=== PATIENT | female | born 2005 | race Caucasian/White ===

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

== ENCOUNTER 2025-06-28 11:30 | Outpatient (CLI) | payer BC, SELFPAY ==
[2025-06-28] VITALS (10 sets, daily range): PULSE 66–111; O2SAT 97–99; BMI 25.2
[2025-06-28 14:15] LABS: Color, Urine Yellow (Yellow); Glucose, Dipstick Normal (Normal); Ketone-Dipstick Negative (Negative); Leukocyte Esterase-Dipstick Negative /ul (Negative); Nitrite-Dipstick Negative (Negative); Occult Blood-Urine 50 /ul (Negative); Protein-Dipstick 15 mg/dl (Negative); Specific Gravity, Urine 1.010 (1.002-1.030); Urine Bilirubin Dipstick Negative (Negative)
== END 2025-06-28 16:40 | disposition home or self-care (01) ==
LOC: WPOUT 12:00 → WP 12:01
PROVIDERS: PCP Pediatrics; Referring Provider Obstetrics & Gynecology; Visit Provider Obstetrics & Gynecology
DX: O47.03 False labor before 37 completed weeks of gestation, third trimester (principal); Z3A.35 35 weeks gestation of pregnancy; Z79.82 Long term (current) use of aspirin
CPT/HCPCS: 59025; 59050; 81002; 87086; 87088; 87653; 99221; G0378

== ENCOUNTER 2025-07-20 19:41 | Outpatient (CLI) | payer BC, SELFPAY ==
[2025-07-20] VITALS (19 sets, daily range): BP systolic 128–133; BP diastolic 74–86; PULSE 74–108; RESP 18; TEMP 37.1; O2SAT 96–99; BMI 27.8
[2025-07-20 20:39] LABS: Color, Urine Yellow (Yellow); Glucose, Dipstick Normal (Normal); Ketone-Dipstick Negative (Negative); Leukocyte Esterase-Dipstick 25 /ul (Negative); Nitrite-Dipstick Negative (Negative); Occult Blood-Urine Negative /ul (Negative); Protein-Dipstick 15 mg/dl (Negative); Specific Gravity, Urine 1.015 (1.002-1.030); Urine Bilirubin Dipstick Negative (Negative)
[2025-07-20 21:03] LABS: ROM Internal Control Test YES-OK TO RESULT pt. (Internal QC); ROM Patient Test Negative (Negative); Record Kit Lot#, ROM+ K3607
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
== END 2025-07-20 21:30 | disposition home or self-care (01) ==
LOC: WPOUT 19:50 → WP 19:51
PROVIDERS: PCP Pediatrics; Visit Provider Obstetrics & Gynecology
DX: O47.1 False labor at or after 37 completed weeks of gestation (principal); Z3A.38 38 weeks gestation of pregnancy
CPT/HCPCS: 59025; 59050; 81002; 84112; 99221; G0378

== ENCOUNTER 2025-07-21 11:15 | Outpatient (CLI) | payer BC, SELFPAY ==
[2025-07-21 11:30] VITALS: BMI 27.3
[2025-07-21 14:07] VITALS: PULSE 126; O2SAT 96
[2025-07-21 14:12] VITALS: PULSE 121; O2SAT 96
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
== END 2025-07-21 12:10 | disposition home or self-care (01) ==
LOC: WPOUT 11:20 → WP 11:20
PROVIDERS: PCP Pediatrics; Visit Provider Obstetrics & Gynecology
DX: O47.1 False labor at or after 37 completed weeks of gestation (principal); Z3A.38 38 weeks gestation of pregnancy; Z79.82 Long term (current) use of aspirin
CPT/HCPCS: 59025; 59050; 99221; G0378

== ENCOUNTER 2025-07-29 19:20 | Inpatient (IN) | payer BC, SELFPAY ==
[2025-07-29 19:25] VITALS: BMI 27.1
--- OUTSIDE RECORDS SUMMARY | 2025-07-29 19:35 | XMS RPT_ITS | CCD ---
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 Baseline: 125-130 Variability:: Moderate Accelerations:: 15 x 15 Decelerations:: None and Late (questionable one late on monitor ) NST Reactive:: Yes FHR Category:: Category I Uterine Activity:: irregular Assessment Plan (1) False labor after 37 completed weeks of gestation: PLAN: Plan @ 38.6 weeks 1) NST reactive- however there is a questionable late- i called patient personally and will have her come back to for repeat NST- if at that point there are any concerns we will proceed with IOL 2) BPs wnl 3) ROM was negative 07/21/25 0821 D> Date Alexandra Rose MD Cosigner Signature (if applicable): Date CC: Dr Alexandra Rose MD; Dr. Rajani Peterson MD Signed Normal [facility] (ROM) Rupture Of Membraneson 07-20-2025 ROM Negative Normal Negative [facility] Comment on above: Result Comment: Amni otic fluid not present indicates No Rupture of Membranes at time of specimen collection. Performed By: #### L 205.1000 #### [facility] [address] [place], [address] Urinalysis, Routine (Dipstic k)on 07-20-2025 BILIRUBIN URINE Negative Normal Negative [facility] Comment on above: Order Comment: EDGAR CALLAHAN TO SPECIFY Performed By: #### L 400.2010 #### [facility] [address] [place], [address] Clarity (U) Sl. Cloudy Normal Clear [facility] Comment on above: Order Comment: EDGAR ABREUOR TO SPECIFY Performed By: #### L 400.2010 #### [facility] [address] [place], [address] Color (U) Yellow Normal Yellow [facility] Comment on above: Order Comment: EDGAR ABREUOR TO SPECIFY Performed By: #### L 400.2010 #### [facility] [address] [place], [address] GLUCOSE, UR Normal Normal Normal [facility] Comment on above: Order Comment: COLLE CTOR TO SPECIFY Performed By: #### L 400.2010 #### [facility] [address] [place], [address] KETONE UR Negative Normal Negative [facility] Comment on above: Order Comment: COLLE CTOR TO SPECIFY Performed By: #### L 400.2010 #### [facility] [address] [place], [address] LEUK ESTERASE 25 /ul Abnormal Negative [facility] Comment on above: Order Comment: COLLE CTOR TO SPECIFY Performed By: #### L 400.2010 #### [facility] [address] [place], [address] Nitrite Ql (U) Negative Normal Negative [facility] Comment on above: Order Comment: COLLE CTOR TO SPECIFY Performed By: #### L 400.2010 #### [facility] [address] [place], [address] OCCULT BLOOD-UR Negative Normal Negative [facility] Comment on above: Order Comment: COLLE CTOR TO SPECIFY Performed By: #### L 400.2010 #### [facility] [address] [place], [address] pH UR 7.0 Normal 5.0 - 8.0 [facility] Comment on above: Order Comment: COLLE CTOR TO SPECIFY Performed By: #### L 400.2010 #### [facility] [address] [place], [address] PROT DIPSTX 15 mg/dl Abnormal Negative [facility] Comment on above: Order Comment: COLLE CTOR TO SPECIFY Performed By: #### L 400.2010 #### [facility] [address] [place], [address] SP.GR. DIPSTX 1.015 Normal 1.002-1.030 [facility] Comment on above: Order Comment: COLLE CTOR TO SPECIFY Performed By: #### L 400.2010 #### [facility] [address] [place], [address] UROBILI Normal Normal Normal [facility] Comment on above: Order Comment: EDGAR CALLAHAN TO SPECIFY Performed By: #### L 400.2010 #### [facility] [address] [place], [address] CNPNon 07-19-2025 CNPN Telephone (OBGYWM) DAO VALDES ([id number]) 5 F Date Time Provider Department 07/19/25 ALEXANDRA MCLAUGHLIN OBGYW During your visit today, we recorded the following information about you: Yue Preciado RN 07/19/2025 4:22 PM Signed Patient is 38w4d. Calling in with multiple complaints. . Has noted itching on abdomen and feet x 2 weeks. Since last H.S, has noted rash on abdomen since last night. States it is "on fire". Has noted sharp random pains on abdomen. Occurs in various area-non specific. She rates the pain a 4-7 on pain scale. Has occurred over a few weeks but now much more. Happened 20-30 times since yesterday. They last 2 seconds to one minute. Has noted back pain back pain that is constant today. This pain has been going on for weeks but now it is radiating to the front. Baby active, No loss of fluids. Just completed second Iron infusion. Alexandra Mclaughlin MD 07/19/2025 4:27 PM Signed I would have her try OTC benadryl or other antihistamine to see if that helps the rash. She can also use Topical hydrocortisone on rash. So long as pain is not constant- or having regular ctx every 2-5min then have some pain can be normal. If vaginal bleeding or LOF go to [facility]. Follow up as scheduled next week. If rash still present she can go to Urgent care Yue Preciado RN 07/19/2025 4:38 PM Signed I called patient and gave her message. She will go to hospital if loss of fluids, bleeding, increased pain, decreased movement or PRN. Recommended patient get seen in Urgent care for rash since she has concerns. Allergies As of Date: 07/19/2025 (No Known Allergies) Date Reviewed: 07/18/2025 Reviewed by: Apolinar Hess LPN - Fully Assessed Prescriptions as of 07/19/2025 - ferrous gluconate 324 mg (37.5 mg iron) tablet Take 1 tablet by mouth every 48 hours. - aspirin, enteric coated (ECOTRIN LOW STRENGTH) 81 mg EC tablet Take 1 tablet by mouth once daily. - no115/iron/folic acid ( 19 ORAL) Take by mouth. 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] 11/03/2015 Sever's apophysitis [M92.60] 12/24/2016 09/07/2018 Chronic abdominal pain [R10.9, G89.29] 03/10/2018 01/18/2025 History of depression [Z86.59] 01/15/2019 Acute appendicitis with generalized peritonitis*03/12/2023 03/12/2023 Kidney stone [N20.0] 03/15/2023 01/18/2025 Colitis [K52.9] 03/15/2023 SHERLEY (acute kidney injury) [N17.9] 03/15/2023 01/03/2025 Right lower quadrant abdominal pain [R10.31] 03/15/2023 01/03/2025 Irritable bowel syndrome with diarrhea [K58.0] 01/03/2025 Nausea and vomiting during (HCC) [O21*01/03/2025 01/18/2025 Heartburn during in first trimester (*01/03/2025 Encounter for supervision of normal first pregn*01/03/2025 Anemia complicating , second trimester*05/08/2025 Positive GBS test [B95.1] 07/04/2025 Maternal iron deficiency anemia complicating pr*07/09/2025 Encounter Status:Closed by YUE PRECIADO on 07/19/25 Normal [facility] CNPKeshia 07-15-2025 CNPN Telephone (OBGYWM) DAO VALDES ([id number]) 5 F Date Time Provider Department 07/15/25 ALEXANDRA MCLAUGHLIN OBGYWM During your visit today, we recorded the following information about you: Kati Gant RN 07/15/2025 10:15 AM Addendum 38w0d Patient stopped by office after first iron infusion today. C/o occasional dizziness, "seeing stars" and cramping. States she sits down and feels better with dizziness/vision changes. Feels weak/tired and intermittently short of breath. No chest pain or abdominal pain. Does have intermittent headaches, but declines one today. States headaches always go away without needing tylenol. Having good movement. BP in infusion appt today 115/73. Hemoglobin 8.7, advised this can all be caused from anemia. I spoke to DM and she advised the same. Stated patient can be seen today if she chooses to though. I spoke to patient again and she wants to continue to monitor symptoms at home. Will go home rest and push fluids. She will call back if symptoms worsen or new ones develop such as headache that will not improve with tylenol, RUQ pain, bleeding, leaking fluid, decreased FM, regular contractions. Her next OB appt is 07/18/25 after her 2nd IV iron infusion. SARIAH Saleh Deidre, MD 07/15/2025 10:19 AM Signed Noted- again I am happy to see her if desired. But would rest/hydrate and continue with IV IRON therapy as scheduled. Change positions slowly and avoid standing/sitting for prolonged periods. Allergies As of Date: 07/15/2025 (No Known Allergies) Date Reviewed: 07/15/2025 Reviewed by: Steffany Bentley RN - Fully Assessed Reason for Visit: Question (OB Question) [5442] Prescriptions as of 07/15/2025 - ferrous gluconate 324 mg (37.5 mg iron) tablet Take 1 tablet by mouth every 48 hours. - aspirin, enteric coated (ECOTRIN LOW STRENGTH) 81 mg EC tablet Take 1 tablet by mouth once daily. - no115/iron/folic acid ( 19 ORAL) Take by mouth. 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] 11/03/2015 Sever's apophysitis [M92.60] 12/24/2016 09/07/2018 Chronic abdominal pain [R10.9, G89.29] 03/10/2018 01/18/2025 History of depression [Z86.59] 01/15/2019 Acute appendicitis with generalized peritonitis*03/12/2023 03/12/2023 Kidney stone [N20.0] 03/15/2023 01/18/2025 Colitis [K52.9] 03/15/2023 SHERLEY (acute kidney injury) [N17.9] 03/15/2023 01/03/2025 Right lower quadrant abdominal pain [R10.31] 03/15/2023 01/03/2025 Irritable bowel syndrome with diarrhea [K58.0] 01/03/2025 Nausea and vomiting during (HCC) [O21*01/03/2025 01/18/2025 Heartburn during in first trimester (*01/03/2025 Encounter for supervision of normal first pregn*01/03/2025 Anemia complicating , second trimester*05/08/2025 Positive GBS test [B95.1] 07/04/2025 Maternal iron deficiency anemia complicating pr*07/09/2025 Encounter Status:Closed by KATI GANT on 07/15/25 Normal [facility] Ferritin SerPl-mCncon 2024 Ferritin [Mass/Vol] 12.7 ng/mL Low 14.7-205.1 [facility] Comment on above: Order Comment: Speci men Type: BLOOD SPECIMENOrdering Facility: [facility] Address: [address] [place] [address] Performed By: #### 2 276-4, 19375-1 ####[facility] [id number] [place] [address] [place] Iron and Iron binding capaci ty panelon 07-06-2025 Iron [Mass/Vol] 23 ug/dL Low 41-186 [facility] Comment on above: Order Comment: Speci men Type: BLOOD SPECIMEN Ordering Facility: [facility] Address: [address] [place] [address] Performed By: #### 5 5454-3 #### [facility] CLIA [id number] [address] [place], [place] [address] [address] [place] Iron binding capacity [Mass/Vol] >523 High 232-386 [facility] Comment on above: Order Comment: Speci men Type: BLOOD SPECIMEN Ordering Facility: [facility] Address: [address] [place] [address] Performed By: #### 5 5454-3 #### [facility] CLIA [id number] [address] [place] [address] OF [facility] Iron/TIBC [Molar ratio] <4.4 Low 15.0-57.0 C [facility] Comment on above: Order Comment: Speci men Type: BLOOD SPECIMEN Ordering Facility: [facility] Address: [address] [place] [address] Performed By: #### 5 5454-3 #### [facility] CLIA [id number] [address] [place] [address] OF [facility] CNPKeshia 07-05-2025 CNPN Telephone (OBGYWM) DAO VALDES ([id number]) 5 F Date Time Provider Department 07/05/25 BRIAN VANESSA OBANNE-MARIE During your visit today, we recorded the following information about you: Taqueria Anguiano RN 07/05/2025 12:37 PM Signed Brian Vanessa MD to [facility] Ob-Chief Psychology Pool 07/05/25 11:27 AM Result Note REcommend blood management, IF fe SHERYL due to worsening anemia, 36 weeks. Brian Vanessa MD COMPLETE BLOOD COUNT AND DIFFERENTIAL Taqueria Anguiano RN 07/05/2025 12:37 PM Signed Blood management referral order placed. Ferritin AND Iron/TIBC orders placed as well as they need ordered within last 30 days. Please file AND will contact Pt to have completed SHERYL so IV iron appointments can get scheduled through blood management referral. SARIAH Galarza Tara, RN 07/05/2025 5:06 PM Signed Left message for Pt AND informed her that [employer] message will be sent to her. Advised her to call office on Tuesday as want to make sure Pt received message. SARIAH Galarza Tara, RN 07/08/2025 9:14 AM Signed 37w0d Stomach issues since last night." Pt did not report eating anything out of the ordinary that upset her stomach. .Denies vomiting. States diarrhea started around 11pm and has gone approximately 5 times. Denies chest pain, short of breath,light headedness, dizziness at this time. Pt states trying to stay hydrated. Reviewed with Pt that she should try drinking gatorade or add liquid IV to her drinks for electrolyte replacement to prevent dehydration. Pt does report Intermittent shortness of breath and dizziness-stating it is random, but mainly when changing positions. Advised Pt that when changing positions the dizziness can be somewhat normal if done quickly, but to get up slowly, but the shortness of breath could also be due to her anemia, but if continues or worsens she needs to go to ER. Active movement- reviewed importance of monitoring for 6-10 kick counts per hour and to notify office if decreased. Pt does not report regular contractions, states intermittent reyes lo and advised Pt once again to stay hydrated as this will help. Also advised Pt to call office/go to ER if LOF AND regular contractions noted. Advised Pt that her chart will be forwarded to blood management to expedite IV iron infusions sheryl. [employer] message sent to Pt re: what to take for diarrhea. SARIAH Galarza Sara, MD 07/08/2025 12:13 PM Signed Noted thanks agree with electrolyte drinks and bland diet. ER for persistent Shortness of Breath, dizziness, syncope, inability to tolerate PO for 24 hrs or more. Grisel Elias 07/09/2025 1:02 PM Signed Pt called to schedule blood management order. When scheduling it states to schedule with [facility] and Virtual only. Also first available is not til Aug 13 . Please advise, not sure if a different order needs to be placed. Thank you Dorcas Delgado RN 07/09/2025 2:23 PM Signed Called and notified patient that per message from blood management nurse, they will forgo the virtual visit and do a orders only encounter for the infusions. Patient was made aware that someone will reach out to her to schedule the infusions. Patient has OB visit on 07/11. She will give us an update at that time. Dorcas Delgado RN Allergies As of Date: 07/05/2025 (No Known Allergies) Date Reviewed: 07/04/2025 Reviewed by: Yuko Reddy MA - Fully Assessed Reason for Visit: Blood management referral [Other] Primary Visit Diagnosis:Anemia complicating , third trimester (HCC) [O99.013] Order(s):BLOOD MANAGEMENT REFERRAL [[id number]] Order #: [id number]: 1 FERRITIN [SQFERR] Order #: [id number] FUTURE IRON AND TIBC [SQIRON] Order #: [id number] FUTURE Prescriptions as of 07/09/2025 - ferrous gluconate 324 mg (37.5 mg iron) tablet Take 1 tablet by mouth every 48 hours. - aspirin, enteric coated (ECOTRIN LOW STRENGTH) 81 mg EC tablet Take 1 tablet by mouth once daily. - no115/iron/folic acid ( 19 ORAL) Take by mouth. 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 Normal [facility] Bacteria Ur Culton Bacteria identified Cx Nom (U) ORGANISM ID: 1 10,000 -<50,000 CFU/ml Normal urogenital pallavi Normal [facility] Comment on above: Performed By: #### 6 30-4 ####[facility] [id number] [address] [place] CBC W Auto Differential pane l (Bld)on 07-04-2025 Basophils (Bld) [#/Vol] 0.03 10*3/uL Normal <0.11 [facility] Comment on above: Order Comment: Speci men Type: BLOOD SPECIMEN Ordering Facility: [facility] Address: [address] [place] [address] Performed By: #### 5 7021-8 #### [facility] CLIA [id number] [address] [place] [address] [place] Basophils/100 WBC (Bld) 0.3 % Normal C [facility] Comment on above: Order Comment: Speci men Type: BLOOD SPECIMEN Ordering Facility: [facility] Address: [address] [place] [address] Performed By: #### 5 7021-8 #### [facility] CLIA [id number] [address] [place] [address] [place] Differential cell count method Nom (Bld) Auto Normal [facility] Comment on above: Order Comment: Speci men Type: BLOOD SPECIMEN Ordering Facility: [facility] Address: [address] [place] [address] Performed By: #### 5 7021-8 #### [facility] CLIA [id number] [address] [place] [address] [place] Eosinophils (Bld) [#/Vol] 0.04 10*3/uL Normal <0.46 [facility] Comment on above: Order Comment: Speci men Type: BLOOD SPECIMEN Ordering Facility: [facility] Address: [address] [place] [address] Performed By: #### 5 7021-8 #### [facility] CLIA [id number] [address] [place] [address] [place] Eosinophils/100 WBC (Bld) 0.4 % Normal [facility] Comment on above: Order Comment: Speci men Type: BLOOD SPECIMEN Ordering Facility: [facility] Address: [address] [place] [address] Performed By: #### 5 7021-8 #### [facility] CLIA [id number] [address] [place] [address] [place] Erythrocyte distribution width (RBC) [Ratio] 13.3 % Normal 11.5-15.0 [facility] Comment on above: Order Comment: Speci men Type: BLOOD SPECIMEN Ordering Facility: [facility] Address: [address] [place], [place] [address] Performed By: #### 5 7021-8 #### [facility] CLIA [id number] [address] [place] [address] [place] Hematocrit (Bld) [Volume fraction] 26.0 % Low 36.0-46.0 [facility] Comment on above: Order Comment: Speci men Type: BLOOD SPECIMEN Ordering Facility: [facility] Address: [address] [place] [address] Performed By: #### 5 7021-8 #### [facility] CLIA [id number] [address] [place] [address] [place] Hemoglobin (Bld) [Mass/Vol] 8.7 g/dL Low 11.5-15.5 [facility] Comment on above: Order Comment: Speci men Type: BLOOD SPECIMEN Ordering Facility: [facility] Address: [address] [place] [address] Performed By: #### 5 7021-8 #### [facility] CLIA [id number] [address] [place] [address] [place] Immature granulocytes (Bld) [#/Vol] 0.14 10*3/uL High <0.10 [facility] Comment on above: Order Comment: Speci men Type: BLOOD SPECIMEN Ordering Facility: [facility] Address: [address] [place] [address] Performed By: #### 5 7021-8 #### [facility] CLIA [id number] [address] [place] [address] [place] Immature granulocytes/100 WBC (Bld) 1.3 % Normal [facility] Comment on above: Order Comment: Speci men Type: BLOOD SPECIMEN Ordering Facility: [facility] Address: [address] [place] [address] Performed By: #### 5 7021-8 #### [facility] CLIA [id number] [address] [place] [address] [place] Lymphocytes (Bld) [#/Vol] 1.57 10*3/uL Normal 1.00-4.00 [facility] Comment on above: Order Comment: Speci men Type: BLOOD SPECIMEN Ordering Facility: [facility] Address: [address] [place] [address] Performed By: #### 5 7021-8 #### [facility] CLIA [id number] [address] [place] [address] [place] Lymphocytes/100 WBC (Bld) 14.4 % Normal [facility] Comment on above: Order Comment: Speci men Type: BLOOD SPECIMEN Ordering Facility: [facility] Address: [address] [place] [address] Performed By: #### 5 7021-8 #### [facility] CLIA [id number] [address] [place] [address] [place] MCH (RBC) [Entitic mass] 25.6 pg Low 26.0-34.0 [facility] Comment on above: Order Comment: Speci men Type: BLOOD SPECIMEN Ordering Facility: [facility] Address: [address] [place] [address] Performed By: #### 5 7021-8 #### [facility] CLIA [id number] [address] [place] [address] [place] MCHC (RBC) [Mass/Vol] 33.5 g/dL Normal 30.5-36.0 [facility] Comment on above: Order Comment: Speci men Type: BLOOD SPECIMEN Ordering Facility: [facility] Address: [address] [place] [address] Performed By: #### 5 7021-8 #### [facility] CLIA [id number] [address] [place] [address] [place] MCV (RBC) [Entitic vol] 76.5 fL Low 80.0-100.0 C [facility] Comment on above: Order Comment: Speci men Type: BLOOD SPECIMEN Ordering Facility: [facility] Address: [address] [place] [address] Performed By: #### 5 7021-8 #### [facility] CLIA [id number] [address] [place] [address] [place] Monocytes (Bld) [#/Vol] 0.74 10*3/uL Normal <0.87 [facility] Comment on above: Order Comment: Speci men Type: BLOOD SPECIMEN Ordering Facility: [facility] Address: [address] [place] [address] Performed By: #### 5 7021-8 #### [facility] [id number] [address] [place] [address] [place] Monocytes/100 WBC (Bld) 6.8 % Normal C [facility] Comment on above: Order Comment: Speci men Type: BLOOD SPECIMEN Ordering Facility: [facility] Address: [address] [place] [address] Performed By: #### 5 7021-8 #### [facility] CLIA [id number] [address] [place] [address] [place] Neutrophils (Bld) [#/Vol] 8.41 10*3/uL High 1.45-7.50 [facility] Comment on above: Order Comment: Speci men Type: BLOOD SPECIMEN Ordering Facility: [facility] Address: [address] [place] [address] Performed By: #### 5 7021-8 #### [facility] CLIA [id number] [address] [place] [address] [place] Neutrophils/100 WBC (Bld) 76.8 % Normal [facility] Comment on above: Order Comment: Speci men Type: BLOOD SPECIMEN Ordering Facility: [facility] Address: [address] [place] [address] Performed By: #### 5 7021-8 #### [facility] CLIA [id number] [address] [place] [address] [place] Nucleated RBC (Bld) [#/Vol] 10*3/uL Normal <0.01 [facility] Comment on above: Order Comment: Speci men Type: BLOOD SPECIMEN Ordering Facility: [facility] Address: [address] [place] [address] Performed By: #### 5 7021-8 #### [facility] CLIA [id number] [address] [place] [address] [place] Nucleated RBC/100 WBC (Bld) [Ratio] 0.0 /100 WBC Normal [facility] Comment on above: Order Comment: Speci men Type: BLOOD SPECIMEN Ordering Facility: [facility] Address: [address] [place] [address] Performed By: #### 5 7021-8 #### [facility] CLIA [id number] [address] [place] [address] [place] Platelet mean volume (Bld) [Entitic vol] 11.2 fL Normal 9.0-12.7 [facility] Comment on above: Order Comment: Speci men Type: BLOOD SPECIMEN Ordering Facility: [facility] Address: [address] [place] [address] Performed By: #### 5 7021-8 #### [facility] CLIA [id number] [address] [place] [address] [place] Platelets (Bld) [#/Vol] 228 10*3/uL Normal 150-400 [facility] Comment on above: Order Comment: Speci men Type: BLOOD SPECIMEN Ordering Facility: [facility] Address: [address] [place] [address] Performed By: #### 5 7021-8 #### [facility] CLIA [id number] [address] [place] [address] [place] RBC (Bld) [#/Vol] 3.40 10*6/uL Low 3.90-5.20 [facility] Comment on above: Order Comment: Speci men Type: BLOOD SPECIMEN Ordering Facility: [facility] Address: [address] [place] [address] Performed By: #### 5 7021-8 #### [facility] CLIA [id number] [address] [place] [address] [place] WBC (Bld) [#/Vol] 10.93 10*3/uL Normal 3.70-11.00 [facility] Comment on above: Order Comment: Speci men Type: BLOOD SPECIMEN Ordering Facility: [facility] Address: [address] [place] [address] Performed By: #### 5 7021-8 #### [facility] CLIA [id number] [address] [place] [address] [place] Urine Cultureon 07-01-2025 [facility] Urine Culture Urine Culture Mixed Gram Positive Organisms Bend Count 80,000-100,000 MIXC Mixed contaminants. Submit a new specimen if indicated. Normal [facility] Comment on above: Performed By: #### M 100.8880 #### [facility] [address] [place], [address] OB Triage Physician Noteon 1 OB Triage Physician Note [facility] Medical Records Department [address] [place] [address] OB Triage Physician Note 06/29/25 1024 MR#: [id number] Acct: [id number] Name: DAO VALDES Rep #: [id number] : 2005 20 From: Vaishnavi Bustos DO PCP: Dr. Rajani Peterson MD Status:DEP CLI Y Location: [facility] HPI - General General Date of Admission: 06/28/25 Date of Service: 06/28/25 Chief Complaint: pain HPI Narrative DAO VALDES, is a 20 F who presents at 35w4d with pain. She states for weeks she has had pelvic cramping,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 Normal but not required for a standard anatomy exam Lens: Normal but not required for a standard anatomy exam 4-chamber view: normal RVOT view: normal LVOT view: normal 3-vessel view: normal 1-uxcudh-ndjgerq view: normal Heart / Thorax Situs: situs solitus (normal) Aortic arch view: Normal but not required for a standard anatomy exam SVC: Normal but not required for a standard anatomy exam IVC: Normal but not required for a standard anatomy exam Cardiac axis: normal Rt lung: Normal but not required for a standard anatomy exam Lt lung: Normal but not required for a standard anatomy exam Diaphragm: normal Cord insertion: normal Stomach: normal Kidneys: normal Bladder: normal Genitals: normal Abdomen Abdom. wall: normal Cervical spine: normal Thoracic spine: normal Lumbar spine: normal Sacral spine: normal Arms: normal Legs: normal Rt upper arm: normal Rt forearm: normal Rt hand: normal Rt fingers: normal Lt upper arm: normal Lt forearm: normal Lt hand: normal Lt fingers: normal Rt upper leg: normal Rt lower leg: normal Rt foot: normal Lt upper leg: normal Lt lower leg: normal Lt foot: normal sex: male Wants to know sex: yes Maternal Structures Uterus / Cervix Uterus: Visualized Cervix: Visualized Approach: Transabdominal Cervical length 35.2 mm Other: Patient declined transvaginal ultrasound for cervical length. Ovaries / Tubes / Adnexa Rt ovary: Visualized Lt ovary: Visualized Performed By: Katiuska Barahona RDMS, RVT Read By: Hyun Guillen M.D. MATERNAL MEDICINE [facility] Radiology Study observation (narrative) Ilir fox [facility] 36on 03-09-2025 36 S: Patient 19 wks sp tawana with [facility] nurse regarding lower back back pain B: Onset of symptoms/concern ongoing A: Patient of [facility] in [place] called provider earlier this week with the same concerns. Unsure of her doctor's name, sees multiple in case of delivering with one. States that the office is currently closed so she googled the number for [facility]. R: Advised the patient to call her provider. Per chart patient saw JUANY Rosario in [place] on 02/15. Patient understands care advice. No further needs at this time. Patient instructed to call back with new or worsening symptoms. Reason for Disposition [1] Caller requests to speak ONLY to PCP AND [2] URGENT question Protocols used: PCP Call - No [id number] [facility] 02-28-2025 CNPN Telephone (OBGYWM) DAO VALDES ([id number]) 5 F Date Time Provider Department 02/28/25 VAISHNAVI BUSTOS OBGYWM During your visit today, we recorded the following information about you: Kati Gant, RN 02/28/2025 10:36 AM Signed 18w3d Calling c/o pain in lower rib cage/upper abdomen bilaterally. Noticed it first about 2 days ago and hasn't gotten any worse or better since it started. Hasn't taken any Tylenol. Rating 7-8/10 on pain scale when up and moving, but when sitting/laying down very minimal if any pain. Feels stretching/pulling with movement and deep breaths, but no shortness of breath or chest pain with it. Soreness feeling on both sides with palpation. No vaginal bleeding, cramping or other concerns. Advised to take tylenol as needed, try heating pad to rib cage/back if radiating and try stretching to help. Please advise. SARIAH Saleh Sara, MD 02/28/2025 3:04 PM Signed Sounds like MSK pain. Agree with Tylenol and heat PRN. To be evaluated if she has other symptoms associated with it (N/V with inability to tolerate PO, vb, lof, fevers) or if pain is severe and not improved with Tylenol Dorcas Delgado RN 02/28/2025 3:14 PM Signed Patient notified. Voiced understanding. SARIAH Parisi Tara, RN 03/05/2025 11:48 AM Addendum 19w1d Pt calling as she wants her appt moved sooner. Pt states she has felt some movement before-but last few days has not felt much, stating this is scaring her. Explained to patient that some patients don't fully feel movement until 22 weeks and it could be due to being active. Advised Pt to continue to monitor and keep track of when she notices the movement. Advised to monitor for vaginal bleeding/abdominal pain as Pt denies at this time. Pt states she is also worried because she hasn't gained much weight and wants to know if this is concerning. Advised Pt that as long as she is eating/drinking and able to keep it all down without difficulty, that it is not of concern at this time and will be discussed at her upcoming appointment. Pt states she was also doing yard work the other day and is wanting to know if she should be concerned- as she was around weed killer (Pt states had nozzle in hand, but did not touch spray). Advised Pt that we are exposed to a lot in the environment that cannot be avoided; however, it would be recommended that she avoid using the weed killer. Pt voiced understanding. Pt has Anatomy/OB appt 03/15/25. Advised Pt to call office anytime with question/concerns. Please advise if Pt needs sooner appt for above concerns. SARIAH Galarza Rebecca L, MD 03/05/2025 2:45 PM Signed noted, agree, if needs seen to check fhts we can do that but ok to wait for appt. MD Sandhya Webb Trisha, RN 03/05/2025 4:00 PM Signed Patient notified. Kati Gant RN Allergies As of Date: 02/28/2025 (No Known Allergies) Date Reviewed: 02/15/2025 Reviewed by: Zia Javier MA - Fully Assessed Reason for Visit: Question (OB Question) [4062] Prescriptions as of 03/05/2025 - aspirin, enteric coated (ECOTRIN LOW STRENGTH) 81 mg EC tablet Take 1 tablet by mouth once daily. - no115/iron/folic acid ( 19 ORAL) Take by mouth. 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] 11/03/2015 Sever's apophysitis [M92.60] 12/24/2016 09/07/2018 Chronic abdominal pain [R10.9, G89.29] 03/10/2018 01/18/2025 History of depression [Z86.59] 01/15/2019 Acute appendicitis with generalized peritonitis*03/12/2023 03/12/2023 Kidney stone [N20.0] 03/15/2023 01/18/2025 Colitis [K52.9] 03/15/2023 SHERLEY (acute kidney injury) [N17.9] 03/15/2023 01/03/2025 Right lower quadrant abdominal pain [R10.31] 03/15/2023 01/03/2025 Irritable bowel syndrome with diarrhea [K58.0] 01/03/2025 Nausea and vomiting during (HCC) [O21*01/03/2025 01/18/2025 Heartburn during in first trimester (*01/03/2025 Encounter for supervision of normal first pregn*01/03/2025 Encounter Status:Closed by DORCAS DELGADO on 02/28/25 Normal [facility] CARRIER SCREEN, STANDARDon 0 02-15-2025 CARRIER SCREEN RESULTS View results in S canned Documents link when available. Normal [facility] Comment on above: Order Comment: Speci men Type: BLOOD SPECIMENOrdering Facility: [facility] Address: [address] [place] [address] Performed By: #### C RRSCN ####MYRIADCLIA [id number] [place] [address] [id number] PLUSon 02-15-2025 Cell-free DNA./Cell-free DNA.total Dosage of chromosome-specific cfDNA (cfDNA) [Molar fraction] 23% Normal [facility] Comment on above: Order Comment: Speci men Type: BLOOD SPECIMENOrdering Facility: [facility] Address: [address] [place] [address] Performed By: #### M AT21 ####[facility] LABCLIA [id number] [place] [address] Chr 13+18+21+X+Y aneuploidy Dosage of chromosome-specific cfDNA Ql (cfDNA) Negative Normal [facility] Comment on above: Order Comment: Speci men Type: BLOOD SPECIMENOrdering Facility: [facility] Address: [address] [place] [address] Performed By: #### M AT21 ####[facility] LABCLIA [id number] [place] [address] Chr 21 trisomy Dosage of chromosome-specific cfDNA Ql (cfDNA) Negative Normal [facility] Comment on above: Order Comment: Speci men Type: BLOOD SPECIMENOrdering Facility: [facility] Address: [address] [place] [address] Performed By: #### M AT21 ####[facility] LABCLIA [id number] [place] [address] Chr X and Y aneuploidy risk Sequencing Ql (cfDNA) [Interp] Not detected Normal [facility] Comment on above: Order Comment: Speci men Type: BLOOD SPECIMENOrdering Facility: [facility] Address: [address] [place] [address] Result Comment: Not Detected Not Detected Performed By: #### M AT21 ####[facility] LABCLIA [id number] [place] [id number] Citation Jacek (Reference lab test) Comment Normal [facility] Comment on above: Order Comment: Speci men Type: BLOOD SPECIMENOrdering Facility: [facility] Address: [address] [place] [address] Result Comment: 1. P logan STONE, et al. Consuelo Med. 2012;14(3):296-305. 2. Kelsie HARRIS, et al. Prenat Diag. 2013;33(6):591-597. 3. Brando C, et al. Clin Chem. 2015 Apr;61(4):608-616. 4. Baldev STONE, et al. Consuelo Med. 2011;13(11):913-920. 5. ACOG/SMFM Practice Bulletin No. 226, Jun 2020. Performed By: #### M AT21 ####[facility] LABCLIA [id number] [place] [address] Gestational age Estimated from conception date Simms Normal [facility] Comment on above: Order Comment: Speci men Type: BLOOD SPECIMENOrdering Facility: [facility] Address: [address] [place] [address] Performed By: #### M AT21 ####[facility] LABCLIA [id number] [place] [address] GESTATIONALAGE AGE > OR = 9W Yes Normal [facility] Comment on above: Order Comment: Speci men Type: BLOOD SPECIMENOrdering Facility: [facility] Address: [address] [place] [address] Performed By: #### M AT21 ####[facility] LABCLIA [id number] [place] [address] Laboratory comment Jacek (Report) Comment Normal [facility] Comment on above: Order Comment: Grayson morin Type: BLOOD SPECIMENOrdering Facility: [facility] Address: [address] [place] [address] Result Comment: The MaterniT(R) 21 PLUS laboratory-developed test (LDT) analyzes circulating cell-free DNA from a maternal blood sample. This test is used for screening purposes and not diagnostic. Clinical correlation is recommended. Validation data on twin pregnancies is limited and the ability of this test to detect aneuploidy in higher multiple gestations has not yet been validated. Performed By: #### M AT21 ####Hotreader LABAquapdesignsIA [id number] [place] [id number] director export name Nom (Provider) Comment Normal [facility] Comment on above: Order Comment: Grayson morin Type: BLOOD SPECIMENOrdering Facility: [facility] Address: [address] [place] [address] Result Comment: This specimen showed an expected representation of chromosome 21, 18 and 13 material. Clinical correlation is suggested. Comment Myke Corral MD, PhD, Director, [employer] Performed By: #### M AT21 ####CytoValeIA [id number] [place] [address] LIMITATIONS OF THE TEST Comment Normal [facility] Comment on above: Order Comment: Grayson morin Type: BLOOD SPECIMENOrdering Facility: [facility] Address: [address] [place] [address] Result Comment: Stephanie waller the results of these tests are highly reliable, discordant results, including inaccurate sex prediction, may occur due to placental, maternal, or mosaicism or neoplasm; vanishing twin; prior maternal organ transplant; or other causes. These tests are screening tests and not diagnostic; they do not replace the accuracy and precision of diagnosis with CVS or amniocentesis. A patient with a positive test result should be referred for genetic counseling and offered invasive diagnosis for confirmation of test results.[5] The results of this testing, including the benefits and limitations, should be discussed with a qualified healthcare provider. management decisions, including termination of the , should not be based on the results of these tests alone. The healthcare provider is responsible for the use of this information in the management of their patient. Sex chromosomal aneuploidies are not reportable for known multiple gestations. A negative result does not ensure an unaffected nor does it exclude the possibility of other chromosomal abnormalities or defects which are not a part of these tests. An uninformative result may be reported, the causes of which may include, but are not limited to, insufficient sequencing coverage, noise or artifacts in the region, amplification or sequencing bias, or insufficient fraction. These tests are not intended to identify pregnancies at risk for neural tube defects or ventral wall defects. Testing for whole chromosome abnormalities (including sex chromosomes) and for subchromosomal abnormalities could lead to the potential discovery of both and maternal genomic abnormalities that could have major, minor, or no, clinical significance. Evaluating the significance of a positive or a non-reportable result may involve both invasive testing and additional studies on the mother. Such investigations may lead to a diagnosis of maternal chromosomal or subchromosomal abnormalities, which on occasion may be associated with benign or malignant maternal neoplasms. These tests may not accurately identify triploidy, balanced rearrangements, or the precise location of subchromosomal duplications or deletions; these may be detected by diagnosis with CVS or amniocentesis. The ability to report results may be impacted by maternal BMI, maternal weight, maternal systemic lupus erythematosus (SLE) and/or by certain pharmaceutical agents such as low molecular weight heparin (for example: Lovenox(R), Xaparin(R), Clexane(R) and Fragmin(R)). Performed By: #### M AT21 ####CytoValeIA [id number] [place] [address] Monosomy X risk Dosage of chromosome-specific cfDNA Ql (Plasma cell-free+WBC DNA) [Interp] Not detected Normal [facility] Comment on above: Order Comment: Speci men Type: BLOOD SPECIMENOrdering Facility: [facility] Address: [address] [place] [address] Performed By: #### M AT21 ####[facility] LABCLIA [id number] [place] [address] NEGATIVE PREDICTIVE VALUE Note Normal [facility] Comment on above: Order Comment: Grayson morin Type: BLOOD SPECIMENOrdering Facility: [facility] Address: [address] [place] [id number] Result Comment: The Negative Predictive Value (NPV) for trisomy 21, 18, and 13 is greater than 99%. The NPV for SCA and ESS cannot be calculated as SCA and ESS are only reported when an abnormality is detected. Performed By: #### M AT21 ####[facility]UNIV[facility] [id number] [place] [address] PERFORMANCE CHARACTERISTICS Note Normal [facility] Comment on above: Order Comment: Grayson morin Type: BLOOD SPECIMENOrdering Facility: [facility] Address: [address] [place] [address] Result Comment: ! Sex ! Accuracy: 99.4% ! ! ! ! Region (associated syndrome) ! Est. Sens# ! Est. Spec ! ! ! ! Trisomy 21 (Down Syndrome) ! 99.1% ! 99.9% ! ! ! ! Trisomy 18 (Olivares Syndrome) ! >99.9% ! 99.6% ! ! ! ! Trisomy 13 (Patau Syndrome) ! 91.7% ! 99.7% ! ! ! ! Sex Chromosome Aneuploidies## ! 96.2% ! 99.7% ! ! ! * As reported in [facility] database nstd37 [https://www.ncbi.nlm.nih.gov/dbvar/studies/nstd37/ ] # Estimated Sensitivity. Sensitivity estimated across the observed size distribution of each syndrome [per [facility] database nstd37] and across the range of fractions observed in routine clinical NIPT. Actual sensitivity can also be influenced by other factors such as the size of the event, total sequence counts, amplification bias, or sequence bias. ## Simms gestation only. Performed By: #### M AT21 ####[facility] LABCLIA [id number] [place] [address] POSITIVE PREDICTIVE VALUE N/A Normal [facility] Comment on above: Order Comment: Grayson morin Type: BLOOD SPECIMENOrdering Facility: [facility] Address: [address] [place] [address] Performed By: #### M AT21 ####[facility] LABCLIA [id number] [place] [address] Reference Lab Test Method Comment Normal [facility] Comment on above: Order Comment: Grayson morin Type: BLOOD SPECIMENOrdering Facility: [facility] Address: [address] [place] [address] Result Comment: See Notes Circulating cell-free DNA was purified from the plasma component of maternal blood. The extracted DNA was then converted into a genomic DNA library for aneuploidy analysis of chromosomes 21, 18, and 13 via next generation sequencing.[1] Optional findings based on the test order include sex chromosome aneuploidy (SCA)[2], and enhanced sequencing series (ESS)[3], which will only be reported on as an additional finding when an abnormality is detected. SCA testing includes information on X and Y representation, while ESS testing includes deletions in selected regions (22q, 15q, 11q, 8q, 5p, 4p, 1p) and trisomy of chromosomes 16 and 22. Performed By: #### M AT21 ####[facility] LABCLIA [id number] [place] [address] Service comment (Unsp spec) [Interp] Comment Normal [facility] Comment on above: Order Comment: Speci men Type: BLOOD SPECIMENOrdering Facility: [facility] Address: [address] [place] [address] Result Comment: See Notes [employer] is a subsidiary of [employer], using the brand [employer]. This test was developed and its performance characteristics determined by [employer]. It has not been cleared or approved by the Food and Drug Administration. This laboratory is certified under the Clinical Laboratory Improvement Amendments (CLIA) as qualified to perform high complexity clinical laboratory testing and accredited by the [employer] ([employer]). If there is future clinical need for adding MaterniT GENOME testing, this specimen will be available until term. [facility] samples will not be retained beyond 60 days. [facility] patients will have to send a new sample for re-sequencing ([facility] Test Code: [id number]). Performed By: #### M AT21 ####[facility] LABCLIA [id number] [place] [address] Sex Dosage of chromosome-specific cfDNA Nom (cfDNA) Comment Normal [facility] Comment on above: Order Comment: Speci men Type: BLOOD SPECIMENOrdering Facility: [facility] Address: [address] [place] [address] Result Comment: Cons istent with Male Performed By: #### M AT21 ####[facility] LABCLIA [id number] [place] [address] Test performance information Jacek (Unsp spec) Comment Normal [facility] Comment on above: Order Comment: Grayson morin Type: BLOOD SPECIMENOrdering Facility: [facility] Address: [address] [place] [address] Result Comment: The performance characteristics of the MaterniT(R) 21 PLUS laboratory-developed test (LDT) have been determined in a clinical validation study with women at increased risk for chromosomal aneuploidy.[1-4] Performed By: #### M AT21 ####[facility] LABCLIA [id number] [place] [address] Trisomy 13 risk Dosage of chromosome-specific cfDNA Ql (cfDNA) [Interp] Negative Normal [facility] Comment on above: Order Comment: Grayson morin Type: BLOOD SPECIMENOrdering Facility: [facility] Address: [address] [place] [address] Performed By: #### M AT21 ####[facility] LABCLIA [id number] [place] [address] Trisomy 18 risk Dosage of chromosome-specific cfDNA Ql (Plasma cell-free+WBC DNA) [Interp] Negative Normal [facility] Comment on above: Order Comment: Grayson morin Type: BLOOD SPECIMENOrdering Facility: [facility] Address: [address] [place] [address] Performed By: #### M AT21 ####[facility] LABCLIA [id number] [place] [address] Examination level ultrasound on 01-17-2025 Indication First trimester anatomic survey Impression The patient is referred for a first trimester anatomy scan including nuchal translucency measurement as clinically indicated. - Single, live, intrauterine . - Stevens rump length measurement is consistent with the established gestational age. - No malformations visualized on a complete first trimester anatomic assessment. - The nuchal translucency measurement is 1.5 mm. - Not all structural malformations can be detected by ultrasound examination. Maternal Structures: Right Ovary: Size 31 mm x 23 mm x 18 mm Left Ovary: Size 25 mm x 21 mm x 14 mm Recommendations Return for anatomy ultrasound Maternal Assessment Height 150 cm Height (ft) 4 ft Height (in) 11 in Physical Exam Initial weight (lb) 99 lb Initial BMI 20.00 kg/m Maternal assessment other: 1 Para 0 REMOTE READ Method Transabdominal ultrasound examination Simms . Number of fetuses: 1 Dating LMP on: 10/22/2024 GA by LMP 12 w + 3 d SHAHLA by LMP: 07/29/2025 GA by prior assessment 12 w + 3 d SHAHLA by prior assessment: 07/29/2025 Ultrasound examination on: 01/17/2025 GA by U/S based upon: CRL GA by U/S 12 w + 0 d SHAHLA by U/S: 08/01/2025 Assigned: based on stated SHAHLA, selected on 01/17/2025 Assigned GA 12 w + 3 d Assigned SHAHLA: 07/29/2025 General Evaluation Cardiac activity present Placenta: posterior Cord vessels: 3 vessel cord Amniotic fluid: normal amount Biometry Standard FHR 171 bpm CRL 52.7 mm 12w 0d 8% Hadlock NT 1.50 mm First Trimester Anatomy Calvarium: normal Falx cerebri: normal Choroid plexus: normal Profile: normal Nasal bone: normal Retronasal triangle: normal Maxilla: normal Mandible: normal Nuchal translucency: Unremarkable Situs: normal Cardiac position: normal Cardiac axis: normal 4-chamber view: visualized 4-chamber view with color: visualized [id number] view: visualized Abdominal cord insertion: normal Stomach: normal Kidneys: normal Bladder: normal Color doppler of perivesical umbilical arteries: normal Vertebral alignment: normal Arms: normal Hands: normal Legs: normal Feet: normal Maternal Structures Uterus / Cervix Uterus: Visualized Uterus length 113 mm Uterus width 86 mm Uterus height 68 mm Uterus Vol 346.1 cm Ovaries / Tubes / Adnexa Rt ovary: Visualized Rt ovary D1 31 mm Rt ovary D2 23 mm Rt ovary D3 18 mm Rt ovary Vol 6.6 cm Lt ovary: Visualized Lt ovary D1 25 mm Lt ovary D2 21 mm Lt ovary D3 14 mm Lt ovary Vol 3.8 cm Performed By: Katiuska Barahona RDMS, RVT Read By: Hyun Guillen M.D. MATERNAL MEDICINE [facility] Radiology Study observation (narrative) Ilir fox [facility] CBC W Auto Differential pane l (Bld)on 01-03-2025 Basophils (Bld) [#/Vol] 0.03 10*3/uL Normal <0.11 [facility] Comment on above: Order Comment: Speci men Type: BLOOD SPECIMEN [facility] Address: [address] [place] [address] Performed By: #### 5 5454-3 #### [facility] CLIA [id number] [place] [address] [place] Basophils/100 WBC (Bld) 0.3 % Normal [facility] Comment on above: Order Comment: Speci men Type: BLOOD SPECIMEN Ordering Facility: [facility] Address: [address] [place] [address] Performed By: #### 5 5454-3 #### [facility] CLIA [id number] [address] [place] [address] [place] Differential cell count method Nom (Bld) Auto Normal [facility] Comment on above: Order Comment: Speci men Type: BLOOD SPECIMEN [facility]ing [facility]: [facility] Address: [address] [place] [address] Performed By: #### 5 5454-3 #### [facility] CLIA [id number] [address] [place] [address] [place] Eosinophils (Bld) [#/Vol] 0.06 10*3/uL Normal <0.46 [facility] Comment on above: Order Comment: Speci men Type: BLOOD SPECIMEN Ordering [facility]: [facility] Address: [address] [place] [address] Performed By: #### 5 5454-3 #### [facility] CLIA [id number] [address] [place] [address] [place] Eosinophils/100 WBC (Bld) 0.6 % Normal [facility] Comment on above: Order Comment: Speci men Type: BLOOD SPECIMEN Ordering [facility]: [facility] Address: [address] [place] [address] Performed By: #### 5 5454-3 #### [facility] CLIA [id number] [address] [place] [address] [place] Erythrocyte distribution width (RBC) [Ratio] 12.7 % Normal 11.5-15.0 [facility] Comment on above: Order Comment: Speci men Type: BLOOD SPECIMEN Ordering [facility]: [facility] Address: [address] [place] [address] Performed By: #### 5 5454-3 #### [facility] CLIA [id number] [address] [place] [address] [place] Hematocrit (Bld) [Volume fraction] 34.9 % Low 36.0-46.0 [facility] Comment on above: Order Comment: Speci men Type: BLOOD SPECIMEN Ordering [facility]: [facility] Address: [address] [place] [address] Performed By: #### 5 5454-3 #### [facility] CLIA [id number] [address] [place] [address] [place] Hemoglobin (Bld) [Mass/Vol] 12.4 g/dL Normal 11.5-15.5 [facility] Comment on above: Order Comment: Speci men Type: BLOOD SPECIMEN Ordering [facility]: [facility] Address: [address] [place] [address] Performed By: #### 5 5454-3 #### [facility] CLIA [id number] [address] [place] [address] [place] Immature granulocytes (Bld) [#/Vol] 0.05 10*3/uL Normal <0.10 [facility] Comment on above: Order Comment: Speci men Type: BLOOD SPECIMEN [facility]ing [facility]: [facility] Address: [address] [place] [address] Performed By: #### 5 5454-3 #### [facility] CLIA [id number] [address] [place] [address] [place] Immature granulocytes/100 WBC (Bld) 0.5 % Normal [facility] Comment on above: Order Comment: Speci men Type: BLOOD SPECIMEN Ordering [facility]: [facility] Address: [address] [place] [address] Performed By: #### 5 5454-3 #### [facility] CLIA [id number] [address] [place] [address] [place] Lymphocytes (Bld) [#/Vol] 1.62 10*3/uL Normal 1.00-4.00 [facility] Comment on above: Order Comment: Speci men Type: BLOOD SPECIMEN Ordering [facility]: [facility] Address: [address] [place] [address] Performed By: #### 5 5454-3 #### [facility] CLIA [id number] [address] [place] [address] [place] Lymphocytes/100 WBC (Bld) 16.2 % Normal [facility] Comment on above: Order Comment: Speci men Type: BLOOD SPECIMEN Ordering [facility]: [facility] Address: [address] [place] [address] Performed By: #### 5 5454-3 #### [facility] CLIA [id number] [address] [place] [address] [place] MCH (RBC) [Entitic mass] 29.2 pg Normal 26.0-34.0 [facility] Comment on above: Order Comment: Speci men Type: BLOOD SPECIMEN Ordering Facility: [facility] Address: [address] [place] [address] Performed By: #### 5 5454-3 #### [facility] CLIA [id number] [address] [place] [address] [place] MCHC (RBC) [Mass/Vol] 35.5 g/dL Normal 30.5-36.0 [facility] Comment on above: Order Comment: Speci men Type: BLOOD SPECIMEN Ordering [facility]: [facility] Address: [address] [place] [address] Performed By: #### 5 5454-3 #### [facility] CLIA [id number] [address] [place] [address] [place] MCV (RBC) [Entitic vol] 82.3 fL Normal 80.0-100.0 [facility] Comment on above: Order Comment: Speci men Type: BLOOD SPECIMEN Ordering [facility]: [facility] Address: [address] [place] [address] Performed By: #### 5 5454-3 #### [facility] CLIA [id number] [address] [place] [address] [place] Monocytes (Bld) [#/Vol] 0.61 10*3/uL Normal <0.87 [facility] Comment on above: Order Comment: Speci men Type: BLOOD SPECIMEN Ordering [facility]: [facility] Address: [address] [place] [address] Performed By: #### 5 5454-3 #### [facility] CLIA [id number] [address] [place] [address] [place] Monocytes/100 WBC (Bld) 6.1 % Normal [facility] Comment on above: Order Comment: Speci men Type: BLOOD SPECIMEN Ordering [facility]: [facility] Address: [address] [place] [address] Performed By: #### 5 5454-3 #### [facility] CLIA [id number] [address] [place] [address] [place] Neutrophils (Bld) [#/Vol] 7.65 10*3/uL High 1.45-7.50 [facility] Comment on above: Order Comment: Speci men Type: BLOOD SPECIMEN Ordering [facility]: [facility] Address: [address] [place] [address] Performed By: #### 5 5454-3 #### [facility] CLIA [id number] [address] [place] [address] [place] Neutrophils/100 WBC (Bld) 76.3 % Normal [facility] Comment on above: Order Comment: Speci men Type: BLOOD SPECIMEN Ordering [facility]: [facility] Address: [address] [place] [address] Performed By: #### 5 5454-3 #### [facility] CLIA [id number] [address] [place] [address] [place] Nucleated RBC (Bld) [#/Vol] 10*3/uL Normal <0.01 [facility] Comment on above: Order Comment: Speci men Type: BLOOD SPECIMEN Ordering [facility]: [facility] Address: [address] [place] [address] Performed By: #### 5 5454-3 #### [facility] CLIA [id number] [address] [place] [address] [place] Nucleated RBC/100 WBC (Bld) [Ratio] 0.0 /100 WBC Normal [facility] Comment on above: Order Comment: Speci men Type: BLOOD SPECIMEN Ordering [facility]: [facility] Address: [address] [place] [address] Performed By: #### 5 5454-3 #### [facility] CLIA [id number] [address] [place] [address] [place] Platelet mean volume (Bld) [Entitic vol] 10.2 fL Normal 9.0-12.7 [facility] Comment on above: Order Comment: Speci men Type: BLOOD SPECIMEN Ordering [facility]: [facility] Address: [address] [place] [address] Performed By: #### 5 5454-3 #### [facility] CLIA [id number] [address] [place] [address] [place] Platelets (Bld) [#/Vol] 237 10*3/uL Normal 150-400 [facility] Comment on above: Order Comment: Speci men Type: BLOOD SPECIMEN Ordering [facility]: [facility] Address: [address] [place] [address] Performed By: #### 5 5454-3 #### [facility] CLIA [id number] [address] [place] [address] [place] RBC (Bld) [#/Vol] 4.24 10*6/uL Normal 3.90-5.20 [facility] Comment on above: Order Comment: Speci men Type: BLOOD SPECIMEN Ordering [facility]: [facility] Address: [address] [place] [address] Performed By: #### 5 5454-3 #### [facility] CLIA [id number] [address] [place] [address] [place] WBC (Bld) [#/Vol] 10.02 10*3/uL Normal 3.70-11.00 [facility] Comment on above: Order Comment: Speci men Type: BLOOD SPECIMEN Ordering [facility]: [facility] Address: [address] [place] [address] Performed By: #### 5 5454-3 #### [facility] CLIA [id number] [address] [place] [address] [place] HBV surface Ag Ser Qlon 12-18 HBV surface Ag Ql (S) Negative Normal Negative [facility] Comment on above: Order Comment: Speci men Type: BLOOD SPECIMEN Ordering [facility]: [facility] Address: [address] [place] [address] Performed By: #### 5 5454-3 #### [facility] CLIA [id number] [address] [place] [address] [place] HCV Ab Ser Qlon 01-03-2025 HCV Ab Ql (S) Negative Normal Negative [facility] Comment on above: Order Comment: Speci men Type: BLOOD SPECIMENOrdering Facility: [facility] Address: [address] [place] [address] Result Comment: The result suggests no evidence of infection with Hepatitis C virus. Should recent infection be suspected, repeat testing may be considered 4-6 weeks after this draw. Performed By: #### 1 6128-1 ####[facility] [id number] [place] [address] [place] [facility] [place] HIV 1+2 Ab IA Qlon 5 HIV 1 and 2 Ab IA.rapid Nom (S/P/Bld) Normal [facility] Comment on above: Order Comment: Speci men Type: BLOOD SPECIMEN Ordering Facility: [facility] Address: [address] [place] [address] Result Comment: Test not indicated. Performed By: #### 5 5454-3 #### [facility] CLIA [id number] [address] [place] [address] OF [facility] HIV 1+2 Ab+HIV1 p24 Ag IA Ql Non-Reactive Normal Nonreactive [facility] Comment on above: Order Comment: Speci men Type: BLOOD SPECIMEN Ordering Facility: [facility] Address: [address] [place] [address] Performed By: #### 5 5454-3 #### [facility] CLIA [id number] [address] [place] [address] HIV immunoassay testing algorithm interpretation (S/P/Bld) [Interp] Normal [facility] Comment on above: Order Comment: Speci men Type: BLOOD SPECIMEN Ordering Facility: [facility] Address: [address] [place] [address] Result Comment: No e vidence of HIV-1 or HIV-2 infection. Should recent infection be suspected, repeat testing may be considered 2-3 weeks after this draw. [place] Rev. Code 3701.243(E): This information has been disclosed to you from confidential records protected from disclosure by state law. ???You shall make no further disclosure of this information without the specific, written, and informed release of the individual to whom it pertains or as otherwise permitted by state law. A general authorization for the release of medical or other information is not sufficient for the purpose of the release of HIV test results or diagnoses. Performed By: #### 5 5454-3 #### [facility] CLIA [id number] [address] [place] [address] OF [facility] HbA1c (Bld)on 01-03-2025 Average glucose Estimated from glycated hemoglobin (Bld) [Mass/Vol] 94 mg/dL Normal [facility] Comment on above: Order Comment: Speci men Type: BLOOD SPECIMEN Ordering [facility]: [facility] Address: [address] [place] [address] Result Comment: eAG: (Estimated average glucose) is a calculated value from HgbA1c and is outside sales representative insurance of the average blood glucose level in the last 2-3 month period. Performed By: #### 5 5454-3 #### [facility] CLIA [id number] [address] [place] [address] HbA1c (Bld) [Mass fraction] 4.9 % Normal 4.3-5.6 [facility] Comment on above: Order Comment: Speci men Type: BLOOD SPECIMEN Ordering Facility: [facility] Address: [address] [place] [address] Result Comment: [place] Diabetes Association guidelines indicate that patients with HgbA1c in the range 5.7-6.4% are at increased risk for development of diabetes, and intervention by lifestyle modification may be beneficial. HgbA1c greater or equal to 6.5% is considered diagnostic of diabetes. Performed By: #### 5 5454-3 #### [facility] CLIA [id number] [address] [place] [address] OF [facility] POC BROKERAGE CLERK ULTRASOUNDon 01-04-20 25 Indication Viability; confirm cardiac activity Impression Single intrauterine gestational sac, CRL is appropriate for clinical dates, corresponding to SHAHLA 07/29/2025 cardiac activity is visualized Recommendations Follow up for 1st Trimester Anatomy with Nuchal Translucency as clinically indicated if desired. Method Transabdominal ultrasound examination. View: Adequate visualization Simms . Number of fetuses: 1 Dating LMP on: 10/22/2024 GA by LMP 10 w + 3 d SHAHLA by LMP: 07/29/2025 Ultrasound examination on: 01/03/2025 GA by U/S based upon: CRL GA by U/S 9 w + 4 d SHAHLA by U/S: 08/04/2025 Assigned: based on the LMP, selected on 01/03/2025 Assigned GA 10 w + 3 d Assigned SHAHLA: 07/29/2025 Biometry Standard FHR 171 bpm 59% Nicolaides CRL 27.1 mm 9w 4d <1% Hadlock Assessment Gestational sac: visualized Location: intrauterine Yolk sac: visualized Embryo: visualized CRL 27.1 mm 9w 4d <1% Hadlock Cardiac activity: present FHR 171 bpm 59% Nicolaides General Evaluation Cardiac activity present. FHR 171 bpm Performed By: Elaina Hurst NP Read By: Elaina Hurst NP MATERNAL MEDICINE [facility] Radiology Study observation (narrative) [facility] RUBELLA IGG ANTIBODYon 01-03 RUBELLA IGG AB, QUAL Positive Normal Positive [facility] Comment on above: Order Comment: Speci men Type: BLOOD SPECIMENOrdering Facility: [facility] Address: [address] [place] [address] Result Comment: The result suggests recent or past exposure to Rubella virus or history of Rubella vaccination. Positive result may also be seen due to presence of passively-transferred antibodies. Please correlate with patient's history. Performed By: #### R UBIGG ####[facility] [id number] [place] [address] [place] Reagin and Treponema pallidu m IgG and IgM [Interp]on 01-03-2025 T. pallidum IgG+IgM IA Ql (S) Non-Reactive Normal Nonreactive [facility] Comment on above: Order Comment: Speci men Type: BLOOD SPECIMEN Ordering Facility: [facility] Address: [address] [place] [address] Performed By: #### 5 5454-3 #### [facility] CLIA [id number] [address] [place] [address] [place] Reagin+T pallidum IgG+IgM Se rPl-Impon 01-03-2025 Reagin and Treponema pallidum IgG and IgM [Interp] Cannot exclude recent Treponemal infection if specimen collected within 7-10 days after appearance of suspect lesions or 2-3 weeks after an exposure. Clinical correlation is required. Normal [facility] Comment on above: Order Comment: Speci men Type: BLOOD SPECIMEN Ordering Facility: [facility] Address: [address] [place] [address] Performed By: #### 5 5454-3 #### [facility] CLIA [id number] [address] [place] [address] TYPE + SCREEN PRENATALon ABO B Normal [facility] Comment on above: Order Comment: Speci men Type: BLOOD SPECIMENOrdering Facility: [facility] Address: [address] [place] [address] Performed By: #### T SPN ####CC [facility] BLOOD BANKCLIA [id number] [address] [place] Rh Nom (Bld) Positive Normal [facility] Comment on above: Order Comment: Speci men Type: BLOOD SPECIMENOrdering Facility: [facility] Address: [address] [place] [address] Performed By: #### T SPN ####CC [facility] BLOOD BANKCLIA [id number] [address] TYPE AND SCREEN EXPIRATION 01/06/2025 23:59 Normal [facility] Comment on above: Order Comment: Speci men Type: BLOOD SPECIMENOrdering Facility: [facility] Address: [address] [place] [address] Performed By: #### T SPN ####CC [facility] BLOOD BANKCLIA [id number] [address] OF [place] CNPNon 01-01-2025 JEANNETTE Telephone (OBGYWM) DAO VALDES ([id number]) 5 F Date Time Provider Department 01/01/25 REN ELAINA FADIA During your visit today, we recorded the following information about you: Veronica Carter MA 01/01/2025 2:25 PM Signed Called and spoke with patient to go over new ob intake. Patient was not available at this time. She will call back 01/02/2025 after she gets off of work at 2pm. JORDY Pleitez Tara, RN 01/02/2025 2:48 PM Signed Pt called back. Notified that MA that called her to review medical history is unavailable at this time and if available this afternoon would call her back. Advised Pt that if we were unable to obtain hx from her today, that we ask that she arrive 30 minutes early to appointment and to arrive with a full bladder. Pt voiced understanding. Taqueria Anguiano RN Allergies As of Date: 01/01/2025 (No Known Allergies) Date Reviewed: 12/18/2024 Reviewed by: Brian Vanessa MD - Fully Assessed Prescriptions as of 01/02/2025 - no115/iron/folic acid ( 19 ORAL) Take by mouth. 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] 11/03/2015 Sever's apophysitis [M92.60] 12/24/2016 09/07/2018 Chronic abdominal pain [R10.9, G89.29] 03/10/2018 Depression [F32.A] 01/15/2019 Acute appendicitis with generalized peritonitis*03/12/2023 03/12/2023 Kidney stone [N20.0] 03/15/2023 Colitis [K52.9] 03/15/2023 SHERLEY (acute kidney injury) (HCC) [N17.9] 03/15/2023 Right lower quadrant abdominal pain [R10.31] 03/15/2023 Encounter Status:Closed by TAQUERIA ANGUIANO on 01/02/25 Normal [facility] Bacteria Ur Culton Bacteria identified Cx Nom (U) ORGANISM ID: 1 >=100,000 CFU/ml Normal urogenital pallavi Normal [facility] Comment on above: Performed By: #### 6 30-4 ####[facility] [id number] [address] [place] C. trachomatis+N. gonorrhoea e DNA BRANDEN+probe Ql (Unsp spec)on 12-18-2024 C. trachomatis rRNA BRANDEN+probe Ql (Unsp spec) Not detected Normal Not detected [facility] Comment on above: Order Comment: Speci men Type: BLOOD SPECIMEN Ordering [facility] Address: [address] [place] [address] Performed By: #### 5 5454-3 #### [facility] CLIA [id number] [address] [place] [address] OF [place] N. gonorrhoeae rRNA BRANDEN+probe Ql (Unsp spec) Not detected Normal Not detected [facility] Comment on above: Order Comment: Speci men Type: BLOOD SPECIMEN Ordering Facility: [facility] Address: [address] [place] [address] Performed By: #### 5 5454-3 #### [facility] CLIA [id number] [address] [place] [address] [place] CNOVon 12-18-2024 CNOV Office Visit (OBGYWM ) DAO VALDES ([id number]) 5 F Date Time Provider Department 12/18/24 2:50 PM BRIAN VANESSA OBGYWM During your visit today, we recorded the following information about you: Blood pressure Weight Last Period 106/58 43.5 kg 10/22/24 Brian Vanessa MD 12/18/2024 3:25 PM Signed Dao Fox Nupur is a 19 year old female who presents for problem visit for vaginal bleeding in . . HPI: 19 YOF notes vaginal bleeding 2-3 days ago. Had intercourse near then. No bleeding now. No pain. Had just spotting. No dysuria or hematuria. LMP approx 2/3. Taking PNV. Planned . OB History No obstetric history on file. Chief Psychology History LMP: 10/22/2024 (Approximate), Age at Menarche: Age at First : Age at Menopause: Chief Psychology History Comments: Sexual Activity: Yes; Male Contraception: No contraception data on record PAST MEDICAL HISTORY Diagnosis Date Kidney stone 03/18/2023 NEGATIVE MEDICAL HISTORY 2004 normal color vision PAST SURGICAL HISTORY Procedure Laterality Date APPENDECTOMY 03/12/2023 FAMILY HISTORY Problem Relation Age of Onset Asthma Mother other (IBS) Mother other (acid reflux) Mother Breast Cancer Paternal Grandmother other (Scleroderma) Paternal Grandmother Heart Maternal Grandfather Hypertension Maternal Grandfather Social History Tobacco Use Smoking status: Never Passive exposure: Never Smokeless tobacco: Never Vaping Use Vaping status: Some Days Substances: Nicotine, THC Substance Use Topics Alcohol use: No Drug use: Yes Types: Marijuana Comment: thc Current Outpatient Medications Medication Sig no115/iron/folic acid ( 19 ORAL) Take by mouth. Lactobacillus acidophilus (PROBIOTIC ORAL) Take by mouth. (Patient not taking: Reported on 12/12/2024) sodium chloride (SALINE MIST) 0.65 % nasal spray Use 1 [place] in the nose four times a day as needed. (Patient not taking: Reported on 12/12/2024) Wwunlfy-Lcchmpljbewlv-I affeine (EXCEDRIN MIGRAINE) 250-250-65 mg per tablet Take 2 tablets by mouth every 6 hours as needed (Headache). Do not exceed 8 tablets per 24 hours (Patient not taking: Reported on 12/12/2024) No current facility-administered medications for this visit. Allergies As of Date: 12/18/2024 (No Known Allergies) Fully Assessed 12/12/2024 RAllergies and current medication updated:Yes SENSITIVE EXAM: The sensitive examination was discussed with the Patient or Patient's Authorized Transmission Specialist. As applicable, any other physician, advance practice provider, medical student, or other health professional student that will be observing or involved in the sensitive examination for educational or training purposes was discussed with the Patient or Authorized Transmission Specialist. The Patient or Authorized Transmission Specialist has agreed to proceed with the sensitive examination. (Sensitive examination includes inspection and/or palpation of the breasts, pelvis, prostate and anorectal regions). EXAM: BP 106/58 Wt 96 lb (43.5kg) LMP 10/22/2024 GENERAL: pleasant, female in no apparent distress ABDOMEN: soft, non-tender, and no masses PELVIC: external genitalia normal, normal Bartholin's glands, urethra, [place]'s glands, no vulvar lesions, no cervical lesions, good vaginal support, physiologic discharge present, normal appearing perineal body and perianal region, cervix smooth and nonfriable BIMANUAL: uterus normal size, shape and consistency, no adnexal masses, and non-tender TVUS done- single IUP w/ cardiac activity ASSESSMENT AND PLAN: Assessment AND Plan Threatened (HCC) cont. PNV gc/ct/trich done no further bleeding call/return prn urine culture sent Orders: UA DIP, URINE (POC) BACTERIAL CULTURE, URINE Abdominal cramping affecting (HCC) Orders: UA DIP, URINE (POC) BACTERIAL CULTURE, URINE MD Marie Webb Tabatha, MA 12/18/2024 3:27 PM Signed Addended by: AYSHA AMBROSIO on: 12/18/2024 03:27 PM Modules accepted: Orders Brian Vanessa MD 12/18/2024 3:39 PM Signed Addended by: BRIAN VANESSA on: 12/18/2024 03:39 PM Modules accepted: Orders Allergies As of Date: 12/18/2024 (No Known Allergies) Date Reviewed: 12/18/2024 Reviewed by: Brian Vanessa MD - Fully Assessed Reason for Visit: early ob bleeding [Other] Primary Visit Diagnosis:Threatened (HCC) [O20.0] Other Visit Diagnosis:Abdominal cramping affecting (HCC) [O26.899, R10.9] Order(s):UA DIP, URINE (POC) [[id number]] Order #: [id number]. #:[id number] BACTERIAL CULTURE, URINE [SQURCUL] Order #: [id number]. #:[id number] GONORRHEA/CHLAMYDIA NAAT [SQGCCT] Order #: [id number] TRICHOMONAS VAGINALIS NAAT [SQTRVAMP] Order #: [id number] Prescriptions as of 12/18/2024 - no115/iron/folic acid (PRENA (more content not included)... Normal [facility] TRICHOMONAS VAGINALIS NAATon 12-18-2024 T. vaginalis DNA BRANDEN+probe Ql (Unsp spec) Not detected Normal Not detected [facility] Comment on above: Order Comment: Speci men Type: BLOOD SPECIMEN [facility] Address: [address] [place] [address] Performed By: #### 5 5454-3 #### [facility] CLIA [id number] [address] [place] [address] [place] UA DIP, URINE (POC)on 2024 BILIRUBIN UA (POCT) Negative Negative [facility] CLARITY UA (POCT) Clear [facility] COLOR UA (POCT) Yellow [facility] GLUCOSE UA (POCT) Negative Negative mg/dL [facility] Hemoglobin Ql (U) Trace-intact Abnormal Negative [facility] Interpretation and review of laboratory results Abnormal [facility] KETONE UA (POCT) 40 mg/dL Abnormal Negative [facility] LEUKOCYTES UA (POCT) Negative Negative [facility] NITRITE UA (POCT) Negative Negative [facility] PH UA (POCT) 7 4.5 - 8.0 [facility] Protein Ql (U) Negative Negative mg/dL [facility] SPECIFIC GRAVITY UA (POCT) 1.025 1.005 - 1.030 [facility] UROBILINOGEN UA (POCT) 0.2 Milka l E.U./dL [facility] Location:[facility], [address], [place], [address] [facility] POINT OF CARE [facility] CNOVon 12-12-2024 CNOV Office Visit (UCWSTR ) DAO VALDES ([id number]) 5 F Date Time Provider Department 12/12/24 1:45 PM NATHALIA BUTT [facility] During your visit today, we recorded the following information about you: Temperature Pulse Respiration Blood pressure 98.8 degrees 66/minute 16/minute 122/72 Weight 43.6 kg Nathalia Butt PA 12/12/2024 2:15 PM Signed [facility] Subjective Dao Fox Nupur is a 19 year old female. Patient presents with: Hand Pain: padding of right hand-venous malformation on hand since young, increased 3 days HPI 19-year-old female 6 weeks presents for swelling of the right palm. 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 She has been seen for this multiple times in the past. She states from time to time the area will flareup and become more painful. She states it is usually due to overuse or if she injures it. She states that over the past couple of days it has become more painful. She denies any color change, increase in the area/swelling, numbness or tingling of the hand. She denies any arm swelling. She has not had fevers. She is , so has been unable to take aspirin which is what she usually takes for the flareup. She was unsure what she was allowed to take, so has not taken anything. She has been seen in the past by interventional radiology and they discussed an embolization procedure, but patient never followed through with that. She last had an ultrasound in 2019 of the hand. No other complaint. PAST MEDICAL HISTORY Diagnosis Date Kidney stone 03/18/2023 NEGATIVE MEDICAL HISTORY 2004 normal color vision PAST SURGICAL HISTORY Procedure Laterality Date APPENDECTOMY 03/12/2023 ALLERGIES Patient has no known allergies. MEDICATIONS no115/iron/folic acid ( 19 ORAL) Take by mouth. Lactobacillus acidophilus (PROBIOTIC ORAL) Take by mouth. (Patient not taking: Reported on 12/12/2024) sodium chloride (SALINE MIST) 0.65 % nasal spray Use 1 [place] in the nose four times a day as needed. (Patient not taking: Reported on 12/12/2024) Ekgwmih-Fxkcfdhtzwzsh-J affeine (EXCEDRIN MIGRAINE) 250-250-65 mg per tablet Take 2 tablets by mouth every 6 hours as needed (Headache). Do not exceed 8 tablets per 24 hours (Patient not taking: Reported on 12/12/2024) FAMILY HISTORY Problem Relation Age of Onset Asthma Mother other (IBS) Mother other (acid reflux) Mother Breast Cancer Paternal Grandmother other (Scleroderma) Paternal Grandmother Heart Maternal Grandfather Hypertension Maternal Grandfather Social History Tobacco Use Smoking status: Never Passive exposure: Never Smokeless tobacco: Never Vaping Use Vaping status: Some Days Substances: Nicotine, THC Substance Use Topics Alcohol use: No Drug use: Yes Comment: thc Review of Systems Constitutional: Negative for chills and fever. HENT: Negative for congestion, ear pain and sore throat. Respiratory: Negative for cough and shortness of breath. Cardiovascular: Negative for chest pain. Gastrointestinal: Negative for diarrhea and vomiting. Skin: + Venous malformation/pain Objective BP 122/72 Pulse 66 Temp 37.1 ?C (98.8 ?F) Resp 16 Wt 43.6 kg (96 lb 1.9 oz) LMP 09/27/2024 (Approximate) SpO2 99% BMI 20.09 kg/m? Physical Exam Vitals and nursing note reviewed. Constitutional: General: She is not in acute distress. Appearance: Normal appearance. She is not toxic-appearing. Cardiovascular: Rate and Rhythm: Normal rate and regular rhythm. Pulmonary: Effort: Pulmonary effort is normal. Breath sounds: Normal breath sounds. Musculoskeletal: Right hand: Swelling, deformity and tenderness present. Decreased range of motion. Normal sensation. There is no disruption of two-point discrimination. Normal capillary refill. Normal pulse. Comments: Venous malformation over the thenar eminence of the right palm. Radial pulse 2+. Slightly decreased ROM right thumb due to pain. Cap refill less than 2 seconds. No skin erythema. Slight purpleish discoloration of the hand over the venous malformation which patient states is baseline. No wrist swelling, forearm or upper arm swelling. Skin: General: Skin is warm and dry. Neurological: Mental Status: She is alert. {ASSESSMENT/PLAN: 1. 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 -Low suspicion for DVT. -Possible thrombophlebitis in the area. No NSAIDs as patient is . -Patient reports flareups from time to time. She is now, unable to take NSAIDs. Did discuss with patient she may use Tylenol, warm compresses or ice whichever feels better for the pain -Please schedule a follow-up with PCP for further evaluation/workup if symptoms persist. -If an (more content not included)... Normal [facility] CNOVon 11-09-2024 CNOV Office Visit (ERNA ) DAO VALDES ([id number]) 5 F Date Time Provider Department 11/09/24 2:50 PM FOX ROSALES During your visit today, we recorded the following information about you: Temperature Pulse Respiration Blood pressure 98.6 degrees 74/minute 18/minute 123/62 Weight Height 44.9 kg 1.473 m Fox Rosales APRN.PATIENT DAY COORDINATOR 11/09/2024 3:24 PM Signed [facility] NOTE Subjective Dao Fox Nupur is a 19 year old year old who presents to [facility] today with complaint of shortness of breath, migraine headaches in the past week and nasal congestion. States she was taking Cold and flu medications this week, and most symptoms except for nasal mucous have improved. States she wants help with migraines. Denies headaches, fever, sore throat, cough, shortness of breath, chest pains, Nausea, vomiting, changes in bowel or bladder or skin rashes. No current medication treatments. Aside from symptoms as described above, patient has no other complaints at this time. HPI: see above Review of Systems Constitutional: Negative for chills, fatigue and fever. HENT: Positive for congestion (mild). Negative for ear pain, postnasal drip, sinus pressure, sore throat and trouble swallowing. Eyes: Negative for pain, discharge and redness. Respiratory: Negative for cough, shortness of breath and wheezing. Cardiovascular: Negative for chest pain, palpitations and leg swelling. Gastrointestinal: Negative for diarrhea, nausea and vomiting. Genitourinary: Negative for dysuria, frequency and urgency. Musculoskeletal: Negative for myalgias. Skin: Negative for rash. Neurological: Positive for headaches. Hematological: Negative for adenopathy. ALLERGIES No Known Allergies Current Outpatient Medications on File Prior to Visit Medication Sig Lactobacillus acidophilus (PROBIOTIC ORAL) Take by mouth. penicillin V potassium (VEETIDS) 250 mg/5 mL suspension Take 250 mg by mouth four times daily. (Patient not taking: Reported on 11/09/2024) polydextrose (CHILDRENS FIBER GUMMY BEAR ORAL) Take by mouth once daily. (Patient not taking: Reported on 11/09/2024) No current facility-administered medications on file prior to visit. ACTIVE PROBLEM LIST Vascular Malformation Peripheral Chronic Abdominal Pain Depression Kidney Stone Colitis Sherley (Acute Kidney Injury) (Hcc) Right Lower Quadrant Abdominal Pain Social History Tobacco Use Smoking status: Never Passive exposure: Never Smokeless tobacco: Never Vaping Use Vaping status: Some Days Substances: Nicotine, THC Substance Use Topics Alcohol use: No Drug use: Yes Comment: thc Objective BP 123/62 (BP Site: Left Arm, BP Position: Sitting, BP Cuff Size: Regular Adult) Pulse 74 Temp 37 ?C (98.6 ?F) (Left Tympanic) Resp 18 Ht 147.3 cm (4' 10") Wt 44.9 kg (98 lb 15.8 oz) LMP 09/27/2024 (Approximate) SpO2 100% BMI 20.69 kg/m? Physical Exam Vitals reviewed. Constitutional: General: She is not in acute distress. Appearance: Normal appearance. She is not ill-appearing or toxic-appearing. HENT: Head: Normocephalic and atraumatic. Right Ear: Tympanic membrane, ear canal and external ear normal. Left Ear: Tympanic membrane, ear canal and external ear normal. Nose: Rhinorrhea (clear fluid in nares) present. Mouth/Throat: Mouth: Mucous membranes are moist. Pharynx: Oropharynx is clear. Eyes: Conjunctiva/sclera: Conjunctivae normal. Pupils: Pupils are equal, round, and reactive to light. Cardiovascular: Rate and Rhythm: Normal rate and regular rhythm. Pulses: Normal pulses. Heart sounds: Normal heart sounds. Pulmonary: Effort: Pulmonary effort is normal. Breath sounds: Normal breath sounds. Abdominal: General: Bowel sounds are normal. Palpations: Abdomen is soft. Musculoskeletal: General: Normal range of motion. Cervical back: Normal range of motion and neck supple. Lymphadenopathy: Cervical: Cervical adenopathy present. Skin: General: Skin is warm and dry. Capillary Refill: Capillary refill takes less than 2 seconds. Findings: Rash (acne- on face) present. Neurological: Mental Status: She is alert and oriented to person, place, and time. Assessment/Plan 1. Headaches (Primary) - Divmxer-Fihjwptyyvzsa-H affeine (EXCEDRIN MIGRAINE) 250-250-65 mg per tablet; Take 2 tablets by mouth every 6 hours as needed (Headache). Do not exceed 8 tablets per 24 hours Dispense: 16 tablet; Refill: 0 2. Viral URI -Saline Nasal [place] QID -Encouraged to Sleep 8 hours nightly -Encouraged to Stop all energy Drinks and caffeine -Establish with a PCP and discuss symptoms Patient advised to drink fluids, get rest and take all meds as prescribed. Patient given educational materials - see instructions. Discussed use, benefit, and side effects of prescribed medications. All questions answered. Patien (more content not included)... Normal [facility] CBC W Auto Differential pane l (Bld)on 10-17-2024 Basophils (Bld) [#/Vol] 0.04 10*3/uL Normal <0.11 [facility] Comment on above: Order Comment: Speci men Type: BLOOD SPECIMEN [facility] Address: [address] [place] [address] Performed By: #### 5 7021-8 #### [facility] CLIA [id number] [address] [place] [address] [place] Basophils/100 WBC (Bld) 0.5 % Normal [facility] Comment on above: Order Comment: Speci men Type: BLOOD SPECIMEN Ordering Facility: [facility] Address: [address] [place] [address] Performed By: #### 5 7021-8 #### [facility] CLIA [id number] [address] [place] [address] [place] [facility] [place] Differential cell count method Nom (Bld) Auto Normal [facility] Comment on above: Order Comment: Speci men Type: BLOOD SPECIMEN Ordering Facility: [facility] Address: [address] [place] [address] Performed By: #### 5 7021-8 #### [facility] CLIA [id number] [address] [place] [address] [place] Eosinophils (Bld) [#/Vol] 0.07 10*3/uL Normal <0.46 [facility] Comment on above: Order Comment: Speci men Type: BLOOD SPECIMEN Ordering Facility: [facility] Address: [address] [place] [address] Performed By: #### 5 7021-8 #### [facility] CLIA [id number] [address] [place] [address] [facility] OF [place] Eosinophils/100 WBC (Bld) 0.8 % Normal [facility] Comment on above: Order Comment: Speci men Type: BLOOD SPECIMEN Ordering Facility: [facility] Address: [address] [place] [address] Performed By: #### 5 7021-8 #### [facility] CLIA [id number] [address] [place] [address] [facility] [place] Erythrocyte distribution width (RBC) [Ratio] 11.9 % Normal 11.5-15.0 [facility] Comment on above: Order Comment: Speci men Type: BLOOD SPECIMEN Ordering Facility: [facility] Address: [address] [place] [address] Performed By: #### 5 7021-8 #### [facility] CLIA [id number] [address] [place] [address] [place] Hematocrit (Bld) [Volume fraction] 38.9 % Normal 36.0-46.0 [facility] Comment on above: Order Comment: Speci men Type: BLOOD SPECIMEN Ordering Facility: [facility] Address: [address] [place] [address] Performed By: #### 5 7021-8 #### [facility] CLIA [id number] [address] [place] [address] [place] Hemoglobin (Bld) [Mass/Vol] 13.2 g/dL Normal 11.5-15.5 [facility] Comment on above: Order Comment: Speci men Type: BLOOD SPECIMEN Ordering Facility: [facility] Address: [address] [place] [address] Performed By: #### 5 7021-8 #### [facility] CLIA [id number] [address] [place] [address] [place] Immature granulocytes (Bld) [#/Vol] 10*3/uL Normal <0.10 [facility] Comment on above: Order Comment: Speci men Type: BLOOD SPECIMEN Ordering Facility: [facility] Address: [address] [place] [address] Performed By: #### 5 7021-8 #### [facility] CLIA [id number] [address] [place] [address] [place] Immature granulocytes/100 WBC (Bld) 0.2 % Normal [facility] Comment on above: Order Comment: Speci men Type: BLOOD SPECIMEN Ordering Facility: [facility] Address: [address] [place] [address] Performed By: #### 5 7021-8 #### [facility] CLIA [id number] [address] [place] [address] [place] Lymphocytes (Bld) [#/Vol] 2.33 10*3/uL Normal 1.00-4.00 [facility] Comment on above: Order Comment: Speci men Type: BLOOD SPECIMEN Ordering Facility: [facility] Address: [address] [place] [address] Performed By: #### 5 7021-8 #### [facility] CLIA [id number] [address] [place] [address] [facility] Lymphocytes/100 WBC (Bld) 28.0 % Normal [facility] Comment on above: Order Comment: Speci men Type: BLOOD SPECIMEN Ordering Facility: [facility] Address: [address] [place] [address] Performed By: #### 5 7021-8 #### [facility] CLIA [id number] [address] [place] [address] [place] MCH (RBC) [Entitic mass] 29.2 pg Normal 26.0-34.0 [facility] Comment on above: Order Comment: Speci men Type: BLOOD SPECIMEN Ordering Facility: [facility] Address: [address] [place] [address] Performed By: #### 5 7021-8 #### [facility] CLIA [id number] [address] [place], [place] [address] [place] [address] [place] MCHC (RBC) [Mass/Vol] 33.9 g/dL Normal 30.5-36.0 [facility] Comment on above: Order Comment: Speci men Type: BLOOD SPECIMEN Ordering Facility: [facility] Address: [address] [place] [address] Performed By: #### 5 7021-8 #### [facility] CLIA [id number] [address] [place] [address] [place] MCV (RBC) [Entitic vol] 86.1 fL Normal 80.0-100.0 [facility] Comment on above: Order Comment: Speci men Type: BLOOD SPECIMEN Ordering Facility: [facility] Address: [address] [place] [address] Performed By: #### 5 7021-8 #### [facility] CLIA [id number] [address] [place] [address] [place] Monocytes (Bld) [#/Vol] 0.58 10*3/uL Normal <0.87 [facility] Comment on above: Order Comment: Speci men Type: BLOOD SPECIMEN Ordering Facility: [facility] Address: [address] [place] [address] Performed By: #### 5 7021-8 #### [facility] CLIA [id number] [address] [place] [address] [place] Monocytes/100 WBC (Bld) 7.0 % Normal [facility] Comment on above: Order Comment: Speci men Type: BLOOD SPECIMEN Ordering Facility: [facility] Address: [address] [place] [address] Performed By: #### 5 7021-8 #### [facility] CLIA [id number] [address] [place] [address] [place] Neutrophils (Bld) [#/Vol] 5.28 10*3/uL Normal 1.45-7.50 [facility] Comment on above: Order Comment: Speci men Type: BLOOD SPECIMEN Ordering Facility: [facility] Address: [address] [place] [address] Performed By: #### 5 7021-8 #### [facility] CLIA [id number] [address] [place] [address] [place] Neutrophils/100 WBC (Bld) 63.5 % Normal [facility] Comment on above: Order Comment: Speci men Type: BLOOD SPECIMEN Ordering Facility: [facility] Address: [address] [place] [address] Performed By: #### 5 7021-8 #### [facility] CLIA [id number] [address] [place] [address] [place] Nucleated RBC (Bld) [#/Vol] Normal [facility] Comment on above: Order Comment: Speci men Type: BLOOD SPECIMEN Ordering Facility: [facility] Address: [address] [place] [address] Performed By: #### 5 7021-8 #### [facility] CLIA [id number] [address] [place] [address] [place] Nucleated RBC/100 WBC (Bld) [Ratio] Normal [facility] Comment on above: Order Comment: Speci men Type: BLOOD SPECIMEN Ordering Facility: [facility] Address: [address] [place] [address] Performed By: #### 5 7021-8 #### [facility] CLIA [id number] [address] [place] [address] [place] Platelet mean volume (Bld) [Entitic vol] 10.3 fL Normal 9.0-12.7 [facility] Comment on above: Order Comment: Speci men Type: BLOOD SPECIMEN Ordering Facility: [facility] Address: [address] [place] [address] Performed By: #### 5 7021-8 #### [facility] CLIA [id number] [address] [place] [address] [place] Platelets (Bld) [#/Vol] 277 10*3/uL Normal 150-400 [facility] Comment on above: Order Comment: Speci men Type: BLOOD SPECIMEN Ordering Facility: [facility] Address: [address] [place] [address] Performed By: #### 5 7021-8 #### [facility] CLIA [id number] [address] [place] [address] [place] RBC (Bld) [#/Vol] 4.52 10*6/uL Normal 3.90-5.20 [facility] Comment on above: Order Comment: Speci men Type: BLOOD SPECIMEN Ordering Facility: [facility] Address: [address] [place] [address] Performed By: #### 5 7021-8 #### [facility] CLIA [id number] [address] [place] [address] [place] WBC (Bld) [#/Vol] 8.32 10*3/uL Normal 3.70-11.00 [facility] Comment on above: Order Comment: Speci men Type: BLOOD SPECIMEN Ordering Facility: [facility] Address: [address] [place] [address] Performed By: #### 5 7021-8 #### [facility] CLIA [id number] [address] [place] [address] [facility] Comprehensive metabolic 2000 panelon 10-17-2024 Albumin [Mass/Vol] 4.0 g/dL Normal 3.9-4.9 [facility] Comment on above: Order Comment: Speci men Type: BLOOD SPECIMEN Ordering Facility: [facility] Address: [address] [place] [address] Performed By: #### 2 4323-8, 3040-3 #### [facility] CLIA [id number] [address] [place] [address] [place] ALP [Catalytic activity/Vol] 77 U/L Normal 34-123 [facility] Comment on above: Order Comment: Speci men Type: BLOOD SPECIMEN Ordering Facility: [facility] Address: [address] [place] [address] Performed By: #### 2 4323-8, 3040-3 #### [facility] CLIA [id number] [address] [place] [address] [facility] ALT With P-5'-P [Catalytic activity/Vol] 10 U/L Normal 7-38 [facility] Comment on above: Order Comment: Speci men Type: BLOOD SPECIMEN Ordering Facility: [facility] Address: [address] [place] [address] Performed By: #### 2 4323-8, 3040-3 #### [facility] CLIA [id number] [address] [place] [address] [place] [facility] Anion gap [Moles/Vol] 11 mmol/L Normal 8-15 [facility] Comment on above: Order Comment: Speci men Type: BLOOD SPECIMEN Ordering Facility: [facility] Address: [address] [place] [address] Performed By: #### 2 4323-8, 3040-3 #### [facility] CLIA [id number] [address] [place] [address] [place] AST With P-5'-P [Catalytic activity/Vol] 18 U/L Normal 13-35 [facility] Comment on above: Order Comment: Speci men Type: BLOOD SPECIMEN Ordering Facility: [facility] Address: [address] [place] [address] Performed By: #### 2 4323-8, 3040-3 #### [facility] CLIA [id number] [address] [place] [address] [place] Bilirubin [Mass/Vol] 0.3 mg/dL Normal 0.2-1.3 [facility] Comment on above: Order Comment: Speci men Type: BLOOD SPECIMEN Ordering Facility: [facility] Address: [address] [place] [address] Performed By: #### 2 4323-8, 0-3 #### [facility] CLIA [id number] [address] [place] [address] [place] Calcium [Mass/Vol] 9.0 mg/dL Normal 8.5-10.2 [facility] Comment on above: Order Comment: Speci men Type: BLOOD SPECIMEN Ordering Facility: [facility] Address: [address] [place] [address] Performed By: #### 2 4323-8, 0-3 #### [facility] CLIA [id number] [address] [place] [address] [place] Chloride [Moles/Vol] 103 mmol/L Normal 98-107 [facility] Comment on above: Order Comment: Speci men Type: BLOOD SPECIMEN Ordering Facility: [facility] Address: [address] [place] [address] Performed By: #### 2 4323-8, 3040-3 #### [facility] CLIA [id number] [address] [place] [address] [place] CO2 [Moles/Vol] 24 mmol/L Normal 22-30 [facility] Comment on above: Order Comment: Specrhonda morin Type: BLOOD SPECIMEN Ordering Facility: [facility] Address: [address] [place] [address] Performed By: #### 2 4323-8, 3040-3 #### [facility] CLIA [id number] [address] [place] [address] [place] Creatinine [Mass/Vol] 0.81 mg/dL Normal 0.58-0.96 [facility] Comment on above: Order Comment: Grayson men Type: BLOOD SPECIMEN Ordering Facility: [facility] Address: [address] [place] [address] Performed By: #### 2 4323-8, 3039-3 #### [facility] CLIA [id number] [address] [place] [address] [place] [facility] Creatinine and Glomerular filtration rate.predicted panel (S/P/Bld) 107 mL/min/1.73m??? Normal >=60 [facility] Comment on above: Order Comment: Grayson morin Type: BLOOD SPECIMEN Ordering Facility: [facility] Address: [address] [place] [address] Result Comment: Raquel mated Glomerular Filtration Rate (eGFR) is calculated using the 2020 CKD-EPI creatinine equation. This equation utilizes serum creatinine, sex, and age as parameters. The creatinine assay has traceable calibration to isotope dilution-mass spectrometry. Refer to KDIGO guidelines for clinical interpretation. In patients with unstable renal function, e.g. those with acute kidney injury, the eGFR may not accurately reflect actual GFR. Performed By: #### 2 4323-8, 0-3 #### [facility] CLIA [id number] [address] [place] [address] [place] Glucose [Mass/Vol] 81 mg/dL Normal 74-99 [facility] Comment on above: Order Comment: Grayson morin Type: BLOOD SPECIMEN Ordering Facility: [facility] Address: [address] [place] [address] Result Comment: The [place] Diabetes Association (ADA) provides guidance for cutoff values for fasting glucose and random glucose. The ADA defines fasting as no caloric intake for at least 8 hours. Fasting plasma glucose results between 100 to 125 mg/dL indicate increased risk for diabetes (prediabetes). Fasting plasma glucose results greater than or equal to 126 mg/dL meet the criteria for diagnosis of diabetes. In the absence of unequivocal hyperglycemia, results should be confirmed by repeat testing. In a patient with classic symptoms of hyperglycemia or hyperglycemic crisis, random plasma glucose results greater than or equal to 200 mg/dL meet the criteria for diagnosis of diabetes. Reference: Standards of Medical Care in Diabetes 2016, [place] [employer] Association. Diabetes Care. 2016.39(Suppl 1). Performed By: #### 2 4323-8, 3040-3 #### [facility] CLIA [id number] [address] [place] [address] [place] Potassium [Moles/Vol] 4.1 mmol/L Normal 3.7-5.1 [facility] Comment on above: Order Comment: Grayson morin Type: BLOOD SPECIMEN Ordering Facility: [facility] Address: [address] [place] [address] Performed By: #### 2 4323-8, 0-3 #### [facility] CLIA [id number] [address] [place] [address] [place] Protein [Mass/Vol] 6.9 g/dL Normal 6.3-8.0 [facility] Comment on above: Order Comment: Grayson morin Type: BLOOD SPECIMEN Ordering Facility: [facility] Address: [address] [place] [address] Performed By: #### 2 43238, 3040-3 #### [facility] CLIA [id number] [address] [place] [address] [place] Sodium [Moles/Vol] 138 mmol/L Normal 136-144 [facility] Comment on above: Order Comment: Grayson morin Type: BLOOD SPECIMEN Ordering Facility: [facility] Address: [address] [place] [address] Performed By: #### 2 4323-8, 3040-3 #### [facility] CLIA [id number] [address] [place] [address] [place] [facility] Urea nitrogen [Mass/Vol] 10 mg/dL Normal 7-21 [facility] Comment on above: Order Comment: Speci men Type: BLOOD SPECIMEN Ordering Facility: [facility] Address: [facility] [place] [address] Performed By: #### 2 4323-8, 3040-3 #### [facility] CLIA [id number] [address] [place] [address] [facility] ED NOTEon 10-17-2024 ED NOTE HNO ID: [id number] Author: TONY LAST RN Service: ? Author Type: Registered Nurse Type: ED Notes Filed: 10/19/2024 09:07 Note Text: Patient Call Back Information How are you doing ? better Did we appropriately manage your pain? Yes Did you understand your discharge instructions? Yes Did you get your prescriptions filled? Were you able to make a follow-up appointment with your physician? No Were you comfortable during your stay here? Yes Did a member of the ER nursing team round on you during your visit? Yes You will receive a patient satisfaction survey in the mail in the nest 2 weeks, please take the time to fill out the survey as your input from your ER visit is very important to us. Yes Can we do anything else to help you? No Normal [facility] ED NOTE HNO ID: [id number] Author: MI RYAN RN Service: Emergency Medicine Author Type: Registered Nurse Type: ED Notes Filed: 10/17/2024 19:15 Note Text: Patient discharge instructions given to patient. Patient educated on discharge instructions. Patient denied having questions at this time regarding discharge instructions. Patient discharged home at this time with patient's significant other. Normal [facility] ED NOTE HNO ID: [id number] Author: MI RYAN RN Service: Emergency Medicine Author Type: Registered Nurse Type: ED Notes Filed: 10/17/2024 19:08 Note Text: Change of shift report received from Tony Washburn RN. I assumed patient care at this time. Normal [facility] ED NOTE HNO ID: [id number] Author: TONY LAST RN Service: ? Author Type: Registered Nurse Type: ED Notes Filed: 10/17/2024 19:03 Note Text: Report to gwen ryan rn Normal [facility] ED NOTE HNO ID: [id number] Author: TONY LAST RN Service: ? Author Type: Registered Nurse Type: ED Notes Filed: 10/17/2024 16:59 Note Text: Dr king at bedside for exam Normal [facility] ED NOTE HNO ID: [id number] Author: TONY LAST RN Service: ? Author Type: Registered Nurse Type: ED Notes Filed: 10/17/2024 16:52 Note Text: Pt c/o generalized abd pain and nausea for approx 3 days. Pt also reports feeling more fatigued. Pain in abd is worse after eating- across whole upper abd. Normal [facility] ED PROV NOTEon 10-17-2024 ED PROV NOTE HNO ID: [id number] Author: ERNA RANGEL DO Service: Emergency Medicine Author Type: Physician Type: ED Provider Notes Filed: 10/18/2024 00:18 Note Text: ED Provider Note Patient Name: Dao Valdes : 2005 SERVICE DATE: 10/17/24 History Patient presents with: Abdominal Pain Fatigue Dao Valdes is a 19 year old female who presents with Abdominal Pain and Fatigue. - Symptoms began Tuesday. - Severity: moderate - Timing: constant - Quality: aching with intermittent sharp pain - Symptoms are associated with nausea. - Symptoms are not associated with chest pain, chills, diarrhea, fever, shortness of breath, vomiting, dysuria, hematuria, flank pain. Patient presents with generalized abdominal pain and nausea since Tuesday. She states that her pain is more of an ache with occasional sharp pain. She states that she has not had any vomiting. Last bowel movement was today. She denies any dark or bloody stools. No dysuria or hematuria. No vaginal bleeding or discharge. No fever or chills. She states she does feel fatigued. No chest pain or shortness of breath. Last menstrual cycle was last month. She does note a prior appendectomy. PAST MEDICAL HISTORY Diagnosis Date Kidney stone 03/18/2023 NEGATIVE MEDICAL HISTORY 2004 normal color vision PAST SURGICAL HISTORY Procedure Laterality Date APPENDECTOMY 03/12/2023 FAMILY HISTORY Problem Relation Age of Onset Asthma Mother other (IBS) Mother other (acid reflux) Mother Breast Cancer Paternal Grandmother other (Scleroderma) Paternal Grandmother Heart Maternal Grandfather Hypertension Maternal Grandfather Social History Tobacco Use Smoking status: Never Passive exposure: Never Smokeless tobacco: Never Vaping Use Vaping status: Some Days Substances: Nicotine, THC Substance and Sexual Activity Alcohol use: No Drug use: Yes Comment: thc Sexual activity: Not on file ALLERGIES No Known Allergies Review of Systems Constitutional: Positive for fatigue. Negative for chills and fever. Respiratory: Negative for shortness of breath. Cardiovascular: Negative for chest pain. Gastrointestinal: Positive for abdominal pain and nausea. Negative for blood in stool, constipation, diarrhea and vomiting. Genitourinary: Negative for dysuria, flank pain, hematuria, pelvic pain, vaginal bleeding and vaginal discharge. Musculoskeletal: Negative for back pain. Skin: Negative for rash. Neurological: Negative for weakness and numbness. Psychiatric/Behavioral: Negative for agitation and confusion. Physical Exam Vitals BP Pulse Temp Temp src Resp SpO2 Weight Height 10/17/24 1652 10/17/24 1648 10/17/24 1648 10/17/24 1648 10/17/24 1648 10/17/24 1648 10/17/24 1648 10/17/24 1648 122/73 87 37 ?C (98.6 ?F) Temporal Art 18 98 % 40.8 kg (90 lb) 1.473 m (4' 10") Physical Exam Vitals and nursing note reviewed. Constitutional: General: She is not in acute distress. Appearance: She is not ill-appearing, toxic-appearing or diaphoretic. HENT: Head: Normocephalic and atraumatic. Mouth/Throat: Mouth: Mucous membranes are moist. Pharynx: Oropharynx is clear. Eyes: Conjunctiva/sclera: Conjunctivae normal. Cardiovascular: Rate and Rhythm: Normal rate and regular rhythm. Pulses: Normal pulses. Pulmonary: Effort: Pulmonary effort is normal. Breath sounds: Normal breath sounds. Abdominal: General: Abdomen is flat. Bowel sounds are normal. There is no distension. Palpations: Abdomen is soft. Tenderness: There is generalized abdominal tenderness. There is no right CVA tenderness, left CVA tenderness, guarding or rebound. Negative signs include Johnson's sign and McBurney's sign. Musculoskeletal: Right lower leg: No edema. Left lower leg: No edema. Skin: General: Skin is warm and dry. Capillary Refill: Capillary refill takes less than 2 seconds. Findings: No rash. Neurological: General: No focal deficit present. Mental Status: She is alert and oriented to person, place, and time. Psychiatric: Mood and Affect: Mood normal. Behavior: Behavior normal. Diagnostic Testing ED Labs Ordered and Reviewed URINALYSIS (WITH MICROSCOPIC) WITH CULTURE IF INDICATED - Abnormal; Notable for the following components: Result Value Ref Range Specific [place], Ur >=1.030 (*) 1.005 - 1.030 Bacteria Rare (*) None Seen /HPF All other components within normal limits COMPREHENSIVE METABOLIC PANEL - Normal LIPASE - Normal HCG, QUALITATIVE, URINE - Normal COMPLETE BLOOD COUNT AND DIFFERENTIAL Procedures ED Course / Clinical Impression Clinical Impressions as of 10/18/24 0018 Generalized abdominal pain MDM / Disposition / Plan Will obtain labs, IV and Zofran ordered. Labs Reviewed URINALYSIS (WITH MICROSCOPIC) WITH CULTURE IF INDICATED - Abnormal; Notable for the following components: Specific [place], Ur >=1.030 (*) Bacteria Rare (*) All (more content not included)... Normal [facility] HCG Preg Ur Qlon 10-17-2024 HCG ( test) Ql (U) Negative Normal Negative [facility] Comment on above: Order Comment: Speci men Type: URINE SPECIMEN Ordering Facility: [facility] Address: [address] [place] [address] Result Comment: This test is intended to aid in the early detection of . Very dilute urine samples, as indicated by a low specific gravity, may not contain outside sales representative insurance levels of hCG. This test detects intact hCG only. This test does not reliably detect hCG degradation products, including free-beta subunit and beta-core fragment. Therefore, this test may show reduced reactivity in urine after 8 weeks gestation. A number of conditions other than , including trophoblastic disease and certain non-trophoblastic neoplasms cause elevated levels of hCG. As with any assay employing mouse antibodies, the possibility exists for interference by human anti-mouse antibodies (HAMA) in the specimen. The test provides a presumptive diagnosis for . Performed By: #### 2 106-3 #### [facility] CLIA [id number] [address] [place] [address] [place] Lipase SerPl-cCncon 10-17-19 25 Lipase [Catalytic activity/Vol] 41 U/L Normal 16-61 [facility] Comment on above: Order Comment: Speci men Type: BLOOD SPECIMEN Ordering Facility: [facility] Address: [address] [place] [address] Performed By: #### 2 4323-8, 3040-3 #### [facility] CLIA [id number] [address] [place] [address] [place] Urinalysis complete panel (U )on 10-17-2024 Bacteria LM.HPF (Urine sed) [#/Area] Rare Abnormal None Seen [facility] Comment on above: Order Comment: Speci men Type: URINE SPECIMEN Ordering Facility: [facility] Address: [address] [place] [address] Performed By: #### 2 4356-8 #### [facility] CLIA [id number] [address] [place] [address] [place] Bilirubin Ql (U) Negative Normal Negative [facility] Comment on above: Order Comment: Speci men Type: URINE SPECIMEN Ordering Facility: [facility] Address: [address] [place] [address] Performed By: #### 2 4356-8 #### [facility] CLIA [id number] [address] [place] [address] [place] Clarity (Unsp spec) Clear Normal Clear [facility] Comment on above: Order Comment: Speci men Type: URINE SPECIMEN Ordering Facility: [facility] Address: [address] [place] [address] Performed By: #### 2 4356-8 #### [facility] CLIA [id number] [address] [place] [address] [place] Color (U) Yellow Normal Yellow [facility] Comment on above: Order Comment: Speci men Type: URINE SPECIMEN Ordering Facility: [facility] Address: [address] [place] [address] Performed By: #### 2 4356-8 #### [facility] CLIA [id number] [address] [place] [address] [facility] [place] Epithelial cells LM.HPF (Urine sed) [#/Area] Moderate Normal [facility] Comment on above: Order Comment: Speci men Type: URINE SPECIMEN Ordering Facility: [facility] Address: [facility] [place] [address] Performed By: #### 2 4356-8 #### [facility] CLIA [id number] [address] [place] [address] [place] [facility] [place] Glucose Test strip (U) [Mass/Vol] Negative Normal Negative [facility] Comment on above: Order Comment: Speci men Type: URINE SPECIMEN Ordering Facility: [facility] Address: [address] [place] [address] Performed By: #### 2 4356-8 #### [facility] CLIA [id number] [address] [place] [address] [place] Hemoglobin Ql (U) Negative Normal Negative [facility] Comment on above: Order Comment: Speci men Type: URINE SPECIMEN Ordering Facility: [facility] Address: [address] [place] [address] Performed By: #### 2 4356-8 #### [facility] CLIA [id number] [address] [place] [address] [place] Ketones Ql (U) Negative Normal Negative [facility] Comment on above: Order Comment: Speci men Type: URINE SPECIMEN Ordering Facility: [facility] Address: [address] [place] [address] Performed By: #### 2 4356-8 #### [facility] CLIA [id number] [address] [place] [address] [place] [facility] [place] Leukocyte esterase Test strip Ql (U) Negative Normal Negative [facility] Comment on above: Order Comment: Speci men Type: URINE SPECIMEN Ordering Facility: [facility] Address: [address] [place] [address] Performed By: #### 2 4356-8 #### [facility] CLIA [id number] [address] [place] [address] [place] Nitrite Ql (U) Negative Normal Negative [facility] Comment on above: Order Comment: Speci men Type: URINE SPECIMEN Ordering Facility: [facility] Address: [address] [place] [address] Performed By: #### 2 4356-8 #### [facility] CLIA [id number] [address] [place] [address] [place] pH (U) 5.5 [pH] Normal 5.0-8.0 [facility] Comment on above: Order Comment: Speci men Type: URINE SPECIMEN Ordering Facility: [facility] Address: [address] [place] [address] Performed By: #### 2 4356-8 #### [facility] CLIA [id number] [address] [place] [place] [id number] [facility] [place] Protein (U) [Mass/Vol] Negative Normal Negative [facility] Comment on above: Order Comment: Speci men Type: URINE SPECIMEN Ordering Facility: [facility] Address: [address] [place] [address] Performed By: #### 2 4356-8 #### [facility] CLIA [id number] [address] [id number] [place] RBC LM.HPF (Urine sed) [#/Area] 0-3 /HPF Normal 0-3 /HPF [facility] Comment on above: Order Comment: Speci men Type: URINE SPECIMEN Ordering Facility: [facility] Address: [address] [place] [address] Performed By: #### 2 4356-8 #### [facility] CLIA [id number] [address] [place] [address] [facility] Specific gravity (U) [Rel density] >=1.030 High 1.005-1.030 [facility] Comment on above: Order Comment: Speci men Type: URINE SPECIMEN Ordering Facility: [facility] Address: [address] [place] [address] Performed By: #### 2 4356-8 #### [facility] CLIA [id number] [address] [place], [place] [id number] [place] [facility] Urobilinogen Ql (U) 0.2 EU/dL Normal 0.2-1.0 EU/dL [facility] Comment on above: Order Comment: Speci men Type: URINE SPECIMEN Ordering Facility: [facility] Address: [address] [place] [address] Performed By: #### 2 4356-8 #### [facility] CLIA [id number] [address] [place] [address] [place] WBC LM.HPF (Urine sed) [#/Area] 0-5 /HPF Normal 0-5 /HPF [facility] Comment on above: Order Comment: Speci men Type: URINE SPECIMEN Ordering Facility: [facility] Address: [address] [place] [address] Performed By: #### 2 4356-8 #### [facility] CLIA [id number] [address] [place] [address] [place] CBC W Auto Differential pane l (Bld)on 04-25-2023 Basophils (Bld) [#/Vol] 0.04 10*3/uL Normal <0.11 [facility] Comment on above: Order Comment: Speci men Type: BLOOD SPECIMENOrdering Facility: [facility] [place] Address: [address] [place] [address] Performed By: #### 5 7021-8 ####[facility] [id number] [address] STATES OF [facility] Basophils/100 WBC (Bld) 0.9 % Normal [facility] Comment on above: Order Comment: Speci men Type: BLOOD SPECIMENOrdering Facility: [facility] [place] Address: [address] [place] [address] Performed By: #### 5 7021-8 ####[facility]ORYCLIA [id number] [address] [place] Differential cell count method Nom (Bld) Auto Normal [facility] Comment on above: Order Comment: Speci men Type: BLOOD SPECIMENOrdering Facility: [facility] [place] Address: [address] [place] [address] Performed By: #### 5 7021-8 ####[facility]ORYCLIA [id number] [place] [address] [place] Eosinophils (Bld) [#/Vol] 0.04 10*3/uL Normal <0.46 [facility] Comment on above: Order Comment: Speci men Type: BLOOD SPECIMENOrdering Facility: [facility] Address: [address] [place] [address] Performed By: #### 5 7021-8 ####[facility]ORYCLIA [id number] [address] [place] Eosinophils/100 WBC (Bld) 0.9 % Normal [facility] Comment on above: Order Comment: Speci men Type: BLOOD SPECIMENOrdering Facility: [facility] [place] Address: [address] [place] [address] Performed By: #### 5 7021-8 ####[facility]ORYCLIA [id number] [address] [place] Erythrocyte distribution width (RBC) [Ratio] 11.9 % Normal 11.5-15.0 [facility] Comment on above: Order Comment: Speci [facility] Type: BLOOD SPECIMENOrdering Facility: [facility] [place] Address: [address] [place] [address] Performed By: #### 5 7021-8 ####[facility]ORYCLIA [id number] [address] [place] Hematocrit (Bld) [Volume fraction] 37.4 % Normal 36.0-46.0 [facility] Comment on above: Order Comment: Speci men Type: BLOOD SPECIMENOrdering Facility: [facility] [place] Address: [address] [place] [address] Performed By: #### 5 7021-8 ####[facility]ATORYCLIA [id number] [place] [address] [place] Hemoglobin (Bld) [Mass/Vol] 12.8 g/dL Normal 11.5-15.5 [facility] Comment on above: Order Comment: Speci [facility] Type: BLOOD SPECIMENOrdering Facility: [facility] [place] Address: [address] [place] [address] Performed By: #### 5 7021-8 ####[facility]ATORYCLIA [id number] [place] [address] [place] Immature granulocytes (Bld) [#/Vol] 10*3/uL Normal <0.10 [facility] Comment on above: Order Comment: Speci [facility] Type: BLOOD SPECIMENOrdering Facility: [facility] [place] Address: [address] [place] [address] Performed By: #### 5 7021-8 ####[facility]ORYCLIA [id number] [address] [place] Immature granulocytes/100 WBC (Bld) 0.2 % Normal [facility] Comment on above: Order Comment: Speci [facility] Type: BLOOD SPECIMENOrdering Facility: [facility] [place] Address: [address] [place] [address] Performed By: #### 5 7021-8 ####[facility]ATORYCLIA [id number] [place] [address] [place] Lymphocytes (Bld) [#/Vol] 1.98 10*3/uL Normal 1.00-4.00 [facility] Comment on above: Order Comment: Grayson [facility] Type: BLOOD SPECIMENOrdering Facility: [facility] [place] Address: [address] [place] [address] Performed By: #### 5 7021-8 ####[facility]ORYCLIA [id number] [place] [address] [place] Lymphocytes/100 WBC (Bld) 45.7 % Normal [facility] Comment on above: Order Comment: [facility] Type: BLOOD SPECIMENOrdering Facility: [facility] [place] Address: [address] [place] [address] Performed By: #### 5 7021-8 ####[facility]ORYCLIA [id number] [address] MCH (RBC) [Entitic mass] 29.6 pg Normal 26.0-34.0 [facility] Comment on above: Order Comment: Speci men Type: BLOOD SPECIMENOrdering Facility: [facility] [place] Address: [address] [place] [address] Performed By: #### 5 7021-8 ####[facility]ATORYCLIA [id number] [place] [address] [place] MCHC (RBC) [Mass/Vol] 34.2 g/dL Normal 30.5-36.0 [facility] Comment on above: Order Comment: Speci men Type: BLOOD SPECIMENOrdering Facility: [facility] [place] Address: [address] [place] [address] Performed By: #### 5 7021-8 ####[facility]ORYCLIA [id number] [address] [place] MCV (RBC) [Entitic vol] 86.6 fL Normal 80.0-100.0 [facility] Comment on above: Order Comment: Speci men Type: BLOOD SPECIMENOrdering Facility: [facility] [place] Address: [address] [place] [address] Performed By: #### 5 7021-8 ####[facility]ORYCLIA [id number] [address] [place] Monocytes (Bld) [#/Vol] 0.31 10*3/uL Normal <0.87 [facility] Comment on above: Order Comment: Speci men Type: BLOOD SPECIMENOrdering Facility: [facility] [place] Address: [address] [place] [address] Performed By: #### 5 7021-8 ####[facility]ORYCLIA [id number] [address] [place] Monocytes/100 WBC (Bld) 7.2 % Normal [facility] Comment on above: Order Comment: Speci men Type: BLOOD SPECIMENOrdering Facility: [facility] [place] Address: [address] [place] [address] Performed By: #### 5 7021-8 ####[facility]ORYCLIA [id number] [place] [address] [place] Neutrophils (Bld) [#/Vol] 1.95 10*3/uL Normal 1.45-7.50 [facility] Comment on above: Order Comment: Speci men Type: BLOOD SPECIMENOrdering Facility: [facility] [place] Address: [address] [place] [address] Performed By: #### 5 7021-8 ####[facility]ORYCLIA [id number] [place] [address] [place] Neutrophils/100 WBC (Bld) 45.1 % Normal [facility] Comment on above: Order Comment: Speci men Type: BLOOD SPECIMENOrdering Facility: [facility] Address: [address] [place] [address] Performed By: #### 5 7021-8 ####[facility]ATORYCLIA [id number] [place] [address] [place] Nucleated RBC (Bld) [#/Vol] 10*3/uL Normal <0.01 [facility] Comment on above: Order Comment: Speci men Type: BLOOD SPECIMENOrdering Facility: [facility] [place] Address: [address] [place] [address] Performed By: #### 5 7021-8 ####[facility]ORYCLIA [id number] [address] [place] Nucleated RBC/100 WBC (Bld) [Ratio] 0.0 /100 WBC Normal [facility] Comment on above: Order Comment: Speci men Type: BLOOD SPECIMENOrdering Facility: [facility] [place] Address: [address] [place] [address] Performed By: #### 5 7021-8 ####[facility]ORYCLIA [id number] [place] [address] [place] Platelet mean volume (Bld) [Entitic vol] 10.6 fL Normal 9.0-12.7 [facility] Comment on above: Order Comment: Speci [facility] Type: BLOOD SPECIMENOrdering Facility: [facility] [place] Address: [address] [place] [address] Performed By: #### 5 7021-8 ####[facility]ORATORYCLIA [id number] [place] [address] [place] [facility] [place] Platelets (Bld) [#/Vol] 237 10*3/uL Normal 150-400 [facility] Comment on above: Order Comment: Speci men Type: BLOOD SPECIMENOrdering Facility: [facility] [place] Address: [address] [place] [address] Performed By: #### 5 7021-8 ####[facility]ORYCLIA [id number] [place] [address] [place] RBC (Bld) [#/Vol] 4.32 10*6/uL Normal 3.90-5.20 [facility] Comment on above: Order Comment: Speci men Type: BLOOD SPECIMENOrdering Facility: [facility] [place] Address: [address] [place] [address] Performed By: #### 5 7021-8 ####[facility]ORYCLIA [id number] [address] [place] WBC (Bld) [#/Vol] 4.33 10*3/uL Normal 3.70-11.00 [facility] Comment on above: Order Comment: Speci men Type: BLOOD SPECIMENOrdering Facility: [facility] [place] Address: [address] [place] [address] Performed By: #### 5 7021-8 ####[facility]ATORYCLIA [id number] [place] [address] [place] [facility] Comprehensive metabolic 2000 panelon 04-25-2023 Albumin [Mass/Vol] 4.3 g/dL Normal 3.9-4.9 [facility] Comment on above: Order Comment: Speci men Type: BLOOD SPECIMEN Ordering Facility: [facility] Address: [address] [place] [address] Performed By: #### 2 4323-8 #### [facility] CLIA [id number] [address] [place] [address] [place] ALP [Catalytic activity/Vol] 68 U/L Normal 45-87 [facility] Comment on above: Order Comment: Speci men Type: BLOOD SPECIMEN Ordering Facility: [facility] Address: [address] [place] [address] Performed By: #### 2 4323-8 #### [facility] CLIA [id number] [address] ALT [Catalytic activity/Vol] 12 U/L Normal 7-38 [facility] Comment on above: Order Comment: Speci men Type: BLOOD SPECIMEN Ordering Facility: [facility] Address: [address] [place] [address] Performed By: #### 2 4323-8 #### [facility] CLIA [id number] [address] [place] Anion gap [Moles/Vol] 11 mmol/L Normal 9-18 [facility] Comment on above: Order Comment: Speci men Type: BLOOD SPECIMEN Ordering Facility: [facility] Address: [address] [place] [address] Performed By: #### 2 4323-8 #### [facility] CLIA [id number] [address] [place] AST [Catalytic activity/Vol] 20 U/L Normal 13-35 [facility] Comment on above: Order Comment: Speci men Type: BLOOD SPECIMEN Ordering Facility: [facility] Address: [address] [place] [address] Performed By: #### 2 4323-8 #### [facility] CLIA [id number] [address] [place] Bilirubin [Mass/Vol] 0.4 mg/dL Normal 0.2-1.3 [facility] Comment on above: Order Comment: Speci men Type: BLOOD SPECIMEN Ordering Facility: [facility] Address: [address] [place] [address] Performed By: #### 2 4323-8 #### [facility] CLIA [id number] [address] OF [facility] Calcium [Mass/Vol] 9.3 mg/dL Normal 8.5-10.2 [facility] Comment on above: Order Comment: Speci men Type: BLOOD SPECIMEN Ordering Facility: [facility] Address: [address] [place] [address] Performed By: #### 2 4323-8 #### [facility] CLIA [id number] [address] Chloride [Moles/Vol] 101 mmol/L Normal 97-105 [facility] Comment on above: Order Comment: Speci men Type: BLOOD SPECIMEN Ordering Facility: [facility] Address: [address] [place] [address] Performed By: #### 2 4323-8 #### [facility] CLIA [id number] [address] CO2 [Moles/Vol] 25 mmol/L Normal 22-30 [facility] Comment on above: Order Comment: Speci men Type: BLOOD SPECIMEN Ordering Facility: [facility] Address: [address] [place] [address] Performed By: #### 2 4323-8 #### [facility] CLIA [id number] [address] Creatinine [Mass/Vol] 0.78 mg/dL Normal 0.58-0.96 [facility] Comment on above: Order Comment: Speci men Type: BLOOD SPECIMEN Ordering Facility: [facility] Address: [address] [place] [address] Performed By: #### 2 4323-8 #### [facility] CLIA [id number] [address] ESTIMATED GLOMERULAR FILTRATION RATE 113 mL/min/1.73m??? Normal >=60 [facility] Comment on above: Order Comment: Speci men Type: BLOOD SPECIMEN Ordering Facility: [facility] Address: [address] [place] [address] Result Comment: Raquel mated Glomerular Filtration Rate (eGFR) is calculated using the 2020 CKD-EPI creatinine equation. This equation utilizes serum creatinine, sex, and age as parameters. The creatinine assay has traceable calibration to isotope dilution-mass spectrometry. Refer to KDIGO guidelines for clinical interpretation. In patients with unstable renal function, e.g. those with acute kidney injury, the eGFR may not accurately reflect actual GFR. Performed By: #### 2 4323-8 #### [facility] CLIA [id number] [address] [place] [address] [place] Glucose [Mass/Vol] 83 mg/dL Normal 74-99 [facility] Comment on above: Order Comment: Grayson morin Type: BLOOD SPECIMEN Ordering Facility: [facility] Address: [address] [place] [address] Result Comment: The [place] Diabetes Association (ADA) provides guidance for cutoff values for fasting glucose and random glucose. The ADA defines fasting as no caloric intake for at least 8 hours. Fasting plasma glucose results between 100 to 125 mg/dL indicate increased risk for diabetes (prediabetes). Fasting plasma glucose results greater than or equal to 126 mg/dL meet the criteria for diagnosis of diabetes. In the absence of unequivocal hyperglycemia, results should be confirmed by repeat testing. In a patient with classic symptoms of hyperglycemia or hyperglycemic crisis, random plasma glucose results greater than or equal to 200 mg/dL meet the criteria for diagnosis of diabetes. Reference: Standards of Medical Care in Diabetes 2016, [place] [employer]. Diabetes Care. 2016.39(Suppl 1). Performed By: #### 2 4323-8 #### [facility] CLIA [id number] [address] [place] [address] [place] Potassium [Moles/Vol] 4.0 mmol/L Normal 3.7-5.1 [facility] Comment on above: Order Comment: Grayson morin Type: BLOOD SPECIMEN Ordering Facility: [facility] Address: [address] [place] [address] Performed By: #### 2 4323-8 #### [facility] CLIA [id number] [address] [place] [address] [place] Protein [Mass/Vol] 7.1 g/dL Normal 6.3-8.0 [facility] Comment on above: Order Comment: Grayson morin Type: BLOOD SPECIMEN Ordering Facility: [facility] Address: [address] [place] [address] Performed By: #### 2 4323-8 #### [facility] CLIA [id number] [address] [place] [address] [place] Sodium [Moles/Vol] 137 mmol/L Normal 136-144 [facility] Comment on above: Order Comment: Speci men Type: BLOOD SPECIMEN Ordering Facility: [facility] Address: [address] [place] [address] Performed By: #### 2 4323-8 #### [facility] CLIA [id number] [address] [place] Urea nitrogen [Mass/Vol] 9 mg/dL Normal 7-21 [facility] Comment on above: Order Comment: Speci men Type: BLOOD SPECIMEN Ordering Facility: [facility] Address: [address] [place] [address] Performed By: #### 2 4323-8 #### [facility] CLIA [id number] [address] [place] [address] [place] US KIDNEY/BLADDERon 03-25-20 23 [facility] UA DIP, URINE (POC)on 2022 BILIRUBIN UA (POCT) Negative Negative [facility] CLARITY UA (POCT) Clear [facility] COLOR UA (POCT) Yellow [facility] GLUCOSE UA (POCT) Negative Negative mg/dL [facility] HEMOGLOBIN/BLOOD UA (POCT) Negative Negative [facility] KETONE UA (POCT) Negative Negative mg/dL [facility] LEUKOCYTES UA (POCT) Negative Negative [facility] NITRITE UA (POCT) Negative Negative [facility] PH UA (POCT) 5.5 4.5 - 8.0 [facility] Protein Ql (U) 100 mg/dL Abnormal Negative mg/dL [facility] SPECIFIC GRAVITY UA (POCT) >=1.030 1.005 - 1.030 [facility] UROBILINOGEN UA (POCT) 0.2 E.U./dL Milka l E.U./dL [facility] Bacteria Bld Culton 03-15-20 23 Bacteria identified Cx Nom (Bld) CULTURE, BLOOD: No growth 5 days Normal [facility] Comment on above: Performed By: #### 6 00-7 ####[facility] LABCLIA [id number] [facility] [id number] [place] Bacteria identified Cx Nom (Bld) CULTURE, BLOOD: No growth 5 days Normal [facility] Comment on above: Performed By: #### 6 00-7 ####[facility] LABCLIA [id number] [facility] [id number] C diff Tox gens Stl Ql BRANDEN+p robeon 03-15-2023 C. difficile toxin genes BRANDEN+probe Ql (Stl) Negative Normal Negative for C. difficile toxin by PCR [facility] Comment on above: Order Comment: Speci men Type: BLOOD SPECIMEN Ordering Facility: [facility] Address: [address] [place] [place] [address] Performed By: #### 2 4323-8 #### [facility] CLIA [id number] [address] OF [place] CBC panel Auto (Bld)on 03-15 Erythrocyte distribution width (RBC) [Ratio] 11.8 % Normal 11.5-15.0 [facility] Comment on above: Order Comment: Speci men Type: BLOOD SPECIMENOrdering Facility: [facility] Address: [address] [place] [address] Performed By: #### 5 8410-2 ####[facility]ORYCLIA [id number] [address] Hematocrit (Bld) [Volume fraction] 33.2 % Low 36.0-46.0 [facility] Comment on above: Order Comment: Speci men Type: BLOOD SPECIMENOrdering Facility: [facility] Address: [address] [place] [address] Performed By: #### 5 8410-2 ####[facility]ORYCLIA [id number] [address] STATES [facility] Hemoglobin (Bld) [Mass/Vol] 11.5 g/dL Normal 11.5-15.5 [facility] Comment on above: Order Comment: Speci men Type: BLOOD SPECIMENOrdering Facility: [facility] Address: [address] [place] [address] Performed By: #### 5 8410-2 ####[facility]ORYCLIA [id number] [address] [place] MCH (RBC) [Entitic mass] 29.9 pg Normal 26.0-34.0 [facility] Comment on above: Order Comment: Speci men Type: BLOOD SPECIMENOrdering Facility: [facility] Address: [address] [place] [address] Performed By: #### 5 8410-2 ####[facility]ORYCLIA [id number] [address] MCHC (RBC) [Mass/Vol] 34.6 g/dL Normal 30.5-36.0 [facility] Comment on above: Order Comment: Speci men Type: BLOOD SPECIMENOrdering Facility: [facility] Address: [address] [place] [address] Performed By: #### 5 8410-2 ####[facility]ATORYCLIA [id number] [address] MCV (RBC) [Entitic vol] 86.5 fL Normal 80.0-100.0 [facility] Comment on above: Order Comment: Speci men Type: BLOOD SPECIMENOrdering Facility: [facility] Address: [address] [place] [address] Performed By: #### 5 8410-2 ####[facility]ORATORYCLIA [id number] [address] Nucleated RBC (Bld) [#/Vol] 10*3/uL Normal <0.01 [facility] Comment on above: Order Comment: Speci men Type: BLOOD SPECIMENOrdering Facility: [facility] Address: [address] [address] Performed By: #### 5 8410-2 ####[facility] LABORATORYCLIA [id number] [address] Platelet mean volume (Bld) [Entitic vol] 11.5 fL Normal 9.0-12.7 [facility] Comment on above: Order Comment: Speci men Type: BLOOD SPECIMENOrdering Facility: [facility] Address: [address] [address] Performed By: #### 5 8410-2 ####[facility] LABORATORYCLIA [id number] [address] OF [facility] Platelets (Bld) [#/Vol] 196 10*3/uL Normal 150-400 [facility] Comment on above: Order Comment: Speci men Type: BLOOD SPECIMENOrdering Facility: [facility] Address: [address] [place] [address] Performed By: #### 5 8410-2 ####[facility] LABORATORYCLIA [id number] [address] OF [facility] RBC (Bld) [#/Vol] 3.84 10*6/uL Low 3.90-5.20 [facility] Comment on above: Order Comment: Speci men Type: BLOOD SPECIMENOrdering Facility: [facility] Address: [address] [place] [address] Performed By: #### 5 8410-2 ####[facility] LABORATORYCLIA [id number] [address] WBC (Bld) [#/Vol] 10.50 10*3/uL Normal 3.70-11.00 [facility] Comment on above: Order Comment: Speci men Type: BLOOD SPECIMENOrdering Facility: [facility] Address: [address] [place] [address] Performed By: #### 5 8410-2 ####[facility] LABORATORYCLIA [id number] [address] CNDSon 03-15-2023 DS HNO ID: [id number] Author: Ulices Owen APRN.PATIENT DAY COORDINATOR Service: General Internal Medicine Author Type: Nurse Practitioner Type: Discharge Summary Filed: 03/15/2023 8:18 PM Note Text: Attestation signed by Vadim Montoya MD at 03/15/2023 10:19 PM [facility] STAFF PHYSICIAN NOTE OF PERSONAL INVOLVEMENT IN CARE I have reviewed the discharge summary obtained and documented by the LUNCH TRUCK OPERATOR and I personally participated in the menodza components. I have discussed the case and management of the patient's care. The following comments revise or confirm relevant mendoza components of their note. IMPRESSION: PLAN: See note on discharge date. D/W patient's father at bedside. CARE COORDINATION: Discharge Management: I personally spent greater than 30 minutes involved in the discharge management of this patient SIGNATURE: Vadim Montoya MD DATE of SERVICE: March 15, 2023 TIME of SERVICE: 10:18 PM DISCHARGE SUMMARY PATIENT NAME: Dao Valdes Code Status: Not on file Highest Readmission Risk Score: 10 The 30 day readmissions risk score is derived from an internally validated risk model which evaluates patient level characteristics, utilization history, medication orders and lab results up until the day of discharge. Patients with a score of 40 or above are considered highest risk for readmission. Specific patient level drivers will be listed at the bottom of the summary. Admission Information Admission Information ADMIT DATE: 03/14/2023 DISCHARGE DATE: 03/15/2023 MY DOCTORS AND MEDICAL TEAM: My Main Hospital Doctor: Vadim Montoya MD Primary Care Provider: No primary care provider on file. My Medical Team Members: Treatment Team: Attending Provider: Vadim Montoya MD Consulting: Barrera Goldman MD Consulting: Jose Eagle MD Consulting: Young Hartley MD MY CONDITION AT DISCHARGE: Stable REASON I WAS IN THE HOSPITAL: Abdominal Pain (lower abd pain radiating to back SUMMARY OF WHAT HAPPENED WHILE I WAS IN THE HOSPITAL: You were admitted from the Emergency Department on 03/14/[address] Vadim Montoya MD. It was determined you would benefit from admission to the hospital. You were in the hospital for 1 day. You had labwork, urinalysis, and CT while in the hospital. You were given your daily medications as well as IV fluids and antibiotics. You were seen by specialists from general surgery, gastroenterology, and urology. You will be discharged to home. Labs drawn in ED show acute renal insufficiency with sCr of 1.17. Repeat creatinine 1.21. - Stool studies pending. - Follow urology recommendations: needs to increase fluid intake. - Discussed the role of fiber therapy and management of irritable bowel syndrome with the patient and her mother - Recommend outpatient follow-up and possible colonoscopy With [facility]. OTHER PROBLEMS/DIAGNOSIS: Principal Problem: Kidney stone Active Problems: JUSTIN (generalized anxiety disorder) Colitis SHERLEY (acute kidney injury) (HCC) Right lower quadrant abdominal pain Resolved Problems: * No resolved hospital problems. * OPERATIONS PERFORMED WHILE IN THE HOSPITAL: None IMPORTANT TEST/PROCEDURES: No procedures performed TEST RESULTS NOT AVAILABLE AT THIS TIME: No pending results Discharge Disposition Discharge Disposition: Home With Self Care Activity When You Leave the Hospital Resume pre-hospital activity Diet Instructions Other: Increase fiber and water intake. Follow Up Appointments Follow-Up Appointment [facility] Or your GI specialist for colonoscopy With: michael When: In: Comment - 2-4 weeks Patient/Parents to call for appointment?: Yes Follow-Up Appointment With: urology When: In 1 week Comment - 1-2 weeks Patient/Parents to call for appointment?: Yes Additional Provider to Provider Information: You were admitted from the Emergency Department on 03/14/[address] Vadim Montoya MD. It was determined you would benefit from admission to the hospital. You were in the hospital for 1 day. You had labwork, urinalysis, and CT while in the hospital. You were given your daily medications as well as IV fluids and antibiotics. You were seen by specialists from general surgery, gastroenterology, and urology. You will be discharged to home. Labs drawn in ED show acute renal insufficiency with sCr of 1.17. Repeat creatinine 1.21. - Stool studies pending. - Follow urology recommendations: needs to increase fluid intake. - Discussed the role of fiber therapy and management of irritable bowel syndrome with the patient and her mother - Recommend outpatient follow-up and possible colonoscopy With [facility]. Transitions of (more content not included)... Normal [facility] CONSULTon 03-15-2023 CONSULT HNO ID: [id number] Author: Sujit Shaffer Jr., MD Service: Urology Author Type: Physician Type: Consults Filed: 03/15/2023 11:20 AM Note Text: CONSULT NOTE SERVICE DATE: 03/15/2023 SERVICE TIME: 11:19 AM CONSULTING SERVICE: Urology ASSESSMENT Right ureteral calculus PLAN Recommend outpatient medical expulsive therapy. My office will arrange outpatient follow up. If can swallow flomax would be helpful. If not, needs to increase fluids. SUBJECTIVE INTERVAL HPI: 18 yo F sp appy. Return to hospital with r flank pain. Found to have 4mm distal r ureteral calculus. No fever. No uti. MEDICATIONS: Current Facility-Administered Medications Medication Dose Route Frequency cefTRIAXone iv piggyback 1 g in dextrose (iso-osmotic) 50 mL (ROCEPHIN) 1 g INTRAVENOUS q 24 H metroNIDAZOLE iv piggyback 500 mg in NaCl (iso-osmotic) 100 mL (FLAGYL) 500 mg INTRAVENOUS q 8 H acetaminophen 650 mg tab(s) (TYLENOL) 650 mg ORAL q 6 H PRN heparin 5,000 Units injection 5,000 Units SUBCUTANEOUS q 12 H NaCl 0.9% iv infusion 75 mL/hr INTRAVENOUS CONTINUOUS ondansetron orally disintegrating 4 mg tab(s) (ZOFRAN ODT) 4 mg ORAL q 6 H PRN Or ondansetron (PF) 4 mg injection (ZOFRAN) 4 mg INTRAVENOUS q 6 H PRN OBJECTIVE PHYSICAL EXAM: Patient Vitals for the past 24 hrs: BP Temp Temp src Pulse Resp SpO2 Height Weight 03/15/23 1110 103/65 36.6 ?C (97.9 ?F) Oral 64 18 100 % -- -- 03/15/23 0806 117/58 36.8 ?C (98.2 ?F) Oral 69 17 99 % -- -- 03/15/23 0544 129/60 36.6 ?C (97.9 ?F) Oral 68 16 99 % -- -- 03/15/23 0046 115/54 36.6 ?C (97.9 ?F) Oral 60 16 99 % 147.3 cm (4' 10") 39.6 kg (87 lb 3.2 oz) 03/14/23 2345 -- -- -- 69 -- 98 % -- -- 03/14/232329 -- -- -- 70 -- 99 % -- -- 03/14/232314 -- -- -- 63 -- 98 % -- -- 03/14/232299 126/77 -- -- 68 -- 100 % -- -- 03/14/232244 -- -- -- 66 -- 98 % -- -- 03/14/232229 127/75 -- -- 78 -- 98 % -- -- 03/14/232214 -- -- -- 68 -- 99 % -- -- 03/14/232199 130/70 -- -- 75 -- 99 % -- -- 03/14/232144 -- -- -- 71 -- 99 % -- -- 03/14/232129 139/82 -- -- 90 -- 95 % -- -- 03/14/232114 -- -- -- 62 -- 100 % -- -- 03/14/232099 139/71 -- -- 62 -- 100 % -- -- 03/14/232044 -- -- -- 74 -- 100 % -- -- 03/14/232029 139/79 -- -- -- -- -- -- -- 03/14/232007 113/72 36.6 ?C (97.8 ?F) Oral 65 16 100 % -- 40.8 kg (90 lb) Body mass index is 18.22 kg/m?. GENERAL: Alert, no distress, cooperative ABDOMEN: Abdomen soft, non-tender. BS normal. No masses or organomegaly. GENITALIA female: deferred DATA: Diagnostic tests reviewed for today's visit: Most recent labs No results found for: PSA Glucose (mg/dL) Date Value 03/15/2023 72 (L) BUN (mg/dL) Date Value 03/15/2023 10 Creatinine (mg/dL) Date Value 03/15/2023 1.21 (H) Sodium (mmol/L) Date Value 03/15/2023 137 Potassium (mmol/L) Date Value 03/15/2023 3.6 (L) Chloride (mmol/L) Date Value 03/15/2023 103 CO2 (mmol/L) Date Value 03/15/2023 18 (L) Protein, Total (g/dL) Date Value 03/15/2023 5.9 (L) Albumin (g/dL) Date Value 03/15/2023 3.6 (L) Calcium, Total (mg/dL) Date Value 03/15/2023 8.4 (L) Alkaline Phosphatase (U/L) Date Value 03/15/2023 56 Bilirubin, Total (mg/dL) Date Value 03/15/2023 0.5 AST (U/L) Date Value 03/15/2023 21 ALT (U/L) Date Value 03/15/2023 9 Most recent imaging SIGNATURE: Sujit Shaffer Jr, MD PATIENT NAME: Dao Valdes DATE: March 15, 2023 TIME: 11:19 AM PAGER: [phone] [facility] CONSULT HNO ID: [id number] Author: Jose Eagle MD Service: Gastroenterology Author Type: Physician Type: Consults Filed: 03/15/2023 1:39 PM Note Text: GASTROENTEROLOGY CONSULT NOTE PATIENT NAME: Dao Valdes SERVICE DATE: March 15, 2023 SERVICE TIME: 11:02 AM PRIMARY CARE PHYSICIAN: No primary care provider on file. ATTENDING PHYSICIAN: Vadim Montoya MD REASON FOR ADMISSION: Urolithiasis REASON FOR CONSULTATION: Abdominal pain / Colitis HPI: This is an 18 year old female with a past medical history significant for recent acute appendicitis s/p lap appendectomy 03/12/23 who presents with dysuria. Patient seen in ER 03/12/23 with lower abdominal pain R>L. Clinically was suspected of having acute appendicitis and underwent lap appy. Reports after surgery continued to have pain across lower abdomen, diarrhea and dysuria so presented to ER yesterday. In ER found to have mild leukocytosis (WBC 11). CT A/P with findings of sigmoid colon and descending colon and moderate right hydroureteronephrosis and calculus lying in the region of the right posterior urinary bladder. She was admitted and seen by urology who is recommending Flomax with outpatient medical expulsive therapy. GI consult requested for colitis. Patient reports chronically has several soft stools each morning. Over past couple of months has had intermittent constipation. Then about one week ago developed diarrhea - reports having several small volume dark brown stools each day. [facility], Dr. Nanette Mar. June 2022. At that time stool test ordered, sucrose breath test and started on Bentyl. She has not yet completed testing or had follow-up. Having mild nausea, vomiting. Has chronic heartburn based on food choices. No dysphagia or odynophagia. Appetite is poor. Has lost ~ 10 lbs over past couple of months. No reports of hematochezia or melena. No NSAID or ASA use. No travel, sick contacts or antibiotic usage. No prior EGD or colonoscopy. ALLERGIES No Known Allergies PAST MEDICAL HISTORY: PAST MEDICAL HISTORY Diagnosis Date NEGATIVE MEDICAL HISTORY 2004 normal color vision PAST SURGICAL HISTORY: PAST SURGICAL HISTORY Procedure Laterality Date APPENDECTOMY 03/12/2023 MEDICATIONS: Prior to Admission Medications: oxyCODONE-acetaminophen (PERCOCET) 5-325 mg tablet, Take 1 tablet by mouth every 6 hours as needed for up to 5 days., Disp: 20 tablet, Rfl: 0 drospirenone-e.estradio l-lm.FA (BEYAZ) 3-0.02-0.451 mg (24) (4) tab, Take 1 tablet by mouth once daily. (Patient not taking: Reported on 07/27/2022), Disp: 28 tablet, Rfl: 5 Current Hospital Medications: Current Facility-Administered Medications Medication Dose Route Frequency cefTRIAXone iv piggyback 1 g in dextrose (iso-osmotic) 50 mL (ROCEPHIN) 1 g INTRAVENOUS q 24 H metroNIDAZOLE iv piggyback 500 mg in NaCl (iso-osmotic) 100 mL (FLAGYL) 500 mg INTRAVENOUS q 8 H acetaminophen 650 mg tab(s) (TYLENOL) 650 mg ORAL q 6 H PRN heparin 5,000 Units injection 5,000 Units SUBCUTANEOUS q 12 H NaCl 0.9% iv infusion 75 mL/hr INTRAVENOUS CONTINUOUS ondansetron orally disintegrating 4 mg tab(s) (ZOFRAN ODT) 4 mg ORAL q 6 H PRN Or ondansetron (PF) 4 mg injection (ZOFRAN) 4 mg INTRAVENOUS q 6 H PRN FAMILY HISTORY: Negative for any digestive-related malignancies. Mother: IBS SOCIAL HISTORY: Alcohol use: denies Tobacco use: denies REVIEW OF SYSTEMS: CONSTITUTIONAL: No fevers, chills, night sweats, (+) unintended weight loss HEENT: Denies frequent or severe headaches EYES: No diplopia or blurry vision CARDIOVASCULAR: No chest pain, dyspnea, palpitations, orthopnea, PND, ankle edema PULM: No dyspnea, unexplained cough GI: Per HPI : + dysuria NEURO: No dizziness, lightheadedness or vertigo MUSC/SKEL: No new joint pain, swelling, or erythema PSYCH: No concerns regarding depression, anxiety or panic INTEGUMENTARY: No new skin changes (rash, new or changing mole, new growth) PHYSICAL EXAM: Patient Vitals for the past 24 hrs: BP Temp Temp src Pulse Resp SpO2 Height Weight 03/15/23 0806 117/58 36.8 ?C (98.2 ?F) Oral 69 17 99 % -- -- 03/15/23 0544 129/60 36.6 ?C (97.9 ?F) Oral 68 16 99 % -- -- 03/15/23 0046 115/54 36.6 ?C (97.9 ?F) Oral 60 16 99 % 147.3 cm (4' 10") 39.6 kg (87 lb 3.2 oz) 03/14/23 234 -- -- -- 69 -- 98 % -- -- 03/14/232329 -- -- -- 70 -- 99 % -- -- 03/14/232314 -- -- -- 63 -- 98 % -- -- 03/14/23 2300 126/77 -- -- 68 -- 100 % -- -- 03/14/232244 -- -- -- 66 -- 98 % -- -- 03/14/232229 127/75 -- -- 78 -- 98 % -- -- 03/14/232214 -- -- -- 68 -- 99 % -- -- 03/14/232199 130/70 -- -- 75 -- 99 % -- -- 03/14/232144 -- -- -- 71 -- 99 % -- -- 03/14/232129 139/82 -- -- 90 -- 95 % -- -- 03/14/232114 -- -- -- 62 -- 100 % -- -- 03/14/232099 139/71 -- -- 62 -- 100 % -- -- 03/14/232044 -- -- -- 74 -- 100 % -- -- 03/14/23 (more content not included)... [facility] CONSULT HNO ID: [id number] Author: Nancy Clay PA-C Service: General Surgery Author Type: Physician Structural Design Engineer Type: Consults Filed: 03/15/2023 10:51 AM Note Text: SURGICAL SERVICES INITIAL CONSULT SERVICE DATE: 03/15/2023 SERVICE TIME: 1020 REASON FOR CONSULT: abdominal pain REQUESTING PHYSICIAN: Vadim Montoya MD PRIMARY CARE PHYSICIAN: No primary care provider on file. Subjective HISTORY OF PRESENT ILLNESS: Ms. Valdes is a 18 year old female who presents for evaluation of her abdominal pain. She is status post a lap appendectomy on 03/12/[address] Barrett. She complains of continued pain on the right side radiating to her back and across the lower abdomen. Endorses nausea, no emesis. No fever or chills since surgery. Endorses diarrhea. PAST MEDICAL HISTORY Diagnosis Date NEGATIVE MEDICAL HISTORY 2004 normal color vision PAST SURGICAL HISTORY Procedure Laterality Date APPENDECTOMY 03/12/2023 FAMILY HISTORY Problem Relation Age of Onset Asthma Mother other (IBS) Mother other (acid reflux) Mother Breast Cancer Paternal Grandmother other (Scleroderma) Paternal Grandmother Heart Maternal Grandfather Hypertension Maternal Grandfather Social History Tobacco Use Smoking status: Never Passive exposure: Never Smokeless tobacco: Never Substance Use Topics Alcohol use: No Drug use: No oxyCODONE-acetaminophen (PERCOCET) 5-325 mg tablet, Take 1 tablet by mouth every 6 hours as needed for up to 5 days., Disp: 20 tablet, Rfl: 0 drospirenone-e.estradio l-lm.FA (BEYAZ) 3-0.02-0.451 mg (24) (4) tab, Take 1 tablet by mouth once daily. (Patient not taking: Reported on 07/27/2022), Disp: 28 tablet, Rfl: 5 Current Facility-Administered Medications Medication Dose Route Frequency cefTRIAXone iv piggyback 1 g in dextrose (iso-osmotic) 50 mL (ROCEPHIN) 1 g INTRAVENOUS q 24 H metroNIDAZOLE iv piggyback 500 mg in NaCl (iso-osmotic) 100 mL (FLAGYL) 500 mg INTRAVENOUS q 8 H acetaminophen 650 mg tab(s) (TYLENOL) 650 mg ORAL q 6 H PRN heparin 5,000 Units injection 5,000 Units SUBCUTANEOUS q 12 H NaCl 0.9% iv infusion 75 mL/hr INTRAVENOUS CONTINUOUS ondansetron orally disintegrating 4 mg tab(s) (ZOFRAN ODT) 4 mg ORAL q 6 H PRN Or ondansetron (PF) 4 mg injection (ZOFRAN) 4 mg INTRAVENOUS q 6 H PRN ALLERGIES No Known Allergies COMPLETE REVIEW OF SYSTEMS: PAIN ASSESSMENT: CURRENTLY HAVING PAIN; see HPI GENERAL: No weight loss, malaise or fevers RESPIRATORY: Negative for cough, hemoptysis, wheezing, COPD, dyspnea or shortness of breath CARDIOVASCULAR: Negative for chest pain, leg swelling, hypertension, CHF or palpitations GI: See HPI : No history of dysuria, frequency or incontinence MUSCULOSKELETAL: Negative for joint pain or swelling, back pain or muscle pain SKIN: Negative for lesions, rash, and itching Objective PHYSICAL EXAM: BP 117/58 Pulse 69 Temp (Src) 98.2 (Oral) Resp 17 Ht 4' 10" (1.47m) Wt 87 lb 3.2 oz (39.6kg) SpO2 99% LMP 03/12/2023 BMI 18.23 kg/(m2). O2 Therapy: Room Air Physical Exam Performed GENERAL: Alert, no distress, cooperative ABDOMEN: Abdomen soft, non-tender, BS normal, No masses or organomegaly WOUND: CDI DATA: Diagnostic tests reviewed for today's visit: Most recent labs and imaging results. CBC, Coags, BMP, Mg, Phos Recent Labs 03/15/23 0648 03/14/23202803/12/23 1408 WBC 10.50 11.74* 11.38* HB 11.5 13.3 13.4 HCT 33.2* 37.2 37.6 PLT 196 214 241 INR -- 1.0 -- APTT -- 27.6 -- NA 137 139 138 K 3.6* 3.9 3.9 CHLOR 103 103 103 CO2 18* 20* 21* BUN 10 11 11 CREAT 1.21* 1.17* 0.85 GLUC 72* 80 92 CA 8.4* 9.4 10.3* MG -- -- 1.8 Liver Function, Amylase, AND Lipase Recent Labs 03/15/23 0648 03/14/23 2306 03/14/23202803/12/23 1408 TPROT 5.9* -- 7.2 7.9 ALB 3.6* -- 4.3 4.9 ALT 9 -- 11 13 AST 21 -- 23 21 ALKPHOS 56 -- 69 75 TBILI 0.5 -- 0.5 0.4 LIPASE -- -- 20 33 LACT -- 0.8 -- -- CT abd/pel 03/14/23 IMPRESSION: 1. Postoperative findings of recent appendectomy with scattered intra-abdominal gas which is likely related to the recent surgery. 2. Findings in the sigmoid colon and descending colon which can be seen in colitis, infectious versus inflammatory. 3. Moderate right hydroureteronephrosis. Calculus lying in the region of the right posterior urinary bladder could represent a bladder calculus versus right distal ureteral calculus versus vascular calcification. 4. Nonspecific pericholecystic fluid and periportal edema. Small free fluid in the pelvis. Pelvis US 03/14/23 IMPRESSION: 1. No sonographic evidence of ovarian torsion 2. Small amount nonspecific fluid adjacent to the left aspect of the uterine fundus, potentially physiologic or related to recent surgery Impression/Recommendati ons Abdominal Pain -expected post operative pain in conjunction with urolithiasis -no surgical complications; no plan for surgical intervention, will sign (more content not included)... Normal [facility] Calprotectin (Stl) [Mass/Mas s]on 03-15-2023 CALPROTECTIN, FECAL QUANTITATIVE 58.6 ug/g High <50 [facility] Comment on above: Order Comment: Grayson morin Type: STOOL SPECIMENOrdering Facility: [facility] Address: [address] [id number] Performed By: #### 3 8445-3 ####[facility] LABCLIA [id number] [place] [address] [place] Comprehensive metabolic 2000 panelon 03-15-2023 Albumin [Mass/Vol] 3.6 g/dL Low 3.9-4.9 [facility] Comment on above: Order Comment: Grayson morin Type: BLOOD SPECIMEN [facility] Address: [address] [address] Performed By: #### 2 4323-8 #### [facility] CLIA [id number] [address] ALP [Catalytic activity/Vol] 56 U/L Normal 45-87 [facility] Comment on above: Order Comment: Speci men Type: BLOOD SPECIMEN [facility] Address: [address] [place] [address] Performed By: #### 2 4323-8 #### [facility] CLIA [id number] [address] OF [place] ALT [Catalytic activity/Vol] 9 U/L Normal 7-38 [facility] Comment on above: Order Comment: Speci men Type: BLOOD SPECIMEN [facility] Address: [address] [place] [address] Performed By: #### 2 4323-8 #### [facility] CLIA [id number] [address] Anion gap [Moles/Vol] 16 mmol/L Normal 9-18 [facility] Comment on above: Order Comment: Speci men Type: BLOOD SPECIMEN [facility] Address: [address] [place] [address] Performed By: #### 2 4323-8 #### [facility] CLIA [id number] [address] AST [Catalytic activity/Vol] 21 U/L Normal 13-35 [facility] Comment on above: Order Comment: Speci men Type: BLOOD SPECIMEN [facility] Address: [address] [place] [address] Performed By: #### 2 4323-8 #### [facility] CLIA [id number] [address] Bilirubin [Mass/Vol] 0.5 mg/dL Normal 0.2-1.3 [facility] Comment on above: Order Comment: Speci men Type: BLOOD SPECIMEN [facility] Address: [address] [place] [address] Performed By: #### 2 4323-8 #### [facility] CLIA [id number] [address] OF [facility] Calcium [Mass/Vol] 8.4 mg/dL Low 8.5-10.2 [facility] Comment on above: Order Comment: Speci men Type: BLOOD SPECIMEN [facility] Address: [address] [address] Performed By: #### 2 4323-8 #### [facility] CLIA [id number] [address] [place] Chloride [Moles/Vol] 103 mmol/L Normal 97-105 [facility] Comment on above: Order Comment: Speci men Type: BLOOD SPECIMEN [facility]ing [facility] Address: [address] [place] [address] Performed By: #### 2 4323-8 #### [facility] CLIA [id number] [address] [place] CO2 [Moles/Vol] 18 mmol/L Low 22-30 [facility] Comment on above: Order Comment: Speci men Type: BLOOD SPECIMEN [facility]ing [facility] Address: [address] [place] [address] Performed By: #### 2 4323-8 #### [facility] CLIA [id number] [address] Creatinine [Mass/Vol] 1.21 mg/dL High 0.58-0.96 [facility] Comment on above: Order Comment: Speci men Type: BLOOD SPECIMEN [facility]ing [facility] Address: [address] [address] Performed By: #### 2 4323-8 #### [facility] CLIA [id number] [address] ESTIMATED GLOMERULAR FILTRATION RATE 67 mL/min/1.73m??? Normal >=60 [facility] Comment on above: Order Comment: Speci men Type: BLOOD SPECIMEN [facility]ing [facility] Address: [address] [place] [address] Result Comment: Raquel mated Glomerular Filtration Rate (eGFR) is calculated using the 2020 CKD-EPI creatinine equation. This equation utilizes serum creatinine, sex, and age as parameters. The creatinine assay has traceable calibration to isotope dilution-mass spectrometry. Refer to KDIGO guidelines for clinical interpretation. In patients with unstable renal function, e.g. those with acute kidney injury, the eGFR may not accurately reflect actual GFR. Performed By: #### 2 4323-8 #### [facility] CLIA [id number] [address] [place] [address] [place] Glucose [Mass/Vol] 72 mg/dL Low 74-99 [facility] Comment on above: Order Comment: Grayson morin Type: BLOOD SPECIMEN Ordering Facility: [facility] Address: [place] [address] Result Comment: The [place] [employer] (ADA) provides guidance for cutoff values for fasting glucose and random glucose. The ADA defines fasting as no caloric intake for at least 8 hours. Fasting plasma glucose results between 100 to 125 mg/dL indicate increased risk for diabetes (prediabetes). Fasting plasma glucose results greater than or equal to 126 mg/dL meet the criteria for diagnosis of diabetes. In the absence of unequivocal hyperglycemia, results should be confirmed by repeat testing. In a patient with classic symptoms of hyperglycemia or hyperglycemic crisis, random plasma glucose results greater than or equal to 200 mg/dL meet the criteria for diagnosis of diabetes. Reference: Standards of Medical Care in Diabetes 2016, [place] [employer] Association. Diabetes Care. 2016.39(Suppl 1). Performed By: #### 2 4323-8 #### [facility] CLIA [id number] [address] [place] [address] [place] Potassium [Moles/Vol] 3.6 mmol/L Low 3.7-5.1 [facility] Comment on above: Order Comment: Grayson morin Type: BLOOD SPECIMEN Ordering Facility: [facility] Address: [place] [address] Performed By: #### 2 4323-8 #### [facility] CLIA [id number] [address] [place] [address] [place] Protein [Mass/Vol] 5.9 g/dL Low 6.3-8.0 [facility] Comment on above: Order Comment: Speci men Type: BLOOD SPECIMEN Ordering Facility: [facility] Address: [address] [address] Performed By: #### 2 4323-8 #### [facility] CLIA [id number] [address] OF [facility] Sodium [Moles/Vol] 137 mmol/L Normal 136-144 [facility] Comment on above: Order Comment: Speci men Type: BLOOD SPECIMEN Ordering Facility: [facility] Address: [address] [address] Performed By: #### 2 4323-8 #### [facility] CLIA [id number] [address] [place] Urea nitrogen [Mass/Vol] 10 mg/dL Normal 7-21 [facility] Comment on above: Order Comment: Speci men Type: BLOOD SPECIMEN Ordering Facility: [facility] Address: [address] [address] Performed By: #### 2 4323-8 #### [facility] CLIA [id number] [address] [place] FECAL LACTOFERRIN/LEUKOCYTES on 03-15-2023 Lactoferrin IA Ql (Stl) Negative for lactoferrin, which may indicate the absence of fecal white blood cells Normal [facility] Comment on above: Order Comment: Speci men Type: STOOL SPECIMENOrdering Facility: [facility] Address: [address] [address] Performed By: #### F ECWBC ####[facility] LABCLIA [id number] [facility] [id number] [place] G lamblia+Cryptosp Ag Stl Ql IAon 03-15-2023 G. lamblia+Cryptosporidium sp Ag IA Ql (Stl) CRYPTOSPORIDIUM ANTIGEN BY EIA: Negative for Cryptosporidium by EIA. GIARDIA ANTIGEN BY EIA: Negative for Giardia lamblia by EIA. Normal [facility] Comment on above: Performed By: #### 4 8059-0 ####[facility] LABCLIA [id number] [facility] [id number] [address] [place] Gas and Carbon monoxide pane l (BldV)on 03-15-2023 BASE DEFICIT, VENOUS -4 mmol/L Low -2-0 [facility] Comment on above: Order Comment: Speci men Type: VENOUS BLOOD SPECIMENOrdering Facility: [facility] Address: [address] [place] [address] Performed By: #### 2 4344-4 ####[facility] [id number] [facility] [id number] [address] [address] Carboxyhemoglobin (BldV) [Mass fraction] <1.0 Normal 0.0-2.0 [facility] Comment on above: Order Comment: Speci men Type: VENOUS BLOOD SPECIMENOrdering Facility: [facility] Address: [address] [place] [address] Result Comment: Carb oxyhemoglobin Reference Range for Smokers: 2.0-8.0% Performed By: #### 2 4344-4 ####[facility] [id number] [facility] [id number] [address] [address] CO2 (BldV) [Partial pressure] 36 mm[Hg] Low 42-55 [facility] Comment on above: Order Comment: Speci men Type: VENOUS BLOOD SPECIMENOrdering Facility: [facility] Address: [address] [place] [address] Performed By: #### 2 4344-4 ####[facility] [id number] [facility] [id number] [address] [address] CO2 adjusted to patient's actual temperature (BldV) [Partial pressure] Normal [facility] Comment on above: Order Comment: Speci men Type: VENOUS BLOOD SPECIMENOrdering Facility: [facility] Address: [address] [place] [address] Performed By: #### 2 4344-4 ####[facility] [id number] [facility] [id number] [address] [address] HCO3 (Bld) [Moles/Vol] 20 mmol/L Low 24-28 [facility] Comment on above: Order Comment: Speci men Type: VENOUS BLOOD SPECIMENOrdering Facility: [facility] Address: [address] [address] Performed By: #### 2 4344-4 ####[facility] [id number] [facility] [id number] [address] [address] Hemoglobin (Bld) [Mass/Vol] 13.0 g/dL Normal 11.5-15.5 [facility] Comment on above: Order Comment: Speci men Type: VENOUS BLOOD SPECIMENOrdering Facility: [facility] Address: [address] [address] Performed By: #### 2 4344-4 ####[facility] [id number] [facility] [id number] [address] [address] Lactate [Moles/Vol] 0.8 mmol/L Normal 0.5-2.2 [facility] Comment on above: Order Comment: Speci men Type: VENOUS BLOOD SPECIMENOrdering Facility: [facility] Address: [address] [address] Performed By: #### 2 4344-4 ####[facility] [id number] [facility] [id number] [address] [address] O2 THERAPY RA=Room Air Normal [facility] Comment on above: Order Comment: Speci men Type: VENOUS BLOOD SPECIMENOrdering Facility: [facility] Address: [address] [address] Performed By: #### 2 4344-4 ####[facility] [id number] [facility] [id number] [address] [address] Oxygen (BldV) [Partial pressure] 44 mm[Hg] Normal 35-45 [facility] Comment on above: Order Comment: Speci men Type: VENOUS BLOOD SPECIMENOrdering Facility: [facility] Address: [address] [address] Performed By: #### 2 4344-4 ####[facility] [id number] [facility] [id number] [address] [address] Oxygen adjusted to patient's actual temperature (BldV) [Partial pressure] Normal [facility] Comment on above: Order Comment: Speci men Type: VENOUS BLOOD SPECIMENOrdering Facility: [facility] Address: [address] [place] [address] Performed By: #### 2 4344-4 ####[facility]IA [id number] [facility] [id number] [address] Oxyhemoglobin (BldV) [Mass fraction] 76 % Normal 60-85 [facility] Comment on above: Order Comment: Speci men Type: VENOUS BLOOD SPECIMENOrdering Facility: [facility] Address: [address] [place] [address] Performed By: #### 2 4344-4 ####[facility]ATORYIA [id number] [facility] [id number] [address] pH (BldV) 7.37 [pH] Normal 7.32-7.42 [facility] Comment on above: Order Comment: Speci men Type: VENOUS BLOOD SPECIMENOrdering Facility: [facility] Address: [address] [place] [address] Performed By: #### 2 4344-4 ####[facility] [id number] [facility] [id number] [address] [address] pH adjusted to patient's actual temperature (BldV) Normal [facility] Comment on above: Order Comment: Speci men Type: VENOUS BLOOD SPECIMENOrdering Facility: [facility] Address: [address] [place] [address] Performed By: #### 2 4344-4 ####[facility]ATORYIA [id number] [facility] [id number] [address] [address] Potassium [Moles/Vol] 3.6 mmol/L Normal 3.5-5.0 [facility] Comment on above: Order Comment: Speci men Type: VENOUS BLOOD SPECIMENOrdering Facility: [facility] Address: [address] [address] Performed By: #### 2 4344-4 ####[facility]ORYCLIA [id number] [facility] [id number] [place] [address] Gastrointestinal pathogens i dentified BRANDEN+probe Nom (Stl)on 03-15-2023 Campylobacter sp DNA BRANDEN+probe Nom (Unsp spec) Not detected Normal Not Detected [facility] Comment on above: Order Comment: Speci men Type: BLOOD SPECIMEN Ordering Facility: [facility] Address: [address] [place] [address] Performed By: #### 2 4323-8 #### [facility] CLIA [id number] [address] Salmonella sp DNA BRANDEN+probe Ql (Unsp spec) Not detected Normal Not Detected [facility] Comment on above: Order Comment: Speci men Type: BLOOD SPECIMEN Ordering Facility: [facility] Address: [address] [place] [address] Performed By: #### 2 4323-8 #### [facility] CLIA [id number] [address] Shiga toxin stx gene BRANDEN+probe Nom (Unsp spec) Not detected Normal Not Detected [facility] Comment on above: Order Comment: Speci men Type: BLOOD SPECIMEN Ordering Facility: [facility] Address: [address] [place] [address] Performed By: #### 2 4323-8 #### [facility] CLIA [id number] [address] Shigella sp DNA BRANDEN+probe Ql (Unsp spec) Not detected Normal Not Detected [facility] Comment on above: Order Comment: Speci men Type: BLOOD SPECIMEN Ordering Facility: [facility] Address: [address] [address] Performed By: #### 2 4323-8 #### [facility] CLIA [id number] [address] [place] [address] [place] HISTORY PHYSICALon 3 HISTORY PHYSICAL HNO ID: [id number] Author: Vadim Montoya MD Service: General Internal Medicine Author Type: Physician Type: HANDP Filed: 03/15/2023 10:18 PM Note Text: HISTORY AND PHYSICAL EXAMINATION SERVICE DATE: 03/15/2023 SERVICE TIME: 9:00 AM PRIMARY CARE PHYSICIAN: No primary care provider on file. ASSESSMENT AND PLAN 1. Nephrolithiasis/Urolith iasis with right hydronephrosis, SHERLEY, mild hypercalcemia -4 mm kidney stone in the right posterior urinary bladder reported on CT. Consult urology. IV fluid. Consider nephrology consult due to family history of nephrolithiasis. 2. Possible Colitis findings of the sigmoid and descending colon noted on CT scan of abdomen -consult GI. Stool test for enteric pathogen. 3. POD#3 S/p Appendectomy -consult surgery 4. Anxiety SUBJECTIVE CHIEF COMPLAINT: Right-sided abdominal pain HPI: This is a 18 year old female who presented to the ER yesterday with right-sided abdominal pain. She had undergone appendectomy a couple of days earlier. Evaluation in the ER was significant for blood test showing mild leukocytosis, mild hypercalcemia. UA did not show any evidence of infection but had 3+ ketones, elevated specific gravity, 2+ protein and mild microscopic hematuria. CT scan of abdomen reported moderate right hydronephrosis and several calcific densities in the pelvis and one of the calcification in the region of right posterior urinary bladder measuring about 4 mm. There was also postoperative findings of recent appendectomy and findings in the sigmoid and descending colon suspicious for possible colitis. She was given IV fluid and IV ceftriaxone and Flagyl and admitted to medical bed for further management. Overnight, her abdominal pain has resolved. She reports feeling much better today. PAST MEDICAL HISTORY: PAST MEDICAL HISTORY Diagnosis Date NEGATIVE MEDICAL HISTORY 2004 normal color vision PAST SURGICAL HISTORY: PAST SURGICAL HISTORY Procedure Laterality Date APPENDECTOMY 03/12/2023 FAMILY HISTORY: FAMILY HISTORY Problem Relation Age of Onset Asthma Mother other (IBS) Mother other (acid reflux) Mother Breast Cancer Paternal Grandmother other (Scleroderma) Paternal Grandmother Heart Maternal Grandfather Hypertension Maternal Grandfather SOCIAL HISTORY: Social History Tobacco Use Smoking status: Never Passive exposure: Never Smokeless tobacco: Never Substance Use Topics Alcohol use: No Drug use: No MEDICATIONS: Prior to Admission Medications Prior to Admission Medications Prescriptions Last Dose Informant Patient Reported? Taking? drospirenone-e.estradio l-lm.FA (BEYAZ) 3-0.02-0.451 mg (24) (4) tab No No Sig: Take 1 tablet by mouth once daily. Patient not taking: Reported on 07/27/2022 oxyCODONE-acetaminophen (PERCOCET) 5-325 mg tablet No No Sig: Take 1 tablet by mouth every 6 hours as needed for up to 5 days. Facility-Administered Medications: None CURRENT ALLERGIES: ALLERGIES No Known Allergies COMPLETE REVIEW OF SYSTEMS: GENERAL: Negative for malaise, fever HEENT: No changes in hearing or vision, no nose bleeds or other nasal problems NECK: Negative for lumps, goiter, pain and significant neck swelling RESPIRATORY: No cough, wheeze or dyspnea CARDIOVASCULAR: No chest pain, palpitation or syncope GI: No nausea, vomiting, or diarrhea : See HPI MUSCULOSKELETAL: Negative for joint pain or swelling, back pain or muscle pain SKIN: Negative for lesions, rash, and itching HEMATOLOGY/LYMPHOLOGY: Negative for prolonged bleeding, bruising easily or swollen nodes ENDOCRINE: Negative for cold or heat intolerance, polyuria, polydipsia and goiter NEURO: No history of headaches, syncope, paralysis, seizures or tremors OBJECTIVE PHYSICAL EXAM: Patient Vitals for the past 24 hrs: BP Temp Temp src Pulse Resp SpO2 Height Weight 03/15/23 0544 129/60 36.6 ?C (97.9 ?F) Oral 68 16 99 % -- -- 03/15/23 0046 115/54 36.6 ?C (97.9 ?F) Oral 60 16 99 % 147.3 cm (4' 10") 39.6 kg (87 lb 3.2 oz) 03/14/23 2345 -- -- -- 69 -- 98 % -- -- 03/14/23 2330 -- -- -- 70 -- 99 % -- -- 03/14/23 2315 -- -- -- 63 -- 98 % -- -- 03/14/23 2300 126/77 -- -- 68 -- 100 % -- -- 03/14/235 -- -- -- 66 -- 98 % -- -- 03/14/232229 127/75 -- -- 78 -- 98 % -- -- 03/14/232214 -- -- -- 68 -- 99 % -- -- 03/14/232199 130/70 -- -- 75 -- 99 % -- -- 03/14/232144 -- -- -- 71 -- 99 % -- -- 03/14/232129 139/82 -- -- 90 -- 95 % -- -- 03/14/232114 -- -- -- 62 -- 100 % -- -- 03/14/232099 139/71 -- -- 62 -- 100 % -- -- 03/14/232044 -- -- -- 74 -- 100 % -- -- 03/14/232029 139/79 -- -- -- -- -- -- -- 03/14/232007 113/72 36.6 ?C (97.8 ?F) Oral 65 16 100 % -- 40.8 kg (90 lb) Body mass index is 18.22 kg/m?. GENERAL: Alert, No Distress HEAD/SINUSES: No significant findings EYES: EOMI, DANY OROPHARYNX: Exam deferred NECK: No jugulovenous distention, Supple LUNGS: Lungs clear to auscultation, Good diaphragmatic (more content not included)... [facility] 03-15-2023 NUTRITION HNO ID: [id number] Author: Janel Sharif RD Service: Nutrition Therapy Author Type: Registered Dietitian Type: Nutrition Filed: 03/15/2023 1:09 PM Note Text: NUTRITION THERAPY INITIAL ASSESSMENT SERVICE DATE: 03/15/2023 SERVICE TIME: 12:30 pm Nutrition Assessment: Recommended Malnutrition Diagnosis: Moderate Protein-Calorie Malnutrition In the context of: Acute Illness or Injury Based on: Unintentional Weight Loss, Insufficient Energy Intake, Subcutaneous Fat Loss, Muscle Loss Estimated kilocalorie needs: 1449-9383 Calorie Calculation Method: 35-45 kcals/kg Estimated protein needs (grams): 50 Grams protein determined by: 1.0 - 1.5 g/kg Care Plan: Follow for diet advancement to goal Monitor and Evaluation: Meet greater than 75% of estimated needs HPI: Right ureteral calculus Colitis Intake History: Nutrition Intake Prior to Admission: Less than 75% estimated energy needs greater than or equal to 1 month Diet Orders (From admission, onward) Start Ordered 03/15/23 1145 DIET LIQUID START NOW Question Answer Comment Liquid Diet FULL LIQUID Child's Feeding Age/Diet YOUTH (7-18YRS) 03/15/23 1141 Anthropometrics: Height: 147.3 cm (4' 10") Weight: 39.6 kg (87 lb 3.2 oz) Dosing Weight: 41 kg (90 lb 6.2 oz) Body mass index is 18.22 kg/m?. Weight change percentage over time: 10% weight loss past month Physical Exam: Subcutaneous fat loss: Moderate Muscle loss: Moderate Edema/Ascites: No edema GI Symptoms: Abdominal pain, Anorexia, Nausea, Diarrhea Functional Status: Unable to assess Potential Signs of Inflammation: Hypoalbuminemia, Leukocytosis MNT Billing: $ Initial Assessment: 1-15 minutes SIGNATURE: Janel Sharif RD PATIENT NAME: Dao Valdes DATE: March 15, 2023 TIME: 12:[address] [facility] OCCULT BLD EXAM-DIAGon 03-15 OCCULT BLD EXAM-DIAG Negative [facility] Comment on above: Performed By: #### O BDX ####[facility] [id number] [address] ALLIED HEALTHon 03-14-2023 ALLIED HEALTH HNO ID: [id number] Author: Skyler Mo Service: Radiology Author Type: Burnishing Machine Operator Type: Allied Health Filed: 03/14/2023 9:29 PM Note Text: Radiology Service Progress Note PATIENT NAME: Dao Valdes DATE OF SERVICE: March 14, 2023 TIME: 9:28 PM PATIENT IDENTITY VERIFICATION COMPLETED USING TWO (2) IDENTIFIERS: Name and Date of confirmed by patient verbally. FALL SCREENING: Has the patient had 2 falls in the last year or 1 fall with injury or currently using an Ambulatory Assistive Device (Walker, Cane, Wheelchair, Crutches, etc.)? Emergency Room Patient: Screened in ED PATIENT GENDER DATA: Female. status: : No status: NO. PATIENT RELEVANT IMPLANT DATA REVIEWED: Not Applicable RADIOLOGY DEPARTMENT: Ultrasound PERIPHERAL IV DATA: Not applicable SIGNED BY: Skyler Mo March 14, 2023 9:28 PM [facility] HEALTH HNO ID: [id number] Author: RT Luis([place]) Service: Radiology Author Type: Technologist Type: Allied Health Filed: 03/14/2023 9:02 PM Note Text: Radiology Service Progress Note DATE OF SERVICE: March 14, 2023 TIME: 9:01 PM PATIENT IDENTITY VERIFICATION COMPLETED USING TWO (2) STANDARD IDENTIFIERS: Name and Date of confirmed by patient verbally and Name and Date of confirmed by identification band. FALL SCREENING: Has the patient had 2 falls in the last year or 1 fall with injury or currently using an Ambulatory Assistive Device (Walker, Cane, Wheelchair, Crutches, etc.)? Emergency Room Patient: Screened in ED PATIENT GENDER DATA: Female. status: : No status: NO. PATIENT RELEVANT IMPLANT DATA REVIEWED: Not Applicable ALLERGIES: Reviewed and unchanged CONTRAST ALLERGY: NO. EXAM: CT -CONTRAST INDUCED NEPHROPATHY RISK FACTORS: Not applicable CREATININE: Creatinine Date Value Ref Range Status 03/14/2023 1.17 (H) 0.58 - 0.96 mg/dL Final 03/12/2023 0.85 0.58 - 0.96 mg/dL Final 11/29/2020 0.82 0.58 - 0.96 mg/dL Final Comment: Reference ranges for this patient's age group have not been established. These reference ranges reflect verified or established ranges for the adult population. Interpret these ranges with caution using the clinical context and additional reference resources. Estimated Glomerular Filtration Rate Date Value Ref Range Status 03/14/2023 70 >=60 mL/min/1.73m? Final Comment: Estimated Glomerular Filtration Rate (eGFR) is calculated using the 2020 CKD-EPI creatinine equation. This equation utilizes serum creatinine, sex, and age as parameters. The creatinine assay has traceable calibration to isotope dilution-mass spectrometry. Refer to KDIGO guidelines for clinical interpretation. In patients with unstable renal function, e.g. those with acute kidney injury, the eGFR may not accurately reflect actual GFR. P.O.C.T. RESULTS: POC done: Yes, See Lab Tab March 14, 2023 TREATMENT: N/A PERIPHERAL IV DATA: Inpatient - refer to LDA documentation RADIOLOGY DEPARTMENT: CT; Exam(s) Completed: Abdomen/Pelvis SIGNATURE: RT Luis(R) PATIENT NAME: Dao Valdes DATE: March 14, 2023 TIME: 9:01 PM Normal [facility] CBC W Auto Differential pane l (Bld)on 03-14-2023 Basophils (Bld) [#/Vol] 0.04 10*3/uL Normal <0.11 [facility] Comment on above: Order Comment: Speci men Type: BLOOD SPECIMEN Ordering Facility: [facility] Address: [address] [address] Performed By: #### 2 4323-8 #### [facility] CLIA [id number] [address] [place] [address] [place] Basophils/100 WBC (Bld) 0.3 % Normal [facility] Comment on above: Order Comment: Speci men Type: BLOOD SPECIMEN Ordering Facility: [facility] Address: [address] [place] [address] Performed By: #### 2 4323-8 #### [facility] CLIA [id number] [address] OF [place] Differential cell count method Nom (Bld) Auto Normal [facility] Comment on above: Order Comment: Speci men Type: BLOOD SPECIMEN Ordering Facility: [facility] Address: [address] [place] [address] Performed By: #### 2 4323-8 #### [facility] CLIA [id number] [address] [place] [address] [place] Eosinophils (Bld) [#/Vol] 10*3/uL Normal <0.46 [facility] Comment on above: Order Comment: Speci men Type: BLOOD SPECIMEN Ordering Facility: [facility] Address: [address] [place] [address] Performed By: #### 2 4323-8 #### [facility] CLIA [id number] [address] Eosinophils/100 WBC (Bld) 0.1 % Normal [facility] Comment on above: Order Comment: Speci men Type: BLOOD SPECIMEN Ordering Facility: [facility] Address: [address] [address] Performed By: #### 2 4323-8 #### [facility] CLIA [id number] [address] Erythrocyte distribution width (RBC) [Ratio] 11.9 % Normal 11.5-15.0 [facility] Comment on above: Order Comment: Speci men Type: BLOOD SPECIMEN Ordering Facility: [facility] Address: [address] [address] Performed By: #### 2 4323-8 #### [facility] CLIA [id number] [address] OF [facility] Hematocrit (Bld) [Volume fraction] 37.2 % Normal 36.0-46.0 [facility] Comment on above: Order Comment: Speci men Type: BLOOD SPECIMEN Ordering Facility: [facility] Address: [address] [place] [address] Performed By: #### 2 4323-8 #### [facility] CLIA [id number] [address] [place] Hemoglobin (Bld) [Mass/Vol] 13.3 g/dL Normal 11.5-15.5 [facility] Comment on above: Order Comment: Speci men Type: BLOOD SPECIMEN Ordering Facility: [facility] Address: [address] [place] [address] Performed By: #### 2 4323-8 #### [facility] CLIA [id number] [address] OF [facility] Immature granulocytes (Bld) [#/Vol] 0.04 10*3/uL Normal <0.10 [facility] Comment on above: Order Comment: Speci men Type: BLOOD SPECIMEN Ordering Facility: [facility] Address: [address] [address] Performed By: #### 2 4323-8 #### [facility] CLIA [id number] [address] Immature granulocytes/100 WBC (Bld) 0.3 % Normal [facility] Comment on above: Order Comment: Speci men Type: BLOOD SPECIMEN Ordering Facility: [facility] Address: [address] [address] Performed By: #### 2 4323-8 #### [facility] CLIA [id number] [address] OF [place] Lymphocytes (Bld) [#/Vol] 1.71 10*3/uL Normal 1.00-4.00 [facility] Comment on above: Order Comment: Speci men Type: BLOOD SPECIMEN Ordering Facility: [facility] Address: [address] [place] [address] Performed By: #### 2 4323-8 #### [facility] CLIA [id number] [address] Lymphocytes/100 WBC (Bld) 14.6 % Normal [facility] Comment on above: Order Comment: Speci men Type: BLOOD SPECIMEN Ordering Facility: [facility] Address: [address] [place] [address] Performed By: #### 2 4323-8 #### [facility] CLIA [id number] [address] MCH (RBC) [Entitic mass] 31.2 pg Normal 26.0-34.0 [facility] Comment on above: Order Comment: Speci men Type: BLOOD SPECIMEN Ordering Facility: [facility] Address: [address] [place] [address] Performed By: #### 2 4323-8 #### [facility] CLIA [id number] [address] MCHC (RBC) [Mass/Vol] 35.8 g/dL Normal 30.5-36.0 [facility] Comment on above: Order Comment: Speci men Type: BLOOD SPECIMEN Ordering Facility: [facility] Address: [address] [address] Performed By: #### 2 4323-8 #### [facility] CLIA [id number] [address] MCV (RBC) [Entitic vol] 87.3 fL Normal 80.0-100.0 [facility] Comment on above: Order Comment: Speci men Type: BLOOD SPECIMEN Ordering Facility: [facility] Address: [address] [place] [address] Performed By: #### 2 4323-8 #### [facility] CLIA [id number] [address] [place] Monocytes (Bld) [#/Vol] 1.06 10*3/uL High <0.87 [facility] Comment on above: Order Comment: Speci men Type: BLOOD SPECIMEN Ordering Facility: [facility] Address: [address] [place] [address] Performed By: #### 2 4323-8 #### [facility] CLIA [id number] [address] Monocytes/100 WBC (Bld) 9.0 % Normal [facility] Comment on above: Order Comment: Speci men Type: BLOOD SPECIMEN Ordering Facility: [facility] Address: [address] [place] [address] Performed By: #### 2 4323-8 #### [facility] CLIA [id number] [address] [place] Neutrophils (Bld) [#/Vol] 8.88 10*3/uL High 1.45-7.50 [facility] Comment on above: Order Comment: Speci men Type: BLOOD SPECIMEN Ordering Facility: [facility] Address: [address] [place] [address] Performed By: #### 2 4323-8 #### [facility] CLIA [id number] [address] Neutrophils/100 WBC (Bld) 75.7 % Normal [facility] Comment on above: Order Comment: Speci men Type: BLOOD SPECIMEN Ordering Facility: [facility] Address: [address] [address] Performed By: #### 2 4323-8 #### [facility] CLIA [id number] [address] [place] Nucleated RBC (Bld) [#/Vol] 10*3/uL Normal <0.01 [facility] Comment on above: Order Comment: Speci men Type: BLOOD SPECIMEN Ordering Facility: [facility] Address: [address] [place], [place] [address] Performed By: #### 2 4323-8 #### [facility] CLIA [id number] [address] Nucleated RBC/100 WBC (Bld) [Ratio] 0.0 /100 WBC Normal [facility] Comment on above: Order Comment: Speci men Type: BLOOD SPECIMEN Ordering Facility: [facility] Address: [address] [place] [address] Performed By: #### 2 4323-8 #### [facility] CLIA [id number] [address] OF [facility] Platelet mean volume (Bld) [Entitic vol] 11.2 fL Normal 9.0-12.7 [facility] Comment on above: Order Comment: Speci men Type: BLOOD SPECIMEN Ordering Facility: [facility] Address: [address] [place] [address] Performed By: #### 2 4323-8 #### [facility] CLIA [id number] [address] Platelets (Bld) [#/Vol] 214 10*3/uL Normal 150-400 [facility] Comment on above: Order Comment: Speci men Type: BLOOD SPECIMEN Ordering Facility: [facility] Address: [address] [place] [address] Performed By: #### 2 4323-8 #### [facility] CLIA [id number] [address] [place] RBC (Bld) [#/Vol] 4.26 10*6/uL Normal 3.90-5.20 [facility] Comment on above: Order Comment: Speci men Type: BLOOD SPECIMEN Ordering Facility: [facility] Address: [address] [place] [address] Performed By: #### 2 4323-8 #### [facility] CLIA [id number] [address] [place] WBC (Bld) [#/Vol] 11.74 10*3/uL High 3.70-11.00 [facility] Comment on above: Order Comment: Speci men Type: BLOOD SPECIMEN Ordering Facility: [facility] Address: [place] [address] Performed By: #### 2 4323-8 #### [facility] CLIA [id number] [address] [place] [address] [place] CT ABD/PEL W IVCONon 023 CT ABD/PEL W IVCON * * *Final Report* * * DATE OF EXAM: Mar 14 2023 9:32PM [facility] [place] 0530 - CT ABD/PEL W IVCON / PROCEDURE REASON: Abdominal pain, acute (Ped 0-18y) * * * * Physician Interpretation * * * * EXAMINATION: CT ABDOMEN AND PELVIS WITH IV CONTRAST CLINICAL HISTORY: Acute abdominal pain. Post appendectomy 2 days ago. TECHNIQUE: CT of the abdomen and pelvis was performed using standard technique, scanning from just above the dome of the diaphragm to the symphysis pubis. MQ: CTAP_3 Contrast: IV: 80 ml of Omnipaque 350 : ml of CT Radiation dose: Integrated Dose-length product (DLP) for this visit = 136.34 mGy*cm. CT Dose Reduction Employed: Automated exposure control(AEC) and iterative recon COMPARISON: None. RESULT: Liver: No mass. Periportal edema is seen. Biliary: No bile duct dilation. Pericholecystic fluid is seen. No cholelithiasis is identified. Spleen: No mass. No splenomegaly. Pancreas: No mass or duct dilation. Adrenals: No mass. Kidneys: There is moderate right hydroureteronephrosis. Several calcific densities are seen in the pelvis. One of the calcifications lies in the region of the right posterior urinary bladder measuring 4 mm. No left hydronephrosis. No left renal or ureteral calculi. GI tract: There is a small amount of extraluminal gas in the upper abdomen. Postsurgical findings of appendectomy noted. No abscess. No bowel obstruction. There is mild wall thickening of the sigmoid and descending colon. Lymph nodes: No abdominal or pelvic lymphadenopathy. Mesentery/Peritoneum: No ascites or mass. Retroperitoneum: No mass. Vasculature: The abdominal aorta is nondilated. Pelvis: Small amount of free fluid seen in the pelvis. No abscess. Bones/Soft Tissues: There is subcutaneous gas in the anterior, lower abdominal wall. Lower thorax: Unremarkable. Reports Analyst (topogram) images: No additional findings. IMPRESSION: 1. Postoperative findings of recent appendectomy with scattered intra-abdominal gas which is likely related to the recent surgery. 2. Findings in the sigmoid colon and descending colon which can be seen in colitis, infectious versus inflammatory. 3. Moderate right hydroureteronephrosis. Calculus lying in the region of the right posterior urinary bladder could represent a bladder calculus versus right distal ureteral calculus versus vascular calcification. 4. Nonspecific pericholecystic fluid and periportal edema. Small free fluid in the pelvis. Chrome Cleaner: [facility] Transcribe Date/Time: Mar 14 2023 9:47P Dictated by : JANEL ARCE MD This examination was interpreted and the report reviewed and electronically signed by: JANEL ARCE MD on Mar 14 2023 10:16PM EST [id number] Normal [facility] Comprehensive metabolic 2000 panelon 03-14-2023 Albumin [Mass/Vol] 4.3 g/dL Normal 3.9-4.9 [facility] Comment on above: Order Comment: Speci men Type: BLOOD SPECIMENOrdering Facility: [facility] Address: [address] [address] Performed By: #### 2 4323-8, 3040-3 ####[facility] [id number] [address] STATES OF [facility] ALP [Catalytic activity/Vol] 69 U/L Normal 45-87 [facility] Comment on above: Order Comment: Speci men Type: BLOOD SPECIMENOrdering Facility: [facility] Address: [address] [address] Performed By: #### 2 4323-8, 0-3 ####[facility] [id number] [address] STATES OF [facility] ALT [Catalytic activity/Vol] 11 U/L Normal 7-38 [facility] Comment on above: Order Comment: Speci men Type: BLOOD SPECIMENOrdering Facility: [facility] Address: [address] [address] Performed By: #### 2 4323-8, 3040-3 ####[facility] [id number] [place] [address] [place] Anion gap [Moles/Vol] 16 mmol/L Normal 9-18 [facility] Comment on above: Order Comment: Speci men Type: BLOOD SPECIMENOrdering Facility: [facility] Address: [address] [place] [address] Performed By: #### 2 4323-8, 3040-3 ####[facility] [id number] [place] [address] [place] AST [Catalytic activity/Vol] 23 U/L Normal 13-35 [facility] Comment on above: Order Comment: Speci men Type: BLOOD SPECIMENOrdering Facility: [facility] Address: [address] [place] [address] Performed By: #### 2 4323-8, 0-3 ####[facility] [id number] [place] [address] [place] Bilirubin [Mass/Vol] 0.5 mg/dL Normal 0.2-1.3 [facility] Comment on above: Order Comment: Speci men Type: BLOOD SPECIMENOrdering Facility: [facility] Address: [address] [place] [address] Performed By: #### 2 4323-8, 3039-3 ####[facility] [id number] [place] [address] [place] Calcium [Mass/Vol] 9.4 mg/dL Normal 8.5-10.2 [facility] Comment on above: Order Comment: Speci men Type: BLOOD SPECIMENOrdering Facility: [facility] Address: [address] [address] Performed By: #### 2 4323-8, 3040-3 ####[facility] [id number] [place] [address] [place] Chloride [Moles/Vol] 103 mmol/L Normal 97-105 [facility] Comment on above: Order Comment: Speci men Type: BLOOD SPECIMENOrdering Facility: [facility] Address: [address] [address] Performed By: #### 2 4323-8, 0-3 ####[facility] [id number] [place] [address] [place] CO2 [Moles/Vol] 20 mmol/L Low 22-30 [facility] Comment on above: Order Comment: Speci men Type: BLOOD SPECIMENOrdering Facility: [facility] Address: [address] [place] [address] Performed By: #### 2 4323-8, 3040-3 ####[facility] [id number] [address] [place] Creatinine [Mass/Vol] 1.17 mg/dL High 0.58-0.96 [facility] Comment on above: Order Comment: Speci men Type: BLOOD SPECIMENOrdering Facility: [facility] Address: [address] [place] [address] Performed By: #### 2 4323-8, 3040-3 ####[facility] [id number] [address] ESTIMATED GLOMERULAR FILTRATION RATE 70 mL/min/1.73m??? Normal >=60 [facility] Comment on above: Order Comment: Speci men Type: BLOOD SPECIMENOrdering Facility: [facility] Address: [address] [place] [address] Result Comment: Raquel mated Glomerular Filtration Rate (eGFR) is calculated using the 2020 CKD-EPI creatinine equation. This equation utilizes serum creatinine, sex, and age as parameters. The creatinine assay has traceable calibration to isotope dilution-mass spectrometry. Refer to KDIGO guidelines for clinical interpretation. In patients with unstable renal function, e.g. those with acute kidney injury, the eGFR may not accurately reflect actual GFR. Performed By: #### 2 4323-8, 3040-3 ####[facility] [id number] [place] [id number] [place] Glucose [Mass/Vol] 80 mg/dL Normal 74-99 [facility] Comment on above: Order Comment: Speci mikel Type: BLOOD SPECIMENOrdering Facility: [facility] Address: [address] [place] [address] Result Comment: The [place] Diabetes Association (ADA) provides guidance for cutoff values for fasting glucose and random glucose. The ADA defines fasting as no caloric intake for at least 8 hours. Fasting plasma glucose results between 100 to 125 mg/dL indicate increased risk for diabetes (prediabetes). Fasting plasma glucose results greater than or equal to 126 mg/dL meet the criteria for diagnosis of diabetes. In the absence of unequivocal hyperglycemia, results should be confirmed by repeat testing. In a patient with classic symptoms of hyperglycemia or hyperglycemic crisis, random plasma glucose results greater than or equal to 200 mg/dL meet the criteria for diagnosis of diabetes. Reference: Standards of Medical Care in Diabetes 2016, [place] [employer]. Diabetes Care. 2016.39(Suppl 1). Performed By: #### 2 4323-8, 0-3 ####[facility] [id number] [place] [address] [place] Potassium [Moles/Vol] 3.9 mmol/L Normal 3.7-5.1 [facility] Comment on above: Order Comment: Grayson morin Type: BLOOD SPECIMENOrdering Facility: [facility] Address: [address] [address] Performed By: #### 2 4323-8, 0-3 ####[facility] [id number] [place] [address] [place] Protein [Mass/Vol] 7.2 g/dL Normal 6.3-8.0 [facility] Comment on above: Order Comment: Grayson morin Type: BLOOD SPECIMENOrdering Facility: [facility] Address: [address] [address] Performed By: #### 2 43238, 0-3 ####[facility] [id number] [place] [address] [place] Sodium [Moles/Vol] 139 mmol/L Normal 136-144 [facility] Comment on above: Order Comment: Grayson morin Type: BLOOD SPECIMENOrdering Facility: [facility] Address: [address] [address] Performed By: #### 2 4323-8, 0-3 ####[facility] [id number] [address] [place] Urea nitrogen [Mass/Vol] 11 mg/dL Normal 7-21 [facility] Comment on above: Order Comment: Speci men Type: BLOOD SPECIMENOrdering Facility: [facility] Address: [address] [place] [address] Performed By: #### 2 4323-8, 3040-3 ####[facility] [id number] [place] [address] [facility] ED PROV NOTEon 03-14-2023 ED PROV NOTE HNO ID: [id number] Author: Miguelito Avila MD Service: Emergency Medicine Author Type: Physician Type: ED Provider Notes Filed: 03/14/2023 11:01 PM Note Text: ED Provider Note Patient Name: Dao Valdes : 2005 SERVICE DATE: 03/14/23 History Patient presents with: Abdominal Pain: lower abd pain radiating to back, urinary frequency since before appendectomy 2 days ago. Just finished menstrual cycle. Reports inability to tolerate PO HPI Ms. Valdes is an 18-year-old female presenting with lower abdominal discomfort which radiates around to her back on the right over the last 24 hours or so as well as urinary frequency and dysuria. She thinks possibly the urinary symptoms started even before she had her appendix removed 2 days ago. She had diarrhea and right lower abdominal discomfort leading into her appendix removal. PAST MEDICAL HISTORY Diagnosis Date NEGATIVE MEDICAL HISTORY 2004 normal color vision PAST SURGICAL HISTORY Procedure Laterality Date NONE FAMILY HISTORY Problem Relation Age of Onset Asthma Mother other (IBS) Mother other (acid reflux) Mother Breast Cancer Paternal Grandmother other (Scleroderma) Paternal Grandmother Heart Maternal Grandfather Hypertension Maternal Grandfather Social History Tobacco Use Smoking status: Never Passive exposure: Never Smokeless tobacco: Never Substance and Sexual Activity Alcohol use: No Drug use: No Sexual activity: Not on file ALLERGIES No Known Allergies Review of Systems Constitutional: Negative for chills and fever. HENT: Negative for ear pain, rhinorrhea and sore throat. Respiratory: Negative for cough and shortness of breath. Cardiovascular: Negative for chest pain and leg swelling. Gastrointestinal: Positive for abdominal pain, diarrhea and nausea. Negative for vomiting. Genitourinary: Positive for dysuria, flank pain, frequency and vaginal bleeding. Negative for hematuria and vaginal discharge. Musculoskeletal: Negative for back pain. Skin: Negative for rash. Neurological: Negative for speech difficulty, weakness, light-headedness, numbness and headaches. Psychiatric/Behavioral: Negative for hallucinations and suicidal ideas. Physical Exam Vitals [03/14/232007] BP Pulse Temp Temp src Resp SpO2 Weight Height 113/72 65 36.6 ?C (97.8 ?F) Oral 16 100 % 40.8 kg (90 lb) -- Physical Exam Vitals and nursing note reviewed. Constitutional: General: She is not in acute distress. Appearance: She is well-developed. HENT: Head: Normocephalic and atraumatic. Mouth/Throat: Pharynx: No oropharyngeal exudate. Eyes: Pupils: Pupils are equal, round, and reactive to light. Neck: Trachea: No tracheal deviation. Cardiovascular: Rate and Rhythm: Normal rate. Heart sounds: No murmur heard. No friction rub. No gallop. Pulmonary: Effort: Pulmonary effort is normal. No respiratory distress. Breath sounds: Normal breath sounds. No wheezing or rales. Abdominal: General: Bowel sounds are normal. There is no distension. Palpations: Abdomen is soft. Tenderness: There is no guarding or rebound. Comments: Tender RLQ AND LLQ Musculoskeletal: General: Normal range of motion. Cervical back: Normal range of motion and neck supple. Lymphadenopathy: Cervical: No cervical adenopathy. Skin: General: Skin is warm and dry. Findings: No erythema. Neurological: Mental Status: She is alert and oriented to person, place, and time. Cranial Nerves: No cranial nerve deficit. Motor: No abnormal muscle tone. Psychiatric: Behavior: Behavior normal. Thought Content: Thought content normal. Judgment: Judgment normal. Diagnostic Testing ED Labs Ordered and Reviewed - No data to display Procedures ED Course / Clinical Impression Clinical Impressions as of 03/14/23 2258 Urolithiasis Colitis Leukocytosis, unspecified type Course: Vital signs were reviewed. Triage records were reviewed. Medical records were reviewed. Nursing notes were reviewed and incorporated. Labs reviewed and interpreted as below. Radiographs were reviewed as below. Medical Decision Making: Differential diagnosis: Less likely complication of appendectomy, looking for perforation or bleeding with CT, less likely ovarian cyst or torsion, checking ultrasound, electrolyte disarray, anemia, postoperative pain. Assessment and plan: Ms. Valdes is an 18-year-old female presenting with lower abdominal discomfort and dysuria and urinary frequency after appendectomy 48 hours ago. We will do a work-up and reassess after. Cr 1.17 from 0.85, HCO3 20, WBC 11.7, hcg negative, UA no UTI, CT postoperative findings, sigmoid and descending possible colitis, giving ceftriaxone and Flagyl after stool cultures and blood cultures, moderate right-sided hydroureteronephrosis as well as stone lying in the region of the right posterior urinary bladder versus right distal ureteral stone. Ul (more content not included)... Normal [facility] HCG QUAL BLDon 03-14-2023 HCG, QUALITATIVE Negative Normal Negative [facility] Comment on above: Order Comment: Grayson morin Type: BLOOD SPECIMEN Ordering Facility: [facility] Address: [address] [address] Performed By: #### 2 4323-8 #### [facility] CLIA [id number] [address] [place] [address] [place] Lipase SerPl-cCncon 03-14-20 23 Lipase [Catalytic activity/Vol] 20 U/L Normal 16-61 [facility] Comment on above: Order Comment: Grayson morin Type: BLOOD SPECIMENOrdering Facility: [facility] Address: [address] [address] Performed By: #### 2 4323-8, 3040-3 ####[facility] [id number] [address] [place] PT panel Coag (PPP)on 2022 INR Coag (PPP) [Relative time] 1.0 {INR} Normal 0.9-1.3 [facility] Comment on above: Order Comment: Grayson morin Type: BLOOD SPECIMEN Ordering Facility: [facility] Address: [address] Result Comment: Yael min K Antagonist (VKA) Therapeutic Range: INR 2 to 3 (Target INR of 2.5) Note: For patients treated with VKA drugs, such as warfarin, the [place] [employer] 2012 Guideline recommends a therapeutic INR range of 2 to 3 (target INR of 2.5). This recommendation includes high-risk patients with antiphospholipid syndrome with previous arterial or venous thromboembolism, current-generation mechanical or bioprosthetic aortic heart valve replacement. Note: Patients with mechanical aortic valve replacement and additional risk factors for thromboembolic events (atrial fibrillation, previous thromboembolism, LV dysfunction, hypercoagulable conditions) or an older generation mechanical AVR (i.e., ball in-Cage) or any mechanical MVR should have a INR therapeutic range of 2.5 to 3.5 (target INR of 3). Bright GH, et al. Chest 2012, 141:7S-47S Yesenia RA, et al. [facility] 2017, 70: 252-289 Performed By: #### 2 4323-8 #### [facility] CLIA [id number] [address] [place] [address] [place] PT Coag (PPP) [Time] 10.5 s Normal 9.7-13.0 [facility] Comment on above: Order Comment: Speci men Type: BLOOD SPECIMEN Ordering Facility: [facility] Address: [address] [place] [address] Performed By: #### 2 4323-8 #### [facility] CLIA [id number] [address] [place], [place] [id number] [place] [address] [place] US DOPPLER COMPLETEon 2022 US DOPPLER COMPLETE * * *Final Report* * * DATE OF EXAM: Mar 14 2023 9:28PM ESTEBAN 1033 - US DOPPLER COMPLETE / PROCEDURE REASON: Ovarian torsion * * * * Physician Interpretation * * * * EXAMINATION: TRANSABDOMINAL FEMALE PELVIC ULTRASOUND CLINICAL HISTORY: Pelvic pain. Status post appendectomy 2 days prior TECHNIQUE: Sonography of the pelvis was performed by transvaginal and transabdominal (limited) techniques. Images were obtained and stored in a permanent archive. MQ: [facility]_2021 COMPARISON: None RESULT: Uterus: -Size: 7.9 x 4.6 x 3.5 cm -Orientation: Anteverted -Endometrial echo complex: Evaluation of the endometrium was adequate. No endometrial abnormality. The endometrial echo complex measured 0.7 cm. -Cervix: Unremarkable. -Adenomyosis assessment: There are no sonographic findings of adenomyosis. -Fibroids: There are no fibroids. Right Ovary: 3.0 x 2.6 x 1.4 cm - Normal sonographic appearance. Doppler imaging showed normal arterial and venous flow throughout the ovary. Left Ovary: 2.9 x 2.4 x 1.3 cm - Normal sonographic appearance. Doppler imaging showed normal arterial and venous flow throughout the ovary. Free Fluid: Small free fluid is likely physiologic. IMPRESSION: 1. No sonographic evidence of ovarian torsion 2. Small amount nonspecific fluid adjacent to the left aspect of the uterine fundus, potentially physiologic or related to recent surgery Chrome Cleaner: [facility] Transcribe Date/Time: Mar 14 2023 9:29P Dictated by : LUIS EDUARDO ROMAN MD This examination was interpreted and the report reviewed and electronically signed by: LUIS EDUARDO ROMAN MD on Mar 14 2023 9:34PM EST [id number] [facility] FEMALE PELVIS TRANSABD LT Don 03-14-2023 FEMALE PELVIS TRANSABD LTD * * *Final Report* * * DATE OF EXAM: Mar 14 2023 9:28PM ESTEBAN 1059 - FEMALE PELVIS TRANSABD LTD / PROCEDURE REASON: Ovarian torsion * * * * Physician Interpretation * * * * EXAMINATION: TRANSABDOMINAL FEMALE PELVIC ULTRASOUND CLINICAL HISTORY: Pelvic pain. Status post appendectomy 2 days prior TECHNIQUE: Sonography of the pelvis was performed by transvaginal and transabdominal (limited) techniques. Images were obtained and stored in a permanent archive. MQ: [facility]2021 COMPARISON: None RESULT: Uterus: -Size: 7.9 x 4.6 x 3.5 cm -Orientation: Anteverted -Endometrial echo complex: Evaluation of the endometrium was adequate. No endometrial abnormality. The endometrial echo complex measured 0.7 cm. -Cervix: Unremarkable. -Adenomyosis assessment: There are no sonographic findings of adenomyosis. -Fibroids: There are no fibroids. Right Ovary: 3.0 x 2.6 x 1.4 cm - Normal sonographic appearance. Doppler imaging showed normal arterial and venous flow throughout the ovary. Left Ovary: 2.9 x 2.4 x 1.3 cm - Normal sonographic appearance. Doppler imaging showed normal arterial and venous flow throughout the ovary. Free Fluid: Small free fluid is likely physiologic. IMPRESSION: 1. No sonographic evidence of ovarian torsion 2. Small amount nonspecific fluid adjacent to the left aspect of the uterine fundus, potentially physiologic or related to recent surgery Chrome Cleaner: [facility] Transcribe Date/Time: Mar 14 2023 9:29P Dictated by : LUIS EDUARDO ROMAN MD This examination was interpreted and the report reviewed and electronically signed by: LUIS EDUARDO ROMAN MD on Mar 14 2023 9:34PM EST [id number] Normal [facility] Urinalysis complete panel (U )on 03-14-2023 Bilirubin Ql (U) Negative Normal Negative [facility] Comment on above: Order Comment: Speci men Type: URINE SPECIMENOrdering Facility: [facility] Address: [address] [place] [address] Performed By: #### 2 4356-8 ####[facility] LABORATORYCLIA [id number] [address] Clarity (Unsp spec) Clear Normal Clear [facility] Comment on above: Order Comment: Speci men Type: URINE SPECIMENOrdering Facility: [facility] Address: [address] [place] [address] Performed By: #### 2 4356-8 ####[facility] LABORATORYCLIA [id number] [address] [place] Color (U) Yellow Normal Yellow [facility] Comment on above: Order Comment: Speci men Type: URINE SPECIMENOrdering Facility: [facility] Address: [address] [place] [address] Performed By: #### 2 4356-8 ####[facility] LABORATORYCLIA [id number] [address] Epithelial cells LM.HPF (Urine sed) [#/Area] Moderate Normal [facility] Comment on above: Order Comment: Speci men Type: URINE SPECIMENOrdering Facility: [facility] Address: [address] [place] [address] Performed By: #### 2 4356-8 ####[facility] LABORATORYCLIA [id number] [address] Glucose Test strip (U) [Mass/Vol] Negative Normal Negative [facility] Comment on above: Order Comment: Speci men Type: URINE SPECIMENOrdering Facility: [facility] Address: [address] [place] [address] Performed By: #### 2 4356-8 ####[facility] LABORATORYCLIA [id number] [place] [address] [place] Hemoglobin Ql (U) 1+ Abnormal Negative, Trace [facility] Comment on above: Order Comment: Speci men Type: URINE SPECIMENOrdering Facility: [facility] Address: [address] [address] Performed By: #### 2 4356-8 ####[facility] LABORATORYCLIA [id number] [place] [address] [place] Ketones Ql (U) 3+ Abnormal Negative [facility] Comment on above: Order Comment: Speci men Type: URINE SPECIMENOrdering Facility: [facility] Address: [address] [address] Performed By: #### 2 4356-8 ####[facility] LABORATORYCLIA [id number] [place] [address] [place] Leukocyte esterase Test strip Ql (U) Negative Normal Negative [facility] Comment on above: Order Comment: Speci men Type: URINE SPECIMENOrdering Facility: [facility] Address: [address] [address] Performed By: #### 2 4356-8 ####ROM[facility] LABORATORYCLIA [id number] [place] [address] [place] Nitrite Ql (U) Negative Normal Negative [facility] Comment on above: Order Comment: Speci men Type: URINE SPECIMENOrdering Facility: [facility] Address: [address] [address] Performed By: #### 2 4356-8 ####ROM[facility] LABORATORYCLIA [id number] [place] [address] [place] pH (U) 6.0 [pH] Normal 5.0-8.0 [facility] Comment on above: Order Comment: Speci men Type: URINE SPECIMENOrdering Facility: [facility] Address: [address] [address] Performed By: #### 2 4356-8 ####[facility] LABORATORYCLIA [id number] [address] Protein (U) [Mass/Vol] 2+ Abnormal Negative [facility] Comment on above: Order Comment: Speci men Type: URINE SPECIMENOrdering Facility: [facility] Address: [address] [place] [address] Performed By: #### 2 4356-8 ####ROMERO LABORATORYCLIA [id number] [address] [place] RBC LM.HPF (Urine sed) [#/Area] 3-5 /HPF Abnormal 0-3 /HPF [facility] Comment on above: Order Comment: Speci men Type: URINE SPECIMENOrdering Facility: [facility] Address: [address] [place] [address] Performed By: #### 2 4356-8 ####ROMERO LABORATORYCLIA [id number] [address] Specific gravity (U) [Rel density] >=1.030 High 1.005-1.030 [facility] Comment on above: Order Comment: Speci men Type: URINE SPECIMENOrdering Facility: [facility] Address: [address] [place] [address] Performed By: #### 2 4356-8 ####ROMERO LABORATORYCLIA [id number] [address] Urobilinogen Ql (U) 0.2 EU/dL Normal 0.2-1.0 EU/dL [facility] Comment on above: Order Comment: Speci men Type: URINE SPECIMENOrdering Facility: [facility] Address: [address] [place] [address] Performed By: #### 2 4356-8 ####ROMERO LABORATORYCLIA [id number] [address] WBC LM.HPF (Urine sed) [#/Area] 0-5 /HPF Normal 0-5 /HPF [facility] Comment on above: Order Comment: Speci men Type: URINE SPECIMENOrdering Facility: [facility] Address: [address] [place] [address] Performed By: #### 2 4356-8 ####ROMERO LABORATORYCLIA [id number] [place] [address] [place] aPTT PPPon 03-14-2023 aPTT Coag (PPP) [Time] 27.6 s Normal 23.0-32.4 [facility] Comment on above: Order Comment: Speci men Type: BLOOD SPECIMEN Ordering Facility: [facility] Address: [address] [place] [address] Performed By: #### 2 4323-8 #### [facility] CLIA [id number] [address] [place] [address] [place] ANES POSTPROC EVALon 023 ANES POSTPROC EVAL HNO ID: [id number] Author: Johnathan Castillo MD Service: Anesthesiology Author Type: Anesthesiologist Type: Anesthesia Postprocedure Evaluation Filed: 03/13/2023 12:51 PM Note Text: POST ANESTHESIA EVALUATION NOTE : 2005 Procedure Summary Date: 03/12/23 Room / Location: [place] [address] / [facility] Anesthesia Start: 164 Anesthesia Stop: 1747 Procedure: LAPAROSCOPIC APPENDECTOMY ADULT (Abdomen) Diagnosis: Acute appendicitis (Acute appendicitis [K35.80]) Surgeons: Bolivar Barrett MD Responsible Provider: Johnathan Castillo MD Anesthesia Type: general ASA Status: 2 - Emergent Anesthesia Type: general Airway Type: ETT Last Vitals Vitals Value Taken Time BP 127/67 03/12/23 1829 Temp 36.6 ?C (97.9 ?F) 03/12/23 1749 Pulse 94 03/12/23 1829 Resp 24 03/12/23 1829 SpO2 100 % 03/12/23 1829 Post Anesthesia Patient Status Patient Evaluation: bedside. Anticipated Disposition: phase 2 then home. Neurological Status: aware and responsive. Pulmonary Status: breathing comfortably on room air Airway Control: returned to baseline unsupported. Cardiovascular Status: stable. Pain Management: clinically adequate Postoperative Hydration: acceptable. Intraoperative Events: no significant anesthesia events Post Operative Nausea/Vomiting Status: no significant post operative nausea or vomiting Recommendation: continue current plan of care. Anesthesia Observations No Documentation SIGNATURE: Johnathan Castillo MD PATIENT NAME: Dao Valdes DATE: March 13, 2023 TIME: 12:50 PM CSN: [id number] [facility] ANES PRE-OPon 03-12-2023 ANES PRE-OP HNO ID: [id number] Author: Johnathan Castillo MD Service: Anesthesiology Author Type: Anesthesiologist Type: Anesthesia Preprocedure Evaluation Filed: 03/12/2023 3:42 PM Note Text: ANESTHESIOLOGY DAY OF SURGERY NOTE : 2005 Procedure Information Date/Time: 03/12/23 1545 Procedure: LAPAROSCOPIC APPENDECTOMY ADULT (Abdomen) Location: [place] [address] / [place] Surgeons: Bolivar Barrett MD Estimated body mass index is 17.97 kg/m? as calculated from the following: Height as of 07/27/22: 147.3 cm (4' 10"). Weight as of 07/27/22: 39 kg (86 lb). Most recent hematocrit and potassium results: Hematocrit 37.6 03/12/2023 Potassium 3.9 03/12/2023 Relevant Problems No relevant active problems I - PHYSICAL EVALUATION AIRWAY Patient intubated: No. Tracheostomy tube not present Mallampati: I. TM distance: >3 FB. Neck ROM: full ROM without neurological symptoms. Mouth opening: adequate. Short neck: no. Thick neck: no DENTAL Normal dental observations. Dental findings: teeth intact. Additional exam findings: no II - ANESTHESIA PLAN ASA Score: 2; emergent. Anesthetic Plan: general Airway type: ETT The patient is not a current smoker. NPO Status: adequate Beta Virgie Monitoring Plan Monitoring plan: standard ASA. Post Procedure Analgesic Plan Postoperative analgesic plan: parenteral or oral opioids and multimodal analgesia. Informed Consent Anesthetic risks, benefits, alternatives, personnel and consent discussed: yes. Patient / Responsible Democrat agrees to proceed: yes Patient / Surrogate agrees to blood products: blood products not planned DNR status not reviewed with patient and/or family prior to surgery. Significant changes in the patient condition since the History and Physical, not otherwise documented in primary service progress note: no. Potential Anesthesia issues that may suggest increased risk of complications or contraindication to planned procedure: none. Discussed the possibility of lip / dental damage: yes Vitals Value Taken Time BP 111/57 03/12/23 1450 Pulse 97 03/12/23 1530 Resp 16 03/12/23 1530 Temp SpO2 100 % 03/12/23 1530 Facility-Administered Medications as of 03/12/2023 Medication Dose Route Frequency - iv contrast (radiology procedure) INTRAVENOUS DIRECTED PRN And - enteric contrast (radiology procedure) ORAL DIRECTED PRN - piperacillin-tazobactam iv piggyback 3.375 g in dextrose (iso-osmotic) 50 mL (ZOSYN) 3.375 g INTRAVENOUS ONCE - NaCl 0.9% iv flush bag 20 mL INTRAVENOUS PRN - promethazine 12.5 mg tab(s) (PHENERGAN) 12.5 mg ORAL Pre-Op Once - scopolamine 1 mg over 3 days 1 Patch (TRANSDERM-SCOP) 1 Patch TRANSDERMAL ONCE - acetaminophen 500 mg tab(s) (TYLENOL) 500 mg ORAL Pre-Op Once - famotidine 20 mg injection (PEPCID) 20 mg INTRAVENOUS ONCE - metoclopramide HCl 10 mg injection (REGLAN) 10 mg INTRAVENOUS ONCE Outpatient Medications as of 03/12/2023 Medication Sig - mirtazapine (REMERON) 30 mg tablet - drospirenone-e.estradio l-lm.FA (BEYAZ) 3-0.02-0.451 mg (24) (4) tab Take 1 tablet by mouth once daily. (Patient not taking: Reported on 07/27/2022) I have interviewed and examined the patient. I have reviewed the medical record and/or the pre-anesthesia evaluation, pertinent labs, and test results. This contains updated information obtained within 48 hours of Surgery/Procedure. SIGNATURE: Johnathan Castillo MD PATIENT NAME: Dao Valdes DATE: March 12, 2023 TIME: 3:42 PM CSN: [id number] Normal [facility] CBC W Auto Differential pane l (Bld)on 03-12-2023 Basophils (Bld) [#/Vol] 10*3/uL Normal <0.11 [facility] Comment on above: Order Comment: Speci men Type: BLOOD SPECIMEN Ordering Facility: [facility] Address: [address] [place] [id number] Performed By: #### 2 4323-8 #### [facility] CLIA [id number] [address] [place] Basophils/100 WBC (Bld) 0.2 % Normal [facility] Comment on above: Order Comment: Speci men Type: BLOOD SPECIMEN Ordering Facility: [facility] Address: [address] [place] [address] Performed By: #### 2 4323-8 #### [facility] CLIA [id number] [address] [place] [address] [place] Differential cell count method Nom (Bld) Auto Normal [facility] Comment on above: Order Comment: Speci men Type: BLOOD SPECIMEN Ordering Facility: [facility] Address: [address] [place] [address] Performed By: #### 2 4323-8 #### [facility] CLIA [id number] [address] [place] Eosinophils (Bld) [#/Vol] 10*3/uL Normal <0.46 [facility] Comment on above: Order Comment: Speci men Type: BLOOD SPECIMEN Ordering Facility: [facility] Address: [address] [place] [address] Performed By: #### 2 4323-8 #### [facility] CLIA [id number] [address] Eosinophils/100 WBC (Bld) 0.1 % Normal [facility] Comment on above: Order Comment: Speci men Type: BLOOD SPECIMEN Ordering Facility: [facility] Address: [address] [place] [address] Performed By: #### 2 4323-8 #### [facility] CLIA [id number] [address] [place] Erythrocyte distribution width (RBC) [Ratio] 11.9 % Normal 11.5-15.0 [facility] Comment on above: Order Comment: Speci men Type: BLOOD SPECIMEN Ordering Facility: [facility] Address: [address] [place] [address] Performed By: #### 2 4323-8 #### [facility] CLIA [id number] [address] [place] [address] [place] Hematocrit (Bld) [Volume fraction] 37.6 % Normal 36.0-46.0 [facility] Comment on above: Order Comment: Speci men Type: BLOOD SPECIMEN Ordering Facility: [facility] Address: [address] [place] [address] Performed By: #### 2 4323-8 #### [facility] CLIA [id number] [address] [place] Hemoglobin (Bld) [Mass/Vol] 13.4 g/dL Normal 11.5-15.5 [facility] Comment on above: Order Comment: Speci men Type: BLOOD SPECIMEN Ordering Facility: [facility] Address: [address] [place] [address] Performed By: #### 2 432-8 #### [facility] CLIA [id number] [address] [place] Immature granulocytes (Bld) [#/Vol] 0.06 10*3/uL Normal <0.10 [facility] Comment on above: Order Comment: Speci men Type: BLOOD SPECIMEN Ordering Facility: [facility] Address: [address] [place] [address] Performed By: #### 2 4323-8 #### [facility] CLIA [id number] [address] Immature granulocytes/100 WBC (Bld) 0.5 % Normal [facility] Comment on above: Order Comment: Speci men Type: BLOOD SPECIMEN Ordering Facility: [facility] Address: [address] [address] Performed By: #### 2 432-8 #### [facility] CLIA [id number] [address] [place] Lymphocytes (Bld) [#/Vol] 1.11 10*3/uL Normal 1.00-4.00 [facility] Comment on above: Order Comment: Speci men Type: BLOOD SPECIMEN Ordering Facility: [facility] Address: [address] [address] Performed By: #### 2 4323-8 #### [facility] CLIA [id number] [address] [place] Lymphocytes/100 WBC (Bld) 9.8 % Normal [facility] Comment on above: Order Comment: Speci men Type: BLOOD SPECIMEN Ordering Facility: [facility] Address: [address] [address] Performed By: #### 2 4323-8 #### [facility] CLIA [id number] [address] [place] MCH (RBC) [Entitic mass] 30.2 pg Normal 26.0-34.0 [facility] Comment on above: Order Comment: Speci men Type: BLOOD SPECIMEN Ordering Facility: [facility] Address: [address] [place] [address] Performed By: #### 2 4323-8 #### [facility] CLIA [id number] [address] [place] MCHC (RBC) [Mass/Vol] 35.6 g/dL Normal 30.5-36.0 [facility] Comment on above: Order Comment: Speci men Type: BLOOD SPECIMEN Ordering Facility: [facility] Address: [address] [address] Performed By: #### 2 4323-8 #### [facility] CLIA [id number] [address] [place] [facility] MCV (RBC) [Entitic vol] 84.7 fL Normal 80.0-100.0 [facility] Comment on above: Order Comment: Speci men Type: BLOOD SPECIMEN Ordering Facility: [facility] Address: [address] [place] [address] Performed By: #### 2 4323-8 #### [facility] CLIA [id number] [address] [place] Monocytes (Bld) [#/Vol] 0.27 10*3/uL Normal <0.87 [facility] Comment on above: Order Comment: Speci men Type: BLOOD SPECIMEN Ordering Facility: [facility] Address: [address] [address] Performed By: #### 2 4323-8 #### [facility] CLIA [id number] [address] [place] [address] [place] Monocytes/100 WBC (Bld) 2.4 % Normal [facility] Comment on above: Order Comment: Speci men Type: BLOOD SPECIMEN Ordering Facility: [facility] Address: [address] [address] Performed By: #### 2 4323-8 #### [facility] CLIA [id number] [address] [place] [address] [place] Neutrophils (Bld) [#/Vol] 9.91 10*3/uL High 1.45-7.50 [facility] Comment on above: Order Comment: Speci men Type: BLOOD SPECIMEN Ordering Facility: [facility] Address: [address] [place] [address] Performed By: #### 2 432-8 #### [facility] CLIA [id number] [address] [place] Neutrophils/100 WBC (Bld) 87.0 % Normal [facility] Comment on above: Order Comment: Speci men Type: BLOOD SPECIMEN Ordering Facility: [facility] Address: [address] [place] [address] Performed By: #### 2 4323-8 #### [facility] CLIA [id number] [address] [place] [address] [place] Nucleated RBC (Bld) [#/Vol] 10*3/uL Normal <0.01 [facility] Comment on above: Order Comment: Speci men Type: BLOOD SPECIMEN Ordering Facility: [facility] Address: [address] [place] [address] Performed By: #### 2 4323-8 #### [facility] CLIA [id number] [address] [place] Nucleated RBC/100 WBC (Bld) [Ratio] 0.0 /100 WBC Normal [facility] Comment on above: Order Comment: Speci men Type: BLOOD SPECIMEN Ordering Facility: [facility] Address: [address] [address] Performed By: #### 2 4323-8 #### [facility] CLIA [id number] [address] [place] [address] [place] [facility] [place] Platelet mean volume (Bld) [Entitic vol] 10.9 fL Normal 9.0-12.7 [facility] Comment on above: Order Comment: Speci men Type: BLOOD SPECIMEN Ordering Facility: [facility] Address: [address] [place] [address] Performed By: #### 2 4323-8 #### [facility] CLIA [id number] [address] [place] [address] [place] Platelets (Bld) [#/Vol] 241 10*3/uL Normal 150-400 [facility] Comment on above: Order Comment: Speci men Type: BLOOD SPECIMEN Ordering Facility: [facility] Address: [address] [place] [address] Performed By: #### 2 4323-8 #### [facility] CLIA [id number] [address] [place] [address] [place] RBC (Bld) [#/Vol] 4.44 10*6/uL Normal 3.90-5.20 [facility] Comment on above: Order Comment: Speci men Type: BLOOD SPECIMEN Ordering Facility: [facility] Address: [address] [place] [address] Performed By: #### 2 4323-8 #### [facility] CLIA [id number] [address] [place] [address] [place] WBC (Bld) [#/Vol] 11.38 10*3/uL High 3.70-11.00 [facility] Comment on above: Order Comment: Speci men Type: BLOOD SPECIMEN Ordering Facility: [facility] Address: [address] [place] [address] Performed By: #### 2 4323-8 #### [facility] CLIA [id number] [address] CONSULTon 03-12-2023 CONSULT HNO ID: [id number] Author: Bolivar Barrett MD Service: General Surgery Author Type: Physician Type: Consults Filed: 03/12/2023 3:31 PM Note Text: General surgery INITIAL CONSULT NOTE SERVICE DATE: 03/12/2023 SERVICE TIME: 3:28 PM REASON FOR CONSULT: Acute appendicitis REQUESTING PHYSICIAN: Jennifer Cortés MD PRIMARY CARE PHYSICIAN: No primary care provider on file. Subjective Ms. Valdes is a 18 year old female who reports that over the course last 24 hours she has been dealing with abdominal pain. She reports she is on her menses, initially felt that that was the cause. Patient states however she has had decreased appetite with some nausea but no vomiting. She also endorses that she has been having some urinary frequency but denies any dysuria or hematuria. Patient states the pain is continuous in the right lower quadrant. Somewhat worse with palpation ambulation as well as going over bumps in the car. No prior similar episodes in the past, this is not typical for her menses, she has no prior history of abdominal surgeries. FUNCTIONAL STATUS: Independent PAST MEDICAL HISTORY Diagnosis Date NEGATIVE MEDICAL HISTORY 2004 normal color vision PAST SURGICAL HISTORY Procedure Laterality Date NONE FAMILY HISTORY Problem Relation Age of Onset Asthma Mother other (IBS) Mother other (acid reflux) Mother Breast Cancer Paternal Grandmother other (Scleroderma) Paternal Grandmother Heart Maternal Grandfather Hypertension Maternal Grandfather Social History Tobacco Use Smoking status: Never Passive exposure: Never Smokeless tobacco: Never Substance Use Topics Alcohol use: No Drug use: No (Not in a hospital admission) Current Facility-Administered Medications Medication Dose Route Frequency iv contrast (radiology procedure) INTRAVENOUS DIRECTED PRN And enteric contrast (radiology procedure) ORAL DIRECTED PRN piperacillin-tazobactam iv piggyback 3.375 g in dextrose (iso-osmotic) 50 mL (ZOSYN) 3.375 g INTRAVENOUS ONCE NaCl 0.9% iv flush bag 20 mL INTRAVENOUS PRN Allergies As of Date: 03/12/2023 (No Known Allergies) Fully Assessed 03/12/2023 Review of Systems Constitutional: Positive for appetite change. Negative for activity change and fever. HENT: Negative for rhinorrhea and sore throat. Respiratory: Negative for cough and shortness of breath. Cardiovascular: Negative for chest pain. Gastrointestinal: Positive for abdominal pain. Negative for diarrhea, nausea and vomiting. Genitourinary: Positive for frequency. Negative for dysuria. Musculoskeletal: Negative for myalgias. Skin: Negative for rash. Neurological: Negative for weakness and numbness. Psychiatric/Behavioral: Negative for self-injury. Objective PHYSICAL EXAM: Physical Exam Performed: GENERAL: Alert, no distress, cooperative LUNGS: Lungs clear to auscultation, Good diaphragmatic excursion CARDIAC: Normal S1 and S2; no rubs, murmurs, or gallops ABDOMEN: Abdomen is soft. Right lower quadrant abdominal pain at Sinclair's point colic or guarding. Peritoneal signs are identified positive Rovsing sign BP 111/57 Pulse 72 Temp (Src) 97.9 (Tympanic) Resp 16 Wt 90 lb (40.8kg) SpO2 100% LMP 03/12/2023 O2 Therapy: Room Air DATA: Diagnostic tests reviewed for today's visit: Most recent labs and imaging results. Impression/Recommendati ons Acute appendicitis Plan will be to perform a laparoscopic appendectomy. The planned surgical procedure was discussed extensively with the patient. The risks, benefits, anticipated outcomes and possible complications were mentioned. My staff has also explained the procedure in understandable terms and the patient was given the option to take printed material concerning the planned procedure. The patient had the opportunity to ask questions concerning the planned procedure. The patient freely consents to the planned procedure. Medication and Non-Pharmacologic VTE Prophylaxis/Anticoagula nts VTE Prophylaxis: VTE prophylaxis appropriate SIGNATURE: Bolivar Barrett III, MD PATIENT NAME: Dao Valdes DATE: March 12, 2023 TIME: 3:28 PM Normal [facility] Comprehensive metabolic 2000 panelon 03-12-2023 Albumin [Mass/Vol] 4.9 g/dL Normal 3.9-4.9 [facility] Comment on above: Order Comment: Specrhonda morin Type: BLOOD SPECIMENOrdering Facility: [facility] Address: [address] [place], [place] [address] Performed By: #### 2 4323-8, 3039-11, ####[facility] LABORATORYCLIA [id number] [place] [address] [place] ALP [Catalytic activity/Vol] 75 U/L Normal 45-87 [facility] Comment on above: Order Comment: Grayson morin Type: BLOOD SPECIMENOrdering Facility: [facility] Address: [address] [place] [address] Performed By: #### 2 4323-8, 3, ####[facility] LABORATORYCLIA [id number] [address] [place] ALT [Catalytic activity/Vol] 13 U/L Normal 7-38 [facility] Comment on above: Order Comment: Speci men Type: BLOOD SPECIMENOrdering Facility: [facility] Address: [address] [place] [address] Performed By: #### 2 4323-8, 3040-3, ####[facility] LABORATORYCLIA [id number] [place] [address] [place] Anion gap [Moles/Vol] 14 mmol/L Normal 9-18 [facility] Comment on above: Order Comment: Speci men Type: BLOOD SPECIMENOrdering Facility: [facility] Address: [address] [place] [address] Performed By: #### 2 4323-8, 3, ####[facility] LABORATORYCLIA [id number] [address] [place] AST [Catalytic activity/Vol] 21 U/L Normal 13-35 [facility] Comment on above: Order Comment: Speci men Type: BLOOD SPECIMENOrdering Facility: [facility] Address: [address] [place] [address] Performed By: #### 2 4323-8, 3, ####[facility] LABORATORYCLIA [id number] [address] [place] Bilirubin [Mass/Vol] 0.4 mg/dL Normal 0.2-1.3 [facility] Comment on above: Order Comment: Speci men Type: BLOOD SPECIMENOrdering Facility: [facility] Address: [place] [place] [address] Performed By: #### 2 4323-8, 0-3, ####[facility] LABORATORYCLIA [id number] [address] [place] Calcium [Mass/Vol] 10.3 mg/dL High 8.5-10.2 [facility] Comment on above: Order Comment: Speci men Type: BLOOD SPECIMENOrdering Facility: [facility] Address: [address] [place], [place] [address] Performed By: #### 2 4323-8, 3040-3, ####[facility] LABORATORYCLIA [id number] [place] [address] [place] Chloride [Moles/Vol] 103 mmol/L Normal 97-105 [facility] Comment on above: Order Comment: Speci men Type: BLOOD SPECIMENOrdering Facility: [facility] Address: [address] [place] [address] Performed By: #### 2 4323-8, 3040-3, ####[facility] LABORATORYCLIA [id number] [place] [address] [place] CO2 [Moles/Vol] 21 mmol/L Low 22-30 [facility] Comment on above: Order Comment: Speci men Type: BLOOD SPECIMENOrdering Facility: [facility] Address: [address] [place] [address] Performed By: #### 2 4323-8, 3040-3, ####[facility] LABORATORYCLIA [id number] [address] [place] Creatinine [Mass/Vol] 0.85 mg/dL Normal 0.58-0.96 [facility] Comment on above: Order Comment: Speci men Type: BLOOD SPECIMENOrdering Facility: [facility] Address: [address] [place] [address] Performed By: #### 2 4323-8, 3040-3, ####[facility] LABORATORYCLIA [id number] [address] ESTIMATED GLOMERULAR FILTRATION RATE 102 mL/min/1.73m??? Normal >=60 [facility] Comment on above: Order Comment: Speci men Type: BLOOD SPECIMENOrdering Facility: [facility] Address: [address] [place] [address] Result Comment: Raquel mated Glomerular Filtration Rate (eGFR) is calculated using the 2020 CKD-EPI creatinine equation. This equation utilizes serum creatinine, sex, and age as parameters. The creatinine assay has traceable calibration to isotope dilution-mass spectrometry. Refer to KDIGO guidelines for clinical interpretation. In patients with unstable renal function, e.g. those with acute kidney injury, the eGFR may not accurately reflect actual GFR. Performed By: #### 2 4323-8, 3040-3, ####ROMERO LABORATORYCLIA [id number] [place] [address] [place] Glucose [Mass/Vol] 92 mg/dL Normal 74-99 [facility] Comment on above: Order Comment: Grayson morin Type: BLOOD SPECIMENOrdering Facility: [facility] Address: [address] [place], [place] [address] Result Comment: The [place] Diabetes [employer] (ADA) provides guidance for cutoff values for fasting glucose and random glucose. The ADA defines fasting as no caloric intake for at least 8 hours. Fasting plasma glucose results between 100 to 125 mg/dL indicate increased risk for diabetes (prediabetes). Fasting plasma glucose results greater than or equal to 126 mg/dL meet the criteria for diagnosis of diabetes. In the absence of unequivocal hyperglycemia, results should be confirmed by repeat testing. In a patient with classic symptoms of hyperglycemia or hyperglycemic crisis, random plasma glucose results greater than or equal to 200 mg/dL meet the criteria for diagnosis of diabetes. Reference: Standards of Medical Care in Diabetes 2016, [place] [employer]. Diabetes Care. 2016.39(Suppl 1). Performed By: #### 2 4323-8, 0-3, ####[facility] LABORATORYCLIA [id number] [place] [id number] [place] Potassium [Moles/Vol] 3.9 mmol/L Normal 3.7-5.1 [facility] Comment on above: Order Comment: Grayson morin Type: BLOOD SPECIMENOrdering Facility: [facility] Address: [address] [place] [address] Performed By: #### 2 4323-8, 3040-3, ####ROMERO LABORATORYCLIA [id number] [place] [address] [place] Protein [Mass/Vol] 7.9 g/dL Normal 6.3-8.0 [facility] Comment on above: Order Comment: Grayson morin Type: BLOOD SPECIMENOrdering Facility: [facility] Address: [address] [place] [address] Performed By: #### 2 4323-8, 3040-3, ####[facility] LABORATORYCLIA [id number] [address] Sodium [Moles/Vol] 138 mmol/L Normal 136-144 [facility] Comment on above: Order Comment: Speci men Type: BLOOD SPECIMENOrdering Facility: [facility] Address: [address] Performed By: #### 2 4323-8, 3040-3, ####[facility] LABORATORYCLIA [id number] [address] [place] Urea nitrogen [Mass/Vol] 11 mg/dL Normal 7-21 [facility] Comment on above: Order Comment: Speci men Type: BLOOD SPECIMENOrdering Facility: [facility] Address: [address] Performed By: #### 2 4323-8, 0-3, ####ROMERO LABORATORYCLIA [id number] [address] OF [facility] ED NOTEon 03-12-2023 ED NOTE HNO ID: [id number] Author: Cayden Wilson RN Service: ? Author Type: Registered Nurse Type: ED Notes Filed: 03/12/2023 12:33 PM Note Text: Pt presents to ed with cc of lower right abd pain with nausea and vomiting, pt also having cramping, symptoms starting Tuesday. Normal [facility] ED PROV NOTEon 03-12-2023 ED PROV NOTE HNO ID: [id number] Author: Sujit Cortés MD Service: ? Author Type: Physician Type: ED Provider Notes Filed: 03/12/2023 3:06 PM Note Text: ED Provider Note Patient Name: Dao Valdes : 2005 SERVICE DATE: 03/12/23 History Patient presents with: Abdominal Pain: Right lower, felt a bump Patient sent in for evaluation secondary to abdominal pain. Patient reports that over the course last 24 hours she has been dealing with abdominal pain. She reports she is on her menses, initially felt that that was the cause. Patient states however she has had decreased appetite with some nausea but no vomiting. She also endorses that she has been having some urinary frequency but denies any dysuria or hematuria. Patient states the pain is continuous in the right lower quadrant. Somewhat worse with palpation ambulation as well as going over bumps in the car. No prior similar episodes in the past, this is not typical for her menses, she has no prior history of abdominal surgeries. Review of systems otherwise negative. PAST MEDICAL HISTORY Diagnosis Date - NEGATIVE MEDICAL HISTORY 2004 normal color vision PAST SURGICAL HISTORY Procedure Laterality Date - NONE FAMILY HISTORY Problem Relation Age of Onset - Asthma Mother - other (IBS) Mother - other (acid reflux) Mother - Breast Cancer Paternal Grandmother - other (Scleroderma) Paternal Grandmother - Heart Maternal Grandfather - Hypertension Maternal Grandfather Social History Tobacco Use - Smoking status: Never Passive exposure: Never - Smokeless tobacco: Never Substance and Sexual Activity - Alcohol use: No - Drug use: No - Sexual activity: Not on file ALLERGIES No Known Allergies Review of Systems Constitutional: Positive for appetite change. Negative for activity change and fever. HENT: Negative for rhinorrhea and sore throat. Respiratory: Negative for cough and shortness of breath. Cardiovascular: Negative for chest pain. Gastrointestinal: Positive for abdominal pain. Negative for diarrhea, nausea and vomiting. Genitourinary: Positive for frequency. Negative for dysuria. Musculoskeletal: Negative for myalgias. Skin: Negative for rash. Neurological: Negative for weakness and numbness. Psychiatric/Behavioral: Negative for self-injury. Physical Exam Vitals [03/12/23 1234] BP Pulse Temp Temp src Resp SpO2 Weight Height 129/70 61 36.6 ?C (97.9 ?F) Tympanic 18 100 % 40.8 kg (90 lb) -- Physical Exam Vitals and nursing note reviewed. Constitutional: General: She is not in acute distress. Appearance: Normal appearance. She is well-developed. HENT: Head: Normocephalic and atraumatic. Nose: Nose normal. Mouth/Throat: Mouth: Mucous membranes are moist. Eyes: Conjunctiva/sclera: Conjunctivae normal. Pupils: Pupils are equal, round, and reactive to light. Cardiovascular: Rate and Rhythm: Normal rate and regular rhythm. Heart sounds: Normal heart sounds. Comments: Radial pulses 2+ bilaterally Pulmonary: Effort: Pulmonary effort is normal. No respiratory distress. Breath sounds: Normal breath sounds. Abdominal: General: Bowel sounds are normal. There is no distension. Palpations: Abdomen is soft. Tenderness: There is abdominal tenderness in the right lower quadrant. There is no guarding or rebound. Positive signs include McBurney's sign and psoas sign. Negative signs include Johnson's sign, Rovsing's sign and obturator sign. Musculoskeletal: General: No tenderness. Normal range of motion. Cervical back: Normal range of motion and neck supple. Lymphadenopathy: Cervical: No cervical adenopathy. Skin: General: Skin is warm and dry. Capillary Refill: Capillary refill takes less than 2 seconds. Findings: No rash. Neurological: Mental Status: She is alert and oriented to person, place, and time. GCS: GCS eye subscore is 4. GCS verbal subscore is 5. GCS motor subscore is 6. Sensory: No sensory deficit. Motor: No weakness. Psychiatric: Mood and Affect: Mood normal. Diagnostic Testing ED Labs Ordered and Reviewed URINALYSIS WITH MICROSCOPIC, REFLEX CULTURE - Abnormal; Notable for the following components: Result Value Ref Range Clarity Slightly Cloudy (*) Clear Ketones, Urine 1+ (*) Negative Hemoglobin/Blood,Ur 3+ (*) Negative, Trace Protein, Urine 1+ (*) Negative RBC, Urine >25 /HPF (*) 0-3 /HPF Bacteria Few (*) None Seen /HPF All other components within normal limits COMP METABOLIC PANEL - Abnormal; Notable for the following components: Calcium, Total 10.3 (*) 8.5 - 10.2 mg/dL CO2 21 (*) 22 - 30 mmol/L All other components within normal limits CBC + DIFF - Abnormal; Notable for the following components: WBC 11.38 (*) 3.70 - 11.00 k/uL Abs Neut 9.91 (*) 1.45 - 7.50 k/uL All other components within normal limits MAGNESIUM BLD - Normal LIPASE BLD - Normal HCG URINE - ED(POC) - Normal Procedures ED (more content not included)... Normal [facility] Lipase SerPl-cCncon 03-12-20 23 Lipase [Catalytic activity/Vol] 33 U/L Normal 16-61 [facility] Comment on above: Order Comment: Speci men Type: BLOOD SPECIMENOrdering Facility: [facility] Address: [place] [address] Performed By: #### 2 4323-8, 3039-3, ####[facility] LABORATORYCLIA [id number] [place] [address] [place] Magnesium SerPl-mCncon 03-12 Magnesium [Mass/Vol] 1.8 mg/dL Normal 1.7-2.3 [facility] Comment on above: Order Comment: Speci men Type: BLOOD SPECIMENOrdering Facility: [facility] Address: [address] [place] [address] Performed By: #### 2 4323-8, 3039-3, ####[facility] LABORATORYCLIA [id number] [place] [address] [place] OPERATIVE NOon 03-12-2023 OPERATIVE NO HNO ID: [id number] Author: Bolivar Barrett MD Service: General Surgery Author Type: Physician Type: Operative Report Filed: 03/12/2023 5:36 PM Note Text: OPERATIVE/PROCEDURE REPORT LOG ID: [id number] SURGERY/PROCEDURE DATE: 03/12/2023 INCISION/PROCEDURE START TIME: 5:00 PM INCISION CLOSE/PROCEDURE END TIME: 5:26 PM SURGEON(S)/PROCEDURALIS T(S) AND RAILROAD HAND(S): Surgeon(s) and Role: * Bolivar Barrett MD - Primary Registered Nurse Flower Buncher Or Picker: Sowmya Myers RN SURGERY/PROCEDURE(S): Laparoscopic appendectomy ANESTHESIA: General SURGERY/PROCEDURE DETAILS: Patient was brought into the operating room. Placed in the supine position. Under excellent general anesthetic the abdomen was sterilely prepped and draped in the usual fashion. Local was injected infraumbilically. Curvilinear incision was made. Dissection was carried down to the fascia. The fascia grasped with a [place]. Varies needle was placed inside the abdomen. The abdomen was insufflated to 15 torr. A 10/12 trocar was placed without difficulty. A suprapubic #5 trocar was placed, left lower quadrant #5 trocar was placed. Both leads were placed under direct visualization without injury to underlying structures. Patient was on her menstrual cycle she did have blood in the abdomen. Identified the appendix it was planned at the tip I grabbed the base of the appendix came down the mesoappendix with the Enseal I had good hemostasis I transected the base of the appendix placed the appendix in a specimen bag and removed from the abdomen. I did touch cautery on the suture line I obtained good pneumostasis. I irrigated out the abdomen good in the stasis was noted I looked at the ovaries there was no signs of any ruptured follicles. I ran the small bowel. No Meckel's diverticulum is identified. The trocars were removed on direct visualization. Good of stasis was noted. Closed the fascia of the umbilical port with a figure 8 stitch of 0 Vicryl. Skin incisions were closed with subcuticular stitches of 4-0 Monocryl. Dermabond was applied sterile dressings were applied and the patient tolerated the procedure well. Sowmya Myers RN was my family and divorce legal assistant. She assisted with retraction, visualization and performed skin closure. No additional surgeons or qualified residents were available. PRE-OP/PRE-PROCEDURE DIAGNOSIS: Acute appendicitis POST-OP/POST-PROCEDURE DIAGNOSIS: Same as Preop ESTIMATED BLOOD LOSS: < 15 mls SPECIMENS: Appendix IMPLANTABLE DEVICES: NONE DRAINS: None COMPLICATIONS: None CLOSURE TECHNIQUE: Primary PARTICIPATION IN SURGERY/PROCEDURE: I/primary surgeon/proceduralist performed the procedure with assistance. SIGNATURE: Bolivar Barrett III, MD PATIENT NAME: Dao Valdes DATE: March 12, 2023 TIME: 5:[address] [facility] SURGICAL PATHOLOGYon [address] [facility] Comment on above: Order Comment: Speci men Type: BLOOD SPECIMEN [facility]: [facility] Address: [address] [place] [address] Result Comment: Surg [facility] Pathology Report Case: [id number] Authorizing Provider: Bolivar Barrett MD Collected: 03/12/2023 03:48 PM Ordering Location: [facility] Surgery Received: 03/14/2023 11:05 AM Pathologist: Luca Sims MD Specimen: APPENDIX Performed By: #### 2 4323-8 #### [facility] CLIA [id number] [address] CLINICAL HISTORY Normal [facility] Comment on above: Order Comment: Speci men Type: BLOOD SPECIMEN [facility]ing [facility]: [facility] Address: [address] [place] [address] Result Comment: Pre- op diagnosis: Acute appendicitis [K35.80] Performed By: #### 2 4323-8 #### [facility] CLIA [id number] [address] FINAL DIAGNOSIS [facility] Comment on above: Order Comment: Speci men Type: BLOOD SPECIMEN [facility] Address: [address] [place] [address] Result Comment: A. A ppendix, appendectomy: - Acute appendicitis. MAINE/RTM 03/16/2023 Performed By: #### 2 4323-8 #### [facility] CLIA [id number] [address] FINAL PERFORMING LAB [facility] Comment on above: Order Comment: Speci men Type: BLOOD SPECIMEN Ordering Facility: [facility] Address: [address] [place] [address] Result Comment: Diag nostic interpretation performed at [facility], [address] [place] [place] [address] CLIA# [id number] Commercial Retoucher: Nam Burnham M.D. Performed By: #### 2 4323-8 #### [facility] CLIA [id number] [address] GROSS DESCRIPTION A. APPENDIX [facility] Comment on above: Order Comment: Speci men Type: BLOOD SPECIMEN [facility] Address: [address] [place] [address] Result Comment: Rece ived in formalin labeled "appendix" is an intact appendix measuring 5.5 cm in length by 0.6 cm maximum diameter. The serosa is purple-gonsalves, smooth, and glistening. The unremarkable mesoappendix measures 4 x 2 x 0.4 cm. The appendiceal and mesoappendiceal margins are inked blue. The lumen is intact and devoid of contents. The mucosa is sy and glistening. The wall thickness measures 0.1 cm. There are no discrete masses or lesions. Transmission Specialist sections are submitted as follows: A1 appendiceal and mesoappendiceal shave margins, A2 bisected distal tip and cross section. ANDERSON March 14, 2023 3:31 PM Gross examination performed at [facility], [address] [place] [address] Performed By: #### 2 4323-8 #### [facility] CLIA [id number] [address] Urinalysis complete panel (U )on 03-12-2023 Bacteria LM.HPF (Urine sed) [#/Area] Few Abnormal None Seen [facility] Comment on above: Order Comment: Speci men Type: URINE SPECIMEN [facility]ing [facility] Address: [address] [place] [address] Performed By: #### 2 4356-8 #### [facility] CLIA [id number] [address] Bilirubin Ql (U) Negative Normal Negative [facility] Comment on above: Order Comment: Speci men Type: URINE SPECIMEN [facility]ing [facility] Address: [address] [place] [address] Performed By: #### 2 4356-8 #### [facility] CLIA [id number] [address] Clarity (Unsp spec) Slightly Cloudy Abnormal Clear [facility] Comment on above: Order Comment: Speci men Type: URINE SPECIMEN [facility]ing [facility]: [facility] Address: [address] [place] [address] Performed By: #### 2 4356-8 #### [facility] CLIA [id number] [address] Color (U) Yellow Normal Yellow [facility] Comment on above: Order Comment: Speci men Type: URINE SPECIMEN Ordering Facility: [facility] Address: [address] [place] [address] Performed By: #### 2 4356-8 #### [facility] CLIA [id number] [address] Epithelial cells LM.HPF (Urine sed) [#/Area] Few Normal [facility] Comment on above: Order Comment: Speci men Type: URINE SPECIMEN Ordering Facility: [facility] Address: [address] [place] [address] Performed By: #### 2 4356-8 #### [facility] CLIA [id number] [address] [place] Glucose Test strip (U) [Mass/Vol] Negative Normal Negative [facility] Comment on above: Order Comment: Speci men Type: URINE SPECIMEN [facility]ing Facility: [facility] Address: [address] [place] [address] Performed By: #### 2 4356-8 #### [facility] CLIA [id number] [address] [place] Hemoglobin Ql (U) 3+ Abnormal Negative, Trace [facility] Comment on above: Order Comment: Speci men Type: URINE SPECIMEN Ordering Facility: [facility] Address: [address] [place] [address] Performed By: #### 2 4356-8 #### [facility] CLIA [id number] [address] Ketones Ql (U) 1+ Abnormal Negative [facility] Comment on above: Order Comment: Speci men Type: URINE SPECIMEN Ordering Facility: [facility] Address: [address] [place] [address] Performed By: #### 2 4356-8 #### [facility] CLIA [id number] [address] [place] Leukocyte esterase Test strip Ql (U) Negative Normal Negative [facility] Comment on above: Order Comment: Speci men Type: URINE SPECIMEN Ordering Facility: [facility] Address: [address] [place] [address] Performed By: #### 2 4356-8 #### [facility] CLIA [id number] [address] [place] [address] [place] Nitrite Ql (U) Negative Normal Negative [facility] Comment on above: Order Comment: Speci men Type: URINE SPECIMEN Ordering Facility: [facility] Address: [address] [place] [address] Performed By: #### 2 4356-8 #### [facility] CLIA [id number] [address] pH (U) 6.0 [pH] Normal 5.0-8.0 [facility] Comment on above: Order Comment: Speci men Type: URINE SPECIMEN Ordering Facility: [facility] Address: [address] [place] [address] Performed By: #### 2 4356-8 #### [facility] CLIA [id number] [address] Protein (U) [Mass/Vol] 1+ Abnormal Negative [facility] Comment on above: Order Comment: Speci men Type: URINE SPECIMEN Ordering Facility: [facility] Address: [address] [place] [address] Performed By: #### 2 4356-8 #### [facility] CLIA [id number] [address] RBC LM.HPF (Urine sed) [#/Area] /[HPF] Abnormal 0-3 /HPF [facility] Comment on above: Order Comment: Speci men Type: URINE SPECIMEN Ordering Facility: [facility] Address: [address] [place] [address] Performed By: #### 2 4356-8 #### [facility] CLIA [id number] [address] Specific gravity (U) [Rel density] 1.020 Normal 1.005-1.030 [facility] Comment on above: Order Comment: Speci men Type: URINE SPECIMEN Ordering Facility: [facility] Address: [address] [place] [address] Performed By: #### 2 4356-8 #### [facility] CLIA [id number] [address] [place] Urobilinogen Ql (U) 0.2 EU/dL Normal 0.2-1.0 EU/dL [facility] Comment on above: Order Comment: Speci men Type: URINE SPECIMEN Ordering Facility: [facility] Address: [address] [place] [address] Performed By: #### 2 4356-8 #### [facility] CLIA [id number] [address] WBC LM.HPF (Urine sed) [#/Area] 0-5 /HPF Normal 0-5 /HPF [facility] Comment on above: Order Comment: Speci men Type: URINE SPECIMEN Ordering Facility: [facility] Address: [address] [place] [address] Performed By: #### 2 4356-8 #### [facility] CLIA [id number] [address] Progress Noteon 07-06-2022 [employer] Authentication Interface Message Text Pediatric Gastroenterology Follow-up Note - [facility] Date of Visit: July 06, 2022 Date of previous visit: 05/01/2020 Patient Active Problem List Diagnosis Non-suicidal self harm Depression Chronic abdominal pain Irritable bowel syndrome History of Present Illness Dao Valdes is a 17 y.o. female with a past medical history significant for depression followed in the [facility] for chronic abdominal pain and irritable bowel syndrome. The patient was previously seen by Dr. Ham. At the time of the previous visit the family reported frequent episodes of lower abdominal cramping. Lab tests were unremarkable. An Xray showed a moderate stool. Due to concerns for constipation it was recommended that the patient perform a clean out and start a daily bowel regimen. A FODMAP diet was discussed, but was not started. The patient was also started on Lexapro for Depression. Today the patient returns for follow-up. The patient has not been seen in GI clinic for the last 2 years. The patient reports that she continues to have frequent GI symptoms which are impacting her activities of daily living. The patient reports that after the first meal of the day she has urgent stools. There can be up to 5 episodes. The stool quality varies between constipation and diarrhea. There is mucus in the stool, but no blood. The patient will wake at night to pass stool. The patient also has abdominal pain daily. The pain can last for several hours at a time and is more prominent in the lower abdomen. She reports increased abdominal bloating and gas. Past Medical History History reviewed. No pertinent past medical history. Past Surgical History History reviewed. No pertinent surgical history. Allergies Allergies Allergen Reactions Lactose Intolerance (Gi) Diarrhea Medications Outpatient Encounter Medications as of 07/06/2022 Medication Sig Dispense Refill Mirtazapine 30 MG TABS polyethylene glycol (MIRALAX;GLYCOLAX) 17 GM/SCOOP powder Take 17 g by mouth daily 850 g 11 bisacodyl (DULCOLAX) 5 MG EC tablet Take 2 Tabs (10 mg) by mouth daily as needed (constipation) 15 Tab 3 dicyclomine (BENTYL) 10 MG capsule Take 1 Capsule (10 mg) by mouth 3 times daily as needed for Other (pain) 60 Capsule 3 escitalopram (LEXAPRO) 5 MG tablet Take 1 Tab (5 mg) by mouth daily (Patient not taking: Reported on 04/07/2020) 30 Tab 1 No facility-administered encounter medications on file as of 07/06/2022. Family Medical History Family History Problem Relation Age of Onset Bipolar Disorder Maternal Grandmother Depression Maternal Grandmother Anxiety Disorder Mother Gastroesophageal reflux Mother Irritable Bowel Syndrome Mother Alcohol Use Maternal Grandfather Cancer Paternal Grandmother Colon Cancer Paternal Grandmother Anesth Problems Neg Hx Bleeding Problem Neg Hx Blood Disorders Neg Hx Celiac Disease Neg Hx Colon Polyps Neg Hx Constipation Neg Hx Crohn's Disease Neg Hx Cystic Fibrosis Neg Hx Eosinophilic Esophagitis Neg Hx Gallbladder Disease Neg Hx Hirschsprung's disease Neg Hx Kidney Disease Neg Hx Liver Disease Neg Hx Lupus Neg Hx Pancreatic Disease Neg Hx Stomach Ulcer(s) Neg Hx Thyroid Disease Neg Hx Ulcerative Colitis Neg Hx Social History Social History Socioeconomic History Marital status: Single Spouse name: None Number of children: None Years of education: None Highest education level: None Tobacco Use Smoking status: Never Smokeless tobacco: Never Substance and Sexual Activity Alcohol use: Never Drug use: Never Sexual activity: Never Diet Social History Review of Systems Review of Systems Constitutional: Negative. HENT: Negative. Eyes: Negative. Respiratory: Negative. Cardiovascular: Negative. Endocrine: negative Gastrointestinal: Per HPI Genitourinary: Negative. Neurological: Negative. Musculoskeletal: Negative. Skin: Negative. Allergy/Immune: allergic/immunologic negative Hematology: Negative. Physical Examination Vitals: 07/06/22 1035 Temp: 36.9 C (98.5 F) BP Readings from Last 2 Encounters: 04/07/20 116/56 (88 %, Z = 1.17 / 28 %, Z = -0.58)* 12/04/18 117/67 *BP percentiles are based on the 2017 AAP Clinical Practice Guideline for girls Weight - Scale: (!) 40.7 kg Height: (!) 151 cm Body mass index is 17.85 kg/m . Physical Exam Constitutional: Appearance: She is well-nourished. HENT: Mouth/Throat: Mouth: Mucous membranes are moist. Pharynx: Oropharynx is clear. Eyes: Conjunctiva/sclera: Conjunctivae normal. Cardiovascular: Rate and Rhythm: Normal rate and regular rhythm. Heart sounds: No murmur heard. Pulmonary: Effort: Pulmonary effort is normal. Breath sounds: Normal breath sounds. Abdominal: General: Bowel sounds are normal. There is no distension. Tenderness: There is no abdominal tenderness. There is no CVA tenderness or guarding. (more content not included)... Normal [facility] UA DIP, URINE (POC)on 2021 BILIRUBIN UA (POCT) Negative Negative [facility] CLARITY UA (POCT) Clear [facility] COLOR UA (POCT) Yellow [facility] GLUCOSE UA (POCT) Negative Negative mg/dL [facility] HEMOGLOBIN/BLOOD UA (POCT) Large Abnormal Negative [facility] KETONE UA (POCT) Negative Negative mg/dL [facility] LEUKOCYTES UA (POCT) Small Abnormal Negative [facility] NITRITE UA (POCT) Negative Negative [facility] PH UA (POCT) 5.5 4.5 - 8.0 [facility] Protein Ql (U) 100 mg/dL Abnormal Negative mg/dL [facility] SPECIFIC GRAVITY UA (POCT) >=1.030 1.005 - 1.030 [facility] UROBILINOGEN UA (POCT) 0.2 E.U./dL Milka l E.U./dL [facility] Vitamin D 25 Hydroxyon 12-01 Vitamin D 25 Hydroxy 24.4 ng/mL Low 31.0-80.[address] [facility] Reference Lab Comment on above: Performed By: #### H BA1C, TSH, CMP, VITD, LIPB #### [facility] [address], [place] [address] Comp Metabolic Panelon 11-30 Albumin [Mass/Vol] 4.6 g/dL High 3.2-4.5 [facility] Reference Lab Comment on above: Performed By: #### H BA1C, TSH, CMP, VITD, LIPB #### [facility] [address], [place] [address] ALP [Catalytic activity/Vol] 104 U/L Normal 50-117 [facility] Reference Lab Comment on above: Performed By: #### H BA1C, TSH, CMP, VITD, LIPB #### [facility] [address] [place] [address] ALT [Catalytic activity/Vol] 11 U/L Normal 7-38 [facility] Reference Lab Comment on above: Performed By: #### H BA1C, TSH, CMP, VITD, LIPB #### [facility] [address], [place] [id number] Anion gap [Moles/Vol] 12 mmol/L Normal 9-18 [facility] Reference Lab Comment on above: Performed By: #### H BA1C, TSH, CMP, VITD, LIPB #### [facility] [address], [place] [address] AST [Catalytic activity/Vol] 20 U/L Normal 13-35 [facility] Reference Lab Comment on above: Performed By: #### H BA1C, TSH, CMP, VITD, LIPB #### [facility] [address], [place] [address] Bilirubin Ql (U) 0.6 mg/dL Normal 0.2-1.3 [facility] Reference Lab Comment on above: Performed By: #### H BA1C, TSH, CMP, VITD, LIPB #### [facility] [address], [place] [address] Calcium [Mass/Vol] 9.8 mg/dL Normal 8.4-10.2 [facility] Reference Lab Comment on above: Performed By: #### H BA1C, TSH, CMP, VITD, LIPB #### [facility] [address] [place], [place] [address] Chloride [Moles/Vol] 103 mmol/L Normal 97-[address] [facility] Reference Lab Comment on above: Performed By: #### H BA1C, TSH, CMP, VITD, LIPB #### [facility] [address] [place] [address] CO2 [Moles/Vol] 24 mmol/L Normal 22-30 [facility] Lab Comment on above: Performed By: #### H BA1C, TSH, CMP, VITD, LIPB #### [facility] [address] [place], [place] [address] Creatinine [Mass/Vol] 0.82 mg/dL Normal 0.58-0.96 [facility] Lab Comment on above: Performed By: #### H BA1C, TSH, CMP, VITD, LIPB #### [facility] [address] [place] [id number] GFR/1.73 sq M predicted among non-blacks MDRD (S/P/Bld) [Vol rate/Area] 0.50 mL/min/{1.73_m2} Normal [facility] Reference Lab Comment on above: Performed By: #### H BA1C, TSH, CMP, VITD, LIPB #### [facility] [address], [place] [address] Glucose [Mass/Vol] 73 mg/dL Low 74-99 [facility] Reference Lab Comment on above: Performed By: #### H BA1C, TSH, CMP, VITD, LIPB #### [facility] [address], [place] [address] Potassium [Moles/Vol] 4.0 mmol/L Normal 3.7-5.1 [facility] Reference Lab Comment on above: Performed By: #### H BA1C, TSH, CMP, VITD, LIPB #### [facility] [address], [place] [address] Protein [Mass/Vol] 7.5 g/dL Normal 6.3-8.0 [facility] Reference Lab Comment on above: Performed By: #### H BA1C, TSH, CMP, VITD, LIPB #### [facility] [address], [place] [address] Sodium [Moles/Vol] 139 mmol/L Normal 136-144 [facility] Lab Comment on above: Performed By: #### H BA1C, TSH, CMP, VITD, LIPB #### [facility] [address] [place] [address] Urea nitrogen [Mass/Vol] 12 mg/dL Normal 5-18 [facility] Lab Comment on above: Performed By: #### H BA1C, TSH, CMP, VITD, LIPB #### [facility] [address], [place] [address] Hemoglobin A1con 11-30-2020 HbA1c (Bld) [Mass fraction] 105 mg/dL Normal [facility] Lab Comment on above: Performed By: #### H BA1C, TSH, CMP, VITD, LIPB #### [facility] [address], [place] [address] HbA1c (Bld) [Mass fraction] 5.3 % Normal 4.3-5.6 [facility] Reference Lab Comment on above: Performed By: #### H BA1C, TSH, CMP, VITD, LIPB #### [facility] [address], [place] [address] Lipid Panel, Basicon 11-30-2 021 Cholesterol [Mass/Vol] 155 mg/dL Normal <170 Cl [facility] Reference Lab Comment on above: Performed By: #### H BA1C, TSH, CMP, VITD, LIPB #### [facility] [address], [place] [address] Cholesterol in HDL [Mass/Vol] 58 mg/dL Normal >45 [facility] Reference Lab Comment on above: Performed By: #### H BA1C, TSH, CMP, VITD, LIPB #### [facility] [address], [place] [address] Cholesterol in LDL [Mass/Vol] 85 mg/dL Normal <110 [facility] Reference Lab Comment on above: Performed By: #### H BA1C, TSH, CMP, VITD, LIPB #### [facility] [address], [place] [address] Cholesterol in VLDL [Mass/Vol] 12 mg/dL Normal <18 [facility] Reference Lab Comment on above: Performed By: #### H BA1C, TSH, CMP, VITD, LIPB #### [facility] [address], [place] [address] Cholesterol non HDL [Mass/Vol] 97 mg/dL Normal <120 [facility] Reference Lab Comment on above: Performed By: #### H BA1C, TSH, CMP, VITD, LIPB #### [facility] [address], [place] [address] LDL:HDL Ratio 1.47 Normal <2.42 [facility] Reference Lab Comment on above: Performed By: #### H BA1C, TSH, CMP, VITD, LIPB #### [facility] [address], [place] [address] TC:HDL Ratio 2.67 Normal <3.76 [facility] Reference Lab Comment on above: Performed By: #### H BA1C, TSH, CMP, VITD, LIPB #### [facility] [address], [place] [address] Triglyceride [Mass/Vol] 60 mg/dL Normal <90 [facility] Reference Lab Comment on above: Performed By: #### H BA1C, TSH, CMP, VITD, LIPB #### [facility] Routine Lab [address] [place] [address] Fasting Time UN Normal [facility] Reference Lab Comment on above: Performed By: #### H BA1C, TSH, CMP, VITD, LIPB #### [facility] Routine Lab [address] [place] [address] TSHon 11-30-2020 TSH Qn 1.100 uU/mL Normal 0.510-4.300 [facility] Reference Lab Comment on above: Performed By: #### H BA1C, TSH, CMP, VITD, LIPB #### [facility] Routine Lab [address] [place] [address] CR Knee Complete 4+ Views Le fton 10-12-2018 CR Knee Complete 4+ Views Left Patient Name: DAO VALDES Diagnostic Radiology Exam Date/Time 10/11/2018 23:45:29 EST Exam CR Knee Complete 4+ Views Left Ordering Physician MD YAMILETH, LUKAS SOSA Accession Number [id number] CPT4 Codes 18893 () Reason For Exam pain Report LEFT KNEE: CLINICAL INDICATION: Left knee pain and swelling after sports. TECHNIQUE: AP, lateral, and tunnel views. COMPARISON: None. FINDINGS: There is no evidence for fracture or subluxation. There is a 8 x 6 mm medial distal femoral metaphyseal cortical lucency with minimal peripheral sclerotic change, consistent with a benign cortical defect. The physes are maintained. There is no evidence for joint effusion. No soft tissue abnormality is identified. IMPRESSION: 1. No acute traumatic osseous abnormality. 2. Incidental 8mm benign cortical defect distal femoral metaphysis. Follow- up left knee radiograph in one year is suggested. Report Dictated on Workstation: [id number] Final Dictating Physician: JEANETTE ZAMBRANO DO, I Signed Date and Time: 10/12/2018 0:14 am Signed by: JEANETTE ZAMBRANO DO, I Transcribed Date and Time: 10/12/2018 0:15 Normal [facility] CR Spine Lumbosacral 4+ View son 07-17-2018 CR Spine Lumbosacral 4+ Views Patient Name: DAO VALDES Diagnostic Radiology Exam Date/Time 07/17/2018 14:06:08 EDT Exam CR Spine Lumbosacral 4+ Views Ordering Physician STEPHANIE GORDON DIANNE ELIZABETH Accession Number [id number] CPT4 Codes 97933 () Reason For Exam m54.5 Report LUMBAR SPINE SERIES CLINICAL INDICATION: Back pain AP, oblique, and lateral views of the lumbar spine were obtained. COMPARISON: None. FINDINGS: The alignment of the lumbar spine is normal. No fractures are seen. Intervertebral disc spaces are well-preserved. There are no lytic or blastic lesions observed. No pars defects are seen on the oblique views. The sacroiliac joints appear unremarkable. Spina bifida occulta is noted at S1. IMPRESSION: No acute bony abnormality of the lumbar spine is identified. Report Dictated on Workstation: [employer] Final Dictating Physician: MD MONTES JONATHAN R Signed Date and Time: 07/17/2018 2:14 pm Signed by: MD MONTES JONATHAN R Transcribed Date and Time: 07/17/2018 2:15 Normal [facility] Vital Signs Date Time Vital Sign Value Performing Clinician Facility 06-28-2025 15:48-0400 Heart rate 98 /min Dr. Rajani Peterson MD Work Phone: [facility] 06-28-2025 15:48-0400 SaO2% (BldA) [Mass fraction] 98 % Dr. Rajani Pteerson MD Work Phone: [facility] 06-28-2025 12:05-0400 Body height 147.[address] Rajani Peterson MD Work Phone: [facility] 06-28-2025 12:05-0400 Body mass index (BMI) [Ratio] 25.2 kg/m2 Dr. Rajani Peterson MD Work Phone: [facility] 06-28-2025 12:05-0400 Body weight 54.[address] Rajani Peterson MD Work Phone: [facility] 05-23-2025 13:25-0400 Body mass index (BMI) [Ratio] 23.83 kg/m2 Brian Vanessa MD Work Phone: [facility] 05-23-2025 13:25-0400 Body weight 53.52 kg Brian Vanessa MD Work Phone: [facility] 05-23-2025 13:25-0400 Diastolic blood pressure 60 mm[Hg] Brian Vanessa MD Work Phone: [facility] 05-23-2025 13:25-0400 Systolic blood pressure 108 mm[Hg] Brian Vanessa MD Work Phone: [facility] 05-13-2025 15:10-0400 Body mass index (BMI) [Ratio] 23.19 kg/m2 Erna Rubi LUNCH TRUCK OPERATOR.CNM Work Phone: [facility] 05-13-2025 15:10-0400 Body weight 52.07 kg Erna Rubi LUNCH TRUCK OPERATOR.CNM Work Phone: [facility] 05-13-2025 15:10-0400 Diastolic blood pressure 66 mm[Hg] Erna Rubi LUNCH TRUCK OPERATOR.CNM Work Phone: [facility] 05-13-2025 15:10-0400 Systolic blood pressure 120 mm[Hg] Erna Rubi LUNCH TRUCK OPERATOR.CNM Work Phone: [facility] 05-07-2025 11:11-0400 Body mass index (BMI) [Ratio] 23.39 kg/m2 Alvina Park MD Work Phone: [facility] 05-07-2025 11:11-0400 Body weight 52.53 kg Alvina Park MD Work Phone: [facility] 05-07-2025 11:11-0400 Diastolic blood pressure 64 mm[Hg] Alvina Park MD Work Phone: [facility] 05-07-2025 11:11-0400 Systolic blood pressure 110 mm[Hg] Alvina Park MD Work Phone: [facility] 04-12-2025 10:57-0400 Body mass index (BMI) [Ratio] 22.7 kg/m2 Jennyfer Guzman LUNCH TRUCK OPERATOR.CNM Work Phone: [facility] 04-12-2025 10:57-0400 Body weight 50.98 kg Jennyfer Guzman LUNCH TRUCK OPERATOR.CNM Work Phone: [facility] 04-12-2025 10:57-0400 Diastolic blood pressure 60 mm[Hg] Jennyfer Martinezmarv LUNCH TRUCK OPERATOR.CNM Work Phone: [facility] 04-12-2025 10:57-0400 Systolic blood pressure 102 mm[Hg] Jennyfer Guzman LUNCH TRUCK OPERATOR.CNM Work Phone: [facility] 03-15-2025 11:22-0400 Body mass index (BMI) [Ratio] 22.18 kg/m2 Dorcas Garcia MD Work Phone: [facility] 03-15-2025 11:22-0400 Body weight 49.8 kg Dorcas Garcia MD Work Phone: [facility] 03-15-2025 11:22-0400 Diastolic blood pressure 62 mm[Hg] Dorcas Garcia MD Work Phone: [facility] 03-15-2025 11:22-0400 Systolic blood pressure 108 mm[Hg] Dorcas Garcia MD Work Phone: [facility] 02-15-2025 11:14-0400 Body mass index (BMI) [Ratio] 21.01 kg/m2 Erna Rubi LUNCH TRUCK OPERATOR.CNM Work Phone: [facility] 02-15-2025 11:14-0400 Body weight 47.17 kg Erna Rubi LUNCH TRUCK OPERATOR.CNM Work Phone: [facility] 02-15-2025 11:14-0400 Diastolic blood pressure 62 mm[Hg] Erna Rubi LUNCH TRUCK OPERATOR.CNM Work Phone: [facility] 02-15-2025 11:14-0400 Systolic blood pressure 112 mm[Hg] Erna Rubi LUNCH TRUCK OPERATOR.CNM Work Phone: [facility] 01-18-2025 09:50-0400 Body mass index (BMI) [Ratio] 20.2 kg/m2 Alvina Park MD Work Phone: [facility] 01-18-2025 09:50-0400 Body weight 45.36 kg Alvina Park MD Work Phone: [facility] 01-18-2025 09:50-0400 Diastolic blood pressure 60 mm[Hg] Alvina Park MD Work Phone: [facility] 01-18-2025 09:50-0400 Systolic blood pressure 102 mm[Hg] Alvina Park MD Work Phone: [facility] 01-03-2025 11:02-0400 Body height 149.9 cm Elaina Hurst LUNCH TRUCK OPERATOR.PATIENT DAY COORDINATOR Work Phone: [facility] 01-03-2025 11:02-0400 Body mass index (BMI) [Ratio] 20 kg/m2 Elaina Haury LUNCH TRUCK OPERATOR.PATIENT DAY COORDINATOR Work Phone: [facility] 01-03-2025 11:02-0400 Body weight 44.91 kg Elaina Hanorma LUNCH TRUCK OPERATOR.PATIENT DAY COORDINATOR Work Phone: [facility] 01-03-2025 11:02-0400 Diastolic blood pressure 68 mm[Hg] Elaina Haury LUNCH TRUCK OPERATOR.PATIENT DAY COORDINATOR Work Phone: [facility] 01-03-2025 11:02-0400 Systolic blood pressure 110 mm[Hg] Elaina Haury LUNCH TRUCK OPERATOR.PATIENT DAY COORDINATOR Work Phone: [facility] 12-18-2024 15:06-0400 Body mass index (BMI) [Ratio] 20.06 kg/m2 Brian Vanessa MD Work Phone: [facility] 12-18-2024 15:06-0400 Body weight 43.55 kg Brian Vanessa MD Work Phone: [facility] 12-18-2024 15:06-0400 Diastolic blood pressure 58 mm[Hg] Brian Vanessa MD Work Phone: [facility] 12-18-2024 15:06-0400 Systolic blood pressure 106 mm[Hg] Brian Vanessa MD Work Phone: [facility] 12-12-2024 13:52-0400 Body mass index (BMI) [Ratio] 20.09 kg/m2 Krislyn Aberegg PA Work Phone: [facility] 12-12-2024 13:52-0400 Body temperature 98.8 [degF] Krislyn Aberegg PA Work Phone: [facility] 12-12-2024 13:52-0400 Body weight 43.6 kg Krislyn Aberegg PA Work Phone: [facility] 12-12-2024 13:52-0400 Diastolic blood pressure 72 mm[Hg] Krislyn Aberegg PA Work Phone: [facility] 12-12-2024 13:52-0400 Heart rate 66 /min Krislyn Aberegg PA Work Phone: [facility] 12-12-2024 13:52-0400 Respiratory rate 16 /min Krislyn Aberegg PA Work Phone: [facility] 12-12-2024 13:52-0400 SaO2% (BldA) [Mass fraction] 99 % Krislyn Aberegg PA Work Phone: [facility] 12-12-2024 13:52-0400 Systolic blood pressure 122 mm[Hg] Krislyn Aberegg PA Work Phone: [facility] 11-09-2024 14:58-0500 Body height 147.3 cm Fox Rosales APRN.CNP Work Phone: [facility] 11-09-2024 14:58-0500 Body mass index (BMI) [Ratio] 20.69 kg/m2 Fox Rosales APRN.CNP Work Phone: [facility] 11-09-2024 14:58-0500 Body temperature 98.6 [degF] Fox Rosales LUNCH TRUCK OPERATOR.PATIENT DAY COORDINATOR Work Phone: [facility] 11-09-2024 14:58-0500 Body weight 44.9 kg Fox Rosales LUNCH TRUCK OPERATOR.PATIENT DAY COORDINATOR Work Phone: [facility] 11-09-2024 14:58-0500 Diastolic blood pressure 62 mm[Hg] Fox Rosales LUNCH TRUCK OPERATOR.PATIENT DAY COORDINATOR Work Phone: [facility] 11-09-2024 14:58-0500 Heart rate 74 /min Fox Rosales LUNCH TRUCK OPERATOR.PATIENT DAY COORDINATOR Work Phone: [facility] 11-09-2024 14:58-0500 Respiratory rate 18 /min Fox Rosales LUNCH TRUCK OPERATOR.PATIENT DAY COORDINATOR Work Phone: [facility] 11-09-2024 14:58-0500 SaO2% (BldA) [Mass fraction] 100 % Fox Rosales LUNCH TRUCK OPERATOR.PATIENT DAY COORDINATOR Work Phone: [facility] [facility] 11-09-2024 14:58-0500 Systolic blood pressure 123 mm[Hg] Fox Rosales LUNCH TRUCK OPERATOR.PATIENT DAY COORDINATOR Work Phone: [facility] 03-12-2024 17:13-0400 Body weight 49.1 kg Taylor Orellana LUNCH TRUCK OPERATOR.PATIENT DAY COORDINATOR Work Phone: [facility] 03-12-2024 17:13-0400 Diastolic blood pressure 66 mm[Hg] Taylor Ball LUNCH TRUCK OPERATOR.PATIENT DAY COORDINATOR Work Phone: [facility] 03-12-2024 17:13-0400 Heart rate 76 /min Taylor Ball LUNCH TRUCK OPERATOR.PATIENT DAY COORDINATOR Work Phone: [facility] 03-12-2024 17:13-0400 Respiratory rate 16 /min Taylor Ball LUNCH TRUCK OPERATOR.PATIENT DAY COORDINATOR Work Phone: [facility] 03-12-2024 17:13-0400 SaO2% (BldA) [Mass fraction] 99 % Taylor Ball LUNCH TRUCK OPERATOR.PATIENT DAY COORDINATOR Work Phone: [facility] 03-12-2024 17:13-0400 Systolic blood pressure 106 mm[Hg] Taylor Orellana APRN.CNP Work Phone: [facility] 03-24-2023 08:51-0400 Diastolic blood pressure 70 mm[Hg] Sujit Shaffer Jr., MD Work Phone: [facility] 03-24-2023 08:51-0400 Heart rate 90 /min Sujit Shaffer Jr., MD Work Phone: [facility] 03-24-2023 08:51-0400 SaO2% (BldA) [Mass fraction] 100 % Sujit Shaffer Jr., MD Work Phone: [facility] 03-24-2023 08:51-0400 Systolic blood pressure 122 mm[Hg] Sujit Shaffer Jr., MD Work Phone: [facility] 03-18-2023 09:07-0400 Body mass index (BMI) [Percentile] Per age and sex 4.91 % Bolivar Barrett MD Work Phone: [facility] 03-18-2023 09:07-0400 Body temperature 97.39 [degF] Bolivar Barrett MD Work Phone: [facility] 03-18-2023 09:07-0400 Body weight 38.1 kg Bolivar Barrett MD Work Phone: [facility] 03-18-2023 09:07-0400 Diastolic blood pressure 66 mm[Hg] Bolivar Barrett MD Work Phone: [facility] 03-18-2023 09:07-0400 Heart rate 99 /min Bolivar Barrett MD Work Phone: [facility] 03-18-2023 09:07-0400 SaO2% (BldA) [Mass fraction] 100 % Bolivar Barrett MD Work Phone: [facility] 03-18-2023 09:07-0400 Systolic blood pressure 108 mm[Hg] Bolivar Barrett MD Work Phone: [facility] 09-07-2022 12:51-0500 Body temperature 97.81 [degF] Rajani Peterson MD Work Phone: [facility] 09-07-2022 12:51-0500 Body weight 40.19 kg Rajani Peterson MD Work Phone: [facility] 09-07-2022 12:51-0500 Diastolic blood pressure 56 mm[Hg] Rajani Peterson MD Work Phone: [facility] 09-07-2022 12:51-0500 Heart rate 72 /min Rajani Peterson MD Work Phone: [facility] 09-07-2022 12:51-0500 Respiratory rate 20 /min Rajani Peterson MD Work Phone: [facility] 09-07-2022 12:51-0500 Systolic blood pressure 104 mm[Hg] Rajani Peterson MD Work Phone: [facility] 06-05-2022 10:120400 Body height 147.8 cm Rajani Peterson MD Work Phone: [facility] 06-05-2022 10:12-0400 Body mass index (BMI) [Percentile] Per age and sex 13.1 % Rajani Peterson MD Work Phone: [facility] 06-05-2022 10:12-0400 Body temperature 98.1 [degF] Rajani Peterson MD Work Phone: [facility] 06-05-2022 10:12-0400 Body weight 39.92 kg Rajani Peterson MD Work Phone: [facility] 06-05-2022 10:12-0400 Diastolic blood pressure 62 mm[Hg] Rajani Peterson MD Work Phone: [facility] 06-05-2022 10:12-0400 Heart rate 84 /min Rajani Peterson MD Work Phone: [facility] 06-05-2022 10:12-0400 Respiratory rate 16 /min Rajani Peterson MD Work Phone: [facility] 06-05-2022 10:12-0400 Systolic blood pressure 110 mm[Hg] Rajani Peterson MD Work Phone: [facility] 04-04-2022 15:11-0400 Body weight 39.46 kg Gaby Wormald PA-C Work Phone: [facility] 04-04-2022 15:11-0400 Diastolic blood pressure 74 mm[Hg] Gaby Wormald PA-C Work Phone: [facility] 04-04-2022 15:11-0400 Heart rate 76 /min Gaby Wormald PA-C Work Phone: [facility] 04-04-2022 15:11-0400 Respiratory rate 18 /min Gaby Wormald PA-C Work Phone: [facility] 04-04-2022 15:11-0400 SaO2% (BldA) [Mass fraction] 99 % Gaby Wormald PA-C Work Phone: [facility] 04-04-2022 15:11-0400 Systolic blood pressure 109 mm[Hg] Gaby Wormald PA-C Work Phone: [facility] 02-04-2022 13:45-0400 Body mass index (BMI) [Percentile] Per age and sex 22.47 % Kenroy Navarrete MD Work Phone: [facility] 02-04-2022 13:45-0400 Body weight 41.05 kg Kenroy Navarrete MD Work Phone: [facility] 02-04-2022 13:45-0400 Diastolic blood pressure 50 mm[Hg] Kenroy Navarrete MD Work Phone: [facility] 02-04-2022 13:45-0400 Systolic blood pressure 82 mm[Hg] Kenroy Navarrete MD Work Phone: [facility] 02-03-2022 09:14-0400 Body height 147.3 cm Taylor Orellana APRN.CNP Work Phone: [facility] 02-03-2022 09:14-0400 Body mass index (BMI) [Percentile] Per age and sex 21.16 % Taylor Ball LUNCH TRUCK OPERATOR.PATIENT DAY COORDINATOR Work Phone: [facility] 02-03-2022 09:14-0400 Body temperature 97.59 [degF] Taylor Ball LUNCH TRUCK OPERATOR.PATIENT DAY COORDINATOR Work Phone: [facility] 02-03-2022 09:14-0400 Body weight 40.82 kg Taylor Ball LUNCH TRUCK OPERATOR.PATIENT DAY COORDINATOR Work Phone: [facility] 02-03-2022 09:14-0400 Diastolic blood pressure 67 mm[Hg] Taylor Ball LUNCH TRUCK OPERATOR.PATIENT DAY COORDINATOR Work Phone: [facility] 02-03-2022 09:14-0400 Heart rate 74 /min Taylor Ball LUNCH TRUCK OPERATOR.PATIENT DAY COORDINATOR Work Phone: [facility] 02-03-2022 09:14-0400 Respiratory rate 16 /min Taylor Ball LUNCH TRUCK OPERATOR.PATIENT DAY COORDINATOR Work Phone: [facility] 02-03-2022 09:14-0400 SaO2% (BldA) [Mass fraction] 100 % Taylor Ball LUNCH TRUCK OPERATOR.PATIENT DAY COORDINATOR Work Phone: [facility] 02-03-2022 09:14-0400 Systolic blood pressure 127 mm[Hg] Taylor Ball LUNCH TRUCK OPERATOR.PATIENT DAY COORDINATOR Work Phone: [facility] Encounters Encounter Date Encounter Type Care Provider Facility Start: 07-29-2025 ambulatory Alexandra Rose Facility:[facility] Start: 07-26-2025 End: 07-26-2025 [facility] Start: 07-25-2025 End: 07-25-2025 ambulatory VAISHNAVI BUSTOS Facility:[facility] Start: 07-23-2025 End: 07-23-2025 ambulatory DEIDRE LAND Facility:[facility] Start: 07-21-2025 End: 07-21-2025 ambulatory Rajani Peterson Facility:[facility] Start: 07-20-2025 End: 07-20-2025 ambulatory Rajani Peterson Facility:[facility] Start: 07-18-2025 End: 07-18-2025 ambulatory JENNYFER GUZMAN Facility:[facility] Start: 07-15-2025 End: 07-15-2025 ambulatory DEIDRE LAND Facility:[facility] Start: 07-11-2025 End: 07-11-2025 ambulatory ALVINA PARK Facility:[facility] Start: 07-06-2025 End: 07-06-2025 ambulatory BRIAN VANESSA Facility:[facility] Start: 07-04-2025 End: 07-04-2025 ambulatory BRIAN VANESSA Facility:[facility] Start: 07-04-2025 End: 07-04-2025 ambulatory VAISHNAVI BUSTOS Facility:[facility] Start: 06-28-2025 End: 06-28-[address] Rajani Peterson MD Work Phone: -[facility] Start: 06-28-2025 End: 06-28-[address] Vaishnavi Bustos DO -[facility] Work Phone: Start: 06-11-2025 End: 06-11-2025 ambulatory BRIAN VANESSA Facility:[facility] Start: 05-23-2025 End: 05-23-2025 Patient encounter procedure Brian Vanessa MD Work Phone: OB/Gynecology Comment on above: Supervision of high risk in third trimester (HCC) (Primary Dx); Anemia complicating , third trimester (HCC); 30 weeks gestation of (HCC); Encounter for supervision of normal first in first trimester (HCC) Start: 05-23-2025 End: 05-23-2025 ambulatory BRIAN VANESSA Facility:[facility] Start: 05-14-2025 End: 05-14-2025 Patient encounter procedure Rajani Peterson MD Work Phone: [facility] Comment on above: MEET WITH PHYSICIAN (Primary Dx) Start: 05-14-2025 End: 05-14-2025 ambulatory SELF Facility:[facility] Start: 05-13-2025 End: 05-13-2025 Patient encounter procedure Erna Rubi APRN.CNM Work Phone: OB/Gynecology Comment on above: 29 weeks gestation o f (HCC) (Primary Dx); Acute bilateral low back pain, unspecified whether sciatica present; Dysuria Start: 05-13-2025 End: 05-13-2025 ambulatory ERNA GREYSON Facility:[facility] Start: 05-08-2025 End: 05-08-2025 Follow-up encounter Jennyfer Guzman APRN.CNM Work Phone: OB/Gynecology Start: 05-07-2025 End: 05-07-2025 Patient encounter procedure Alvina Park MD Work Phone: OB/Gynecology Comment on above: 28 weeks gestation o f (HCC) (Primary Dx); Encounter for supervision of normal first in first trimester (HCC) Start: 05-07-2025 End: 05-07-2025 ambulatory ALVINA PARK Facility:[facility] Start: 04-12-2025 End: 04-12-2025 Patient encounter procedure Jennyfer Guzman APRN.CNWil Work Phone: OB/Gynecology Comment on above: Screening for diabet es mellitus (Primary Dx); 24 weeks gestation of (HCC); Encounter for supervision of normal first in second trimester (HCC) Start: 04-12-2025 End: 04-12-2025 ambulatory JENNYFER GUZMAN Facility:[facility] Start: 03-15-2025 End: 03-15-2025 Patient encounter procedure Dorcas Garcia MD Work Phone: OB/Gynecology Comment on above: 20 weeks gestation o f (HCC) (Primary Dx); Encounter for supervision of normal first in second trimester (HCC) Encounter for anatomic survey (HCC) (Primary Dx); 20 weeks gestation of (HCC) Start: 03-15-2025 End: 03-15-2025 ambulatory ELAINA HURST Facility:[facility] Start: 03-09-2025 End: 03-09-2025 ambulatory Jessy Cortes RN Work Phone: NURSE AUDIO INSTALLER Comment on above: Patient Update (New sharp cramping in lower abdomen) Start: 02-28-2025 End: 02-28-2025 Telephone encounter Vaishnavi Bustos MD Work Phone: OB/Gynecology Comment on above: Question (OB Questio n) Start: 02-21-2025 End: 04-23-2025 Follow-up encounter Elaina Hurst APRN.PATIENT DAY COORDINATOR Work Phone: OB/Gynecology Start: 02-15-2025 End: 02-15-2025 Patient encounter procedure Ernaryann Rubi APRN.CNM Work Phone: OB/Gynecology Comment on above: Encounter for superv ision of normal first in second trimester (HCC) (Primary Dx); 16 weeks gestation of ([facility]) Start: 02-15-2025 End: 02-15-2025 ambulatory ERNA RUBI Facility:[facility] Start: 01-18-2025 End: 01-18-2025 Patient encounter procedure Alvina Park MD Work Phone: OB/Gynecology Comment on above: 12 weeks gestation o f ([facility]) (Primary Dx); Irritable bowel syndrome with diarrhea; Abdominal cramping affecting ([facility]) Start: 01-18-2025 End: 01-18-2025 ambulatory ELAINA HURST Facility:[facility] Start: 01-17-2025 End: 01-17-2025 Patient encounter procedure [employer] [facility] Comment on above: Encounter for antena carlos screening for malformation using ultrasound ([facility]) (Primary Dx); 12 weeks gestation of ([facility]); Encounter for (NT) nuchal translucency scan ([facility]) Start: 01-17-2025 End: 01-17-2025 ambulatory ELAINA HURST Facility:[facility] Start: 01-07-2025 End: 03-09-2025 Follow-up encounter Elaina Hurst APRN.PATIENT DAY COORDINATOR Work Phone: OB/Gynecology Start: 01-03-2025 End: 01-03-2025 ambulatory ELAINA HURST Facility:[facility] Start: 01-03-2025 End: 01-03-2025 Patient encounter procedure Elaina Hurst APRN.PATIENT DAY COORDINATOR Work Phone: OB/Gynecology Comment on above: Encounter for superv ision of normal first in first trimester (HCC) (Primary Dx); 10 weeks gestation of (HCC); with uncertain dates in first trimester (HCC); Screen for STD (sexually transmitted disease); Nausea and vomiting during (HCC); History of depression; Irritable bowel syndrome with diarrhea; Heartburn during in first trimester (HCC) Start: 01-03-2025 End: 01-03-2025 ambulatory ELAINA HURST Facility:[facility] Start: 01-01-2025 End: 01-02-2025 Telephone encounter Elaina Hurst APRN.PATIENT DAY COORDINATOR Work Phone: OB/Gynecology Start: 12-19-2024 End: 02-18-2025 Follow-up encounter Brian Vanessa MD Work Phone: OB/Gynecology Start: 12-18-2024 End: 12-18-2024 ambulatory BRIAN VANESSA Facility:[facility] Start: 12-18-2024 End: 12-18-2024 Patient encounter procedure Brian Vanessa MD Work Phone: OB/Gynecology Comment on above: Threatened (HCC) (Primary Dx); Abdominal cramping affecting (HCC) Start: 12-13-2024 End: 12-13-2024 ambulatory Nurse Plant Equipment Engineer [facility] Work Phone: OB/Gynecology Comment on above: Received Outside Med ical Records Start: 12-12-2024 End: 12-12-2024 ambulatory ELAINA HURST Facility:[facility] Start: 12-12-2024 End: 12-12-2024 Office outpatient visit 15 minutes Nathalia MCLEOD Work Phone: [facility] Comment on above: Peripheral venous ma lformation (Primary Dx); Right hand pain Start: 11-09-2024 End: 11-09-2024 ambulatory SELF Facility:[facility] Start: 11-09-2024 End: 11-09-2024 Patient encounter procedure Fox Rosales APRN.PATIENT DAY COORDINATOR Work Phone: [facility] Comment on above: Headaches (Primary D x); Viral URI Start: 10-17-2024 Emergency department patient visit Facility:[facility] Start: 03-12-2024 End: 03-12-2024 Office outpatient visit 15 minutes Taylor Orellana APRN.PATIENT DAY COORDINATOR Work Phone: [facility] Comment on above: Animal bite (Primary Dx) Start: 04-25-2023 End: 04-26-2023 ambulatory [facility] Facility:[facility] Start: 03-25-2023 End: 03-25-2023 Subsequent hospital visit by physician [facility] Work Phone: Radiology Comment on above: Kidney stone [N20.0] Start: 03-24-2023 End: 03-24-2023 Patient encounter procedure Sujit Shaffer MD Work Phone: [facility] Comment on above: Kidney stone (Primar y Dx) Start: 03-18-2023 End: 03-18-2023 Patient encounter procedure Bolivar Barrett MD Work Phone: General Surgery Comment on above: Aftercare (Primary D x) Start: 03-15-2023 Telephone encounter Sujit Shaffer MD Work Phone: Urology Comment on above: Appointment Start: 03-14-2023 End: 03-15-2023 ambulatory [facility] Facility:[facility] Start: 03-12-2023 Emergency department patient visit RAJANI PETERSON Facility:[facility] Start: 03-12-2023 End: 03-12-2023 Patient encounter procedure Taylor Orellana APRN.PATIENT DAY COORDINATOR Work Phone: [facility] Comment on above: Procedure not rylan d out (Primary Dx) Start: 09-07-2022 End: 09-07-2022 Patient encounter procedure Rajani Peterson MD Work Phone: [facility] Comment on above: Palpable lymph node (Primary Dx) Start: 07-14-2022 Telephone encounter Rajani barajas MD Work Phone: [facility] Comment on above: Forms Start: 07-06-2022 End: 07-06-2022 ambulatory RAJANI PETERSON [facility] Start: 07-05-2022 Telephone encounter Rajani barajas MD Work Phone: [facility] Comment on above: work permit Start: 06-05-2022 End: 06-05-2022 Patient encounter procedure Rajani Peterson MD Work Phone: [facility] Comment on above: Encounter for routin e child health examination without abnormal findings (Primary Dx) Start: 06-05-2022 End: 06-05-2022 Patient encounter status Rajani Peterson MD Work Phone: [facility] Start: 04-04-2022 End: 04-04-2022 Patient encounter procedure Gaby Jones PA-C Work Phone: [facility] Comment on above: Leukocytes in urine (Primary Dx); Dysuria; Gross hematuria; Abdominal pressure Start: 02-04-2022 End: 02-04-2022 Patient encounter procedure Kenroy Navarrete MD Work Phone: Obstetrics/Gynecology Comment on above: control counse ling (Primary Dx); Intermenstrual bleeding; Menorrhagia with regular cycle; Primary dysmenorrhea Start: 02-03-2022 End: 02-03-2022 Patient encounter procedure Taylor Orellana APRN.CNP Work Phone: [facility] Comment on above: Menorrhagia with irr egular cycle (Primary Dx) Start: 10-12-2018 Emergency department patient visit UNKNOWN PROVIDER [facility] Start: 07-17-2018 Patient encounter procedure Destineechristin Reese Heidi [facility] Procedures Date Procedure Procedure Detail Performing Clinician Start: 06-28-[address] Rajani Peterson MD Work Phone: Start: 06-28-[address] aMry Kay Peterson MD Work Phone: Start: 06-28-2025 Urnls dip stick/tabl et reagent auto microscopy Dr. Rajani Peterson MD Work Phone: Start: 05-13-2025 Urnls dip stick/tabl et rgnt auto w/o microscopy Erna Greyson LUNCH TRUCK OPERATOR.CNM Work Phone: Start: 03-15-2025 Us preg uterus after 1st trimest 1/ gestation Elaina Poseynorma LUNCH TRUCK OPERATOR.PATIENT DAY COORDINATOR Work Phone: Start: 01-17-2025 Us preg uterus after 1st trimest / gestation Elaina Poseynorma LUNCH TRUCK OPERATOR.PATIENT DAY COORDINATOR Work Phone: Start: 01-03-2025 Antibody screen ELAINA VERMA Comment on above: Order Comment: Speci men Type: BLOOD SPECIMENOrdering Facility: [facility] Address: [address] [place] [address] Performed By: #### T SPN ####CC MAIN BLOOD BANKCLIA [id number] [address] [place] Start: 01-03-2025 Us uterus l imited fetuses Elaina Poseynorma LUNCH TRUCK OPERATOR.PATIENT DAY COORDINATOR Work Phone: Start: 12-18-2024 Urnls dip stick/tabl et rgnt auto w/o microscopy Brian Vanessa MD Work Phone: Start: 03-25-2023 Us retroperitoneal r eal time w/image complete Sujit Shaffer MD Work Phone: Start: 03-24-2023 Urnls dip stick/tabl et rgnt auto w/o microscopy Sujit Shaffer MD Work Phone: Start: 06-05-2022 Menacwy-tt conj vacc serogroups acwy for im use Rajani Peterson MD Work Phone: Start: 06-05-2022 Adult depression scr eening assessment Rajani Peterson MD Work Phone: Start: 04-04-2022 Urnls dip stick/tabl et rgnt auto w/o microscopy [facility] Start: 11-17-2018 Adult depression scr eening assessment Taylor Orellana LUNCH TRUCK OPERATOR.PATIENT DAY COORDINATOR Work Phone: Plan of Treatment Date Care Activity Detail Author Start: 01-29-2080 RSV Vaccine (1 - 1-d ose 75+ series) RSV Vaccine (1 - 1-dose 75+ series) [facility] Start: 03-24-2027 Urine microalbumin profile [facility] Start: 12-18-2025 GC (Gonorrhea) Scree fartun (18-24) GC (Gonorrhea) Screening (18-24) [facility] Start: 12-18-2025 Screening for Chlamy fausto trachomatis Chlamydia Screening () [facility] Start: 07-25-2025 End: 07-25-2025 Patient encounter procedure 07/25/2025 10:50 AM EST Routine Office Visit OB/Gynecology [address] [place] [address] Vaishnavi Bustos MD [address] [place] [address] (Fax) OB OB/Gynecology Comment on above: OB Start: 07-18-2025 End: 07-18-2025 Patient encounter procedure 07/18/2025 11:00 AM EDT Routine Office Visit OB/Gynecology [address] [place] [address] Jennyfer Guzman APRN.[facility] [address] [place] [address] (Fax) OB OB/Gynecology Comment on above: OB Start: 07-11-2025 End: 07-11-2025 Patient encounter procedure 07/11/2025 10:50 AM EDT Routine Office Visit OB/Gynecology [address] [place] [address] Alvina Park MD [address] [place] [address] (Fax) OB OB/Gynecology Comment on above: OB Start: 07-04-2025 End: 07-04-2025 Patient encounter procedure 07/04/2025 10:50 AM EDT Routine Office Visit OB/Gynecology [address] [place] [address] Vaishnavi Bustos MD [address] [place] [address] OB OB/Gynecology Comment on above: OB Start: 06-28-2025 [facility] Start: 06-28-2025 Nonstress test [facility] Start: 06-28-[address] [facility] Start: 06-28-2025 Vital signs measurements [facility] Start: 06-28-2025 [facility] Start: 06-28-2025 Patient discharge [facility] Start: 06-18-2025 End: 06-18-2025 Patient encounter procedure 06/18/2025 11:50 AM EDT Office Visit Family Medicine [address] [place] [address] [place] [id number] Moe Thompson, [address] [place] [id number] [facility] Comment on above: establish care Start: 06-13-2025 End: 06-13-2025 Patient encounter procedure 06/13/2025 10:50 AM EDT Routine Office Visit OB/Gynecology [address] [place], [place] [id number] Alexandra Mclaughlin MD [address] [place], [place] [id number] OB OB/Gynecology Comment on above: OB Start: 06-03-2025 RSV Vaccine (1 - Ris k 1-dose series) RSV Vaccine (1 - Risk 1-dose series) [facility] Start: 05-23-2025 End: 08-22-2025 CBC W Auto Differential panel - Blood COMPLETE BLOOD COUNT AND DIFFERENTIAL Lab Routine Anemia complicating , third trimester (HCC) 30 weeks gestation of (HCC) Supervision of high risk in third trimester (HCC) Expected: 05/23/2025, Expires: 08/22/2025 [facility] Work Phone: Comment on above: Expected: 05/23/2025 , Expires: 08/22/2025 Start: 05-23-2025 End: 05-23-2025 Patient encounter procedure 05/23/2025 1:30 PM EDT Routine Office Visit OB/Gynecology [address] [place] [address] Brian Vanessa MD [address] [place] [address] OB OB/Gynecology Comment on above: OB Start: 05-20-2025 Influenza vaccination C [facility] Start: 05-14-2025 End: 05-14-2025 Patient encounter procedure 05/14/2025 9:45 AM EDT Office Visit [facility] [address] [place], [place] [id number] Rajani Peterson MD [address] [place], [place] [id number] Meet the physician [facility] Comment on above: Meet the physician Start: 05-13-2025 End: 08-12-2025 ANEMIA REFLEX PANEL ANEMIA REFLEX PANEL Lab Routine 24 weeks gestation of (HCC) Encounter for supervision of normal first in second trimester (HCC) Expected: 05/13/2025 (Approximate), Expires: 08/12/2025 [facility] Comment on above: Expected: 05/13/2025 (Approximate), Expires: 08/12/2025 Start: 05-13-2025 End: 04-12-2026 GESTATIONAL GLUCOSE SCREEN, 1-HOUR, 50 GRAM, NON-FASTING GESTATIONAL GLUCOSE SCREEN, 1-HOUR, 50 GRAM, NON-FASTING Lab Routine Screening for diabetes mellitus Expected: 05/13/2025 (Approximate), Expires: 04/12/2026 [facility] Work Phone: Comment on above: Expected: 05/13/2025 (Approximate), Expires: 04/12/2026 Start: 05-13-2025 End: 04-12-2026 SYPHILIS TREPONEMAL W/REFLEX SYPHILIS TREPONEMAL W/REFLEX Lab Routine 24 weeks gestation of (HCC) Encounter for supervision of normal first in second trimester (HCC) Expected: 05/13/2025 (Approximate), Expires: 04[facility]26 [facility] [facility] Comment on above: Expected: 05/13/2025 (Approximate), Expires: 04/12/2026 Start: 05-07-2025 End: 05-07-2025 Patient encounter procedure 05/07/2025 11:20 AM EDT Routine Office Visit OB/Gynecology [address] [place] [address] Alvina Park MD [address] [place] [address] Glucose/lab OB/Gynecology Comment on above: Glucose/lab Start: 05-07-2025 End: 05-07-2025 ambulatory 05/07/2025 11:00 AM EDT Results Only [place] [facility] Laboratory [address] [place] [address] Lab glucose [facility] Laboratory Comment on above: Lab glucose Start: 04-12-2025 End: 04-12-2025 Patient encounter procedure 04/12/2025 11:15 AM EDT Routine Office Visit OB/Gynecology [address] [place] [address] Jennyfer Guzman APRN.CNM [address] [place] [address] OB OB/Gynecology Comment on above: OB Start: 03-15-2025 End: 03-15-2025 Patient encounter procedure [facility] Comment on above: Anatomy Anatomy/OB Start: 02-15-2025 End: 05-17-2025 CARRIER SCREEN, STANDARD [facility] Comment on above: Expected: 02/15/2025 , Expires: 05/17/2025 Start: 02-15-2025 End: 05-17-2025 Chromosome 21 trisomy [Presence] in Blood or Tissue by Cytogenetics [facility] Work Phone: Comment on above: Expected: 02/15/2025 , Expires: 05/17/2025 Start: 02-15-2025 End: 02-15-2025 Patient encounter procedure 02/15/2025 10:20 AM EDT Routine Office Visit OB/Gynecology [address] [place] [address] Dorcas Garcia MD [address] [place] [address] OB OB/Gynecology Comment on above: OB Start: 02-12-2025 End: 02-12-2025 Patient encounter procedure 02/12/2025 1:10 PM EDT Office Visit Family Medicine [address] [place] [address] [place] [address] Moe Thompson, DO [address] [place] [phone] [facility] Comment on above: establish [facility] Start: 02-07-2025 End: 02-07-2025 Patient encounter procedure 02/07/2025 10:20 AM EDT Routine Office Visit OB/Gynecology [address] [place] [address] Vaishnavi Bustos MD [address] [place] [address] 1st OB - LMP 10/22/2024 OB/Gynecology Comment on above: 1st OB - LMP 025 Start: 01-18-2025 End: 01-18-2025 Patient encounter procedure 01/18/2025 10:00 AM EDT Routine Office Visit OB/Gynecology [address] [place] [address] Alvina Park MD [address] [place] [address] Nuchal/OB OB/Gynecology Comment on above: Nuchal/OB Start: 01-17-2025 End: 01-17-2025 Patient encounter procedure 01/17/2025 2:30 PM EDT Routine Office Visit Maternal Medicine [address] [place] [address] [facility] Comment on above: [facility] Start: 01-03-2025 End: 04-04-2025 ANEMIA REFLEX PANEL [facility] Work Phone: Comment on above: Expected: 01/03/2025 , Expires: 04/04/2025 Start: 01-03-2025 End: 04-04-2025 Hemoglobin A1c in Blood [facility] Comment on above: Expected: 01/03/2025 , Expires: 04/04/2025 Start: 01-03-2025 End: 04-04-2025 Hepatitis B virus surface Ag [Presence] in Serum [facility] Comment on above: Expected: 01/03/2025 , Expires: 04/04/2025 Start: 01-03-2025 End: 04-04-2025 Hepatitis C virus Ab [Presence] in Serum [facility] Comment on above: Expected: 01/03/2025 , Expires: 04/04/2025 Start: 01-03-2025 End: 04-04-2025 HIV 1+2 Ab [Presence] in Serum or Plasma by Immunoassay [facility] Comment on above: Expected: 01/03/2025 , Expires: 04/04/2025 Start: 01-03-2025 End: 01-03-2026 OBSTETRIC ULTRASOUND WHI OBSTETRIC ULTRASOUND WHI Anc Imaging Routine with uncertain dates in first trimester (HCC) Expected: 01/03/2025, Expires: 01/03/2026 [facility] Comment on above: Expected: 01/03/2025 , Expires: 01/03/2026 Start: 01-03-2025 End: 04-04-2025 RUBELLA IGG ANTIBODY [facility] Comment on above: Expected: 01/03/2025 , Expires: 04/04/2025 Start: 01-03-2025 End: 04-04-2025 SYPHILIS TREPONEMAL W/REFLEX [facility] Comment on above: Expected: 01/03/2025 , Expires: 04/04/2025 Start: 01-03-2025 End: 04-04-2025 TYPE + SCREEN [facility] Comment on above: Expected: 01/03/2025 , Expires: 04/04/2025 Start: 01-03-2025 End: 01-03-2025 Patient encounter procedure OB/Gynecology Comment on above: 1st OB - LMP 025 1st OB - LMP 025- pelvic exam done Start: 05-20-2024 Covid-19 Vaccine ( season) Covid-19 Vaccine () [facility] Start: 05-20-2024 Influenza vaccination [facility] Start: 06-05-2023 Adult depression screening assessment DEPRESSION SCREENING [facility] Start: 05-20-2023 Covid-19 Vaccine () Covid-19 Vaccine () [facility] Start: 05-20-2023 Influenza vaccination [facility] Start: 2023 Anxiety Screening Anxiety Screening [facility] Start: 2023 CHLAMYDIA SCREENING (18) CHLAMYDIA SCREENING (18) [facility] Start: 2023 Depression Screening Depression Scre ening [facility] Start: 2023 GC (GONORRHEA) SCREE FARTUN (1824) GC (GONORRHEA) SCREENING (18-) [facility] Start: 2023 HEPATITIS C SCREENING HEPATITIS C [facility] Start: 2023 Hepatitis C screening Hepatitis C [facility] Start: 2023 HIV SCREENING HIV SCREENING [facility] Start: 2023 HIV screening HIV Screening [facility] Start: 2023 Screening for Chlamy fausto trachomatis Chlamydia Screening () [facility] Start: 05-20-2022 Influenza vaccination [facility] Start: 2021 Meningococcal B Vacc ine (1 of 2 - Standard) Meningococcal B Vaccine (1 of 2 - Standard) [facility] Start: 2021 Meningococcal B Vacc ine: Consider Based On Risk (1 of 2 - Patient Seeks Protection) Meningococcal B Vaccine: Consider Based On Risk (1 of 2 - Patient Seeks Protection) [facility] Start: 2021 MENINGOCOCCAL CONJUG ATE (2 - 2-dose series) MENINGOCOCCAL CONJUGATE (2 - 2-dose series) [facility] Start: 01-29-2020 CHLAMYDIA SCREENING (<18) CHLAMYDIA SCREENING (<18) [facility] Start: 01-29-2020 GC (GONORRHEA) SCREE FARTUN (<18) GC (GONORRHEA) SCREENING (<18) [facility] Start: 11-18-2019 Adult depression screening assessment DEPRESSION SCREENING [facility] Start: 2019 PEDS TO ADULT TRANSI TION ANNUAL ASSESSMENT PEDS TO ADULT TRANSITION ANNUAL ASSESSMENT [facility] Start: 09-24-2017 HPV VACCINE (2 - 2-d ose series) HPV VACCINE (2 - 2-dose series) [facility] Start: 2017 PEDS TO ADULT TRANSI TION INITIAL DISCUSSION PEDS TO ADULT TRANSITION INITIAL DISCUSSION [facility] Start: 2015 MENINGOCOCCAL B: Consider based on risk (1 of 2 - Risk Bexsero 2-dose series) MENINGOCOCCAL B: Consider based on risk (1 of 2 - Risk Bexsero 2-dose series) [facility] Start: 2010 COVID-19 VACCINE (#1) COVID-19 VACCI NE (#1) [facility] Start: 2005 COVID-19 VACCINE (#1) COVID-19 VACCI NE (#1) [facility] Bacteria identified in Urine by Culture URINE CULTURE Microbiology Routine Leukocytes in urine Ordered: 04/04/2022 [facility] Work Phone: Comment on above: Ordered: 04/04/2022 Bacteria identified in Urine by Culture BACTERIAL CULTURE, URINE Microbiology Routine Threatened (HCC) Abdominal cramping affecting (HCC) 12/18/2024 3:20 PM EDT [facility] Work Phone: Bacteria identified in Urine by Culture BACTERIAL CULTURE, URINE Microbiology Routine Acute bilateral low back pain, unspecified whether sciatica present 05/13/2025 3:31 PM EDT [facility] Work Phone: Chlamydia trachomatis+Neisseria gonorrhoeae DNA [Presence] in Unspecified specimen by BRANDEN with probe detection GONORRHEA/CHLAMYDIA NAAT Lab Routine Threatened (HCC) Abdominal cramping affecting (HCC) 12/18/2024 3:54 PM EDT [facility] Patient Education Kick Counts ED False Labor OB Triage: Return to Hospital or Notify Physician if you Experience: [facility] Work Phone: TRICHOMONAS VAGINALI S NAAT TRICHOMONAS VAGINALIS NAAT Lab Routine Threatened (HCC) Abdominal cramping affecting (HCC) 12/18/2024 3:54 PM EDT [facility] UA DIP B/O UA DIP B/O Lab R outine Dysuria Ordered: 04/04/2022 [facility] Work Phone: Comment on above: Ordered: 04/04/2022 End: 04-22-2024 US KIDNEY/BLADDER US KIDNEY/BLADDER Radiology Routine Kidney stone 1 Occurrences starting 03/24/2023 until 04/22/2024 [facility] Work Phone: Comment on above: 1 Occurrences starti ng 03/24/2023 until 04/22/2024 [facility] Immunizations Immunization Date Immunization Notes Care Provider Fa [facility] 06-05-2022 meningococcal (MenACWY-TT) vaccine, quadrivalent (MENQUADFI) Rajani Peterson MD Work Phone: [facility] 03-24-2017 Human Papillomavirus 9-valent vaccine Taylor Orellana APRN.PATIENT DAY COORDINATOR Work Phone: [facility] 03-24-2017 meningococcal polysaccharide (groups A, C, Y and W-135) diphtheria toxoid conjugate vaccine (MCV4P) Taylor Orellana APRN.PATIENT DAY COORDINATOR Work Phone: [facility] 03-24-2017 tetanus toxoid, redu mi diphtheria toxoid, and acellular pertussis vaccine, adsorbed Taylor Orellana LUNCH TRUCK OPERATOR.PATIENT DAY COORDINATOR Work Phone: [facility] 09-16-2015 influenza, live, intranasal, quadrivalent Taylor Orellana LUNCH TRUCK OPERATOR.PATIENT DAY COORDINATOR Work Phone: [facility] 09-16-2015 influenza virus vacc ine, unspecified formulation [facility] Work Phone: [facility] 09-25-2014 influenza, live, intranasal, quadrivalent Taylor Orellana LUNCH TRUCK OPERATOR.PATIENT DAY COORDINATOR Work Phone: [facility] Work Phone: 06-19-2013 influenza virus vacc ine, live, attenuated, for intranasal use Taylor Ball LUNCH TRUCK OPERATOR.[facility] Work Phone: [facility] 07-17-2012 influenza virus vacc ine, live, attenuated, for intranasal use Taylor Ball LUNCH TRUCK OPERATOR.[facility] Work Phone: [facility] 07-31-2011 influenza virus vacc ine, live, attenuated, for intranasal use Taylor Ball LUNCH TRUCK OPERATOR.[facility] Work Phone: [facility] Work Phone: 07-04-2010 influenza virus vacc ine, live, attenuated, for intranasal use Taylor Ball LUNCH TRUCK OPERATOR.[facility] Work Phone: [facility] Work Phone: 02-03-2010 diphtheria, tetanus toxoids and acellular pertussis vaccine Taylor Ball LUNCH TRUCK OPERATOR.[facility] Work Phone: [facility] Work Phone: 02-03-2010 measles, mumps and rubella virus vaccine Taylor Ball LUNCH TRUCK OPERATOR.[facility] Work Phone: [facility] Work Phone: 02-03-2010 poliovirus vaccine, inactivated Taylor Ball LUNCH TRUCK OPERATOR.[facility] Work Phone: [facility] Work Phone: 02-03-2010 varicella virus vaccine Zadner le Ball LUNCH TRUCK OPERATOR.[facility] Work Phone: [facility] Work Phone: 01-01-2010 pneumococcal conjuga te vaccine, 13 valent Taylor Ball LUNCH TRUCK OPERATOR.[facility] Work Phone: [facility] Work Phone: 08-05-2009 influenza virus vacc ine, live, attenuated, for intranasal use Taylor Ball LUNCH TRUCK OPERATOR.[facility] Work Phone: [facility] Work Phone: 07-08-2008 influenza virus vacc ine, live, attenuated, for intranasal use Taylor Ball LUNCH TRUCK OPERATOR.[facility] Work Phone: [facility] Work Phone: 08-31-2007 influenza virus vacc ine, live, attenuated, for intranasal use Taylor Orellana LUNCH TRUCK OPERATOR.PATIENT DAY COORDINATOR Work Phone: [facility] Work Phone: 08-02-2006 influenza virus vacc ine, unspecified formulation Taylor Orellana LUNCH TRUCK OPERATOR.PATIENT DAY COORDINATOR Work Phone: [facility] Work Phone: 08-02-2006 pneumococcal conjuga te vaccine, 7 valent Taylor Esteban LUNCH TRUCK OPERATOR.PATIENT DAY COORDINATOR Work Phone: [facility] Work Phone: 06-15-2006 diphtheria, tetanus toxoids and acellular pertussis vaccine Taylor Orellana LUNCH TRUCK OPERATOR.[facility] Work Phone: [facility] Work Phone: 06-15-2006 haemophilus influenz ae type b vaccine, HbOC conjugate Taylor Orlelana LUNCH TRUCK OPERATOR.[facility] Work Phone: [facility] Work Phone: 04-06-2006 measles, mumps and rubella virus vaccine Taylor Orellana LUNCH TRUCK OPERATOR.[facility] Work Phone: [facility] Work Phone: 04-06-2006 varicella virus vaccine Zandre Sullivan LUNCH TRUCK OPERATOR.PATIENT DAY COORDINATOR Work Phone: [facility] Work Phone: 2005 influenza virus vacc ine, unspecified formulation Taylor Orellana LUNCH TRUCK OPERATOR.PATIENT DAY COORDINATOR Work Phone: [facility] Work Phone: 2005 DTaP-hepatitis B and poliovirus vaccine Taylor Orellana LUNCH TRUCK OPERATOR.PATIENT DAY COORDINATOR Work Phone: [facility] 2005 haemophilus influenz ae type b vaccine, HbOC conjugate Taylor Orellana LUNCH TRUCK OPERATOR.PATIENT DAY COORDINATOR Work Phone: [facility] 2005 pneumococcal conjuga te vaccine, 7 valent Taylor Orellana LUNCH TRUCK OPERATOR.PATIENT DAY COORDINATOR Work Phone: [facility] 2005 poliovirus vaccine, inactivated Taylor Orellana LUNCH TRUCK OPERATOR.PATIENT DAY COORDINATOR Work Phone: [facility] Work Phone: 2005 DTaP-hepatitis B and poliovirus vaccine Taylor Ball LUNCH TRUCK OPERATOR.PATIENT DAY COORDINATOR Work Phone: [facility] 2005 haemophilus influenz ae type b vaccine, HbOC conjugate Taylor Ball LUNCH TRUCK OPERATOR.PATIENT DAY COORDINATOR Work Phone: [facility] 2005 hepatitis B vaccine, pediatric or pediatric/adolescent dosage Taylor Ball LUNCH TRUCK OPERATOR.PATIENT DAY COORDINATOR Work Phone: [facility] Work Phone: 2005 pneumococcal conjuga te vaccine, 7 valent Taylor Ball LUNCH TRUCK OPERATOR.PATIENT DAY COORDINATOR Work Phone: [facility] 2005 poliovirus vaccine, inactivated Taylor Ball LUNCH TRUCK OPERATOR.PATIENT DAY COORDINATOR Work Phone: [facility] Work Phone: 2005 pneumococcal conjuga te vaccine, 7 valent Taylor Ball LUNCH TRUCK OPERATOR.PATIENT DAY COORDINATOR Work Phone: [facility] 2005 diphtheria, tetanus toxoids and acellular pertussis vaccine, unspecified formulation Taylor Ball LUNCH TRUCK OPERATOR.PATIENT DAY COORDINATOR Work Phone: [facility] 2005 DTaP-hepatitis B and poliovirus vaccine Taylor Ball LUNCH TRUCK OPERATOR.PATIENT DAY COORDINATOR Work Phone: [facility] Work Phone: 2005 haemophilus influenz ae type b conjugate and Hepatitis B vaccine Taylor Ball LUNCH TRUCK OPERATOR.PATIENT DAY COORDINATOR Work Phone: [facility] 2005 haemophilus influenz ae type b vaccine, HbOC conjugate Taylor Ball LUNCH TRUCK OPERATOR.PATIENT DAY COORDINATOR Work Phone: [facility] Work Phone: 2005 hepatitis B vaccine, pediatric or pediatric/adolescent dosage Taylor Ball LUNCH TRUCK OPERATOR.PATIENT DAY COORDINATOR Work Phone: [facility] Work Phone: 2005 pneumococcal conjuga te vaccine, 7 valent Taylor Ball LUNCH TRUCK OPERATOR.PATIENT DAY COORDINATOR Work Phone: [facility] Work Phone: 2005 poliovirus vaccine, inactivated Taylor Orellana LUNCH TRUCK OPERATOR.PATIENT DAY COORDINATOR Work Phone: [facility] Work Phone: 2005 hepatitis B vaccine, pediatric or pediatric/adolescent dosage Taylor Orellana LUNCH TRUCK OPERATOR.PATIENT DAY COORDINATOR Work Phone: [facility] Work Phone: Payers Date Payer Category Payer Self-pay 2023 Private Health Insurance [employer] [id number] [place] [id number] 2020 [facility] BLUE ACCE SS PPO [id number] 2020 Unknown 2020 Unknown [facility] BLUE ACCE SS PPO [id number] 2020-Present [phone] [address] [place] [address] PPO [id number] 2020 Unknown [id number] 1975 Unknown [id number] 1969 Unknown [id number] 1969 Unknown [id number] Unknown [id number] Unknown [id number] Unknown [id number] Unknown [id number] Social History Date Type Detail Facility Start: 06-05-2022 End: 12-18-2024 Tobacco smoking status NHIS Never smoked tobacco [facility] Start: 06-28-2021 End: 05-13-2025 Alcohol intake Current non-drinker of alcohol (finding) [facility] Start: 2005 Sex Assigned At Not on file [facility] Start: 01-24-2022 End: 06-11-2022 Exposure to SARS-CoV-2 (event) Not sure [facility] Start: 06-05-2022 End: 12-18-2024 Tobacco use and exposure Smokeless tobacco non-user [facility] Start: 06-04-2022 History SDOH Physica l Activity DPW 0 [facility] Start: 06-04-2022 History SDOH Financial 4 [facility] Start: 06-04-2022 History SDOH Food Worry 1 [facility] Start: 06-04-2022 History SDOH Transpo rt Med 2 [facility] Start: 03-24-2023 End: 10-18-2024 History of Social function [facility] Start: 03-24-2023 End: 10-18-2024 Tobacco use panel [facility] How hard is it for y ou to pay for the very basics like food, housing, medical care, and heating Not very hard [facility] Start: 08-20-2012 Adult Depression Screening Assessment 1 [facility] (I/We) worried trisha er (my/our) food would run out before (I/we) got money to buy more. Never true [facility] In the past 12 month s, was there a time when you were not able to pay the mortgage or rent on time? No [facility] Start: 11-05-2024 [facility] Start: 2005 Sex assigned at Female C [facility] Start: 01-03-2025 Gender identity Identifies as female gender (finding) [facility] Start: 01-03-2025 Sexual orientation Heterosexual (fin ding) [facility] Start: 06-16-2023 Tobacco smoking stat [facility] Tobacco smoking consumption unknown (finding) [facility] NEGATED: Highlighted rowStart: SULTANAF History of tobacco use Passive smoker [facility] Goals Date Patient Goal Desired Activity /State Personal health goal Functional Status Date Assessment Result Facility 03-15-2023 Are you deaf, or do you have serious difficulty hearing No 03/15/2023 7:36 PM Clary Crawley RN [facility] 03-15-2023 Are you blind, or do you have serious difficulty seeing, even when wearing glasses No 03/15/2023 7:36 PM Clary Crawley RN No [facility] 03-15-2023 Do you have serious difficulty walking or climbing stairs No 03/15/2023 7:36 PM Clary Crawley, SARIAH [facility] 03-15-2023 Do you have difficul ty dressing or bathing No 03/15/2023 7:36 PM Clary Crawley RN No [facility] 03-15-2023 Because of a physica l, mental, or emotional condition, do you have difficulty doing errands alone such as visiting a physician's office or shopping No 03/15/2023 7:36 PM Clary Crawley RN No [facility] Mental Status Date Assessment Result Facility 03-15-2023 Because of a physica l, mental, or emotional condition, do you have serious difficulty concentrating, remembering, or making decisions No 03/15/2023 7:36 PM EDT Clary Hawthorne, RN No [facility] Clinical Notes 2005 to 07-23-2025 Note Date & Type Note Facility 07-23-2025 Note HNO ID: [id number] Author: MARVIN WORKMAN, SARIAH Service: ? Author Type: Registered Nurse Type: Progress Notes Filed: 07/23/2025 10:06 Note Text: Pt c/o 02/26 sharp intermittent abd pain. Pt states she went to the ED for elevated BP, BLE edema, rash, and pain over the weekend. States she still feels the same. Today's BP 129/82. Pt states she doesn't take any OTC medication for the pain and rash. Dr. Vazquez notified, no additional treatment at this time. Pt was seen twice for this reason- NSTs were normal. Pt is aware to make an office visit appt if pt has concerns or symptoms worsen. Pt is already scheduled on for routine visit with Dr. Bustos. [facility] 07-15-2025 Note HNO ID: [id number] Author: DONOVAN FERREIRA, ? Service: ? Author Type: Patient Environmental Health Officer Type: Progress Notes Filed: 07/15/2025 07:31 Note Text: POPULATION HEALTH NAVIGATION OUTREACH Action/FYI Added resident care aid to the chart through a note. No direct outreach was made." Reason for Outreach Medicaid OB/Peds Care Gaps due: N/A Patient Contacted: Unable or unnecessary to reach patient: [place] resident care aid added Navigation Signature: Donovan Ferreira Population Health Navigator July 15, 2025 7:31 AM [facility] 07-15-2025 Note Patient Outreach (JUAN MIGUEL TNAV) DAO VALDES ([id number]) 5 F Date Time Provider Department 07/15/25 JHON DONOVAN NETJANIEV During your visit today, we recorded the following information about you: Donovan Ferreira 07/15/2025 7:31 AM Signed POPULATION HEALTH NAVIGATION OUTREACH Action/FYI Added resident care aid to the chart through a note. No direct outreach was made." Reason for Outreach Medicaid OB/Peds Care Gaps due: N/A Patient Contacted: Unable or unnecessary to reach patient: [place] resident care aid added Navigation Signature: Donovan Ferreira Population Health Navigator July 15, 2025 7:31 AM Allergies As of Date: 07/15/2025 (No Known Allergies) Date Reviewed: 07/11/2025 Reviewed by: Alvina Park MD - Fully Assessed Reason for Visit: Population Health Navigation Outreach [3910] Cmt: to PCP/OB Prescriptions as of 07/15/2025 - ferrous gluconate 324 mg (37.5 mg iron) tablet Take 1 tablet by mouth every 48 hours. - aspirin, enteric coated (ECOTRIN LOW STRENGTH) 81 mg EC tablet Take 1 tablet by mouth once daily. - no115/iron/folic acid ( 19 ORAL) Take by mouth. 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] 11/03/2015 Sever's apophysitis [M92.60] 12/24/2016 09/07/2018 Chronic abdominal pain [R10.9, G89.29] 03/10/2018 01/18/2025 History of depression [Z86.59] 01/15/2019 Acute appendicitis with generalized peritonitis*03/12/2023 03/12/2023 Kidney stone [N20.0] 03/15/2023 01/18/2025 Colitis [K52.9] 03/15/2023 SHERLEY (acute kidney injury) [N17.9] 03/15/2023 01/03/2025 Right lower quadrant abdominal pain [R10.31] 03/15/2023 01/03/2025 Irritable bowel syndrome with diarrhea [K58.0] 01/03/2025 Nausea and vomiting during (HCC) [O21*01/03/2025 01/18/2025 Heartburn during in first trimester (*01/03/2025 Encounter for supervision of normal first pregn*01/03/2025 Anemia complicating , second trimester*05/08/2025 Positive GBS test [B95.1] 07/04/2025 Maternal iron deficiency anemia complicating pr*07/09/2025 Encounter Status:Closed by DONOVAN FERREIRA on 07/15/25 [facility] 07-10-2025 Note HNO ID: [id number] Author: DEIDRE LAND PA-C Service: ? Author Type: Physician Structural Design Engineer Type: Progress Notes Filed: 07/10/2025 18:44 Note Text: DEPARTMENT OF BLOOD MANAGEMENT ORDERS ONLY ENCOUNTER PATIENT NAME: Dao Valdes DATE OF SERVICE: July 10, 2025 REFERRING PROVIDER: Brian Vanessa MD Subjective Patient referred to Blood Management for evaluation and treatment of anemia in . Patient's relevant history, recent diagnostic data, and treatment plan as entered by Clary Ivory RN were reviewed. Medical/Surgical History: PAST MEDICAL HISTORY Diagnosis Date SHERLEY (acute kidney injury) 03/15/2023 Kidney stone 03/18/2023 NEGATIVE MEDICAL HISTORY 2004 normal color vision Right lower quadrant abdominal pain 03/15/2023 PAST SURGICAL HISTORY Procedure Laterality Date APPENDECTOMY 03/12/2023 Other significant Medical/Surgical history: - None CURRENT MEDICATIONS: Current Outpatient Medications Medication Instructions aspirin, enteric coated (ECOTRIN LOW STRENGTH) 81 mg, ORAL, DAILY ferrous gluconate 324 mg, ORAL, EVERY 48 HOURS no115/iron/folic acid ( 19 ORAL) Take by mouth. Current medications that may affect iron absorption and/or blood loss: - Aspirin Objective Data Reviewed: WBC (k/uL) Date Value 07/04/2025 10.93 RBC (m/uL) Date Value 07/04/2025 3.40 (L) Hemoglobin (g/dL) Date Value 07/04/2025 8.7 (L) Hematocrit (%) Date Value 07/04/2025 26.0 (L) MCV (fL) Date Value 07/04/2025 76.5 (L) MCH (pg) Date Value 07/04/2025 25.6 (L) MCHC (g/dL) Date Value 07/04/2025 33.5 RDW-CV (%) Date Value 07/04/2025 13.3 Platelet Count (k/uL) Date Value 07/04/2025 228 MPV (fL) Date Value 07/04/2025 11.2 Iron Date Value Ref Range Status 07/06/2025 23 (L) 41 - 186 ug/dL Final TIBC Date Value Ref Range Status 07/06/2025 >523 (H) 232 - 386 ug/dL Final Ferritin Date Value Ref Range Status 07/06/2025 12.7 (L) 14.7 - 205.1 ng/mL Final Transferrin Saturation Date Value Ref Range Status 07/06/2025 <4.4 (L) 15.0 - 57.0 % Final Assessment AND Plan Maternal iron deficiency anemia complicating , third trimester (HCC) - Patient referred to blood management for anemia in - Previously prescribed Ferrous gluconate 324 mg tablet (38 mg elemental iron) PO every other day - Patient with treatment failure from oral iron supplementation and ongoing iron deficiency anemia noted on most recent labs from 07/06/2025: - Ferritin 12.7, Iron 23, TIBC >523, TSAT <4.4%, and Hgb 8.7 g/dL - Per Ganzoni equation, 743 mg iron deficient utilizing pre- weight (44kg) and goal Hgb 11 g/dL. - Therapy plan for Venofer (iron sucrose) 200 mg IV infusion x 4 doses was reviewed and signed. - Recommend ongoing monitoring of iron deficiency anemia to ensure adequate response to IV iron supplementation. Labs ordered in ~8 weeks weeks. Portions of this note were copied from prior encounter from Clary Ivory RN on 07/09/25. The patient's medications, allergies, past medical/surgical hx, and family hx have all been reviewed and updated as appropriate. The interval history and assessment/plan content have been modified and are specific to today's (July 10, 2025) purpose for the visit. Deidre Land PA-C Department of Blood Management July 10, 2025 CC: Referring Provider: Brian Vanessa MD [facility] 07-09-2025 Note HNO ID: [id number] Author: CLARY SWEENEY RN Service: ? Author Type: Registered Nurse Type: Progress Notes Filed: 07/09/2025 15:18 Note Text: Patient referred to Blood Management for evaluation and treatment of pre-surgical anemia and/or iron deficiency. Non-surgical: anemia in Date of surgery: NA Medical/Surgical History: PAST MEDICAL HISTORY Diagnosis Date SHERLEY (acute kidney injury) 03/15/2023 Kidney stone 03/18/2023 NEGATIVE MEDICAL HISTORY 2004 normal color vision Right lower quadrant abdominal pain 03/15/2023 PAST SURGICAL HISTORY Procedure Laterality Date APPENDECTOMY 03/12/2023 Other significant Medical/Surgical history: - None Current Outpatient Medications Medication Sig ferrous gluconate 324 mg (37.5 mg iron) tablet Take 1 tablet by mouth every 48 hours. aspirin, enteric coated (ECOTRIN LOW STRENGTH) 81 mg EC tablet Take 1 tablet by mouth once daily. no115/iron/folic acid ( 19 ORAL) Take by mouth. No current facility-administered medications for this visit. Current medications that may affect iron absorption and/or blood loss: - Aspirin Baseline laboratory values: WBC (k/uL) Date Value 07/04/2025 10.93 RBC (m/uL) Date Value 07/04/2025 3.40 (L) Hemoglobin (g/dL) Date Value 07/04/2025 8.7 (L) Hematocrit (%) Date Value 07/04/2025 26.0 (L) MCV (fL) Date Value 07/04/2025 76.5 (L) MCH (pg) Date Value 07/04/2025 25.6 (L) MCHC (g/dL) Date Value 07/04/2025 33.5 RDW-CV (%) Date Value 07/04/2025 13.3 Platelet Count (k/uL) Date Value 07/04/2025 228 MPV (fL) Date Value 07/04/2025 11.2 Iron Date Value Ref Range Status 07/06/2025 23 (L) 41 - 186 ug/dL Final TIBC Date Value Ref Range Status 07/06/2025 >523 (H) 232 - 386 ug/dL Final Ferritin Date Value Ref Range Status 07/06/2025 12.7 (L) 14.7 - 205.1 ng/mL Final Transferrin Saturation Date Value Ref Range Status 07/06/2025 <4.4 (L) 15.0 - 57.0 % Final Assess for the need to augment a patient?s natural red blood cell production: - Blood transfusion avoidance - Iron depletion Recommendations according to Blood Management patient care guidelines: - Iron Sucrose 200 mg, IV infusion, dose(s) 4 total iron deficit using Ganzoni equation = 743 mg (pre- wt 44 kg/goal hgb 11 g/dL) Clinical information is sent to a provider for review and evaluation for treatment. [facility] 07-04-2025 Note HNO ID: [id number] Author: KATI GANT RN Service: ? Author Type: Registered Nurse Type: Progress Notes Filed: 07/04/2025 09:32 Note Text: Patient has appt today. Added to appt notes. Kati Gant RN [facility] 07-04-2025 Note HNO ID: [id number] Author: VAISHNAVI BUSTOS MD Service: ? Author Type: Physician Type: Progress Notes Filed: 07/04/2025 08:08 Note Text: Urine cx reviewed and no evidence of infection. Can repeat at next visit if pt having symptoms thanks [facility] 07-01-2025 Note HNO ID: [id number] Author: DORCAS DELGADO RN Service: ? Author Type: Registered Nurse Type: Progress Notes Filed: 07/01/2025 13:53 Note Text: Received urine culture final results from [facility] Scan on 07/01/2025 1:18 PM by Provider, External, PAArnoldC: Urine Culture Final [facility] 06-28-2025 Evaluation note Diagnosis Onset Date Resolution 35 weeks gestation of acute June 28 11:30am contractions acute Juno 2024 11:30am [facility] Work Phone: 1(311) 785-189409-04-2025 Progress note* Quick Notes - Brian Vanessa MD - 05/23/2025 1:48 PM EDT RR- VB No. LOF No. CTXS No. Movement: present. Other c/o: No. Medication list reviewed. SENSITIVE EXAM: Sensitive exam not performed. Physical Exam See Flow Sheet Abd: soft, nontender, gravid Ext: edema: Trace A/P 30w3d Estimated Date of Delivery: 07/29/25 ASSESSMENT/PLAN: 1. Supervision of high risk in third trimester ([facility]) - ICD9: V23.9, ICD10: O09.93 (primary diagnosis) - COMPLETE BLOOD COUNT AND DIFFERENTIAL 2. Anemia complicating , third trimester ([facility]) - ICD9: 648.23, 285.9, ICD10: O99.013 start FE, taking PNV. Recheck CBC in 4 weeks - COMPLETE BLOOD COUNT AND DIFFERENTIAL 3. 30 weeks gestation of ([facility]) - ICD9: V22.2, ICD10: Z3A.30 - COMPLETE BLOOD COUNT AND DIFFERENTIAL encouraged and birthing classes TDAP considering, counseled, likely next visit considering primary c/s due to short stature, mother had c/s. d/w her short and correction risks to c/s and d/w her elective c/s is an option, she will continue to consider encouraged birthing and classes Brian Vanessa MD [facility]09-04-2025 Miscellaneous Notes* Quick Notes - Brian Vanessa MD - 05/23/2025 1:48 PM EDT RR- VB No. LOF No. CTXS No. Movement: present. Other c/o: No. Medication list reviewed. SENSITIVE EXAM: Sensitive exam not performed. Physical Exam See Flow Sheet Abd: soft, nontender, gravid Ext: edema: Trace A/P 30w3d Estimated Date of Delivery: 07/29/25 ASSESSMENT/PLAN: 1. Supervision of high risk in third trimester ([facility]) - ICD9: V23.9, ICD10: O09.93 (primary diagnosis) - COMPLETE BLOOD COUNT AND DIFFERENTIAL 2. Anemia complicating , third trimester (HCC) - ICD9: 648.23, 285.9, ICD10: O99.013 start FE, taking PNV. Recheck CBC in 4 weeks - COMPLETE BLOOD COUNT AND DIFFERENTIAL 3. 30 weeks gestation of ([facility]) - ICD9: V22.2, ICD10: Z3A.30 - COMPLETE BLOOD COUNT AND DIFFERENTIAL encouraged and birthing classes TDAP considering, counseled, likely next visit considering primary c/s due to short stature, mother had c/s. 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 The sequential screen combinesultrasound and blood tests to determine the risk of chromosomal abnormalities, including Down's Syndrome (Trisomy 21) and Trisomy 18, as well as open neural tube defects including spina bifida. Ultrasound examination is performed between 11 weeks and 13 weeks gestational age. Blood tests are drawn after the ultrasound and again later in the between 15 and 21 weeks gestational age. Please let your physician know if you are interested in this testing. It will require an appointment withour video technician. This is not an ultrasound performed by a physician in our office during a routine visit. SIGNS AND SYMPTOMS OF LABOR 1. Contractions every 10 minutes or more often 2. Clear, pink, or brownish fluid (water) leaking from vagina 3. Feeling that baby is pushing down, pressure 4. Low, dull backache 5. Cramps that feel like a period 6. Cramps with or without diarrhea If you notice any of the above symptoms, contact our office at [phone] and ask to speak with anurse. After hours, you can call [employer] registry at [phone] OR call [facility] at [phone] ask to have the doctor economics analyst paged. If you consider this an emergency, dial 9-1-1 or go to your nearest emergency department. NEED HELP? Are you dealing with a violent or abusive relationship? Are you a victim of rape or sexual assult? Call [facility] ([place]) 24 hour Crisis Hotline: 336.421.5563 or 830-822-2819. MANUAL Your Guide to a Healthy manual is now on-line. Visit [email or web address] to download your free copy documented in this encounterUniversity Hospitals Elyria Medical Center08-26-2025 NoteHNO ID: [id number] Author: RAJANI PETERSON MD Service: ? Author Type: Physician Type: Progress Notes Filed: 05/14/2025 11:15 Note Text: I met with parent for "meet the resident care aid" appt. I answered her questions and reviewed the typically hospital nursery course. Rajani Peterson, [facility]08-26-2025 History of Present illness Narrative* Rajani Peterson MD - 05/14/2025 11:14 AM EDT I met with parent for "meet the resident care aid" appt. I answered her questions and reviewed the typically hospital nursery course. Rajani Peterson MD documented in this encounterUniversity Hospitals Elyria Medical Center08-25-2025 Progress note* Quick Notes - Erna Rubi APRN.CNM - 05/13/2025 3:17 PM EDT BONI-S: Dao Valdes is a 20 year old female who presents at 07/29/2025, by Last Menstrual Period for a problem visit. Denies headache, visual changes, chest pain, shortness of breath, vaginal bleeding, leakage of fluid. Last night had cramping on right lower abdomen. Was uncomfortable, increased hydration. Pain in back and wrapped around on and off. Slight dysuria, no blood. O: See flow sheet Gen: No apparent distress Abd: Gravid, nontender, no CVAT Ua, +blood ASSESSMENT/PLAN: 1. 29 weeks gestation of 2. Acute bilateral low back pain, unspecified whether sciatica present -Pain is more midback and musculoskeletal, no CVAT 3. Dysuria -Macrobid 100mg PO BIDx 7 days -Urine culture sent PTL precautions reviewed and when to call RTO as scheduled Erna Rubi APRN.CNM [facility]08-25-2025 Miscellaneous Notes* Quick Notes - Erna Rubi APRN.CNM - 05/13/2025 3:17 PM EDT BONI-S: Dao Valdes is a 20 year old female who presents at 07/29/2025, by Last Menstrual Period for a problem visit. Denies headache, visual changes, chest pain, shortness of breath, vaginal bleeding, leakage of fluid. Last night had cramping on right lower abdomen. Was uncomfortable, increased hydration. Pain in back and wrapped around on and off. Slight dysuria, no blood. O: See flow sheet Gen: No apparent distress Abd: Gravid, nontender, no CVAT Ua, +blood ASSESSMENT/PLAN: 1. 29 weeks gestation of 2. Acute bilateral low back pain, unspecified whether sciatica present -Pain is more midback and musculoskeletal, no CVAT 3. Dysuria -Macrobid 100mg PO BIDx 7 days -Urine culture sent PTL precautions reviewed and when to call RTO as scheduled Erna Rubi APRN.CNM documented in this encounterUniversity Hospitals Elyria Medical Center08-25-2025 Instructions* Patient Instructions* Erin Nj LPN - 05/13/2025 2:48 PM EDT SEQUENTIAL SCREENINGS The [facility] offers sequential screenings for women who are interested in screenings for chromosomal abnormalities and certain defects during a . The sequential screen combinesultrasound and blood tests to determine the risk of chromosomal abnormalities, including Down's Syndrome (Trisomy 21) and Trisomy 18, as well as open neural tube defects including spina bifida. Ultrasound examination is performed between 11 weeks and 13 weeks gestational age. Blood tests are drawn after the ultrasound and again later in the between 15 and 21 weeks gestational age. Please let your physician know if you are interested in this testing. It will require an appointment withour video technician. This is not an ultrasound performed by a physician in our office during a routine visit. SIGNS AND SYMPTOMS OF LABOR 1. Contractions every 10 minutes or more often 2. Clear, pink, or brownish fluid (water) leaking from vagina 3. Feeling that baby is pushing down, pressure 4. Low, dull backache 5. Cramps that feel like a period 6. Cramps with or without diarrhea If you notice any of the above symptoms, contact our office at [phone] and ask to speak with anurse. After hours, you can call doctors registry at [phone] OR call [facility] at [phone] ask to have the doctor economics analyst paged. If you consider this an emergency, dial 9-3-5 or go to your nearest emergency department. NEED HELP? Are you dealing with a violent or abusive relationship? Are you a victim of rape or sexual assult? Call [facility] ([place]) 24 hour Crisis Hotline: 120.611.1084 or 008-637-7685. MANUAL Your Guide to a Healthy manual is now on-line. Visit [email or web address] to download your free copy documented in this encounterUniversity Hospitals Elyria Medical Center08-19-2025 Progress note* Quick Notes - Alvina Park MD - 05/07/2025 11:37 AM EDT KJ - S: Dao denies LOF, contractions or vaginal bleeding. O: 28w1d, see flow sheet SENSITIVE EXAM: Sensitive exam not performed. A/P: Assessment & Plan 28 weeks gestation of ([facility]) Labs today Declines LARC May get Tdap at future visit Encounter for supervision of normal first in first trimester ([facility]) Reviewed PTL & FM precautions Alvina Park MD [facility]08-19-2025 Miscellaneous Notes* Quick Notes - Alvina Park MD - 05/07/2025 11:37 AM EDT KJ - S: Dao denies LOF, contractions or vaginal bleeding. O: 28w1d, see flow sheet SENSITIVE EXAM: Sensitive exam not performed. A/P: Assessment & Plan 28 weeks gestation of ([facility]) Labs today Declines LARC May get Tdap at future visit Encounter for supervision of normal first in first trimester ([facility]) Reviewed PTL & FM precautions Alvina Park MD documented in this encounterUniversity Hospitals Elyria Medical Center08-19-2025 Instructions* Patient Instructions* Yuko Reddy MA - 05/07/2025 11:08 AM EDT SEQUENTIAL SCREENINGS The [facility] offers sequential screenings for women who are interested in screenings for chromosomal abnormalities and certain defects during a . The sequential screen combinesultrasound and blood tests to determine the risk of chromosomal abnormalities, including Down's Syndrome (Trisomy 21) and Trisomy 18, as well as open neural tube defects including spina bifida. Ultrasound examination is performed between 11 weeks and 13 weeks gestational age. Blood tests are drawn after the ultrasound and again later in the between 15 and 21 weeks gestational age. Please let your physician know if you are interested in this testing. It will require an appointment withour video technician. This is not an ultrasound performed by a physician in our office during a routine visit. SIGNS AND SYMPTOMS OF LABOR 1. Contractions every 10 minutes or more often 2. Clear, pink, or brownish fluid (water) leaking from vagina 3. Feeling that baby is pushing down, pressure 4. Low, dull backache 5. Cramps that feel like a period 6. Cramps with or without diarrhea If you notice any of the above symptoms, contact our office at [phone] and ask to speak with anurse. After hours, you can call doctors registry at [phone] OR call [facility] at [phone] ask to have the doctor economics analyst paged. If you consider this an emergency, dial 7-6-8 or go to your nearest emergency department. NEED HELP? Are you dealing with a violent or abusive relationship? Are you a victim of rape or sexual assult? Call [facility] ([place]) 24 hour Crisis Hotline: 697.981.4796 or 858-319-9283. MANUAL Your Guide to a Healthy manual is now on-line. Visit [email or web address] to download your free copy documented in this encounterUniversity Hospitals Elyria Medical Center07-25-2025 Progress note* Quick Notes - Jennyfer Guzman APRN.CNM - 04/12/2025 11:16 AM EDT S: Dao Valdes is a 20 year old female who presents at 24 weeks gestation for a routine visit. Positive movements. Feeling "different types of movements". Denies headache, visual changes, chest pain, shortness of breath, vaginal bleeding, leakage of fluid, or dysuria. Feeling well, no complaints. O: See flow sheet Gen: No apparent distress Abd: Gravid, non tender ASSESSMENT/PLAN: 1. Screening for diabetes mellitus 2. 24 weeks gestation of 3. Encounter for supervision of normal first in second trimester - Continue vitamin / ASA daily - Reviewed GCT process - RTO 4 weeks for AMANDA Guzman APRN.CNM [facility] Work Phone: 1(900) 781-109807-25-2025 Miscellaneous Notes* Quick Notes - Jennyfer Guzman APRN.CNM - 04/12/2025 11:16 AM EDT S: Dao Valdes is a 20 year old female who presents at 24 weeks gestation for a routine visit. Positive movements. Feeling "different types of movements". Denies headache, visual changes, chest pain, shortness of breath, vaginal bleeding, leakage of fluid, or dysuria. Feeling well, no complaints. O: See flow sheet Gen: No apparent distress Abd: Gravid, non tender ASSESSMENT/PLAN: 1. Screening for diabetes mellitus 2. 24 weeks gestation of 3. Encounter for supervision of normal first in second trimester - Continue vitamin / ASA daily - Reviewed GCT process - RTO 4 weeks for AMANDA Guzman APRN.CNM documented in this encounterUniversity Hospitals Elyria Medical Center07-25-2025 Instructions* Patient Instructions* Yuko Reddy MA - 04/12/2025 10:55 AM EDT SEQUENTIAL SCREENINGS The [facility] offers sequential screenings for women who are interested in screenings for chromosomal abnormalities and certain defects during a . The sequential screen combinesultrasound and blood tests to determine the risk of chromosomal abnormalities, including Down's Syndrome (Trisomy 21) and Trisomy 18, as well as open neural tube defects including spina bifida. Ultrasound examination is performed between 11 weeks and 13 weeks gestational age. Blood tests are drawn after the ultrasound and again later in the between 15 and 21 weeks gestational age. Please let your physician know if you are interested in this testing. It will require an appointment withour video technician. This is not an ultrasound performed by a physician in our office during a routine visit. SIGNS AND SYMPTOMS OF LABOR 1. Contractions every 10 minutes or more often 2. Clear, pink, or brownish fluid (water) leaking from vagina 3. Feeling that baby is pushing down, pressure 4. Low, dull backache 5. Cramps that feel like a period 6. Cramps with or without diarrhea If you notice any of the above symptoms, contact our office at [phone] and ask to speak with anurse. After hours, you can call doctors registry at [phone] OR call [facility] at [phone] ask to have the doctor economics analyst paged. If you consider this an emergency, dial or go to your nearest emergency department. NEED HELP? Are you dealing with a violent or abusive relationship? Are you a victim of rape or sexual assult? Call [facility] ([place]) 24 hour Crisis Hotline: 203.296.9492 or 922-974-0564. MANUAL Your Guide to a Healthy manual is now on-line. Visit [email or web address] to download your free copy documented in this encounterUniversity Hospitals Elyria Medical Center06-27-2025 Progress note* Quick Notes - Dorcas Garcia MD - 03/15/2025 11:33 AM EDT S: Dao Valdes is a 20 year old female who presents at 07/29/2025, by Last Menstrual Period for aroutine visit. Denies headache, visual changes, chest pain, shortness of breath, vaginal bleeding, leakage of fluid, or dysuria. Feeling well, no complaints. Round ligament pain O: See flow sheet Gen: No apparent distress Anatomy US today. Prelim normal Some heartburn. Only Tums once ASSESSMENT/PLAN: 1. 20 weeks gestation of ([facility]) - ICD9: V22.2, ICD10: Z3A.20 (primary diagnosis) 2. Encounter for supervision of normal first in second trimester ([facility]) - ICD9: V22.0, ICD10: Z34.02 Dorcas Garcia MD [facility]06-27-2025 Miscellaneous Notes* Quick Notes - Dorcas Garcia MD - 03/15/2025 11:33 AM EDT S: Dao Valdes is a 20 year old female who presents at 07/29/2025, by Last Menstrual Period for aroutine visit. Denies headache, visual changes, chest pain, shortness of breath, vaginal bleeding, leakage of fluid, or dysuria. Feeling well, no complaints. Round ligament pain O: See flow sheet Gen: No apparent distress Anatomy US today. Prelim normal Some heartburn. Only Tums once ASSESSMENT/PLAN: 1. 20 weeks gestation of ([facility]) - ICD9: V22.2, ICD10: Z3A.20 (primary diagnosis) 2. Encounter for supervision of normal first in second trimester ([facility]) - ICD9: V22.0, ICD10: Z34.02 Dorcas Garcia MD documented in this encounterUniversity Hospitals Elyria Medical Center06-27-2025 Instructions* Patient Instructions* Yuko Reddy MA - 03/15/2025 11:21 AM EDT SEQUENTIAL SCREENINGS The [facility] offers sequential screenings for women who are interested in screenings for chromosomal abnormalities and certain defects during a . The sequential screen combinesultrasound and blood tests to determine the risk of chromosomal abnormalities, including Down's Syndrome (Trisomy 21) and Trisomy 18, as well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 9-10 and waning by week 14-16. When you are feeling bad the weeks can go by slowly but most momsdo feel tremendously better by the middle of the . Whether morning sickness is a brief experience or lasts through most of the , there are treatments that can make the weeks or months more tolerable. What can you do about it? Diet: See what works for you. Try eating bland dry foods, and avoid fatty or spicy foods. It is okay to eat a less than perfectly balanced diet in the first trimester. Have your liquids separately from dry foods. Try sports drinks, water, clear juices, Zander-aid, or non-caffeinated tea. Avoid carbonated beverages that fill up your stomach. Try eating lots of little meals. If you tend to feel sick when you first wake up, leave crackers next to the bed for a quick snack before rising. Keeping healthy snacks with you all day to nibble when you feel queasy can sometimes even prevent nausea from starting. vitamins and nausea: Pre-malik vitamins can sometimes worsen nausea in . While folate is necessary, especially early in the , it comes as a smaller pill that many people find more tolerable than the complete vitamin pill. Ask your practitioner if it is okay to temporarilyreplace vitamins and iron with just a folate pill if you find a significant worsening in the level of your nausea from the vitamins. Alternative therapies: Acupressure may be used to treat nausea in , and is not known to have any risks for the fetus. Wristbands (marketed for seasickness) that put pressure on an acupressure point at the wrist are often available at drugstores or travel stores. Marlena root is used for nausea in many traditional cultures. Some women take fresh grated marlena or marlena tablets. It is possible that the pill form contains other ingredients or contaminants, so you may want to try fresh marlena first. Medications: Emetrol is the only nausea medication approved for use in . It is available over the counter and is soothing to the stomach. A prescription medication called Bendectin was available in the -1979's and was shown to be safe in , but the company stopped marketing it in the [place] due to the costs of liability coverage. Bendectin contained 10 milligrams of vitamin B6 and 10 milligrams of Doxylamine. Two tablets were given at bedtime and a total of up to 4 tablets could be used in a 24-hour period. Interestingly, Unisom , which contains a higher dose (25 mg.) of the same medication, Doxylamine, is currently marketed as an sxek-apz-zhcffif sleeping pill. Ask your practitioner if creating a vitamin B6/Doxylaminecombination with tpbl-azl-rwyokwm medications would be safe for you. Prescription medications like Compazine and Phenergan can be used if the benefits outweigh possiblerisks, but these have not been clearly shown to be safe in . Zofran , an expensive anti-nausea medication often used to treat nausea from chemotherapy, can also be used. Can I throw up so much it harms the baby? The act of vomiting cannot hurt your fetus, which is protected inside the uterus. If you get dehydrated or develop a metabolic imbalance, this can be unhealthy. As long as you can keep down liquids, you and your baby will generally do all right. Eat when you feel able. If you are unable to keep anyt mila down, or if you notice potential signs of dehydration such as lightheadedness, or concentratedand/or infrequent urination, call your practitioner. Some women need brief hospital admission for intravenous fluids and anti-nausea medications if their condition becomes severe. This severe form ofnausea and vomiting is called Hyperemesis Gravidarum. As with many symptoms of , remind yourself that this, too, shall pass, and you'll have a wonderful baby to show for it! TREATMENT OPTIONS, SHORT VERSION: Frequent small meals Hydrate throughout day [employer] wrist pressure point applicators Marlena root (powdered, in capsules) 250mg four times a day Vitamin B6 25 mg tablet three times a day Also may be taken with half a tablet of Unisom three times a day (Doxylamine 12.5 mg) If severe (weight loss, dehydration), call us and come in for IV hydration and possible medication in the form of injections. Prescription medications such as Phenergan, Compazine, Reglan documented in this encounterUniversity Hospitals Ely[facility] Center04-17-2025 NoteHNO ID: [id number] Author: ELAINA HURST APRN.BESSY Service: ? Author Type: Nurse Practitioner Type: Progress Notes Filed: 01/03/2025 11:39 Note Text: Branch Coordinator offered: Patient declines. INITIAL OB ASSESSMENT HPI: Dao is a 19 year old White Female here to establish Obstetrical Care. Patient's last menstrual period was 10/22/2024 (approximate). from OB Dating Form. was unplanned but accepted Complaints: nausea/vomiting: has not been throwing up. Experiencing intermittent diarrhea and pelvic cramping OB History Gravida1 Para0 Term0 Preterm0 AB0 Living0 SAB0 IAB0 Ectopic0 Multiple0 Live Births0 Previous history: Prior : never History of 4th degree laceration: NA History of shoulder dystocia: No History of Hypertensive disorders including pre-eclampsia or gestational hypertension: NA History of gestational diabetes: NA Patient's Risk Screening for delivery: Have you had a prior simms between 20w and 36w6d? No How many pregnancies have you had before? 0 Did you have a previous baby with a GBS Infection? No Please select all that apply for any prior : N/A MEDICAL/PSYCHOSOCIAL HISTORY: History of hemorrhage or bleeding concerns: No Thyroid Disease: No History of chronic hypertension: No History of pre-existing diabetes: No No results found for: "ABORHD" BMI 20.00 kg/(m2) Last Pap: never done History of abnormal pap: No Prior treatment for cervical dysplasia: none. Last HPV: never done History of STDs: None Partner History of STDs: None Did you have a partner with Herpes? No Tobacco use: No E-Cigarette/Vaping Use: No Caffeine use: Yes Drug use: No Alcohol use: No Multivitamin with Folic acid: unsure Would refuse blood transfusion if medically necessary: No Social Needs: How often does this describe you? I don't have enough money to pay my bills: Never Within the past 12 months, have you worried that your food would run out before you had money to buy more? Never In the past 12 months, has lack of reliable transportation kept you from going to medical appointments or work, or from getting things needed for daily living? Never In the past 12 months, have you had any concerns about having a place to live, or about the condition or quality of your housing? Never Would you like more information on any of the following (please check all that apply)? Not interested Social History: Do you have any history of depression, anxiety, PTSD, or other mood problems? Yes Do you have a history of abuse or trauma that may impact your experience? No Are you currently employed? Yes Depression/Anxiety Screening: denies symptoms of depression. OB Depression and Anxiety Screening- This Encounter (since 01/02/2025) Over the past 2 weeks have you felt down, depressed, or hopeless? Negative Over the past two weeks, have you felt little interest or pleasure in doing things?? Negative Feeling nervous, anxious or on edge 1-Several days Not being able to stop or control worrying 0-Not al all Anxiety Pre-Screening Total (If >/= 3 additional questions will be reviewed) 1 Genetic Screening: Partner present: No Patient verbalized knowledge of partner family health history: Yes Do you or your partner have any personal or family history of defects not previously discussed: No Do you have history of a complicated by anomaly, genetic condition, or demise: No Preeclampsia Risk Screening: Screening for prevention of preeclampsia: High risk factors: None Moderate risk ractors: Nulliparity OB Risk Screening: Completed, no positive findings documented. Marital Status:Partnering Partner: Name: Abel Age: 20 Occupation: Self Employed Gender: Male PAST MEDICAL HISTORY Diagnosis Date SHERLEY (acute kidney injury) 03/15/2023 Kidney stone 03/18/2023 NEGATIVE MEDICAL HISTORY 2004 normal color vision Right lower quadrant abdominal pain 03/15/2023 PAST SURGICAL HISTORY Procedure Laterality Date APPENDECTOMY 03/12/2023 Current Outpatient Medications Medication Sig Dispense Refill no115/iron/folic acid ( 19 ORAL) Take by mouth. No current facility-administered medications for this visit. Allergies As of Date: 01/03/2025 (No Known Allergies) Fully Assessed 01/03/2025 Does patient have penicillin allergy: No REVIEW OF SYSTEMS: GENERAL: Negative for: Fever or Chills HEENT: Negative for: Headache, Impaired Vision, Ringing in Ears, Nosebleeds NECK: Negative for: Swelling, Pain, Stiffness RESPIRATORY: Negative for: Cough, Shortness of breath, Wheezing GASTROINTESTINAL: Negative for: Constipation, Diarrhea, Blood in stool + nausea, diarrhea, heartburn MUSCULOSKELETAL: Negative for: Muscle or joint pain, stiffness, Joint swelling NEUROLOGIC/PSYCHIATRIC: Negative for: Weakness, Paralysis, Numbness, Tingling, (more content not included)...[facility]04-17-2025 History of Present illness Narrative* Elaina Hurst APRN.PATIENT DAY COORDINATOR - 01/03/2025 10:44 AM EDT Branch Coordinator offered: Patient declines. INITIAL OB ASSESSMENT HPI: Dao is a 19 year old White Female here to establish Obstetrical Care. Patient's last menstrual period was 10/22/2024 (approximate). from OB Dating Form. was unplanned but accepted Complaints: nausea/vomiting: has not been throwing up. Experiencing intermittent diarrhea and pelvic cramping OB History Gravida1 Para0 Term0 Preterm0 AB0 Living0 SAB0 IAB0 Ectopic0 Multiple0 Live Births0 Previous history: Prior : never History of 4th degree laceration: NA History of shoulder dystocia: No History of Hypertensive disorders including pre-eclampsia or gestational hypertension: NA History of gestational diabetes: NA Patient's Risk Screening for delivery: Have you had a prior simms between 20w and 36w6d? No How many pregnancies have you had before? 0 Did you have a previous baby with a GBS Infection? No Please select all that apply for any prior : N/A MEDICAL/PSYCHOSOCIAL HISTORY: History of hemorrhage or bleeding concerns: No Thyroid Disease: No History of chronic hypertension: No History of pre-existing diabetes: No No results found for: "ABORHD" BMI 20.00 kg/(m^2) Last Pap: never done History of abnormal pap: No Prior treatment for cervical dysplasia: none. Last HPV: never done History of STDs: None Partner History of STDs: None Did you have a partner with Herpes? No Tobacco use: No E-Cigarette/Vaping Use: No Caffeine use: Yes Drug use: No Alcohol use: No Multivitamin with Folic acid: unsure Would refuse blood transfusion if medically necessary: No Social Needs: How often does this describe you? I don't have enough money to pay my bills: Never Within the past 12 months, have you worried that your food would run out before you had money to buy more? Never In the past 12 months, has lack of reliable transportation kept you from going to medical appointments or work, or from getting things needed for daily living? Never In the past 12 months, have you had any concerns about having a place to live, or about the condition or quality of your housing? Never Would you like more information on any of the following (please check all that apply)? Not interested Social History: Do you have any history of depression, anxiety, PTSD, or other mood problems? Yes Do you have a history of abuse or trauma that may impact your experience? No Are you currently employed? Yes Depression/Anxiety Screening: denies symptoms of depression. OB Depression and Anxiety Screening- This Encounter (since 01/02/2025) Over the past 2 weeks have you felt down, depressed, or hopeless? Negative Over the past two weeks, have you felt little interest or pleasure in doing things? Negative Feeling nervous, anxious or on edge 1-Several days Not being able to stop or control worrying 0-Not al all Anxiety Pre-Screening Total (If >/= 3 additional questions will be reviewed) 1 Genetic Screening: Partner present: No Patient verbalized knowledge of partner family health history: Yes Do you or your partner have any personal or family history of defects not previously discussed: No Do you have history of a complicated by anomaly, genetic condition, or demise: No Preeclampsia Risk Screening: Screening for prevention of preeclampsia: High risk factors: None Moderate risk ractors: Nulliparity OB Risk Screening: Completed, no positive findings documented. Marital Status:Partnering Partner: Name: Abel Age: 20 Occupation: Self Employed Gender: Male PAST MEDICAL HISTORY Diagnosis Date SHERLEY (acute kidney injury) 03/15/2023 Kidney stone 03/18/2023 NEGATIVE MEDICAL HISTORY 2004 normal color vision Right lower quadrant abdominal pain 03/15/2023 PAST SURGICAL HISTORY Procedure Laterality Date APPENDECTOMY 03/12/2023 Current Outpatient Medications Medication Sig Dispense Refill no115/iron/folic acid ( 19 ORAL) Take by mouth. No current facility-administered medications for this visit. Allergies As of Date: 01/03/2025 (No Known Allergies) Fully Assessed 01/03/2025 Does patient have penicillin allergy: No REVIEW OF SYSTEMS: GENERAL: Negative for: Fever or Chills HEENT: Negative for: Headache, Impaired Vision, Ringing in Ears, Nosebleeds NECK: Negative for: Swelling, Pain, Stiffness RESPIRATORY: Negative for: Cough, Shortness of breath, Wheezing GASTROINTESTINAL: Negative for: Constipation, Diarrhea, Blood in stool + nausea, diarrhea, heartburn MUSCULOSKELETAL: Negative for: Muscle or joint pain, stiffness, Joint swelling NEUROLOGIC/PSYCHIATRIC: Negative for: Weakness, Paralysis, Numbness, Tingling, Tremor, Anxiety, Depression, Memory loss SKIN: Negative for: Rash, Itching GENITOURINARY: Negative for: vaginal itching, vaginal discharge, hematuria or dysuria SENSITIVE EXAM: The sensitive examination was discussed with the Patient or Patient's Authorized Transmission Specialist. As applicable, any other physician, advance practice provider, medical student, or other health professional student that will be observing or involved in the sensitive examination for educational or training purposes was discussed with the Patient or Authorized Transmission Specialist. The Patient or Authorized Transmission Specialist has agreed to proceed with the sensitive examination. (Sensitive examination includes inspection and/or palpation of the breasts, pelvis, prostate and anorectal regions). PHYSICAL EXAM: BP 110/68 Ht 4' 11" (1.50m) Wt 99 lb (44.9kg) LMP 10/22/2024 BMI 19.98 kg/(m^2). GENERAL: pleasant in no apparent distress DERMATOLOGY: Normal, without lesions, non-icteric, and non-hirsute NECK: Supple, full range of motion, no adenopathy, and thyroid normal CHEST: Normal inspiratory effort BREAST: soft, non-tender, symmetric, no dominant mass, normal nipple-areolar complex, no lymphadenopathy, and no nipple discharge ABDOMEN: soft, non-tender, and no masses NEURO: alert and oriented x3,exam grossly non-focal PELVIS: External genitalia normal without lesions. Perineal body intact. Deferred. Previously completed by Dr. Vanessa. Limited OB ultrasound exam: single intrauterine and positive cardiac activity ASSESSMENT: 19 year old at 10w3d wks gestational age PLAN: 1) Patient oriented to practice. Patient given new OB orientation folder. Discussed nutrition, folic acid supplementation, dietary guidelines, exercise, smoking, alcohol, caffeine, and drug use. Discussed gestational weight gain guidelines. Discussed routine OB labs including STD/HIV. Discussed how to access Your guide to a health and the Integration Analyst. Discussed hemoglobin electrophoresis. Patient: Declines Reviewed midwifery and supervisor volunteer services services that are available. 2) Screening: Hemoglobin A1C: ordered Baby Aspirin: The patient has been counseled about the potential benefits of low dose aspirin in and our recommendation that this be offered to all patients, regardless of whether they meet the high risk criteria specified above. She Accepts Aneuploidy Screening: Discussed aneuploidy screening, nuchal translucency/first trimester early anatomy ultrasound and NIPT. The risks/benefits and limitations of NIPT/aneuploidy screening were reviewed including the potential for false negative and false positive results. The availability of genetic counseling was reviewed. Information on aneuploidy screening was provided. The patient chooses toproceed with First trimester early anatomy ultrasound (12-13w6d) Myriad Carrier Screening: Discussed myriad carrier screening. We discussed the availability of professional-society guided carrier screening and reviewed the conditions screened and limitations of screening. The availability of genetic counseling was reviewed. Information on carrier screening was provided. The patient is considering 3) Patient offered option of Virtual Visits. Patient unsure. May consider in future. ACTIVE PROBLEM LIST Encounter for Supervision of Normal First in First Trimester ([facility]) - 01/03/2025 Comment: Care Checklist Vaccines: [] Flu vaccine [] declined [] RSV vaccine 32 0/7 - 36 6/7 (May - Oct) [] declined [] COVID vaccine [] declined [] TDaP 27-36 [] declined First trimester: [x] Dating US [x] 1st tri labs [] Pap smear NA [] Carrier screening - considering [] declined [] NIPT screening [x] declined [x] First trimester anatomy scan [] declined [x] universal ASA ordered (start 12w-16w) [] declined [] M Power Consult [] not indicated [x] declined Second trimester: [] Anatomy scan [] Mode of Delivery - [] Feeding - [] Pump ordered [] Diabetes screen [] CBC, RPR [] Behavioral Health Screening Third trimester (28-30 weeks): [] Consent [] Contraception [] Riveter Portable Machine [] TeamBirth handout Third trimester (36-40 weeks): [] GBS [] Presentation - [] Scheduled [] yes - Hibiclens, pre-op instructions, CBC, T&S ordered [] no [] H&P [] Preferences worksheet [] Irritable Bowel Syndrome With Diarrhea - 01/03/2025 Comment: January 03, 2025 Encouraged hydration. To notify if unable to tolerate food/water greater than 12-24 hours. Elaina Hurst APRN.PATIENT DAY COORDINATOR Nausea and Vomiting During ([facility]) - 01/03/2025 Comment: 01/03/25 Vitamin B6 doses reviewed. To notify if prescription is needed. Elaina Hurst APRN.PATIENT DAY COORDINATOR Heartburn During in First Trimester ([facility]) - 01/03/2025 Comment: January 03, 2025 Reviewed Tums and safe medication list provided. Elaina Hurst APRN.PATIENT DAY COORDINATOR History of Depression - 01/15/2019 Comment: January 03, 2025 Reports coping well at this time. Has taken medication in the past. Mental health resources provided. To update throughout . Elaina Hurst APRN.BESSY Follow up in 2-4 weeks or sooner prn. Plan for NT scan between 12w0d and 13w6d gestation. Elaina Hurst APRN.BESSY documented in this encounterUniversity Hospitals Ely[facility]04-16-2025 Telephone encounter Note * Telephone Encounter - Taqueria Anguiano RN - 01/02/2025 2:47 PM EDT Pt called back. Notified that MA that called her to review medical history is unavailable at this time and if available this afternoon would call her back. Advised Pt that if we were unable to obtainhx from her today, that we ask that she arrive 30 minutes early to appointment and to arrive with afull bladder. Pt voiced understanding. Taqueria Anguiano RN [facility]04-16-2025 Miscellaneous Notes* Telephone Encounter - Taqueria Anguiano RN - 01/02/2025 2:47 PM EDT Pt called back. Notified that MA that called her to review medical history is unavailable at this time and if available this afternoon would call her back. Advised Pt that if we were unable to obtainhx from her today, that we ask that she arrive 30 minutes early to appointment and to arrive with afull bladder. Pt voiced understanding. Taqueria Anguiano RN * Telephone Encounter - Veronica Carter MA - 01/01/2025 2:24 PM EDT Called and spoke with patient to go over new ob intake. Patient was not available at this time. Ryan call back 01/02/2025 after she gets off of work at 2pm. Veronica Carter MA documented in this encounterUniversity Hospitals Ely[facility] Center04-15-2025 Telephone encounter Note * Telephone Encounter - Veronica Carter MA - 01/01/2025 2:24 PM EDT Called and spoke with patient to go over new ob intake. Patient was not available at this time. Ryan call back 01/02/2025 after she gets off of work at 2pm. Veronica Carter MA [facility]04-01-2025 Note* Addendum Note - Brian Vanessa MD - 12/18/2024 3:39 PM EDTAddended by: BRIAN VANESSA on: 12/18/2024 03:39 PM Modules accepted: Orders [facility]04-01-2025 Miscellaneous Notes* Addendum Note - Brian Vanessa MD - 12/18/2024 3:39 PM EDTAddended by: BRIAN VANESSA on: 12/18/2024 03:39 PM Modules accepted: Orders * Addendum Note - Aysha Ambrosio MA - 12/18/2024 3:27 PM EDTAddended by: AYSHA AMBROSIO on: 12/18/2024 03:27 PM Modules accepted: Orders documented in this encounterUniversity Hospitals Ely[facility] Center04-01-2025 Note* Addendum Note - Aysha Ambrosio MA - 12/18/2024 3:27 PM EDTAddended by: AYSHA AMBROSIO on: 12/18/2024 03:27 PM Modules accepted: Orders [facility]04-01-2025 NoteHNO ID: [id number] Author: BRIAN VANESSA MD Service: ? Author Type: Physician Type: Progress Notes Filed: 12/18/2024 15:25 Note Text: Dao Valdes is a 19 year old female who presents for problem visit for vaginal bleeding in . . HPI: 19 YOF notes vaginal bleeding 2-3 days ago. Had intercourse near then. No bleeding now. No pain. Had just spotting. No dysuria or hematuria. LMP approx 2/3. Taking PNV. Planned . OB History No obstetric history on file. Chief Psychology History LMP: 10/22/2024 (Approximate), Age at Menarche: Age at First : Age at Menopause: Chief Psychology History Comments: Sexual Activity: Yes; Male Contraception: No contraception data on record PAST MEDICAL HISTORY Diagnosis Date Kidney stone 03/18/2023 NEGATIVE MEDICAL HISTORY 2004 normal color vision PAST SURGICAL HISTORY Procedure Laterality Date APPENDECTOMY 03/12/2023 FAMILY HISTORY Problem Relation Age of Onset Asthma Mother other (IBS) Mother other (acid reflux) Mother Breast Cancer Paternal Grandmother other (Scleroderma) Paternal Grandmother Heart Maternal Grandfather Hypertension Maternal Grandfather Social History Tobacco Use Smoking status: Never Passive exposure: Never Smokeless tobacco: Never Vaping Use Vaping status: Some Days Substances: Nicotine, THC Substance Use Topics Alcohol use: No Drug use: Yes Types: Marijuana Comment: thc Current Outpatient Medications Medication Sig no115/iron/folic acid ( 19 ORAL) Take by mouth. Lactobacillus acidophilus (PROBIOTIC ORAL) Take by mouth. (Patient not taking: Reported on 12/12/2024) sodium chloride (SALINE MIST) 0.65 % nasal spray Use 1 [place] in the nose four times a day as needed. (Patient not taking: Reported on 12/12/2024) Itgmrsr-Kwgpwsxsfbtfu-Xcfuqwiu (EXCEDRIN MIGRAINE) 250-250-65 mg per tablet Take 2 tablets by mouth every 6 hours as needed (Headache). Do not exceed 8 tablets per 24 hours (Patient not taking: Reported on 12/12/2024) No current facility-administered medications for this visit. Allergies As of Date: 12/18/2024 (No Known Allergies) Fully Assessed 12/12/2024 RAllergies and current medication updated:Yes SENSITIVE EXAM: The sensitive examination was discussed with the Patient or Patient's Authorized Transmission Specialist. As applicable, any other physician, advance practice provider, medical student, or other health professional student that will be observing or involved in the sensitive examination for educational or training purposes was discussed with the Patient or Authorized Transmission Specialist. The Patient or Authorized Transmission Specialist has agreed to proceed with the sensitive examination. (Sensitive examination includes inspection and/or palpation of the breasts, pelvis, prostate and anorectal regions). EXAM: BP 106/58 Wt 96 lb (43.5kg) LMP 10/22/2024 GENERAL: pleasant, female in no apparent distress ABDOMEN: soft, non-tender, and no masses PELVIC: external genitalia normal, normal [place]'s glands, urethra, [place]'s glands, no vulvar lesions, no cervical lesions, good vaginal support, physiologic discharge present, normal appearing perineal body and perianal region, cervix smooth and nonfriable BIMANUAL: uterus normal size, shape and consistency, no adnexal masses, and non-tender TVUS done- single IUP w/ cardiac activity ASSESSMENT AND PLAN: Assessment AND Plan Threatened (HCC) cont. PNV gc/ct/trich done no further bleeding call/return prn urine culture sent Orders: UA DIP, URINE (POC) BACTERIAL CULTURE, URINE Abdominal cramping affecting (HCC) Orders: UA DIP, URINE (POC) BACTERIAL CULTURE, URINE Brian Vanessa [facility]04-01-2025 History of Present illness Narrative* Brian Vanessa MD - 12/18/2024 3:00 PM EDT Dao Valdes is a 19 year old female who presents for problem visit for vaginal bleeding in . . HPI: 19 YOF notes vaginal bleeding 2-3 days ago. Had intercourse near then. No bleeding now. No pain. Had just spotting. No dysuria or hematuria. LMP approx 2/3. Taking PNV. Planned . OB History No obstetric history on file. Chief Psychology History LMP: 10/22/2024 (Approximate), Age at Menarche: Age at First : Age at Menopause: Chief Psychology History Comments: Sexual Activity: Yes; Male Contraception: No contraception data on record PAST MEDICAL HISTORY Diagnosis Date Kidney stone 03/18/2023 NEGATIVE MEDICAL HISTORY 2004 normal color vision PAST SURGICAL HISTORY Procedure Laterality Date APPENDECTOMY 03/12/2023 FAMILY HISTORY Problem Relation Age of Onset Asthma Mother other (IBS) Mother other (acid reflux) Mother Breast Cancer Paternal Grandmother other (Scleroderma) Paternal Grandmother Heart Maternal Grandfather Hypertension Maternal Grandfather Social History Tobacco Use Smoking status: Never Passive exposure: Never Smokeless tobacco: Never Vaping Use Vaping status: Some Days Substances: Nicotine, THC Substance Use Topics Alcohol use: No Drug use: Yes Types: Marijuana Comment: thc Current Outpatient Medications Medication Sig no115/iron/folic acid ( 19 ORAL) Take by mouth. Lactobacillus acidophilus (PROBIOTIC ORAL) Take by mouth. (Patient not taking: Reported on 12/12/2024) sodium chloride (SALINE MIST) 0.65 % nasal spray Use 1 [place] in the nose four times a day as needed. (Patient not taking: Reported on 12/12/2024) Wgknngq-Voexquivrntgq-Opnaqjwa (EXCEDRIN MIGRAINE) 250-250-65 mg per tablet Take 2 tablets by mouthevery 6 hours as needed (Headache). Do not exceed 8 tablets per 24 hours (Patient not taking: Reported on 12/12/2024) No current facility-administered medications for this visit. Allergies As of Date: 12/18/2024 (No Known Allergies) Fully Assessed 12/12/2024 RAllergies and current medication updated:Yes SENSITIVE EXAM: The sensitive examination was discussed with the Patient or Patient's Authorized Transmission Specialist. As applicable, any other physician, advance practice provider, medical student, or other health professional student that will be observing or involved in the sensitive examination for educational or training purposes was discussed with the Patient or Authorized Transmission Specialist. The Patient or Authorized Transmission Specialist has agreed to proceed with the sensitive examination. (Sensitive examination includes inspection and/or palpation of the breasts, pelvis, prostate and anorectal regions). EXAM: BP 106/58 Wt 96 lb (43.5kg) LMP 10/22/2024 GENERAL: pleasant, female in no apparent distress ABDOMEN: soft, non-tender, and no masses PELVIC: external genitalia normal, normal [place]'s glands, urethra, [place]'s glands, no vulvar lesions, no cervical lesions, good vaginal support, physiologic discharge present, normal appearing perineal body and perianal region, cervix smooth and nonfriable BIMANUAL: uterus normal size, shape and consistency, no adnexal masses, and non-tender TVUS done- single IUP w/ cardiac activity ASSESSMENT AND PLAN: Assessment & Plan Threatened (HCC) cont. PNV gc/ct/trich done no further bleeding call/return prn urine culture sent Orders: UA DIP, URINE (POC) BACTERIAL CULTURE, URINE Abdominal cramping affecting (HCC) Orders: UA DIP, URINE (POC) BACTERIAL CULTURE, URINE Brian Vanessa MD documented in this encounterUniversity [facility]03-27-2025 NoteHNO ID: [id number] Author: DORCAS DELGADO RN Service: ? Author Type: Registered Nurse Type: Progress Notes Filed: 12/13/2024 12:22 Note Text: Received limited US report from the [facility]. Sent for scanning. [facility] History of Present illness Narrative* Dorcas Delgado RN - 12/13/2024 12:21 PM EDT Received limited US report from the [facility]. Sent for scanning. Dorcas Delgado RN documented in this encounterUniversity Hospitals [facility]03-26-2025 NoteHNO ID: [id number] Author: NATHALIA BUTT PA Service: ? Author Type: Physician Structural Design Engineer Type: Progress Notes Filed: 12/12/2024 14:15 Note Text: [facility] Subjective Dao Valdes is a 19 year old female. Patient presents with: Hand Pain: padding of right hand-venous malformation on hand since young, increased 3 days HPI 19-year-old female 6 weeks presents for swelling of the right palm. Patient states she has a venous malformation of the right palm which has been present since she was an . She has been seen for this multiple times in the past. She states from time to time the area will flareup and become more painful. She states it is usually due to overuse or if she injures it. She states that over the past couple of days it has become more painful. She denies any color change, increase in the area/swelling, numbness or tingling of the hand. She denies any arm swelling. She has not had fevers. She is , so has been unable to take aspirin which is what she usually takes for the flareup. She was unsure what she was allowed to take, so has not taken anything. She has been seen in the past by interventional radiology and they discussed an embolization procedure, but patient never followed through with that. She last had an ultrasound in 2019 of the hand. No other complaint. PAST MEDICAL HISTORY Diagnosis Date Kidney stone 03/18/2023 NEGATIVE MEDICAL HISTORY 2004 normal color vision PAST SURGICAL HISTORY Procedure Laterality Date APPENDECTOMY 03/12/2023 ALLERGIES Patient has no known allergies. MEDICATIONS no115/iron/folic acid ( 19 ORAL) Take by mouth. Lactobacillus acidophilus (PROBIOTIC ORAL) Take by mouth. (Patient not taking: Reported on 12/12/2024) sodium chloride (SALINE MIST) 0.65 % nasal spray Use 1 [place] in the nose four times a day as needed. (Patient not taking: Reported on 12/12/2024) Yrzkiqy-Zfalqnjnnsisc-Dknfukhx (EXCEDRIN MIGRAINE) 250-250-65 mg per tablet Take 2 tablets by mouth every 6 hours as needed (Headache). Do not exceed 8 tablets per 24 hours (Patient not taking: Reported on 12/12/2024) FAMILY HISTORY Problem Relation Age of Onset Asthma Mother other (IBS) Mother other (acid reflux) Mother Breast Cancer Paternal Grandmother other (Scleroderma) Paternal Grandmother Heart Maternal Grandfather Hypertension Maternal Grandfather Social History Tobacco Use Smoking status: Never Passive exposure: Never Smokeless tobacco: Never Vaping Use Vaping status: Some Days Substances: Nicotine, THC Substance Use Topics Alcohol use: No Drug use: Yes Comment: thc Review of Systems Constitutional: Negative for chills and fever. HENT: Negative for congestion, ear pain and sore throat. Respiratory: Negative for cough and shortness of breath. Cardiovascular: Negative for chest pain. Gastrointestinal: Negative for diarrhea and vomiting. Skin: + Venous malformation/pain Objective BP 122/72 Pulse 66 Temp 37.1 ?C (98.8 ?F) Resp 16 Wt 43.6 kg (96 lb 1.9 oz) LMP 09/27/2024 (Approximate) SpO2 99% BMI 20.09 kg/m? Physical Exam Vitals and nursing note reviewed. Constitutional: General: She is not in acute distress. Appearance: Normal appearance. She is not toxic-appearing. Cardiovascular: Rate and Rhythm: Normal rate and regular rhythm. Pulmonary: Effort: Pulmonary effort is normal. Breath sounds: Normal breath sounds. Musculoskeletal: Right hand: Swelling, deformity and tenderness present. Decreased range of motion. Normal sensation. There is no disruption of two-point discrimination. Normal capillary refill. Normal pulse. Comments: Venous malformation over the thenar eminence of the right palm. Radial pulse 2+. Slightly decreased ROM right thumb due to pain. Cap refill less than 2 seconds. No skin erythema. Slight purpleish discoloration of the hand over the venous malformation which patient states is baseline. No wrist swelling, forearm or upper arm swelling. Skin: General: Skin is warm and dry. Neurological: Mental Status: She is alert. {ASSESSMENT/PLAN: 1. 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 -Low suspicion for DVT. -Possible thrombophlebitis in the area. No NSAIDs as patient is . -Patient reports flareups from time to time. She is now, unable to take NSAIDs. Did discuss with patient she may use Tylenol, warm compresses or ice whichever feels better for the pain -Please schedule a follow-up with PCP for further evaluation/workup if symptoms persist. -If any arm swelling, redness, red streaking, fevers, go to ER. Patient agreeable 2. Right hand pain - ICD9: 729.5, ICD10: M79.641 -See above Diagnosis and treatment plan were discussed and questions were answered to the patient's satisfaction. Pt acknowledged understanding of concepts a (more content not included)...[facility]03-26-2025 History of Present illness Narrative* Nathalia Butt PA - 12/12/2024 2:03 PM EDT [facility] Subjective Dao Valdes is a 19 year old female. Patient presents with: Hand Pain: padding of right hand-venous malformation on hand since young, increased 3 days HPI 19-year-old female 6 weeks presents for swelling of the right palm. Patient states shehas a venous malformation of the right palm which has been present since she was an . She hasbeen seen for this multiple times in the past. She states from time to time the area will flareup and become more painful. She states it is usually due to overuse or if she injures it. She states that over the past couple of days it has become more painful. She denies any color change, increase in the area/swelling, numbness or tingling of the hand. She denies any arm swelling. She has not had fevers. She is , so has been unable to take aspirin which is what she usually takes for the flareup. She was unsure what she was allowed to take, so has not taken anything. She has been seen in the past by interventional radiology and they discussed an embolization procedure, but patient neverfollowed through with that. She last had an ultrasound in 2019 of the hand. No other complaint. PAST MEDICAL HISTORY Diagnosis Date Kidney stone 03/18/2023 NEGATIVE MEDICAL HISTORY 2004 normal color vision PAST SURGICAL HISTORY Procedure Laterality Date APPENDECTOMY 03/12/2023 ALLERGIES Patient has no known allergies. MEDICATIONS no115/iron/folic acid ( 19 ORAL) Take by mouth. Lactobacillus acidophilus (PROBIOTIC ORAL) Take by mouth. (Patient not taking: Reported on 12/12/2024) sodium chloride (SALINE MIST) 0.65 % nasal spray Use 1 [place] in the nose four times a day as needed. (Patient not taking: Reported on 12/12/2024) Uaygpbs-Fbsamajkkwygm-Jqdschfo (EXCEDRIN MIGRAINE) 250-250-65 mg per tablet Take 2 tablets by mouthevery 6 hours as needed (Headache). Do not exceed 8 tablets per 24 hours (Patient not taking: Reported on 12/12/2024) FAMILY HISTORY Problem Relation Age of Onset Asthma Mother other (IBS) Mother other (acid reflux) Mother Breast Cancer Paternal Grandmother other (Scleroderma) Paternal Grandmother Heart Maternal Grandfather Hypertension Maternal Grandfather Social History Tobacco Use Smoking status: Never Passive exposure: Never Smokeless tobacco: Never Vaping Use Vaping status: Some Days Substances: Nicotine, THC Substance Use Topics Alcohol use: No Drug use: Yes Comment: thc Review of Systems Constitutional: Negative for chills and fever. HENT: Negative for congestion, ear pain and sore throat. Respiratory: Negative for cough and shortness of breath. Cardiovascular: Negative for chest pain. Gastrointestinal: Negative for diarrhea and vomiting. Skin: + Venous malformation/pain Objective BP 122/72 Pulse 66 Temp 37.1 C (98.8 F) Resp 16 Wt 43.6 kg (96 lb 1.9 oz) LMP 09/27/2024 (Approximate) SpO2 99% BMI 20.09 kg/m Physical Exam Vitals and nursing note reviewed. Constitutional: General: She is not in acute distress. Appearance: Normal appearance. She is not toxic-appearing. Cardiovascular: Rate and Rhythm: Normal rate and regular rhythm. Pulmonary: Effort: Pulmonary effort is normal. Breath sounds: Normal breath sounds. Musculoskeletal: Right hand: Swelling, deformity and tenderness present. Decreased range of motion. Normal sensation. There is no disruption of two-point discrimination. Normal capillary refill. Normal pulse. Comments: Venous malformation over the thenar eminence of the right palm. Radial pulse 2+. Slightlydecreased ROM right thumb due to pain. Cap refill less than 2 seconds. No skin erythema. Slight purpleish discoloration of the hand over the venous malformation which patient states is baseline. No wrist swelling, forearm or upper arm swelling. Skin: General: Skin is warm and dry. Neurological: Mental Status: She is alert. {ASSESSMENT/PLAN: 1. 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 -Low suspicion for DVT. -Possible thrombophlebitis in the area. No NSAIDs as patient is . -Patient reports flareups from time to time. She is now, unable to take NSAIDs. Did discuss with patient she may use Tylenol, warm compresses or ice whichever feels better for the pain -Please schedule a follow-up with PCP for further evaluation/workup if symptoms persist. -If any arm swelling, redness, red streaking, fevers, go to ER. Patient agreeable 2. Right hand pain - ICD9: 729.5, ICD10: M79.641 -See above Diagnosis and treatment plan were discussed and questions were answered to the patient's satisfaction. Pt acknowledged understanding of concepts and follow up plan. Specific signs and symptoms that would indicate the need for higher level of care were discussed in detail warranting prompt ER evaluation. HARSHA Broderick History and Record Review External record(s) reviewed: prior outpatient record. Findings from review of outpatient records: Seen by interventional radiology in past, discussed embolization procedure. Patient has never had this completed. Prior ultrasound in 2019 reveals right hand venous malformation. Differential Diagnoses - Peripheral venous malformation is more likely for the following reason(s): suggested by H&P - Cellulitis is less likely for the following reason(s): H&P not suggestive - DVT is less likely for the following reason(s): H&P not suggestive Disposition The patient was discharged. OTC Medications were advised: May use Tylenol, ice, heat. Procedures documented in this encounterUniversity [facility]als [facility]03-26-2025 Instructions* Patient Instructions* Nathalia Butt PA - 12/12/2024 2:03 PM EDT Tylenol, ice or heat for pain/swelling. Please follow-up with your primary care doctor for continued persistent symptoms. Go to the ER if you get arm swelling, discoloration of the fingers, numbness or tingling in the fingers, severe pain. documented in this encounterUniversity Hospitals [facility]02-21-2025 Instructions* Patient Instructions* Fox Rosales APRN.PATIENT DAY COORDINATOR - 11/09/2024 3:16 PM EST [facility] PATIENT INFO COMMON COLD OVERVIEW The common cold is one of the most frequent illnesses in the [place]. Although most colds aremild and resolve within a short time period, colds cost billions of dollars per year, mostly due tolost time at work and school. COMMON COLD CAUSES The common cold is a group of symptoms caused by one of a large number of viruses. Rhinoviruses cause the greatest number of colds; there are more than 100 different varieties of rhinovirus. Most viruses cause a person to be ill only once. However, due to the large number of viruses, a person can have a cold multiple times throughout his or her lifetime. The average adult experiences two to threecolds per year, while children average 8 to 12 colds per year. Colds are transmitted from [id number]-xe-[id number]. Less often, the virus can be transmitted by touching asurface. Direct contact -- People with colds typically carry the cold virus on their hands. The virus may remain alive on the skin and capable of infecting another person for at least two hours. Thus, if a sick person shakes someone's hand and that individual then touches his eye, nose, or mouth, the virus can be transmitted and later infect that person. Infection from particles on surfaces -- Some cold viruses can live on surfaces (such as a counter top, door handle, or phone) for several hours. Inhaling viral particles -- Droplets containing viral particles can be breathed, coughed, or sneezed into the air by a person with a cold. The virus can be transmitted to others if another person is standing close (a few feet) and the droplet touches that person s eye, nose, or mouth. Covering the mouth while coughing or sneezing greatly reduces this risk. Most cold viruses are not spread by saliva. Thus, kissing itself is not likely to transmit the common cold, but close direct contact can. Colds are not caused by cold climates or being exposed to cold air. However, some types of virus cause more colds during certain seasons (eg, fall and winter versus spring). COMMON COLD SIGNS AND SYMPTOMS The common cold usually causes nasal congestion, runny nose, and sneezing. A sore throat may be present on the first day but usually resolves quickly. If a cough occurs, it generally develops on about the fourth or fifth day of symptoms, typically when congestion and runny nose are usually resolving. COMMON COLD COMPLICATIONS In most cases, colds do not cause serious illness. Most colds last for three to seven days, although many people continue to have symptoms (coughing, sneezing, congestion) for up to two weeks. Some viruses that cause the common cold can also depress the immune system or cause swelling in thelining of the nose or airways; this can, in turn, lead to a new viral infection or bacterial infection. One of the more common complications is sinusitis, which is usually caused by viruses and rarely (about 2 percent of the time) by bacteria. However, it can be difficult to distinguish bacterial sinusitis from sinusitis caused by a cold because the signs and symptoms can be similar Having thick or yellow to green- colored nasal discharge does not mean that bacterial sinusitis has developed; discolored nasal discharge is a normal phase of the common cold. Lower respiratory infections, such as pneumonia or bronchitis, may develop following a cold. Infection of the middle ear, or otitis media, can accompany or follow a cold. The influenza virus, which causes the flu, can also cause features similar to those of a cold. However, the flu usually causes other signs and symptoms (fever, body aches) and is more serious than a cold. COMMON COLD TREATMENT There is no specific treatment for the viruses that cause the common cold. Most treatments are aimed at relieving some of the symptoms of the cold, but do not shorten or cure the cold. Antibiotics are not useful for treating the common cold; antibiotics are only used to treat illnesses caused by bacteria, not viruses. The symptoms of a cold will resolve over time, even without any treatment. The following are treatments that may reduce the symptoms caused by the common cold. People with underlying medical conditions and those who use other spwn-dhw-qzerbvc or prescription medications should speak with their healthcare provider or pharmacist to ensure that it is safe to use these treatments. Runny nose and nasal congestion -- Runny nose and congestion may improve with the use of decongestants. Pseudoephedrine is a decongestant that can improve nasal congestion. Most drugstores in the [place] carry pseudoephedrine behind the counter, so it must be requested from the pharmacist (a prescription is not required). Antihistamines such as diphenhydramine (Benadryl ) may also help, but can cause side effects such as drowsiness and drying of the eyes, nose, and mouth. Nasal inhalers, including ipratropium bromide (Atrovent , available by prescription) may relieve runny nose and sneezing while cromolyn sodium (NasalCrom , a non-prescription medicine) may relieve runny nose, cough, and sneezing. Other nasal sprays such an oxymetazoline (Afrin and others) can also give temporary relief of nasalcongestion. However, these sprays should never be used for more than two to three days; use for more than three days use can worsen congestion. Nasal irrigation and saline sprays -- Rinsing the nose with a salt-water (saline) solution is called nasal irrigation or nasal lavage. Saline is also available in a standard nasal spray, although this is not as effective as using larger amounts of water in an irrigation. Nasal irrigation is particularly useful for treating drainage down the back of the throat, sneezing, nasal dryness, and congestion. The treatment helps by rinsing out allergens and irritants from thenose. Saline rinses also clean the nasal lining and can be used before applying sprays containing medications, to get a better effect from the medication. Nasal lavage with warmed saline can be performed as needed, once per day, or twice daily for increased symptoms. Nasal lavage carries few risks when performed correctly. Saline nasal sprays and irrigation kits can be purchased [id number]. Saline mixes can also be purchased or patients can make their own solution. A variety of devices, including bulb syringes, Neti pots, and bottle sprayers, may be used to perform nasal lavage; instructions for nasal lavage are provided in the table. At least 200 mL (about 3/4cup) of fluid is recommended for each nostril. Sore throat and headache -- Sore throat and headache are best treated with a mild pain reliever such as acetaminophen (Tylenol ) or a non-steroidal anti- inflammatory agent such as ibuprofen or naproxen (Motrin or Aleve ). Cough -- Common cough medicine ingredients include guaifenesin and dextromethorphan; these are often combined with other medications in ysby-aop-dssdwhl cold formulas. However, the benefit of cough medicines is likely to be small to non-existent. In clinical trials, cough suppressants were no more effective in reducing the duration or severity of coughing due to cold than a placebo (a non-drug substitute). Antibiotics -- Antibiotics should not be used to treat an uncomplicated common cold. As noted above, colds are caused by viruses. Antibiotics treat bacterial, not viral infections. Alternative treatments -- Heated, humidified air can improve symptoms of nasal congestion and runnynose, and causes few to no side effects. PREVENTION Hand washing is an essential and highly effective way to prevent the spread of infection. Hands should be wet with water and plain soap, and rubbed together for 15 to 30 seconds. Special attention should be paid to the fingernails, between the fingers, and the wrists. Hands should be rinsed thoroughly, and dried with a single use towel. Alcohol-based hand rubs are a good alternative for disinfecting hands if a sink is not available. Hand rubs should be spread over the entire surface of hands, fingers, and wrists until dry, and may be used several times. These rubs can be used repeatedly without skin irritation or loss of effectiveness. Hand rubs are available as a liquid or wipe in small, portable sizes that are easy to carry in a pocket or handbag. When a sink is available, visibly soiled hands should be washed with soap and water. Hands should be washed before preparing food and eating, and after coughing, blowing the nose, or sneezing. While it is not always possible to limit contact with people who may be infected with a cold, touching the eyes, nose, or mouth after direct contact should be avoided when possible. In addition, tissues should be used to cover the mouth when sneezing or coughing. These used tissues should be disposed of promptly. Sneezing/coughing into the sleeve of one's clothing (at the inner elbow) is another means of containing sprays of saliva and secretions and does not contaminate the hands. SUMMARY The average adult experiences two to three colds per year, while children average 8 to 12 colds peryear. Symptoms of the common cold usually include nasal congestion, runny nose, and sneezing. They typically last for three to seven days, although many people have symptoms (coughing, sneezing, congestion) for up to two weeks. People with colds typically carry the cold virus on their hands, where it can infect another personfor at least two hours. Some cold viruses can live on surfaces (such as a counter top, door handle,or phone) for several hours. Droplets containing viral particles can be breathed, coughed, or sneezed into the air. There is no specific treatment for colds. Treatment may reduce some of the symptoms of the cold, but do not shorten or cure the cold. Antibiotics are not useful for treating the common cold. Hand washing can prevent the spread of infection. Hands should be wet with water and plain soap, and rubbed together for 15 to 30 seconds. Alcohol-based hand rubs are a good alternative for disinfecting hands if a sink is not available documented in this encounterUniversity Hospitals Elyria Medical Center02-21-2025 NoteHNO ID: [id number] Author: FOX ROSALES APRN.BESSY Service: ? Author Type: Nurse Practitioner Type: Progress Notes Filed: 11/09/2024 15:24 Note Text: [facility] Subjective Dao Valdes is a 19 year old year old who presents to [facility] today with complaint of shortness of breath, migraine headaches in the past week and nasal congestion. States she was taking Cold and flu medications this week, and most symptoms except for nasal mucous have improved. States she wants help with migraines. Denies headaches, fever, sore throat, cough, shortness of breath, chest pains, Nausea, vomiting, changes in bowel or bladder or skin rashes. No current medication treatments. Aside from symptoms as described above, patient has no other complaints at this time. HPI: see above Review of Systems Constitutional: Negative for chills, fatigue and fever. HENT: Positive for congestion (mild). Negative for ear pain, postnasal drip, sinus pressure, sore throat and trouble swallowing. Eyes: Negative for pain, discharge and redness. Respiratory: Negative for cough, shortness of breath and wheezing. Cardiovascular: Negative for chest pain, palpitations and leg swelling. Gastrointestinal: Negative for diarrhea, nausea and vomiting. Genitourinary: Negative for dysuria, frequency and urgency. Musculoskeletal: Negative for myalgias. Skin: Negative for rash. Neurological: Positive for headaches. Hematological: Negative for adenopathy. ALLERGIES No Known Allergies Current Outpatient Medications on File Prior to Visit Medication Sig Lactobacillus acidophilus (PROBIOTIC ORAL) Take by mouth. penicillin V potassium (VEETIDS) 250 mg/5 mL suspension Take 250 mg by mouth four times daily. (Patient not taking: Reported on 11/09/2024) polydextrose (CHILDRENS FIBER GUMMY BEAR ORAL) Take by mouth once daily. (Patient not taking: Reported on 11/09/2024) No current facility-administered medications on file prior to visit. ACTIVE PROBLEM LIST Vascular Malformation Peripheral Chronic Abdominal Pain Depression Kidney Stone Colitis Sherley (Acute Kidney Injury) (Hcc) Right Lower Quadrant Abdominal Pain Social History Tobacco Use Smoking status: Never Passive exposure: Never Smokeless tobacco: Never Vaping Use Vaping status: Some Days Substances: Nicotine, THC Substance Use Topics Alcohol use: No Drug use: Yes Comment: thc Objective BP 123/62 (BP Site: Left Arm, BP Position: Sitting, BP Cuff Size: Regular Adult) Pulse 74 Temp 37 ?C (98.6 ?F) (Left Tympanic) Resp 18 Ht 147.3 cm (4' 10") Wt 44.9 kg (98 lb 15.8 oz) LMP 09/27/2024 (Approximate) SpO2 100% BMI 20.69 kg/m? Physical Exam Vitals reviewed. Constitutional: General: She is not in acute distress. Appearance: Normal appearance. She is not ill-appearing or toxic-appearing. HENT: Head: Normocephalic and atraumatic. Right Ear: Tympanic membrane, ear canal and external ear normal. Left Ear: Tympanic membrane, ear canal and external ear normal. Nose: Rhinorrhea (clear fluid in nares) present. Mouth/Throat: Mouth: Mucous membranes are moist. Pharynx: Oropharynx is clear. Eyes: Conjunctiva/sclera: Conjunctivae normal. Pupils: Pupils are equal, round, and reactive to light. Cardiovascular: Rate and Rhythm: Normal rate and regular rhythm. Pulses: Normal pulses. Heart sounds: Normal heart sounds. Pulmonary: Effort: Pulmonary effort is normal. Breath sounds: Normal breath sounds. Abdominal: General: Bowel sounds are normal. Palpations: Abdomen is soft. Musculoskeletal: General: Normal range of motion. Cervical back: Normal range of motion and neck supple. Lymphadenopathy: Cervical: Cervical adenopathy present. Skin: General: Skin is warm and dry. Capillary Refill: Capillary refill takes less than 2 seconds. Findings: Rash (acne- on face) present. Neurological: Mental Status: She is alert and oriented to person, place, and time. Assessment/Plan 1. Headaches (Primary) - Lnzlmaq-Qhdffnjakyjtp-Fmnegtuu (EXCEDRIN MIGRAINE) 250-250-65 mg per tablet; Take 2 tablets by mouth every 6 hours as needed (Headache). Do not exceed 8 tablets per 24 hours Dispense: 16 tablet; Refill: 0 2. Viral URI -Saline Nasal [place] QID -Encouraged to Sleep 8 hours nightly -Encouraged to Stop all energy Drinks and caffeine -Establish with a PCP and discuss symptoms Patient advised to drink fluids, get rest and take all meds as prescribed. Patient given educational materials - see instructions. Discussed use, benefit, and side effects of prescribed medications. All questions answered. Patient advised to follow up with PCP in one week, or sooner if symptoms worsen or persist. If symptoms become severe- GO TO ED. Patient verbalized understanding and agreeable with treatment plan. Fox Rosales APRN, CNP 11/09/2024 3:06 [facility]02-21-2025 History of Present illness Narrative * Fox Rosales APRN.PATIENT DAY COORDINATOR - 11/09/2024 3:06 PM EST Images from the original note were not included. [facility] Subjective Dao Valdes is a 19 year old year old who presents to [facility] today with complaint of shortness of breath, migraine headaches in the past week and nasal congestion. States she was taking Cold and flu medications this week, and most symptoms except for nasal mucous have improved. States she wants help with migraines. Denies headaches, fever, sore throat, cough, shortness of breath, chest pains, Nausea, vomiting, changes in bowel or bladder or skin rashes. No current medication treatments. Aside from symptoms as described above, patient has no other complaints at this time. HPI: see above Review of Systems Constitutional: Negative for chills, fatigue and fever. HENT: Positive for congestion (mild). Negative for ear pain, postnasal drip, sinus pressure, sore throat and trouble swallowing. Eyes: Negative for pain, discharge and redness. Respiratory: Negative for cough, shortness of breath and wheezing. Cardiovascular: Negative for chest pain, palpitations and leg swelling. Gastrointestinal: Negative for diarrhea, nausea and vomiting. Genitourinary: Negative for dysuria, frequency and urgency. Musculoskeletal: Negative for myalgias. Skin: Negative for rash. Neurological: Positive for headaches. Hematological: Negative for adenopathy. ALLERGIES No Known Allergies Current Outpatient Medications on File Prior to Visit Medication Sig Lactobacillus acidophilus (PROBIOTIC ORAL) Take by mouth. penicillin V potassium (VEETIDS) 250 mg/5 mL suspension Take 250 mg by mouth four times daily. (Patient not taking: Reported on 11/09/2024) polydextrose (CHILDRENS FIBER GUMMY BEAR ORAL) Take by mouth once daily. (Patient not taking: Reported on 11/09/2024) No current facility-administered medications on file prior to visit. ACTIVE PROBLEM LIST Vascular Malformation Peripheral Chronic Abdominal Pain Depression Kidney Stone Colitis Sherley (Acute Kidney Injury) (Hcc) Right Lower Quadrant Abdominal Pain Social History Tobacco Use Smoking status: Never Passive exposure: Never Smokeless tobacco: Never Vaping Use Vaping status: Some Days Substances: Nicotine, THC Substance Use Topics Alcohol use: No Drug use: Yes Comment: thc Objective BP 123/62 (BP Site: Left Arm, BP Position: Sitting, BP Cuff Size: Regular Adult) Pulse 74 Temp 37 C (98.6 F) (Left Tympanic) Resp 18 Ht 147.3 cm (4' 10") Wt 44.9 kg (98 lb 15.8 oz) LMP 09/27/2024 (Approximate) SpO2 100% BMI 20.69 kg/m Physical Exam Vitals reviewed. Constitutional: General: She is not in acute distress. Appearance: Normal appearance. She is not ill-appearing or toxic-appearing. HENT: Head: Normocephalic and atraumatic. Right Ear: Tympanic membrane, ear canal and external ear normal. Left Ear: Tympanic membrane, ear canal and external ear normal. Nose: Rhinorrhea (clear fluid in nares) present. Mouth/Throat: Mouth: Mucous membranes are moist. Pharynx: Oropharynx is clear. Eyes: Conjunctiva/sclera: Conjunctivae normal. Pupils: Pupils are equal, round, and reactive to light. Cardiovascular: Rate and Rhythm: Normal rate and regular rhythm. Pulses: Normal pulses. Heart sounds: Normal heart sounds. Pulmonary: Effort: Pulmonary effort is normal. Breath sounds: Normal breath sounds. Abdominal: General: Bowel sounds are normal. Palpations: Abdomen is soft. Musculoskeletal: General: Normal range of motion. Cervical back: Normal range of motion and neck supple. Lymphadenopathy: Cervical: Cervical adenopathy present. Skin: General: Skin is warm and dry. Capillary Refill: Capillary refill takes less than 2 seconds. Findings: Rash (acne- on face) present. Neurological: Mental Status: She is alert and oriented to person, place, and time. Assessment/Plan 1. Headaches (Primary) - Gvuaqol-Jxunnocjrolni-Pgyhgdpv (EXCEDRIN MIGRAINE) 250-250-65 mg per tablet; Take 2 tablets by mouth every 6 hours as needed (Headache). Do not exceed 8 tablets per 24 hours Dispense: 16 tablet; Refill: 0 2. Viral URI -Saline Nasal [place] QID -Encouraged to Sleep 8 hours nightly -Encouraged to Stop all energy Drinks and caffeine -Establish with a PCP and discuss symptoms Patient advised to drink fluids, get rest and take all meds as prescribed. Patient given educational materials - see instructions. Discussed use, benefit, and side effects ofprescribed medications. All questions answered. Patient advised to follow up with PCP in one week, or sooner if symptoms worsen or persist. If symptoms become severe- GO TO ED. Patient verbalized understanding and agreeable with treatment plan. Fox Rosales APRN, CNP 11/09/2024 3:06 PM documented in this encounterUniversity Hospitals Elyria Medical Center06-24-2024 History of Present illness Narrative* Taylor Orellana APRN.BESSY - 03/12/2024 5:23 PM EDT Images from the original note were not included. This note was created using [employer]. Subjective Dao Valdes is a 19 year old female. HPI by patient: Dao is a 19 year old presenting to the office with the complaint of dog bite. 2 puncture wounds to R ring finger from dog bite. Dog has not completed the vaccination process yet. Started approximately yesterday Denies any other concerns Covid Immunization Dates Overdue - Covid-19 Vaccine ( season) Never done No completion, postpone, frequency change, or communication history exists for this topic. ALLERGIES No Known Allergies Family History Reviewed Including Cardiac Diseases, Psychiatric Diseases, & Substance Abuse Problem: Asthma Relation: Mother Age of Onset: (Not Specified) Problem: other (IBS) Relation: Mother Age of Onset: (Not Specified) Problem: other (acid reflux) Relation: Mother Age of Onset: (Not Specified) Problem: Breast Cancer Relation: Paternal Grandmother Age of Onset: (Not Specified) Problem: other (Scleroderma) Relation: Paternal Grandmother Age of Onset: (Not Specified) Problem: Heart Relation: Maternal Grandfather Age of Onset: (Not Specified) Problem: Hypertension Relation: Maternal Grandfather Age of Onset: (Not Specified) Social History Tobacco Use Smoking status: Never Passive exposure: Never Smokeless tobacco: Never Vaping Use Vaping Use: Some days Substances: Nicotine Alcohol use: No Drug use: No Review of Systems Constitutional: Negative. HENT: Negative. Respiratory: Negative. Cardiovascular: Negative. Skin: Positive for wound (R ring finger puncture wounds). Objective BP 106/66 Pulse 76 Resp 16 Wt 49.1 kg (108 lb 3.9 oz) LMP 03/12/2023 (Exact Date) SpO2 99% Physical Exam Vitals and nursing note reviewed. Constitutional: Appearance: She is well-developed. Pulmonary: Effort: Pulmonary effort is normal. Skin: General: Skin is warm and dry. Findings: Wound present. Comments: 2 puncture wounds on R 4th finger., Finger erythematous. No drainage Neurological: Mental Status: She is alert and oriented to person, place, and time. Assessment and Plan ASSESSMENT/PLAN: 1. Animal bite - ICD9: 879.8, E906.5, ICD10: T14.8XXA - Start the Pen VK from your dentist for tooth infection. - ED for any worsening symptoms - MUPIROCIN 2 % TOPICAL OINTMENT Taylor Orellana APRN.CNP Medical Decision Making: Problems: Moderate: New problem with uncertain prognosis Data: Unique source(s) for external note(s) reviewed: 1 Risk: Moderate: Drug management Medical Decision Making Level: 4 - Moderate \\ documented in this encounterUniversity Hospitals Elyria Medical Center07-07-2023 History of Present illness Narrative* Erna Roe RDMS - 03/25/2023 8:30 AM EDT Radiology Service Progress Note PATIENT NAME: Dao Valdes DATE OF SERVICE: March 25, 2023 TIME: 10:16 AM PATIENT IDENTITY VERIFICATION COMPLETED USING TWO (2) IDENTIFIERS: Name and Date of confirmedby patient verbally. FALL SCREENING: Has the patient had 2 falls in the last year or 1 fall with injury or currently using an Ambulatory Assistive Device (Walker, Cane, Wheelchair, Crutches, etc.)? No PATIENT GENDER DATA: Female. status: : No status: NO. PATIENT RELEVANT IMPLANT DATA REVIEWED: Not Applicable RADIOLOGY DEPARTMENT: Ultrasound PERIPHERAL IV DATA: Not applicable SIGNED BY: Erna Roe RDMS RVT March 25, 2023 10:16 AM documented in this encounterUniversity Hospitals Elyria Medical Center07-06-2023 History of Present illness Narrative* Sujit Shaffer Jr., MD - 03/24/2023 8:52 AM EDT ESTABLISHED PATIENT OFFICE VISIT HPI Dao Valdes is a 18 year old female who presents seen on consult in hospital recently for kidney stone. Had appy. Several days later admit for r flank pain. Ct showed 4mm distal r calc. No fever. No uti. Unsure if passed but doing ok. LAB: Creatinine Date Value Ref Range Status 03/15/2023 1.21 (H) 0.58 - 0.96 mg/dL Final No results found for: PSA Glucose, Urine Date Value 03/14/2023 Negative 02/03/2010 neg mg/dL Bilirubin, Urine (no units) Date Value 03/14/2023 Negative 01/01/2010 neg Ketones, Urine (no units) Date Value 03/14/2023 3+ 01/01/2010 neg Specific [place], Ur (no units) Date Value 03/14/2023 >=1.030 01/01/2010 1.005 Hemoglobin/Blood,Ur (no units) Date Value 03/14/2023 1+ 02/03/2010 neg pH, Urine (no units) Date Value 03/14/2023 6.0 02/03/2010 6.5 Protein, Urine Date Value 03/14/2023 2+ 02/03/2010 neg mg/dL Urobilinogen, Urine (EU) Date Value 01/01/2010 normal Nitrites (no units) Date Value 03/14/2023 Negative 01/01/2010 neg Leukocytes (no units) Date Value 01/01/2010 neg WBC, Urine (no units) Date Value 03/14/2023 0-5 /HPF Color/Appearance (comment:) Date Value 02/03/2010 lisa/clear MEDICATIONS: polydextrose (CHILDRENS FIBER GUMMY BEAR ORAL) Take by mouth once daily. REVIEW OF SYSTEMS Review of Systems Constitutional: Negative. Respiratory: Negative. Cardiovascular: Negative. Gastrointestinal: Negative. Genitourinary: Negative. Skin: Negative. Neurological: Negative. Psychiatric/Behavioral: Negative. HISTORIES PAST MEDICAL HISTORY Diagnosis Date Kidney stone 03/18/2023 NEGATIVE MEDICAL HISTORY 2004 normal color vision FAMILY HISTORY Problem Relation Age of Onset Asthma Mother other (IBS) Mother other (acid reflux) Mother Breast Cancer Paternal Grandmother other (Scleroderma) Paternal Grandmother Heart Maternal Grandfather Hypertension Maternal Grandfather SOCIAL HISTORY Social History Tobacco Use Smoking status: Never Passive exposure: Never Smokeless tobacco: Never Vaping Use Vaping Use: Some days Substances: Nicotine Substance Use Topics Alcohol use: No Drug use: No PHYSICAL EXAMINATION General appearance: Well appearing, alert, in no acute distress, and well- hydrated, well nourished Skin: Skin color, texture, turgor normal, no suspicious rashes or lesions Respiratory:+ effort Cardiovascular: Not examined GI: Normal abdominal exam, Abdomen soft, non-tender. No masses, organomegaly Musculoskeletal: Negative Neuro: Negative Genitourinary: not examined Impression: (N20.0) Kidney stone (primary encounter diagnosis) Plan: Renal US If still present then needs laser litho set up Cystoscopy, pyelogram, right laser lithotripsy, right ureteral stent placement All r/b/a of surgery discussed, infection, bleeding, damage to nearby structures, repeat surgery, stent pain/symptoms, , heart attack, stroke, deep vein thrombosis, pulmonary embolus. Patient verbalized understanding and agrees to proceed. Sujit Shaffer Jr, MD 03/24/2023 documented in this encounterUniversity Hospitals Elyria Medical Center06-30-2023 History of Present illness Narrative* Bolivar Barrett MD - 03/18/2023 9:31 AM EDT FOLLOW UP VISIT - APPENDICITIS NAME: Dao [facility] NO.: [id number] DATE OF SERVICE: 03/18/2023 : 2005 REFERRING PHYSICIAN: No primary care provider on file. Dao is a patient I am following for acute appendicitis. I performed a laparoscopic appendectomy on 03/12/2023. The patient's appendix demonstrated acute appendicitis without perforation. The patient did well post operatively and was discharged to home on post operative day 0. The patient currently notes occasional discomfort on incision sites.. her appetite has been good. she denies fever, chills or abdominal pain. she does note some minimal incisional discomfort. Postoperatively the patient had to go back to the emergency department because she had a kidney stone. Pathology report came back as acute appendicitis VITALS: Blood pressure 108/66, pulse 99, temperature 36.3 C (97.4 F), weight 38.1 kg (84 lb), last menstrual period 03/12/2023, SpO2 100 %. On examination, the abdomen is benign. The incisions are healing well without signs of infection orinflammation. There is no right lower quadrant tenderness. Assessment IMPRESSION: status post laparoscopic appendectomy for acute appendicitis PLAN: If the patient notes any problems or signs of wound infections, the patient should contact me immediately. she may return to her regular activities as tolerated. Diagnoses: (Z51.89) Aftercare (primary encounter diagnosis) Return to Clinic: The patient is instructed to follow-up with me as needed. 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 Re-evaluation in 4-6 weeks is recommended if clinically indicated.[facility] HospitalComment on above:Order Comment: Specimen Type: STOOL SPECIMENOrdering Facility: [facility] Address:[address] [place] [address] [place] [address]Ihofwu Comment: On February 08, 2023, [facility] [employer] implemented a new fecal calprotectinmethod, the D[employer] Liaison Calprotectin assay. For assistance with interpretation of results in patients undergoing serial monitoring, contact Client Services at [phone] or [phone] to discuss options, preferably within 7 days of issuing this report. Interpretation: <50.0 ug/g: Normal 50.0 ug/g - 120.0 ug/g: Borderline elevated. Re-evaluation in 4-6 weeks is recommended if clinically indicated. >120.0 ug/g: ElevatedPerformed By: #### [id number] ####[facility] LABLANDRY [id number] [place] [id number] [facility]06-27-2023 NoteHNO ID: [id number] Author: Becky Andrew RN Service: Care Management Author Type: Registered Nurse Type: Care Mgt Initial Assessment Filed: 03/15/2023 11:17 AM Note Text: CARE MANAGEMENT: ASSESSMENT AND DISCHARGE PLAN SERVICE DATE: March 15, 2023 SERVICE TIME: 11:16 AM PCP: No primary care provider on file. Primary Contact: Extended Emergency Contact Information Primary Emergency Contact: Clary Valdes Address: [address] [place] [place] [address] [facility] Mobile Relation: Mother Secondary Emergency Contact: Barrett Valdes Address: [address] [place] [address] [facility] Mobile Relation: Father Admission Status: Observation Insurance Provider: [email or web address] Discharge Planning requested by: Per Department Practice Potential Transition Plans No Services Indicated Advance Directives Current Advance Directive: None Master Brewer Attempted to Assist with AD Completion: No Unable to Assist Due To:: Other: See Comment (Declined) Current Living Arrangements and Support Lives with: Parent Type of Residence: Private Residence (House) Support: Parent How do you manage to accomplish the following: Independent: Ambulation;Bathe/Shower;Dress;Meals/Meal Prep;Going to the bathroom;Medication Management;Transportation to appointments/community Current Services/Equipment Current Post-Acute Service(s): None Discharge Planning Patient Goal(s): General wellness, Be able to go home [place] of Choice Explained: [place] of Choice Given: No Reason Not Given: No placements necessary Are you interested in bedside delivery of your medications? No Discharge Planning Participant(s): Patient Caregiver Assessment: Caregiver is ready, willing and able to meet the patient's needs as recommended by the inter-professional team: No Caregiver needed Transport at Discharge: Transportation Arrangements: Car Needs Prior to Discharge: Needs Prior to Discharge: Other: See Comment (Medical Clearance) Post-Acute Discharge Plan: This patient has been screened for Care Management Transitional Planning Services. At this time it does not appear this patient will require transition planning services. Should this change, and the patient requires transition planning services coordinated during this admission (ie SNF placement, Home Care, IV ATB?s, Home Oxygen), please call the Slasher Hand covering this patient. SIGNATURE: Becky Andrew RN PATIENT NAME: Dao Valdes DATE: March 15, 2023 TIME: 11:15 AM CONTACT #: [phone] Miscellaneous Notes* Telephone Encounter - Bahman Cazares - 03/15/2023 11:51 AM EDT [facility]. * Telephone Encounter - Bahman Cazares - 03/15/2023 11:28 AM EDT Darius, are you able to help find a placement spot for this FU? * Telephone Encounter - Sujit Shaffer Jr., MD - 03/15/2023 11:21 AM EDT Romero consult Fu with me 1-2 weeks documented in this encounterUniversity Hospitals Ely[facility]06-27-2023 NoteHNO ID: [id number] Author: Deidre Abdalla APRN.PATIENT DAY COORDINATOR Service: General Internal Medicine Author Type: Nurse Practitioner Type: Progress Notes Filed: 03/15/2023 1:38 AM Note Text: INTERNAL MEDICINE PROGRESS NOTE SERVICE DATE: 03/15/2023 SERVICE TIME: 0110 Primary Attending: Dr. Vadim Montoya MD Subjective CHIEF COMPLAINT: Abdominal Pain (lower abd pain radiating to back, urinary frequency since before appendectomy 2 days ago. Just finished menstrual cycle. Reports inability to tolerate PO) HPI: This is a 18 year old female with relatively no past medical history, who presents to the emergency department from home with above complaints. Began having lower abdominal pain a few days ago, thought it was due to her menstrual cycle. Was seen in ED Tuesday, ended up having appendectomy that day. Continued to have pain that spread to her back and is now traveling upwards. Reports associated nausea, inability to tolerate oral intake, and diarrhea. Has also noticed dysuria with increased frequency and "droplets of blood" after urinating. Denies fever or chills. Labs drawn in ED show acute renal insufficiency with sCr of 1.17. BUN normal at 11. CBC positive for mild leukocytosis, WBC 11.74. UA with 2+ protein, 3+ ketones, 1+ hgb, 3-5 RBC; no leuks, WBC, or nitrites. CT of the abdomen and pelvis read as: 1. Postoperative findings of recent appendectomy with scattered intra-abdominal gas which is likely related to the recent surgery. 2. Findings in the sigmoid colon and descending colon which can be seen in colitis, infectious versus inflammatory. 3. Moderate right hydroureteronephrosis. Calculus lying in the region of the right posterior urinary bladder could represent a bladder calculus versus right distal ureteral calculus versus vascular calcification. 4. Nonspecific pericholecystic fluid and periportal edema. Small free fluid in the pelvis." Patient has been afebrile, vitals stable. She was administered toradol for pain, 1 liter of NS, and started on ceftriaxone and metronidazole. Will be admitted for observation. PAST MEDICAL HISTORY Diagnosis Date NEGATIVE MEDICAL HISTORY 2004 normal color vision Prior to Admission Medications Prescriptions Last Dose Informant Patient Reported? Taking? drospirenone-e.estradiol-lm.FA (BEYAZ) 3-0.02-0.451 mg (24) (4) tab No No Sig: Take 1 tablet by mouth once daily. Patient not taking: Reported on 07/27/2022 oxyCODONE-acetaminophen (PERCOCET) 5-325 mg tablet No No Sig: Take 1 tablet by mouth every 6 hours as needed for up to 5 days. Facility-Administered Medications: None Review of Systems Constitutional: Negative for activity change, chills, fatigue and fever. HENT: Negative for congestion and sore throat. Respiratory: Negative for chest tightness, wheezing and dyspnea. Cardiovascular: Negative for chest pain, palpitations and leg swelling. Gastrointestinal: Positive for abdominal pain, diarrhea and nausea. Negative for abdominal distention and vomiting. Genitourinary: Positive for dysuria, flank pain, frequency, hematuria and urgency. Negative for difficulty urinating. Musculoskeletal: Positive for back pain. Neurological: Positive for dizziness. Negative for weakness, light-headedness, numbness and headaches. Psychiatric/Behavioral: Negative for agitation, behavioral problems and confusion. Objective Physical Exam Vitals and nursing note reviewed. Constitutional: General: She is awake. She is not in acute distress. Appearance: Normal appearance. She is normal weight. She is not ill-appearing. HENT: Head: Normocephalic and atraumatic. Nose: Nose normal. Mouth/Throat: Mouth: Mucous membranes are moist. Eyes: Conjunctiva/sclera: Conjunctivae normal. Pupils: Pupils are equal, round, and reactive to light. Cardiovascular: Rate and Rhythm: Normal rate and regular rhythm. Pulses: Normal pulses. Heart sounds: Normal heart sounds. No murmur heard. Pulmonary: Effort: Pulmonary effort is normal. No respiratory distress. Breath sounds: Normal breath sounds. No wheezing. Abdominal: General: Abdomen is flat. Bowel sounds are normal. There is no distension. Palpations: Abdomen is soft. Tenderness: There is abdominal tenderness in the right lower quadrant and left lower quadrant. There is no guarding or rebound. Comments: Appendectomy incisions noted. Well approximated edges, no erythema, no swelling Musculoskeletal: General: Normal range of motion. Cervical back: Normal range of motion and neck supple. Right lower leg: No edema. Left lower leg: No edema. Skin: General: Skin is warm and dry. Capillary Refill: Capillary refill takes less than 2 seconds. Neurological: General: No focal deficit present. Mental Status: She is alert and oriented to person, place, and time. GCS: GCS eye subscore is 4. GCS verbal subscore is 5. GCS motor subscore is 6. Sensory: Sensation is intact. 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 Staffing INTERNET SALES DIRECTOR: Sujit Zapata APRN.INTERNET SALES DIRECTOR Performed by: ARINA Indications and Patient Condition Indications for airway management: anesthesia Preoxygenated: yes anesthesia circuit Patient position: sniffing Method: asleep Cricoid Pressure: No Manual In-Line Stabilization: No Difficult Mask: No Final Airway Details Final airway type: endotracheal airway Final Endotracheal Airway: ETT Cuffed: yes Successful intubation technique: direct laryngoscopy Endotracheal tube insertion site: oral Blade: Bahman Blade size: #3 ETT size (mm): 6.5 Measured from: lips Measurement (cm): 19 Placement verified by: capnometry Cormack-Lehane Classification: grade I - full view of glottis Number of attempts at approach: 1 Failed airway: no Unrecognized esophageal intubation: no Airway not difficult SIGNATURE: Sujit Zapata APRN.CRNA PATIENT NAME: Dao Valdes DATE: March 12, 2023 TIME: 5:10 PM CSN: [id number] History of Past illness Narrative* Problem Noted Date Resolved Date Acute appendicitis with generalized peritonitis 03/12/2023 03/12/2023 Sever's apophysitis 12/24/2016 09/07/2018 Swelling of right hand 11/03/2015 7 Anxiety 12/14/2013 03/24/2017 Poor weight gain (0-17) 04/04/2012 03/24/20 17 Hemangioma of skin and subcutaneous tissue 02/0704/04/2012 Pain in limb 11/05/2006 02/07/2007 documented as of this encounter (statuses as of 03/15/2023) [facility] History of Past illness Narrative* Problem Noted Date Resolved Date Acute appendicitis with generalized peritonitis 03/12/2023 03/12/2023 Sever's apophysitis 12/24/2016 09/07/2018 Swelling of right hand 11/03/2015 7 Anxiety 12/14/2013 03/24/2017 Poor weight gain (0-17) 04/04/2012 03/24/20 17 Hemangioma of skin and subcutaneous tissue 02/0704/04/2012 Pain in limb 11/05/2006 02/07/2007 documented as of this encounter (statuses as of 03/18/2023) [facility] History of Past illness Narrative* Problem Noted Date Resolved Date Acute appendicitis with generalized peritonitis 03/12/2023 03/12/2023 Sever's apophysitis 12/24/2016 09/07/2018 Swelling of right hand 11/03/2015 7 Anxiety 12/14/2013 03/24/2017 Poor weight gain (0-17) 04/04/2012 03/24/20 17 Hemangioma of skin and subcutaneous tissue 02/0704/04/2012 Pain in limb 11/05/2006 02/07/2007 documented as of this encounter (statuses as of 03/24/2023) [facility] History of Past illness Narrative* Problem Noted Date Diagnosed Date Resolved Date Acute appendicitis with gene ralized peritonitis 03/12/2023 03/12/2023 Sever's apophysitis 12/24/2016 09/07/20 18 Swelling of right hand 11/03/201512/24 Anxiety 12/14/2013 03/24/2017 Poor weight gain (0-17) 04/04/2012 0702/2017 Hemangioma of skin and subcutaneous tissue 02/07/2007 04/04/2012 Pain in limb 11/05/2006 02/07/2007 documented as of this encounter (statuses as of 07/21/2023) [facility] History of Present illness Narrative* Taylor Orellana APRN.CNP - 03/12/2023 11:53 AM EDT Pt presented to c/o RLQ ab pain. Had taken IBU and no relief. She notes she had diarrhea yesterday and today. appetite and nausea. Also notes she is on her menses. Based on location of abdominal pain I recommend she present to the ER for evaluation. documented in this encounterUniversity Hospitals Ely[facility]12-20-2022 History of Present illness Narrative* Rajani Peterson MD - 09/07/2022 1:02 PM EST Patient brought in today by self presents today with tender and enlarged LN at anterior neck. Noticed 1-2 days ago. Had a URI a few weeks ago. ROS Gen: no fever or wt loss HEENT: no nasal drainage or ST Resp; no cough GENERAL: alert and active in no apparent distress EYES: conjunctiva clear, no drainage EARS: Right color pale, light reflex normal, Left color pale, light reflex normal NOSE/SINUSES : no drainage OROPHARYNX:moist mucous membranes, tonsils without hypertrophy, and no exudates present NECK: supple, small, benign anterior cervical node Right (Approx 1cm long), no other palpable cervical, supraclavicular or suprasternal LNs CARDIOVASCULAR : Regular Rate and Rhythm without murmurs or clicks LUNGS: clear to auscultation ASSESSMENT: Reactive Lymph node PLAN: Pt reassured - recommend recheck for LN> 2cm or other concerning Sx. Rajani Peterson MD documented in this encounterUniversity Hospitals [facility]ly[facility]10-28-2022 Miscellaneous Notes* Telephone Encounter - Vinay Hargrove RN - 07/16/2022 2:00 PM EDT Filed in medical records. Vinay Hargrove RN * Telephone Encounter - Felix Harkins RN - 07/14/2022 11:09 AM EDT [facility]. Verified with patient, does need additional work permit, states "I have a 2nd job at [employer]". Last [facility] 06-05-22. 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 * Telephone Encounter - Rajani Peterson MD - 07/05/2022 5:26 PM EDT Form signed Rajani Peterson MD * Telephone Encounter - Ele Zuluaga LPN - 07/05/2022 12:17 PM EDT Type of form: Work Permit Form received via walk in When form is completed, call mom at [phone] Form has been forwarded to Physician Desk: Dr. Nicholas Zuluaga LPN documented in this encounterUniversity Hospitals Ely[facility] Center09-17-2022 History of Present illness Narrative* Rajani Peterson MD - 06/05/2022 10:11 AM EDT WELL VISIT PEDIATRIC FEMALE 14-17 YRS OLD SERVICE DATE: 06/05/2022 Dao is a 17 year old female who presents today for well exam. SUBJECTIVE CONCERNS: no concerns HISTORY ACTIVE PROBLEM LIST Depression - 01/15/2019 Justin (Generalized Anxiety Disorder) - 03/10/2018 Chronic Abdominal Pain - 03/10/2018 Vascular Malformation Peripheral - 11/03/2015 PAST MEDICAL HISTORY Diagnosis Date NEGATIVE MEDICAL HISTORY 2004 normal color vision PAST SURGICAL HISTORY Procedure Laterality Date NONE ALLERGIES No Known Allergies Medications: mirtazapine (REMERON) 15 mg tablet Take 15 mg by mouth daily at bedtime. ProAir RespiClick 90 mcg/actuation breath activated (albuterol sulfate) Inhale 2 Puffs as instructed every 4 hours as needed. drospirenone-e.estradiol-lm.FA (BEYAZ) 3-0.02-0.451 mg (24) (4) tab Take 1 tablet by mouth once daily. FAMILY HISTORY Problem Relation Age of Onset Asthma Mother other (IBS) Mother other (acid reflux) Mother Breast Cancer Paternal Grandmother other (Scleroderma) Paternal Grandmother Heart Maternal Grandfather Hypertension Maternal Grandfather Social History Social History Narrative Not on file Smoking Exposure: Does your child spend a significant amount of time in the care of anyone who smokes? No School: Grade: 12th; grades A-B. Physical Activity: more than 1 hour of physical activity per day Screen Time totaling more than 2 hours of screen time per day. Safety: Pediatric SDOH - Response to gun questions 06/04/2022 Are there any guns kept in or around your home or where your child spends time? Yes Are they stored unloaded or locked away? Yes Diet: -Eats 3 meals per day and 2 snacks per day -Typical beverages include sugar containing beverages -Fruits and vegetables are eaten with nearly every meal -# of fast food meals/week: 4 -# of days/week that family has dinner together: 0 Elimination: no concerns, normal size and consistency Dental: dental care current Sleep: -no sleep concerns Gynecological history: LMP: 05/27/2022 Cycles are regular and last 6-7 days. Dysmenorrhea: severe Heavy periods: yes Substance use: none High risk behaviors: none Sexual History: Attraction: male Sexually Active: No Screening tools reviewed and discussed with patient/eljzgh-VOA-G and Social Determinants of Health.Please see Patient Entered Data. REVIEW OF SYSTEMS GENERAL: No fevers EYES: No vision concerns, Wears corrective lenses, and Vision screening completed by eye doctor ENT: No hearing concerns RESPIRATORY: Negative for cough, wheezing or respiratory distress CARDIOVASCULAR: Negative for chest pain, syncope, lightheadness or heart racing SKIN: Negative for lesions, rash, and itching ENDOCRINE: No growth concerns OBJECTIVE Physical Exam: BP 110/62 Pulse 84 Temp 36.7 C (98.1 F) (Temporal Artery) Resp 16 Ht 147.8 cm (4' 10.19") Wt 39.9 kg (88 lb) LMP 05/27/2022 (Exact Date) BMI 18.27 kg/m Blood pressure percentiles are 67 % systolic and 44 % diastolic based on the 2017 AAP Clinical Practice Guideline. This reading is in the normal blood pressure range. 13 %ile (Z= -1.12) based on CDC (Girls, 2-20 Years) BMI-for-age based on BMI available as of 06/05/2022. Last BMI: Wt: 39.5 kg (87 lb) (<1 %, Z= -2.91)* BMI: 18.18 kg/(m^2) Last 4 Encounter Wt Readings: Date: Wt: 04/04/2022 39.5 kg (87 lb) (<1 %, Z= -2.91)* 02/04/2022 41.1 kg (90 lb 8 oz) (<1 %, Z= -2.42)* 02/03/2022 40.8 kg (90 lb) (<1 %, Z= -2.48)* 06/28/2021 44.4 kg (97 lb 12.8 oz) (7 %, Z= -1.49)* Last 4 Encounter Ht Readings: Date: Ht: 02/03/2022 147.3 cm (4' 10") (<1 %, Z= -2.41)* 06/18/2020 147.9 cm (4' 10.23") (1 %, Z= -2.21)* 03/20/2020 146.7 cm (4' 9.76") (<1 %, Z= -2.37)* 04/20/2019 146.6 cm (4' 9.72") (1 %, Z= -2.18)* General: Well developed, No acute distress Head: normocephalic Eyes: conjunctivae/corneas clear Ears: normal external ear and canal, tympanic membranes with normal landmarks Nose: no erythema or rhinorrhea Oropharynx: moist mucous membranes, no erythema or exudate Neck: Supple, no adenopathy; thyroid symmetric, normal size, no bruits Spine: Back symmetric, no curvature Resp: lungs clear to auscultation Heart: RRR, normal S1 and S2. , No murmurs Abdomen: Soft, nontender, nondistended, no palpable organomegaly or masses, normal bowel sounds Extremities: No clubbing, cyanosis, or edema., No deformities or skin discoloration. Good capillaryrefill. Full range of motion. Neuro: No focal deficits or abnormal findings present Skin: no rashes, lesions or jaundice ASSESSMENT & PLAN Well 17yo Anxiety - managed by Dr. Weiss 13 %ile (Z= -1.12) based on CDC (Girls, 2-20 Years) BMI-for-age based on BMI available as of 06/05/2022. Dao is normal weight (BMI 5th% - 84th%): -To maintain a healthy weight, discussed limiting screen time to less than 2 hours per day, physical activity for at least one hour per day, 5 servings of fruits and vegetables per day, 3 meals per day, family meals ar home and no sugar containing beverages - Adolescent anticipatory guidance discussed. - Discussed diet and safety. - Dental care discussed. - Bright Futures handout given (See Patient Instructions). - Parent/guardian was counseled [id number] by myself (the billing provider) for the following immunizations and vaccine components, including side effects: MenQuadFi. Parent/guardian consents for immunization and understands risks and benefits. A VIS sheet on each immunization was given to the parent/guardian. - Follow up in one year for routine physical. SIGNATURE: Rajani Peterson MD PATIENT NAME: Dao Valdes DATE: June 05, 2022 TIME: 10:11 AM documented in this encounterUniversity Hospitals Ely[facility] Center07-17-2022 Instructions* Patient Instructions* Gaby Jones PA-C - 04/04/2022 3:19 PM EDT Images from the original note were not included. Urinary Problem-When to Seek Help? Symptoms of a urinary problem may lead to a bladder infection. Women are at greater risk of a urinary tract infection than are men. Most urinary tract infections in women are caused by bacteria and involve the lower urinary tract including the bladder and urethra. Symptoms: Pain or burning when passing urine, urgency, frequency, blood in the urine, difficult emptying your bladder, and lower abdominal fullness or pressure. Common Causes: Sexual intercourse, menopause, constipation, uncontrolled diabetes, dehydration and feminine products such as tampons, and kidney stones. When to Get Help: Seek medical attention if you get frequent bladder infections, urinary concerns such as leakage, blood in the urine or frequent need to urinate. You may be recommended to get help from a specialist, such as a urologist. Diagnosis & Treatment: Lab testing may include: urinalysis, and urine culture that can be collected in the lab or walk-in clinic. Most bladder infections can easily be treated. A physician, nurse practitioner or physician family and divorce legal assistant may treat with a short course of an antibiotic. Delaying treatment can lead to worsening symptoms, like a kidney infection. Self-Care: Avoid a full bladder, bubble baths, bath oils, food and beverages that may irritate the bladder such as caffeine. Avoid spermicide foam and diaphragms Void before and after sexual intercourse Wipe front to back after using the bathroom. Stay hydrated Stop Smoking Follow-up Care: Follow up testing is not needed in healthy young women if symptoms resolve. documented in this encounterUniversity Hospitals Ely[facility] Center07-17-2022 History of Present illness Narrative* Gaby Jones PA-C - 04/04/2022 3:03 PM EDT Subjective Dao Valdes is a 17 year old female with a past medical history of anxiety and depression who presents to [facility] today for evaluation of dysuria, hematuria, and lower abdominal pressure that began 2 days ago. She denies any fevers, sweats, chills, nausea, vomiting, abdominal pain, or flank pain. Review of Systems Constitutional: Negative for chills, diaphoresis and fever. Respiratory: Negative for cough and shortness of breath. Gastrointestinal: Positive for abdominal pain (lower abdominal pressure). Negative for constipation, diarrhea, nausea and vomiting. Genitourinary: Positive for dysuria and hematuria. Negative for difficulty urinating, flank pain, frequency and urgency. Skin: Negative for rash and wound. All other systems reviewed and are negative. Objective BP 109/74 Pulse 76 Resp 18 Wt 39.5 kg (87 lb) LMP 04/01/2022 SpO2 99% Physical Exam Vitals reviewed. Constitutional: General: She is not in acute distress. Appearance: Normal appearance. She is normal weight. She is not ill-appearing or toxic-appearing. Comments: The patient appears to be non-toxic, in no acute distress, and resting comfortably on a chair. HENT: Head: Normocephalic and atraumatic. Eyes: Extraocular Movements: Extraocular movements intact. Cardiovascular: Rate and Rhythm: Normal rate and regular rhythm. Heart sounds: Normal heart sounds. No murmur heard. No friction rub. No gallop. Pulmonary: Effort: Pulmonary effort is normal. No respiratory distress. Breath sounds: Normal breath sounds. No wheezing. Abdominal: General: There is no distension. Palpations: Abdomen is soft. There is no mass. Tenderness: There is no abdominal tenderness. There is no right CVA tenderness, left CVA tendernessor guarding. Musculoskeletal: General: Normal range of motion. Cervical back: Normal range of motion. Skin: General: Skin is warm and dry. Findings: No erythema or rash. Neurological: General: No focal deficit present. Mental Status: She is alert and oriented to person, place, and time. Mental status is at baseline. Psychiatric: Mood and Affect: Mood normal. Behavior: Behavior normal. Thought Content: Thought content normal. Assessment and Plan UA consistent with urinary tract infection. Urine culture obtained. Results discussed with patient.Patient counseled regarding suspected diagnosis and given a prescription for Macrobid. Patient advised to follow-up with her primary care provider as needed for any new or worsening symptoms. ASSESSMENT/PLAN: 1. Leukocytes in urine - ICD9: 791.7, ICD10: R82.998 (primary diagnosis) - URINE CULTURE - NITROFURANTOIN MONOHYDRATE & MACROCRYSTAL 100 MG ORAL CAP 2. Dysuria - ICD9: 788.1, ICD10: R30.0 - UA DIP B/O 3. Gross hematuria - ICD9: 599.71, ICD10: R31.0 4. Abdominal pressure - ICD9: 789.00, ICD10: R10.9 Medical Decision Making: Problems: Low: Acute, uncomplicated illness or injury Risk: Minimal: Minimal risk from testing/treatment Moderate: Drug management Medical Decision Making Level: 3 - Low I spent a total of 20 minutes on the date of the service which included preparing to see the patient, [id number] patient care, completing clinical documentation, performing a medically appropriate examination, counseling and educating the patient/family/caregiver and ordering medications, tests, or procedures. documented in this encounterUniversity Hospitals [facility]05-19-2022 History of Present illness Narrative* Kenroy Navarrete MD - 02/04/2022 1:48 PM EDT Dao Valdes is a 17 year old female who presents for irregular bleeding following Plan B. HPI: She normally has reg periods lasting 6 days, requiring 7 tampons/d on the heaviest day. She c/o painful periods. She has been sexually active with no contraception. OB History No obstetric history on file. Chief Psychology History LMP: 01/18/2022 (Approximate), Having periods Age at Menarche: Age at First : Age at Menopause: Chief Psychology History Comments: Sexual Activity: Not Asked; No partner data on record Contraception: No contraception data on record PAST MEDICAL HISTORY Diagnosis Date NEGATIVE MEDICAL HISTORY 2004 normal color vision PAST SURGICAL HISTORY Procedure Laterality Date NONE FAMILY HISTORY Problem Relation Age of Onset Asthma Mother other (IBS) Mother other (acid reflux) Mother Breast Cancer Paternal Grandmother other (Scleroderma) Paternal Grandmother Heart Maternal Grandfather Hypertension Maternal Grandfather Social History Tobacco Use Smoking status: Never Smoker Smokeless tobacco: Never Used Substance Use Topics Alcohol use: No Drug use: No Current Outpatient Medications Medication Sig mirtazapine (REMERON) 15 mg tablet Take 15 mg by mouth daily at bedtime. ProAir RespiClick 90 mcg/actuation breath activated (albuterol sulfate) Inhale 2 Puffs as instructed every 4 hours as needed. drospirenone-e.estradiol-lm.FA (BEYAZ) 3-0.02-0.451 mg (24) (4) tab Take 1 tablet by mouth once daily. No current facility-administered medications for this visit. Allergies As of Date: 02/04/2022 (No Known Allergies) Fully Assessed 02/04/2022 REVIEW OF SYSTEMS Abdomen: No bloating, early satiety, indigestion, or increased flatulence. No abdominal pain, nausea, vomiting, diarrhea, or constipation. Bladder: No dysuria, gross hematuria, urinary frequency, urinary urgency, or incontinence. Breast: No breast lumps, nipple d/c, overlying skin changes, redness or skin retraction. Expanded ROS: N/A Allergies and current medication updated:Yes EXAM: BP 82/50 Wt 90 lb 8 oz (41.1kg) LMP 01/18/2022 GENERAL: pleasant, female in no apparent distress HEENT: Normocephalic, atraumatic, mucus membranes moist and no lesions NECK: Supple, full range of motion, no adenopathy and thyroid normal DERMATOLOGY: Normal, without lesions, non-icteric and non-hirsute BREAST: soft, non-tender, symmetric, no dominant mass, normal nipple-areolar complex, no lymphadenopathy and no nipple discharge CHEST: Normal inspiratory effort ABDOMEN: soft, non-tender and no masses PELVIC: external genitalia normal, normal Bartholin's glands, urethra, [place]'s glands, no vulvar lesions, no cervical lesions, good vaginal support, physiologic discharge present, normal appearing perineal body and perianal region BIMANUAL: uterus normal size, shape and consistency, no adnexal masses and non-tender NEURO: alert and oriented x3,exam grossly non-focal EXTREMITIES: normal ASSESSMENT AND PLAN: Encounter Diagnosis ICD-10-CM 1. control counseling Z30.09 2. Intermenstrual bleeding N92.3 1- I reassured the pt that this bleeding is related to the Plan B. 2- I believe that she needs to be on a consistent control method rather than using Plan B. 3- OCPs will be a good choice since they will also help with her menorrhagia and dysmenorrhea. 4- Alternatively, contraceptive patches or progestin-IUDs can be considered. I have spent 45 minutes with the patient during history taking, exam, review of chart, documentation in the chart, education, counselling and medical decision making. Kenroy Navarrete MD documented in this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
[2025-07-29 19:56] VITALS: BP 128/78; PULSE 83; RESP 16; TEMP 36.7; O2SAT 90; O2SAT 96
[2025-07-29] MEDS: 0.9% Normal Saline Single 100 ML IV.SOLN. INTRA-UTER (20:00)
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
[2025-07-29] MEDS: Lactated Ringers 1,000 ML 50 ML IV (20:35)
[2025-07-29 21:16] LABS: Hematocrit 27.7 % (37-47); Hemoglobin 8.8 g/dL (12.0-15.0); Immature Granulocytes Count 0.110 X10^3/uL (0.0-0.0); Mean Corp Hgb Conc 31.8 g/dL (32-36); Mean Corpuscular Volume 81.0 fL (81-99); Mean Platelet Vol. 12.6 fl (6.2-12.0); NRBC Flagged by Analyzer 0 % (0-5); Platelet Count 174 K/mm3 (150-450); RBC Distribution Width CV 19.4 % (11.6-14.6); RBC Distribution Width SD 51.8 fl (35.1-43.9); Red Blood Count 3.42 M/mm3 (4.2-5.4); White Blood Count 10.3 K/mm3 (4.4-11.0)
[2025-07-29 21:28] LABS: Syphilis Antibodies Nonreactive (Nonreactive)
[2025-07-29 23:27] VITALS: BP 139/81; PULSE 57; RESP 16; TEMP 36.6
[2025-07-30] VITALS (58 sets, daily range): BP systolic 118–175; BP diastolic 60–100; PULSE 55–98; RESP 14–26; TEMP 36.2–37.8; O2SAT 94–100
[2025-07-30] MEDS: LACTATED RINGERS 500 ML 999 ML IV ×2 (01:03→12:44)
[2025-07-30] MEDS: Lactated Ringers 1,000 ML 999 ML IV (02:55)
[2025-07-30] MEDS: fentaNYL-bupivacaine (epidural) 100 ML BAG EPIDURAL ×3 (03:40→14:00)
[2025-07-30] MEDS: Lactated Ringers 1,000 ML 200 ML IV ×3 (04:28→14:00)
[2025-07-30 06:49] LABS: ROM Internal Control Test YES-OK TO RESULT pt. (Internal QC); ROM Patient Test POSITIVE (Negative); Record Kit Lot#, ROM+ K3607
[2025-07-30] MEDS: Penicillin G Pot 5,000,000 UNITS in 0.9% Normal Saline (100mL MB+) 100 ML 150 UNITS IV (07:49)
--- NOTE | 2025-07-30 08:41 | PCM.PN.OB ---
Subjective Subjective Resting in bed comfortable with epidural. Partner at bedside. Objective Data Objective Data Vital Signs: Vital Signs Temp Pulse Resp BP Pulse Ox 98.0 F 70 15 130/71 H 100 07/30/25 07:54 07/30/25 07:53 07/30/25 07:54 07/30/25 07:53 07/30/25 07:54 Weight: 129 lb 13.636 oz Body Mass Index (BMI) 27.1 Intake & Output: Intake and Output for Last 24 Hours 07/28/25 07/29/25 07/30/25 23:59 23:59 23:59 Intake Total 503.67 / 503.67 2787.5 / 2787.5 Balance 503.67 / 503.67 2787.5 / 2787.5 Lab / Micro Data 07/29/25 21:10 Labs: Laboratory Results - last 24 hr 07/29/25 20:20: WBC Cancelled, Corrected WBC Cancelled, RBC Cancelled, Hgb Cancelled, Hct Cancelled, MCV Cancelled, MCH Cancelled, MCHC Cancelled, RDW Std Deviation Cancelled, RDW Coeff of Merna Cancelled, Plt Count Cancelled, MPV Cancelled, Immature Gran % (Auto) Cancelled, Neut % (Auto) Cancelled, Lymph % (Auto) Cancelled, Menard % (Auto) Cancelled, Eos % (Auto) Cancelled, Baso % (Auto) Cancelled, Absolute Neuts (auto) Cancelled, Absolute Lymphs (auto) Cancelled, Total Counted Cancelled, Neutrophils % (Manual) Cancelled, Band Neutrophils % Cancelled, Lymphocytes % (Manual) Cancelled, Monocytes % (Manual) Cancelled, Eosinophils % (Manual) Cancelled, Basophils % (Manual) Cancelled, Metamyelocytes % Cancelled, Myelocytes % Cancelled, Promyelocytes % Cancelled, Blast Cells % Cancelled, Plasma Cell % (Manual) Cancelled, Other Cells % Cancelled, Nucleated RBC % Cancelled, Nucleated RBCs/100 WBC Cancelled, Differential Comment Cancelled, Diff Path Review Cancelled, Hypersegmented Neuts Cancelled, Atypical Lymphocytes Cancelled, Reactive Lymphocytes Cancelled, Smudge Cells Cancelled, Toxic Granulation Cancelled, Toxic Vacuolation Cancelled, Dohle Bodies Cancelled, Shawn Rods Cancelled, Platelet Estimate Cancelled, Plt Morphology Comment Cancelled, RBC Morphology Cancelled 07/29/25 20:20: RBC Morphology Cancelled, Polychromasia Cancelled, Hypochromasia Cancelled, Basophilic Stippling Cancelled, Anisocytosis Cancelled, Microcytosis Cancelled, Macrocytosis Cancelled, Spherocytes Cancelled, Sickle Cells Cancelled, Target Cells Cancelled, Tear Drop Cells Cancelled, Ovalocytes Cancelled, Stomatocytes Cancelled, Le[place]anc[place] Bodies Cancelled, [place] Cells Cancelled, Bite Cells Cancelled, Crenated Cell Cancelled, Acanthocytes (Spur) Cancelled, Rouleaux Cancelled, Schistocytes Cancelled, Syphilis Total Ab Nonreactive, Blood Type B POSITIVE, Antibody Screen NEGATIVE 07/29/25 21:10: WBC 10.3, RBC 3.42 L, Hgb 8.8 L, Hct 27.7 L, MCV 81.0, MCH 25.7 L, MCHC 31.8 L, RDW Std Deviation 51.8 H, RDW Coeff of Merna 19.4 H, Plt Count 174, MPV 12.6 H, Immature Gran % (Auto) 1.100 H, Neut % (Auto) 75.7 H, Lymph % (Auto) 15.5 L, [place]ard % (Auto) 5.8, Eos % (Auto) 1.6, Baso % (Auto) 0.3, Absolute Neuts (auto) 7.8 H, Absolute Lymphs (auto) 1.59, Nucleated RBC % 0 07/30/25 06:15: Vag Amniotic Fld Detect POSITIVE H Physical Exam Manual OB Exam: estimated gestational size appropriate, presentation cephalic, dilated 4, effaced 80, station -1 and other AROM, small amount of clear fluid NST FHR Rate Baby A Baseline: 135 Variability:: Moderate Accelerations:: 15 x 15 Decelerations:: Variable FHR Category:: Category II Uterine Activity:: every 2 minutes, strong Assessment & Plan (1) Elective induction of labor planned: (2) Nulliparity: (3) Anemia affecting : (4) 40 weeks gestation of : PLAN: Plan 1) Continue active management. AROM. No Pitocin at this time as neal. 2) Continuous EFM 3) Continuous EFM 4) collaborative physician and notified of patient status, above assessment, and plan.
[2025-07-30] MEDS: Penicillin G 3,000,000 Units 50 ML 100 UNITS IV ×2 (12:08→16:28)
[2025-07-30 15:17] LABS: Hematocrit 32.0 % (37-47); Hemoglobin 10.5 g/dL (12.0-15.0); Mean Corp Hgb Conc 32.8 g/dL (32-36); Mean Corpuscular Volume 80.6 fL (81-99); Mean Platelet Vol. 12.5 fl (6.2-12.0); POSITIVE MORPHOLOGY YES; Platelet Count 170 K/mm3 (150-450); RBC Distribution Width CV 20.2 % (11.6-14.6); RBC Distribution Width SD 55.6 fl (35.1-43.9); Red Blood Count 3.97 M/mm3 (4.2-5.4); White Blood Count 20.0 K/mm3 (4.4-11.0)
[2025-07-30 15:46] LABS: AST(SGOT) 27 U/L (<=31); Alanine Aminotransfer ALT/SGPT 13 U/L (<=34); Albumin, Serum 3.3 g/dL (3.5-5.0); Alkaline Phosphatase 199 U/L (35-104); Anion Gap 11 (5-15); BUN 9 mg/dL (4-19); BUN/Creat Ratio 10.2 RATIO (10-20); Calcium,Total 8.8 mg/dL (7.6-11.0); Carbon Dioxide 20.7 mmol/L (21.0-32.0); Chloride 105 mmol/L (98-108); Estimated Creatinine Clearance 79.18 ml/min (50-250); Globulin 2.8 g/dL (2.2-4.2); Glucose 70 mg/dL (70-99); Potassium 4.1 mmol/L (3.3-5.1); Uric Acid 6.2 mg/dL (2.6-6.0)
[2025-07-30 15:50] LABS: Scan Indicated on CBC? Y/N YES- FLAGS NOTED
--- NOTE | 2025-07-30 17:46 | PN.OBGYN_ITS ---
Subjective Subjective Resting on left side in bed. Pain in neck and upper back. Tearful. Partner and mother at bedside. Objective Data Objective Data Vital Signs: Vital Signs Temp Pulse Resp BP Pulse Ox O2 Del Method 100 F H 98 18 135/80 H 98 Room Air 07/30/25 17:02 07/30/25 17:02 07/30/25 17:02 07/30/25 17:02 07/30/25 17:02 07/30/25 17:02 Oxygen Delivery Method Room Air Weight: 129 lb 13.636 oz Body Mass Index (BMI) 27.1 Intake & Output: Intake and Output for Last 24 Hours 07/28/25 07/29/25 07/30/25 23:59 23:59 23:59 Intake Total 503.67 / 503.67 4887.5 / 4887.5 Output Total 800 / 800 Balance 503.67 / 503.67 4087.5 / 4087.5 Lab / Micro Data 07/30/25 15:05 07/30/25 15:05 Labs: Laboratory Results - last 24 hr 07/29/25 20:20: WBC Cancelled, Corrected WBC Cancelled, RBC Cancelled, Hgb Cancelled, Hct Cancelled, MCV Cancelled, MCH Cancelled, MCHC Cancelled, RDW Std Deviation Cancelled, RDW Coeff of Merna Cancelled, Plt Count Cancelled, MPV Cancelled, Immature Gran % (Auto) Cancelled, Neut % (Auto) Cancelled, Lymph % (Auto) Cancelled, [place] % (Auto) Cancelled, Eos % (Auto) Cancelled, Baso % (Auto) Cancelled, Absolute Neuts (auto) Cancelled, Absolute Lymphs (auto) Cancelled, Total Counted Cancelled, Neutrophils % (Manual) Cancelled, Band Neutrophils % Cancelled, Lymphocytes % (Manual) Cancelled, Monocytes % (Manual) Cancelled, Eosinophils % (Manual) Cancelled, Basophils % (Manual) Cancelled, Metamyelocytes % Cancelled, Myelocytes % Cancelled, Promyelocytes % Cancelled, Blast Cells % Cancelled, Plasma Cell % (Manual) Cancelled, Other Cells % Cancelled, Nucleated RBC % Cancelled, Nucleated RBCs/100 WBC Cancelled, Differential Comment Cancelled, Diff Path Review Cancelled, Hypersegmented Neuts Cancelled, Atypical Lymphocytes Cancelled, Reactive Lymphocytes Cancelled, Smudge Cells Cancelled, Toxic Granulation Cancelled, Toxic Vacuolation Cancelled, Dohle Bodies Cancelled, Shawn Rods Cancelled, Platelet Estimate Cancelled, Plt Morphology Comment Cancelled, RBC Morphology Cancelled 07/29/25 20:20: RBC Morphology Cancelled, Polychromasia Cancelled, Hypochromasia Cancelled, Basophilic Stippling Cancelled, Anisocytosis Cancelled, Microcytosis Cancelled, Macrocytosis Cancelled, Spherocytes Cancelled, Sickle Cells Cancelled, Target Cells Cancelled, Tear Drop Cells Cancelled, Ovalocytes Cancelled, Stomatocytes Cancelled, Leblanc-[place] Bodies Cancelled, [place] Cells Cancelled, Bite Cells Cancelled, Crenated Cell Cancelled, Acanthocytes (Spur) Cancelled, Rouleaux Cancelled, Schistocytes Cancelled, Syphilis Total Ab Nonreactive, Blood Type B POSITIVE, Antibody Screen NEGATIVE 07/29/25 21:10: WBC 10.3, RBC 3.42 L, Hgb 8.8 L, Hct 27.7 L, MCV 81.0, MCH 25.7 L, MCHC 31.8 L, RDW Std Deviation 51.8 H, RDW Coeff of Merna 19.4 H, Plt Count 174, MPV 12.6 H, Immature Gran % (Auto) 1.100 H, Neut % (Auto) 75.7 H, Lymph % (Auto) 15.5 L, [place] % (Auto) 5.8, Eos % (Auto) 1.6, Baso % (Auto) 0.3, Absolute Neuts (auto) 7.8 H, Absolute Lymphs (auto) 1.59, Nucleated RBC % 0 07/30/25 06:15: Vag Amniotic Fld Detect POSITIVE H 07/30/25 15:05: WBC 20.0 H, RBC 3.97 L, Hgb 10.5 L, Hct 32.0 L, MCV 80.6 L, MCH 26.4 L, MCHC 32.8, RDW Std Deviation 55.6 H, RDW Coeff of Merna 20.2 H, Plt Count 170, MPV 12.5 H, Sodium 136, Potassium 4.1, Chloride 105, Carbon Dioxide 20.7 L, Anion Gap 11, BUN 9, Creatinine 0.91, Estim Creat Clear Calc 79.18, Est GFR (MDRD) Non-Af 92, BUN/Creatinine Ratio 10.2, Glucose 70, Uric Acid 6.2 H, Calcium 8.8, Total Bilirubin 0.55, AST 27, ALT 13, Alkaline Phosphatase 199 H, Total Protein 6.0, Albumin 3.3 L, Globulin 2.8, Albumin/Globulin Ratio 1.2 Physical Exam Manual OB Exam: presentation cephalic, dilated 4.5cm, effaced 90, station -1 and other caput, feels like OP but difficulty with exam NST FHR Rate Baby A Baseline: 145 Variability:: Moderate Accelerations:: 15 x 15 Decelerations:: Prolonged FHR Category:: Category II Uterine Activity:: every 1-2 minutes Assessment & Plan (1) Prolonged heart deceleration: (2) 40 weeks gestation of : (3) Elective induction of labor planned: (4) Nulliparity: (5) Failure to progress in labor: PLAN: Plan 1) Failure to progress for >6hr with adequate uterine contractions 2) Prolonged heart rate decelerations 3) Maternal neck pain and difficulty with positional changes due to pain 4) Discussed option for section at this time after heart rate recovered. Discussed risks, benefits, and alternatives. Ok to proceed with cesearean section. notified and called to hospital. 5) Ancef 2grams IVPB and Azithromycin 500mg IVPB for antibiotic prophylaxis
[2025-07-30] MEDS: Lactated Ringers 1,000 ML 1000 ML IV (17:55)
[2025-07-30] MEDS: fentaNYL 100 MCG/2 ML Ampul EPIDURAL (18:00)
[2025-07-30] MEDS: Lidocaine 2% (5ml sdv) 5 ML VIAL.MPF 10 ML EPIDURAL (18:00)
[2025-07-30] MEDS: Cefazolin 1 GM/5 ML Vial 2 GM IV (18:00)
[2025-07-30] MEDS: morphine PF (epidural) 5 MG/10 ML Vial 3 MG EPIDURAL (18:25)
[2025-07-30] MEDS: Oxytocin 15 Units/NS 250ml 15 UNITS/250 ML IV.SOLN 83 UNITS IV (18:50)
--- NOTE | 2025-07-30 19:21 | EX.PCM.OBRPT ---
Assessment & Plan (1) delivery due to maternal disorder, delivered, curr hospitaliz: (2) Single live : (3) Failure to progress in labor: Maternal Data Information Final SHAHLA: 07/29/25 Gestational age: 40 1/7 CNM who managed labor up until delivery: Erna Rubi Operative Report (OB) Procedure Details Date of Procedure: 07/30/25 Procedure Start Time: 18:12 Procedure Stop Time: 18:47 Time of Delivery: 18:13 Pre-Operative Diagnosis: Failed Induction and Other Other Pre-Operative diagnosis: arrest of dilation, CPD Post-Operative Diagnosis: Same as Pre-operative diagnosis Classification: BLANQUITA Type of Anesthesia: Epidural Special Medications: duramorph in epidural. IM methergine and hemabate x1 Antibiotic Given: Ancef 2 grams IV x1 and Zithromax 500 mg/5 mL X1 Drain: Torres to straight drain Estimated Blood Loss: 900 Fluids Replaced: 1000 Findings Description of surgery: The patient was taken to the operating room. She was prepped and draped in the dorsal supine position with a leftward tilt. A Pfannenstiel skin incision was made approximately 2 cm above the symphysis pubis and carried through to underlying layer fascia with the scalpel. The fascia was incised incised in the midline and extended laterally with blunt dissection. The rectus muscles were in the midline and the peritoneum was entered bluntly. The peritoneal incision was stretched and the bladder blade was placed. The uterine incision was made in a low transverse fashion with the scalpel and extended superiorly and inferiorly with blunt dissection. The amniotic membranes were ruptured and there was no malodor but the fluid appeared cloudy. The infant's head was brought to the incision in the flexed position and delivered without difficulty. The remainder of the was delivered with gentle traction and fundal pressure in the standard fashion. The mouth and nares were bulb suctioned. The cord was clamped and cut as the infant was stimulated. Cord clamping was delayed 30 seconds. The infant was handed off to the waiting nursing staff. The placenta was delivered with fundal massage and gentle traction in the standard fashion. The uterus was exteriorized and cleared of all clots and debris. The uterus was boggy and the Pitocin was opened up wide. Patient was given Methergine IM x 1. After several minutes the uterus was getting firmer but still boggy and she was given Hemabate IM x 1. Massage was continued as we closed the uterus. The uterine incision was closed with #1 Vicryl in a running locked fashion. A second layer of the same suture was used in imbricating fashion to obtain hemostasis. The incision was examined and was found to be hemostatic. The uterus was placed back into the peritoneal cavity and hemostasis was again confirmed. Hemablast was placed over each layer. The rectus muscles were examined and any bleeding was Bovie cauterized. The surgical teams outer gloves were then changed. The rectus fascia was examined and any bleeding was Bovie cauterized and the rectus fascia was closed with 1 Vicryl suture in a running standard fashion. The subcutaneous tissue was examining and any bleeding was Bovie cauterized. The subcutaneous tissue was reapproximated with 3-0 Vicryl suture. The skin was closed in a subcuticular fashion by the APPRAISAL TECHNICIAN with me present in the labor and delivery suite. I performed the remainder of the procedure with assistance. All sponge, lap, and needle counts were correct. The patient was taken to her room for recovery in a stable condition. Surgical findings: Vigorous male Presentation: Vertex Amniotic Membrane Rupture Type: Artificial Amniotic Fluid Description: Cloudy Placental Delivery Description: Expressed Placenta Disposition: Sent to Pathology Specimen collected: Yes Description of specimen(s) removed: placenta, cord gases Cord Vessel Description: 3 Vessels Cord Entanglement: Around neck x 1, loose Nuchal Cord Compression: Without compression Cord Gases: ABG and VBG A gender: Male (1 minute): 8 (5 minute): 9 Delayed Cord Clamping: Yes Lead Housekeeper assistive technology specialist: Yes Embedded Systems Designer: Carlos Caal Tasks completed by airline pilot/first officer: Closing, Altering tissue and Retracting Additional assistant banquet manager?: No Complications Complications: No Admit VTE Documentation VTE Present on Admission: No VTE Mechan Device Prophylaxis: SCD's VTE Pharm Prophylaxis Ordered: No Reason Prophylaxis Not Ordered: Procedure Not Indicated
[2025-07-30] MEDS: Lactated Ringers 1,000 ML 100 ML IV (19:25)
--- NOTE | 2025-07-30 19:38 | PLAC_PTH ---
PATIENT: DAO VALDES LOC: [facility] U#:[id number] AGE/SX: 20/F ROOM: WP006 RE07/29/[address]: Dr. Colleen Adler MD : 2005 BED: 1 DIS: 08/01/2025 SPEC #: [id number] RECD: 07/30/25 20:14 STATUS: SHIKHA REQ #: [id number] REINALDO: 07/30/25 19:[address]: Colleen Adler DEPT: SURGICAL PATHOLOGY RECD BY: Zia Mcguire ENTERED: 07/31/25 10:14 SP TYPE: PLACENTA OTHR DR: MD Dr. Rajani Day MD Tissues: A - Placenta, NOS Procedures: Surgery Specimen Level V HEADER OPERATION: Primary section PRE-OP DIAGNOSIS: TISSUE SUBMITTED: A- Placenta MICROSCOPIC DIAGNOSIS A. Placenta, section: - Eccentrically inserted and trivascular umbilical cord without active inflammation and with two false knots - Marginally inserted membranes without active inflammation and focal areas of benign squamous metaplasia - Mature (third trimester and consistent with the stated gestational age of 40 weeks) placenta without active inflammation MICROSCOPIC DESCRIPTION Slides are reviewed. GROSS DESCRIPTION A. Received in formalin labeled with the patient's name and date of is a 611 g, 18.1 x 17.6 x 3.3 cm slightly irregular, ovoid placental disc and approximately 23 g of detached clotted blood. The membranes are sy-pink, translucent and somewhat edematous, inserting marginally. The focally tethered, trivascular umbilical cord has 2 false knots, measures 34.4 cm in length by 1.4 cm in diameter and inserts eccentrically, 6.6 cm from the disc edge. The surface is pink-purple to blue-green with predominantly detached (90%) markedly edematous, focally nodular amnion with loosely adherent, apparent vernix. The maternal surface is red-purple to brown with a focally torn and frayed appearance, patchy calcifications (<20%) and somewhat adherent blood clot; there are no definitive defects underlying the blood clots and when reapproximated, the maternal surface appears near complete. Sectioning reveals dark red, spongy parenchyma with patchy hemorrhages and focal fibrin (collectively, <20%).. Mobile Developer sections are submitted as follows: A1: Membrane rollA2: Umbilical cordA3: PlacentaA4: Placenta SC 07/31/2025 CPT:69620
[2025-07-30] MEDS: Ketorolac 30 MG/ML Syringe IV (19:55)
[2025-07-30 21:17] LABS: Pathology Specimen OB SEE PATHOLOGY REPORT
[2025-07-31] VITALS (7 sets, daily range): BP systolic 113–136; BP diastolic 49–86; PULSE 69–97; RESP 16; TEMP 36.6–37.4; O2SAT 97–100
--- NOTE | 2025-07-31 01:52 | NURSING ---
0135- Call placed to Garth CHOU. Updated on urine output being 25 ml/ hour over the last 4 hours. POC is to give a 500 cc bolus and proceed to give toradol.
[2025-07-31] MEDS: Ketorolac 30 MG/ML Syringe IV ×3 (02:00→15:35)
[2025-07-31] MEDS: LACTATED RINGERS 500 ML 999 ML IV (02:00)
[2025-07-31 05:25] LABS: Hematocrit 23.3 % (37-47); Hemoglobin 7.9 g/dL (12.0-15.0); Mean Corp Hgb Conc 33.9 g/dL (32-36); Mean Corpuscular Volume 79.5 fL (81-99); Mean Platelet Vol. 12.6 fl (6.2-12.0); POSITIVE MORPHOLOGY YES; Platelet Count 166 K/mm3 (150-450); RBC Distribution Width CV 20.5 % (11.6-14.6); RBC Distribution Width SD 57.1 fl (35.1-43.9); Red Blood Count 2.93 M/mm3 (4.2-5.4); White Blood Count 27.9 K/mm3 (4.4-11.0)
[2025-07-31 06:18] LABS: Scan Indicated on CBC? Y/N YES- FLAGS NOTED
[2025-07-31] MEDS: Lactated Ringers 1,000 ML 100 ML IV (06:40)
[2025-07-31] MEDS: Furosemide 20 MG/2 ML VIAL IV (08:25)
[2025-07-31] MEDS: 0.9% Saline Lock 10 ML Syringe IV ×3 (08:25→15:35)
--- NOTE | 2025-07-31 08:34 | PCM.PN.OB ---
Subjective Subjective Pain controlled. Torres still in. Urine output low. Significant edema. Starting lasix. Lochia mild. Objective Data Objective Data Vital Signs: Vital Signs Temp Pulse Resp BP Pulse Ox O2 Del Method 97.9 F 70 16 117/66 98 Room Air 07/31/25 03:15 07/31/25 05:38 07/31/25 05:38 07/31/25 03:15 07/31/25 05:38 07/31/25 05:38 Oxygen Delivery Method Room Air Weight: 58.9 kg Body Mass Index (BMI) 27.1 Intake & Output: Intake and Output for Last 24 Hours 07/29/25 07/30/25 07/31/25 23:59 23:59 23:59 Intake Total 503.67 / 503.67 6404.17 / 6404.17 2700 / 2700 Output Total 1700 / 1700 175 / 175 Balance 503.67 / 503.67 4704.17 / 4704.17 2525 / 2525 Lab / Micro Data 07/31/25 05:10 07/30/25 15:05 Labs: Laboratory Results - last 24 hr 07/30/25 15:05: WBC 20.0 H, RBC 3.97 L, Hgb 10.5 L, Hct 32.0 L, MCV 80.6 L, MCH 26.4 L, MCHC 32.8, RDW Std Deviation 55.6 H, RDW Coeff of Merna 20.2 H, Plt Count 170, MPV 12.5 H, Sodium 136, Potassium 4.1, Chloride 105, Carbon Dioxide 20.7 L, Anion Gap 11, BUN 9, Creatinine 0.91, Estim Creat Clear Calc 79.18, Est GFR (MDRD) Non-Af 92, BUN/Creatinine Ratio 10.2, Glucose 70, Uric Acid 6.2 H, Calcium 8.8, Total Bilirubin 0.55, AST 27, ALT 13, Alkaline Phosphatase 199 H, Total Protein 6.0, Albumin 3.3 L, Globulin 2.8, Albumin/Globulin Ratio 1.2 07/31/25 05:10: WBC 27.9 H, RBC 2.93 L, Hgb 7.9 L, Hct 23.3 L, MCV 79.5 L, MCH 27.0, MCHC 33.9, RDW Std Deviation 57.1 H, RDW Coeff of Merna 20.5 H, Plt Count 166, MPV 12.6 H ROS Constitutional Constitutional: Denies headache(s) Cardiovascular Cardiovascular: Denies chest pain or dyspnea Gastrointestinal Gastrointestinal: Denies nausea or vomiting Genitourinary Genitourinary: Denies dysuria Physical Exam Const alert General Appearance: cooperative GI GI Narrative: soft, moderate distention, fundus firm, appropriately tender. Abdominal bandage clean dry and intact Extremity General Extremity: edema bilateral (3+) lower extremity Details: moderate Assessment & Plan (1) delivery due to maternal disorder, delivered, curr hospitaliz: (2) Failure to progress in labor: PLAN: Plan Lasix IV Ambulate Pain management
[2025-07-31] MEDS: Senna/Docusate Sodium 1 Tablet PO (10:20)
[2025-08-01 02:20] VITALS: BP 123/71; PULSE 83; RESP 14; TEMP 36.7; O2SAT 98
--- NOTE | 2025-08-01 07:18 | PCM.PN.OB ---
Subjective Subjective Doing well. Ambulating and voiding without difficulty. Mild lochia. Breast feeding. Objective Data Objective Data Vital Signs: Vital Signs Temp Pulse Resp BP Pulse Ox O2 Del Method 98.1 F 83 14 123/71 H 98 Room Air 08/01/25 02:20 08/01/25 02:20 08/01/25 02:20 08/01/25 02:20 08/01/25 02:20 08/01/25 02:20 Oxygen Delivery Method Room Air Weight: 58.9 kg Body Mass Index (BMI) 27.1 Intake & Output: Intake and Output for Last 24 Hours 07/30/25 07/31/25 08/01/25 23:59 23:59 23:59 Intake Total 6404.17 / 6404.17 2875 / 2875 Output Total 1700 / 1700 1125 / 1125 Balance 4704.17 / 4704.17 1750 / 1750 Lab / Micro Data 07/31/25 05:10 07/30/25 15:05 ROS Constitutional Constitutional: Denies headache(s) Cardiovascular Cardiovascular: Denies chest pain or dyspnea Gastrointestinal Gastrointestinal: Denies nausea or vomiting Genitourinary Genitourinary: Denies dysuria Physical Exam Const alert General Appearance: cooperative Eyes PERRL and EOMs intact bilaterally Resp normal respiratory effort GI soft to palpation and non-tender GI Narrative: soft, moderate distention, fundus firm, appropriately tender. Abdominal bandage clean dry and intact Uterus Palpation: uterus fundus firm ( below umbilicus) Extremity normal to inspection and full ROM Neuro oriented x3 and CN's II-XII intact bilaterally Psych mental status grossly normal Assessment & Plan (1) delivery due to maternal disorder, delivered, curr hospitaliz: PLAN: Plan discharge home
--- NOTE | 2025-08-01 07:19 | PCM.DC.SUM ---
Providers Date of Admission: 07/29/25 Date of Discharge: 08/01/25 Primary Care Physician: Dr. Rajani Peterson MD Reason For Visit: PRIMARY C SECTION Diagnosis Discharge Diagnosis (1) delivery due to maternal disorder, delivered, curr hospitaliz: Status: Acute Code(s): O99.892 - Other specified diseases and conditions complicating childbirth Plan discharge home Medications at Discharge Home Medications docosahexaenoic acid 1 cap PO DAILY 06/28/25 Hospital Course Operations None and section Procedures None Summary of Care Provided Minutes Spent on Discharge: 20 Physical Exam Const alert General Appearance: cooperative GI GI Narrative: soft, moderate distention, fundus firm, appropriately tender. Abdominal bandage clean dry and intact Weight / BMI Weight Weight: 58.9 kg Body Mass Index (BMI) 27.1 ABG / Lab / Microbiology Data 07/31/25 05:10 07/30/25 15:05 D/C Instructions May resume sexual activity in: 6 weeks DC O2, CPAP, BIPAP Needs Home O2 Discharge instructions: No Please Follow Up With: Colleen Adler MD When: Follow up with our office in 1-2 and 6 weeks or as needed. [phone] Meaningful Use Info Meaningful Use Meaningful Use Diagnoses (Choose all that apply): None applicable Discharge Plan Admission Admit Date/Time: 07/29/25 19:20 Primary Reason for Your Visit: induction Attending Provider: Colleen Adler Primary Care Provider: Rajani Peterson Discharge Orders/Prescriptions Prescriptions: Continued docosahexaenoic acid [ DHA] 1 cap PO DAILY Discontinued aspirin 81 mg tablet,chewable 1 tab PO DAILY Referrals / Follow Up: Rajani Peterson MD [Primary Care Provider, Pediatrics] Disposition Disposition (needs filled in before D/C Order can be placed): Home, Self Care
[2025-08-01 08:30] VITALS: BP 110/61; PULSE 74; RESP 16; TEMP 36.9
[2025-08-01] MEDS: Senna/Docusate Sodium 1 Tablet PO (09:34)
--- NOTE | 2025-08-01 12:17 | CASEMGMT ---
Social Work Assessment Labor and Delivery Unit Patient Address:[place] [address] Phone number: [phone] Date of Referral: 07/30/25 Time of Referral: 2349 Referred By: Dr. Adler Date of Intervention: 08/01/25 Time of Intervention: 1100 Reason for Referral: "history of anxiety and depression" Sw completed chart review and acknowledges social work consult. Sw presented to bedside and introduced self to mother of baby, MOB- Yamel and father of baby, FOB- Abel. Sw explained reason for sw involvement and completed psychosocial assessment. History obtained from: medical records, MOB and FOB Household composition: Currently residing in the home is MOB, FOB and baby when ready for discharge. Parents deny any housing concerns, stating that their home is safe and secure. Patient's parent/guardian status: Parents report that they were introduced to each other by mutual friends, they have been together for 4 years, and are . No concerns reported of domestic violence or intimate partner violence. baby is first baby for both parents. Medical History: JUVENAL is 20 year old female who is 1, para 0- now 1 following labor and delivery of . JUVENAL received routine care during with [facility]. JUVENAL presented to hospital for induction of labor and required delivery on 07/30/25 at 40 weeks gestation. Baby boy, named Jim Mcguire, was born weighing 8lbs 16oz and had apgars of 8 and 9 at one and five minutes of life, respectfully. JUVENAL is breast feeding and states that baby will be followed by Dr. Peterson for pediatrics. Educational Status: Both parents graduated from high school and deny any problems with reading, learning or comprehension. Financial Status: FONehal is gainfully employed working for an [employer], and also driving [employer]. MOB is not employed, she will be a stay at home mom. Supplies: All necessary baby supplies obtained, including: car seat, safe sleep space, clothes, diapers and wipes. Childcare/Caregiver(s): MOB will be the primary caregiver to baby along with FOB when he is not working. Transportation: Both parents have their drivers license and reliable means of transportation, no barriers Programs/Agencies Involved: Parents are not connected to any community resources that provide them with financial assistance at this time. Children Services/Legal Issues: No history of children services involvement, no issues or concerns warranting referral to be made at this time. Behavioral Health Issues: Mental Health History: SARAH reports to have a history of mild anxiety. FONehal states that he has never required medication to help him manage his symptoms. He states that he is able to cope with using healthy and safe coping skills, he has never had to call off of work or miss school due to anxiety related issues. MOB reports that she has been diagnosed with anxiety and depression. MOB states that currently she feels like she has struggled mostly with anxiety. MOB states that she was anxious leading up to delivery and not knowing what to expect. MOB reports that now she is anxious and feeling guilty about breast feeding and overwhelmed about what all breast feeding entails. Substance Use History: Parents deny substance use prior to and during . Family History: No family history of addiction or significant mental health history. Drug Screens: No drug screens observed while completing chart review. Family/Social Stressors: Parents deny any issues, concerns or stressors at this time. Support Systems: MOB identifies ASRAH, her parents and her sister as her biggest supports. Depression/Shaken Baby/Safe Sleeping: Sw educated parents on signs and symptoms of baby blues and mood and anxiety disorders to be mindful of going into this period. Sw explained to JUVENAL that she is more at risk for experiencing symptoms due to her mental health history. MOB states that currently she does feel anxious about breast feeding. She states that she knows that breast feeding is what is best for baby, but she also feels overwhelmed and knows that she will feel guilty if she stops. Sw encouraged JUVENAL to take it a day/ feed at a time and to not set a extermination inspector goal for herself that feels unachievable at this time. Sw also encouraged MOB to follow up with outpatient after she is discharged from labor and delivery. MOB states that she has an appointment scheduled for tomorrow. Sw encouraged SARAH to also be on the lookout for any changes in MOB's mood that would be concerning for depression/ anxiety. FOB states that he would be able to recognize if MOB were struggling and would know how to help her. Sw asked MOB if she is prescribed any medications to help her manage her anxiety or connected to any mental health resources and MOB denied. MOB states that she used to be prescribed something to help her anxiety but it was four years ago. MOB states that she does not believe that she is at the point to requiring medication. Sw encouraged MOB to follow up with her OBGYN if she feels as though her mental health symptoms are increasing in intensity, MOB agreed. Sw educated Parents on shaken baby prevention and ABCs of safe sleep, parents expressed understanding. ASSESSMENT: MOB and baby admitted following labor and delivery. MOB with mental health history of anxiety and depression. MOB able to recognize that she is feeling anxious regarding breast feeding baby and all that it entails. MOB states that she was not prepared for how demanding cluster feeding is. Sw utilized active listening and encouraged MOB to try to voice her concerns. Sw encouraged MOB to tell FOB what she needed to hear from him, if she needed someone to encourage her one way or another. Sw reminded MOB that outpatient services will meet MOB where she is at any time during her breast feeding journey, and encouraged MOB to stay connected to them. MOB expressed understanding. While meeting with parents MOB was sitting comfortably in reclining chair and FOB was sitting on couch. Both parents were initially engaging in conversation. MOB became agitated with having itchy skin, and was distracted here and there due to that. At one point during conversation, baby started to fuss and FOB got up to console him. While baby was crying, MOB would look over at baby who was laying beside her in his bassinet, but instead of picking him up, she just looked at the clock as if to see if it was time for him to eat or not. FOB then got up and got baby. Sw asked MOB if she feels a noriega or connection to baby, which she states that she does. PLAN: No other services requested or indicated. MOB and baby to be discharged when medically ready. Parents were provided literature regarding: signs and symptoms of baby blues and mood and anxiety disorders, Help Me Grow, shaken baby prevention, ABCs of safe sleep and a list of county resources that are available for them should any needs present themselves. Priya Hodge, LEAD PERSON, JUSTICE COURT DEPUTY CLERK
== END 2025-08-01 12:30 | disposition home or self-care (01) | DRG 787 ==
PROVIDERS: Advanced Practice Midwife; Admitting Provider Obstetrics & Gynecology; PCP Pediatrics; Referring Provider Obstetrics & Gynecology; Visit Provider Obstetrics & Gynecology
DX: O99.02 Anemia complicating childbirth (principal); O98.82 Other maternal infectious and parasitic diseases complicating childbirth; O76 Abnormality in fetal heart rate and rhythm complicating labor and delivery; B95.1 Streptococcus, group B, as the cause of diseases classified elsewhere; O61.0 Failed medical induction of labor; O99.893 Other specified diseases and conditions complicating puerperium; R60.0 Localized edema; O69.81X0 Labor and delivery complicated by cord around neck, without compression, not applicable or unspecified; Z37.0 Single live birth; Z3A.40 40 weeks gestation of pregnancy; O62.2 Other uterine inertia
CPT/HCPCS: 59025; 59050; 80053; 84112; 84550; 85025; 85027; 86780; 86850; 86900; 86901; 88307; 99221; A4216; G0378; J0675; J1938; J2405